=== PATIENT | male | born 1960 | race Asian ===

== ENCOUNTER 2017-02-22 17:57 | Inpatient (IN) | payer MEDICAID ==
[~2017-02-22] VITALS: Ht 162.6 cm; Wt 58.1 kg
[~2017-02-22 17:57] MED LIST: ASPI81TA33 PO; CARV6 PO; FURO40 PO; LISI-660 PO; POTA-9 PO
[2017-02-22 18:51] LABS: ANION GAP 8 mmol/L (8-16); CALCIUM, TOTAL 8.7 mg/dL (8.8-10.5); CARBON DIOXIDE 27 mmol/L (22-29); CHLORIDE 104 mmol/L (98-107); CREATININE 1.47 mg/dL (0.60-1.30); GLOMERULAR FILTR. RATE CALC 50 mL/min (>60); POTASSIUM 4.5 mmol/L (3.5-5.1); SODIUM SERUM 139 mmol/L (136-145); UREA NITROGEN, BLOOD 28 mg/dL (7-18)
[2017-02-22 18:56] LABS: HEMATOCRIT 43.3 % (41-53); HEMOGLOBIN 14.2 g/dL (13.5-17.5); LYMPHOCYTES # (AUTO) 1.1 K/uL (1.0-4.8); LYMPHOCYTES % (AUTO) 12.5 % (22.0-44.0); MEAN CORPUSCULAR HEMOGLOBIN 29.5 pg (26.0-34.0); MEAN CORPUSCULAR HGB CONC 32.7 G/dL (31.0-37.0); MEAN CORPUSCULAR VOLUME 90 fL (80-100); MONOCYTES # (AUTO) 0.7 K/uL (0.1-1.0); MONOCYTES % (AUTO) 8.4 % (2.0-9.0); NEUTROPHILS # (AUTO) 6.5 K/uL (1.8-7.7); NEUTROPHILS % (AUTO) 75.1 % (40.0-70.0); PLATELET COUNT (AUTO) 260 K/uL (150-450); RED BLOOD CELL COUNT(AUTO) 4.81 MIL/uL (4.50-5.90); WHITE BLOOD COUNT (AUTO) 8.7 K/uL (4.5-11.0)
[2017-02-22 18:57] LABS: ALANINE AMINOTRANSFERASE 78 U/L (12-78); ALBUMIN 3.2 g/dL (3.4-5.0); ASPARTATE AMINOTRANSFERASE 48 U/L (15-37); BILIRUBIN,TOTAL 1.7 mg/dL (0.1-1.0); TOTAL PROTEIN, SERUM 6.2 g/dL (6.4-8.2)
[2017-02-22 19:18] LABS: B-TYPE NATRIURETIC PEPTIDE 2570 pg/mL (0-100)
[2017-02-22 19:29] LABS: APPEARANCE,URINE CLEAR (CLEAR); GLUCOSE, URINE (UA) NEGATIVE (NEGATIVE); KETONES,URINE NEGATIVE (NEGATIVE); LEUKOCYTE ESTERASE ,URINE NEGATIVE (NEGATIVE); OCCULT BLOOD,URINE LARGE (NEGATIVE); PH,URINE 5.5 (5.0-8.0); PROTEIN,URINE SEE CONFIRM (NEGATIVE)
[2017-02-22 19:39] LABS: ADD UA MICROSCOPIC YES
[2017-02-22] MEDS ORDERED: FUROSEMIDE 40 MG/4 ML VIAL IVP ONE (19:45)
[2017-02-22] MEDS ORDERED: LISINOPRIL 10 MG TABLET PO ONE (19:45)
[2017-02-22] MEDS ORDERED: CARVEDILOL 3.125 MG TABLET PO ONE (19:45)
[2017-02-22] MEDS ORDERED: 0.9% SODIUM CHLORIDE 10 ML SYRINGE IVP PRN (20:15)
[2017-02-22] MEDS ORDERED: ACETAMINOPHEN 325 MG TABLET PO PRN (20:15)
[2017-02-22] MEDS ORDERED: ONDANSETRON HCL 4 MG/2 ML VIAL IVP PRN (20:15)
[2017-02-22 20:23] LABS: SULFOSALICYLIC ACID,URINE 4+ (Negative)
[2017-02-22 20:29] LABS: SQUAMOUS EPITHELIAL CELL,UR Few /LPF (None Seen)
[2017-02-22 20:58] VITALS: BP 129/95
[2017-02-22 20:58] LABS: CREATINE KINASE MB 3.6 ng/mL (0-5); CREATINE KINASE, TOTAL 95 U/L (39-308)
[2017-02-22] MEDS ORDERED: PNEUMOCOCCAL VACCINE POLYVALENT 0.5 ML VIAL [PPSV23] IM ONE (22:15)
[2017-02-22] MEDS ORDERED: INFLUENZA VIRUS VACCINE QVS 2017-18 (3YR+)/PF 60 MCG/0.5 ML SYRINGE IM ONE (22:15)
[2017-02-22 23:41] VITALS: BP 126/75
[2017-02-23 04:43] VITALS: BP 131/88
[2017-02-23 07:36] VITALS: BP 134/95
[2017-02-23] MEDS ORDERED: FUROSEMIDE 40 MG/4 ML VIAL IVP SCH (11:15)
[2017-02-23 11:20] VITALS: BP 119/84
[2017-02-23] MEDS ORDERED: FUROSEMIDE 40 MG/4 ML VIAL IVP ONE (11:45)
[2017-02-23] MEDS: LISINOPRIL 10 MG TABLET PO SCH (11:51)
[2017-02-23] MEDS: CARVEDILOL 12.5 MG TABLET PO SCH (11:51)
[2017-02-23 15:20] VITALS: BP 105/75
[2017-02-23] MEDS: HEPARIN SODIUM,PORCINE 5,000 UNITS/ML VIAL SQ SCH (16:44)
[2017-02-23 19:33] VITALS: BP 100/65
[2017-02-23 23:40] VITALS: BP 118/85
[2017-02-24 04:20] VITALS: BP 126/87
[2017-02-24 07:36] VITALS: BP 121/87
[2017-02-24] MEDS: HEPARIN SODIUM,PORCINE 5,000 UNITS/ML VIAL SQ SCH ×3 (07:54→17:12)
[2017-02-24] MEDS: LISINOPRIL 10 MG TABLET PO SCH (07:54)
[2017-02-24] MEDS: CARVEDILOL 12.5 MG TABLET PO SCH (07:54)
[2017-02-24] MEDS: FUROSEMIDE 40 MG/4 ML VIAL IVP SCH (07:54)
[2017-02-24 09:27] LABS: CALCIUM, TOTAL 8.2 mg/dL (8.8-10.5); CREATININE 1.71 mg/dL (0.60-1.30); POTASSIUM 3.9 mmol/L (3.5-5.1)
[2017-02-24 09:29] LABS: BASOPHILS % (AUTO) 0.4 % (0.0-2.0); EOSINOPHILS % (AUTO) 5.5 % (1.0-6.0); HEMATOCRIT 45.3 % (41-53); HEMOGLOBIN 15.1 g/dL (13.5-17.5); LYMPHOCYTES # (AUTO) 0.7 K/uL (1.0-4.8); LYMPHOCYTES % (AUTO) 7.7 % (22.0-44.0); MEAN CORPUSCULAR HEMOGLOBIN 29.9 pg (26.0-34.0); MEAN CORPUSCULAR HGB CONC 33.2 G/dL (31.0-37.0); MEAN CORPUSCULAR VOLUME 90 fL (80-100); MONOCYTES # (AUTO) 0.7 K/uL (0.1-1.0); NEUTROPHILS # (AUTO) 7.3 K/uL (1.8-7.7); NEUTROPHILS % (AUTO) 78.4 % (40.0-70.0); PLATELET COUNT (AUTO) 269 K/uL (150-450); RED BLOOD CELL COUNT(AUTO) 5.04 MIL/uL (4.50-5.90); RED CELL DISTRIBUTION WIDTH 14.9 % (11.5-14.5); WHITE BLOOD COUNT (AUTO) 9.3 K/uL (4.5-11.0)
[2017-02-24 11:27] VITALS: BP 102/61
[2017-02-24 15:45] VITALS: BP 130/92
[2017-02-24 19:43] VITALS: BP 123/88
[2017-02-24 23:32] VITALS: BP 131/87
[2017-02-25 04:26] VITALS: BP 122/86
[2017-02-25 06:28] LABS: ALBUMIN 2.6 g/dL (3.4-5.0); BILIRUBIN,TOTAL 0.5 mg/dL (0.1-1.0); CALCIUM, TOTAL 7.8 mg/dL (8.8-10.5); CHOL/HDL RATIO 4.1 (4.2-7.3); CREATININE 1.52 mg/dL (0.60-1.30); POTASSIUM 3.8 mmol/L (3.5-5.1)
[2017-02-25 07:19] VITALS: BP 127/95
[2017-02-25] MEDS: FUROSEMIDE 40 MG/4 ML VIAL IVP SCH (08:16)
[2017-02-25] MEDS: HEPARIN SODIUM,PORCINE 5,000 UNITS/ML VIAL SQ SCH ×4 (08:16→23:07)
[2017-02-25] MEDS: CARVEDILOL 12.5 MG TABLET PO SCH (08:16)
[2017-02-25 11:12] VITALS: BP 109/75
[2017-02-25] MEDS: LISINOPRIL 10 MG TABLET PO SCH (11:44)
[2017-02-25 15:27] VITALS: BP 124/72
[2017-02-25 19:17] VITALS: BP 104/75
[2017-02-25 23:11] VITALS: BP 112/77
[2017-02-26 04:58] VITALS: BP 121/85
[2017-02-26 06:36] LABS: ALBUMIN 2.7 g/dL (3.4-5.0); BILIRUBIN,TOTAL 0.4 mg/dL (0.1-1.0); CALCIUM, TOTAL 8.4 mg/dL (8.8-10.5); CREATININE 1.48 mg/dL (0.60-1.30); MAGNESIUM 2.3 mg/dL (1.80-2.40); TOTAL PROTEIN, SERUM 6.6 g/dL (6.4-8.2)
[2017-02-26 07:30] VITALS: BP 123/95
[2017-02-26 07:58] LABS: BASOPHILS % (AUTO) 0.8 % (0.0-2.0); EOSINOPHILS % (AUTO) 10.8 % (1.0-6.0); HEMATOCRIT 47.3 % (41-53); HEMOGLOBIN 15.5 g/dL (13.5-17.5); LYMPHOCYTES # (AUTO) 1.2 K/uL (1.0-4.8); LYMPHOCYTES % (AUTO) 14.6 % (22.0-44.0); MEAN CORPUSCULAR HEMOGLOBIN 29.8 pg (26.0-34.0); MEAN CORPUSCULAR HGB CONC 32.7 G/dL (31.0-37.0); MEAN CORPUSCULAR VOLUME 91 fL (80-100); MONOCYTES # (AUTO) 0.9 K/uL (0.1-1.0); MONOCYTES % (AUTO) 10.1 % (2.0-9.0); NEUTROPHILS # (AUTO) 5.5 K/uL (1.8-7.7); NEUTROPHILS % (AUTO) 63.7 % (40.0-70.0); PLATELET COUNT (AUTO) 302 K/uL (150-450); RED CELL DISTRIBUTION WIDTH 15.6 % (11.5-14.5); WHITE BLOOD COUNT (AUTO) 8.6 K/uL (4.5-11.0)
[2017-02-26] MEDS: HEPARIN SODIUM,PORCINE 5,000 UNITS/ML VIAL SQ SCH ×2 (08:36→16:40)
[2017-02-26] MEDS: FUROSEMIDE 40 MG/4 ML VIAL IVP SCH (08:36)
[2017-02-26] MEDS: CARVEDILOL 12.5 MG TABLET PO SCH (08:36)
[2017-02-26] MEDS: LISINOPRIL 10 MG TABLET PO SCH (11:48)
[2017-02-26] MEDS ORDERED: CARV12 PO (13:49)
[2017-02-26] MEDS ORDERED: ASPI-1182 PO (13:52)
[2017-02-26] MEDS ORDERED: KDUR10 PO (13:52)
[2017-02-26] MEDS ORDERED: LISI-661 PO (13:52)
[2017-02-26] MEDS ORDERED: FURO40 PO (13:52)
[2017-02-26 15:24] VITALS: BP 107/59
[2017-02-26] MEDS ORDERED: OXYGEN THERAPY IH SCH (20:00)
== END 2017-02-26 15:30 | disposition home or self-care (01) | DRG 194 ==
LOC: EMS 18:01 → 5S 20:15
PROVIDERS: ADMIT Family Medicine; ATTEND Family Medicine
PROC: 3E0234Z Introduction of Serum, Toxoid and Vaccine into Muscle, Percutaneous Approach (ICD-10-PCS; principal; 2017-02-22)
DX: I13.0 Hypertensive heart and chronic kidney disease with heart failure and stage 1 through stage 4 chronic kidney disease, or unspecified chronic kidney disease (principal); I27.20 Pulmonary hypertension, unspecified; I42.0 Dilated cardiomyopathy; N18.3 Chronic kidney disease, stage 3 (moderate); I50.23 Acute on chronic systolic (congestive) heart failure; F15.10 Other stimulant abuse, uncomplicated; I34.0 Nonrheumatic mitral (valve) insufficiency; F12.10 Cannabis abuse, uncomplicated; F17.200 Nicotine dependence, unspecified, uncomplicated; I45.9 Conduction disorder, unspecified; Z79.899 Other long term (current) drug therapy; Z91.19 Patient's noncompliance with other medical treatment and regimen; Z23 Encounter for immunization
CPT/HCPCS: 83735; 87086; 90471; 93005; 93306; 96374; 99285; 99406; J1644; J1940

== ENCOUNTER 2017-03-10 17:33 | Inpatient (IN) | payer MEDICAID ==
[~2017-03-10] VITALS: Ht 157.5 cm; Wt 59.0 kg
[~2017-03-10 17:33] MED LIST changes: +ASPI-1182 PO; -ASPI81TA33 PO; +CARV12 PO; -CARV6 PO; +KDUR10 PO; -LISI-660 PO; +LISI-661 PO; -POTA-9 PO
[2017-03-10 18:07] LABS: BASOPHILS % (AUTO) 0.2 % (0.0-2.0); EOSINOPHILS % (AUTO) 2.6 % (1.0-6.0); HEMATOCRIT 40.5 % (41-53); HEMOGLOBIN 13.6 g/dL (13.5-17.5); LYMPHOCYTES # (AUTO) 1.2 K/uL (1.0-4.8); LYMPHOCYTES % (AUTO) 9.6 % (22.0-44.0); MEAN CORPUSCULAR HEMOGLOBIN 30.2 pg (26.0-34.0); MEAN CORPUSCULAR HGB CONC 33.6 G/dL (31.0-37.0); MEAN CORPUSCULAR VOLUME 90 fL (80-100); MONOCYTES # (AUTO) 1.1 K/uL (0.1-1.0); MONOCYTES % (AUTO) 8.8 % (2.0-9.0); NEUTROPHILS # (AUTO) 9.6 K/uL (1.8-7.7); NEUTROPHILS % (AUTO) 78.8 % (40.0-70.0); PLATELET COUNT (AUTO) 256 K/uL (150-450); RED BLOOD CELL COUNT(AUTO) 4.51 MIL/uL (4.50-5.90); RED CELL DISTRIBUTION WIDTH 14.8 % (11.5-14.5); WHITE BLOOD COUNT (AUTO) 12.2 K/uL (4.5-11.0)
[2017-03-10 18:15] LABS: ABG A-A DIFF O2 159.8 mmHg (10-20.0); ABG BASE EXCESS -2.9 mmol/L (-2.0-3.0); ABG HCO3 22.6 mmol/L (22.0-26.0); ABG OXYHEMOGLOBIN 95.4 % (94.0-100.0); ABG PCO2 36 mmHg (35-45); ABG PH 7.403 (7.35-7.450); ALLEN TEST, BLOOD GAS Positive; TEMPERATURE, FAHRENHEIT, BG 98.6 FAHREN (96.0-98.6)
[2017-03-10 18:20] LABS: ANION GAP 9 mmol/L (8-16); CALCIUM, TOTAL 8.3 mg/dL (8.8-10.5); CARBON DIOXIDE 27 mmol/L (22-29); CHLORIDE 105 mmol/L (98-107); CREATININE 1.28 mg/dL (0.60-1.30); GLOMERULAR FILTR. RATE CALC 58 mL/min (>60); POTASSIUM 4.1 mmol/L (3.5-5.1); SODIUM SERUM 141 mmol/L (136-145); UREA NITROGEN, BLOOD 20 mg/dL (7-18)
[2017-03-10 18:27] LABS: B-TYPE NATRIURETIC PEPTIDE 1270 pg/mL (0-100)
[2017-03-10 18:44] LABS: ALANINE AMINOTRANSFERASE 39 U/L (12-78); ALBUMIN 3.2 g/dL (3.4-5.0); ASPARTATE AMINOTRANSFERASE 31 U/L (15-37); CREATINE KINASE MB 4.1 ng/mL (0-5); CREATINE KINASE, TOTAL 250 U/L (39-308); TOTAL PROTEIN, SERUM 6.6 g/dL (6.4-8.2)
[2017-03-10] MEDS ORDERED: 0.9% SODIUM CHLORIDE 5 ML NEB SOLUTION NEB ONE (18:58)
[2017-03-10] MEDS ORDERED: FUROSEMIDE 40 MG/4 ML VIAL IVP ONE (19:00)
[2017-03-10] MEDS ORDERED: IPRATROPIUM BROMIDE 0.5 MG/2.5 ML NEB SOLUTION NEB ONE (19:00)
[2017-03-10] MEDS ORDERED: ALBUTEROL SULFATE 5 MG/ML 20 ML NEB SOLN [BULK] NEB ONE (19:00)
[2017-03-10] MEDS ORDERED: ACETAMINOPHEN 325 MG TABLET PO PRN (19:45)
[2017-03-10] MEDS ORDERED: ONDANSETRON HCL 4 MG/2 ML VIAL IVP PRN (19:45)
[2017-03-10] MEDS ORDERED: 0.9% SODIUM CHLORIDE 10 ML SYRINGE IVP PRN (19:45)
[2017-03-10 20:47] VITALS: BP 137/87
[2017-03-10] MEDS ORDERED: IPRATROPIUM BROMIDE 0.5 MG/2.5 ML NEB SOLUTION NEB SCH (23:00)
[2017-03-10] MEDS ORDERED: ALBUTEROL SULFATE 2.5 MG/0.5 ML NEB SOLUTION NEB SCH (23:00)
[2017-03-10 23:46] VITALS: BP 120/78
[2017-03-11 04:49] VITALS: BP 128/87
[2017-03-11 06:55] LABS: BASOPHILS # (AUTO) 0.02 K/uL (0.00-0.20); BASOPHILS % (AUTO) 0.1 % (0.0-2.0); EOSINOPHILS # (AUTO) 0.52 K/uL (0.00-0.70); EOSINOPHILS % (AUTO) 4.81 % (1.0-6.0); HEMATOCRIT 43.1 % (41-53); LYMPHOCYTES # (AUTO) 0.6 K/uL (1.0-4.8); LYMPHOCYTES % (AUTO) 5.4 % (22.0-44.0); MEAN CORPUSCULAR HEMOGLOBIN 29.5 pg (26.0-34.0); MEAN CORPUSCULAR HGB CONC 32.6 G/dL (31.0-37.0); MEAN CORPUSCULAR VOLUME 91 fL (80-100); MONOCYTES # (AUTO) 0.9 K/uL (0.1-1.0); MONOCYTES % (AUTO) 7.8 % (2.0-9.0); NEUTROPHILS # (AUTO) 8.9 K/uL (1.8-7.7); NEUTROPHILS % (AUTO) 81.9 % (40.0-70.0); PLATELET COUNT (AUTO) 242 K/uL (150-450); RED BLOOD CELL COUNT(AUTO) 4.76 MIL/uL (4.50-5.90); RED CELL DISTRIBUTION WIDTH 14.5 % (11.5-14.5); WHITE BLOOD COUNT (AUTO) 10.9 K/uL (4.5-11.0)
[2017-03-11 07:08] LABS: ALBUMIN 3.1 g/dL (3.4-5.0); BILIRUBIN,TOTAL 1.3 mg/dL (0.1-1.0); CALCIUM, TOTAL 8.5 mg/dL (8.8-10.5); CREATININE 1.35 mg/dL (0.60-1.30); MAGNESIUM 1.7 mg/dL (1.80-2.40); POTASSIUM 3.7 mmol/L (3.5-5.1); TOTAL PROTEIN, SERUM 6.8 g/dL (6.4-8.2)
[2017-03-11 07:16] VITALS: BP 131/92
[2017-03-11] MEDS: LISINOPRIL 10 MG TABLET PO SCH (08:16)
[2017-03-11] MEDS: POTASSIUM CHLORIDE 10 MEQ ER TABLET PO SCH (08:16)
[2017-03-11] MEDS: ASPIRIN 81 MG EC TABLET PO SCH (08:16)
[2017-03-11] MEDS: FUROSEMIDE 40 MG/4 ML VIAL IVP SCH ×2 (08:16→21:52)
[2017-03-11] MEDS: CARVEDILOL 12.5 MG TABLET PO SCH ×2 (08:16→21:52)
[2017-03-11 08:52] LABS: ADD UA MICROSCOPIC YES; APPEARANCE,URINE CLEAR (CLEAR); GLUCOSE, URINE (UA) NEGATIVE (NEGATIVE); KETONES,URINE NEGATIVE (NEGATIVE); LEUKOCYTE ESTERASE ,URINE NEGATIVE (NEGATIVE); OCCULT BLOOD,URINE MODERATE (NEGATIVE); PROTEIN,URINE POS 1+ (NEGATIVE)
[2017-03-11 08:57] LABS: SQUAMOUS EPITHELIAL CELL,UR Rare /LPF (None Seen); WBC,URINE 0-2 /HPF (0-5)
[2017-03-11 08:58] LABS: RBC,URINE 0-2 /HPF (0-2)
[2017-03-11 11:18] VITALS: BP 130/87
[2017-03-11] MEDS ORDERED: ACETAMINOPHEN 325 MG TABLET PO PRN (12:45)
[2017-03-11] MEDS: PANTOPRAZOLE SODIUM 40 MG DR TABLET PO SCH (13:29)
[2017-03-11] MEDS: HEPARIN SODIUM,PORCINE 5,000 UNITS/ML VIAL SQ SCH (15:18)
[2017-03-11 15:35] VITALS: BP 133/74
[2017-03-11] MEDS ORDERED: MAGNESIUM SULFATE 2 GM in DEXTROSE 5%-WATER 50 ML IV ONE (16:45)
[2017-03-11] MEDS: IPRATROPIUM BROMIDE 0.5 MG/2.5 ML NEB SOLUTION NEB PRN (16:56)
[2017-03-11] MEDS: ALBUTEROL SULFATE 2.5 MG/0.5 ML NEB SOLUTION NEB PRN (16:56)
[2017-03-11 20:41] VITALS: BP 133/85
[2017-03-11] MEDS: CefTRIAXone 1 GM/DEXTROSE 50 ML IV SCH (22:44)
[2017-03-12] VITALS (7 sets, daily range): BP systolic 91–109; BP diastolic 59–85
[2017-03-12] MEDS: HEPARIN SODIUM,PORCINE 5,000 UNITS/ML VIAL SQ SCH ×3 (00:10→16:57)
[2017-03-12 07:29] LABS: BASOPHILS % (AUTO) 0.2 % (0.0-2.0); HEMATOCRIT 50.3 % (41-53); HEMOGLOBIN 16.6 g/dL (13.5-17.5); LYMPHOCYTES # (AUTO) 0.7 K/uL (1.0-4.8); LYMPHOCYTES % (AUTO) 6.1 % (22.0-44.0); MEAN CORPUSCULAR HEMOGLOBIN 29.8 pg (26.0-34.0); MEAN CORPUSCULAR HGB CONC 33.1 G/dL (31.0-37.0); MEAN CORPUSCULAR VOLUME 90 fL (80-100); MONOCYTES # (AUTO) 1.4 K/uL (0.1-1.0); MONOCYTES % (AUTO) 11.7 % (2.0-9.0); PLATELET COUNT (AUTO) 265 K/uL (150-450); RED BLOOD CELL COUNT(AUTO) 5.59 MIL/uL (4.50-5.90); RED CELL DISTRIBUTION WIDTH 14.4 % (11.5-14.5); WHITE BLOOD COUNT (AUTO) 11.7 K/uL (4.5-11.0)
[2017-03-12 07:56] LABS: ANION GAP 6 mmol/L (8-16); CALCIUM, TOTAL 9.1 mg/dL (8.8-10.5); CARBON DIOXIDE 31 mmol/L (22-29); CHLORIDE 99 mmol/L (98-107); CHOL/HDL RATIO 2.3 (4.2-7.3); CREATINE KINASE, TOTAL 110 U/L (39-308); CREATININE 1.35 mg/dL (0.60-1.30); GLOMERULAR FILTR. RATE CALC 55 mL/min (>60); POTASSIUM 3.7 mmol/L (3.5-5.1); SODIUM SERUM 136 mmol/L (136-145); UREA NITROGEN, BLOOD 32 mg/dL (7-18)
[2017-03-12] MEDS: FUROSEMIDE 40 MG/4 ML VIAL IVP SCH ×2 (09:05→21:12)
[2017-03-12] MEDS: ASPIRIN 81 MG EC TABLET PO SCH (09:07)
[2017-03-12] MEDS: CARVEDILOL 12.5 MG TABLET PO SCH ×2 (09:07→21:00)
[2017-03-12] MEDS: PANTOPRAZOLE SODIUM 40 MG DR TABLET PO SCH (09:07)
[2017-03-12] MEDS: POTASSIUM CHLORIDE 10 MEQ ER TABLET PO SCH (09:07)
[2017-03-12] MEDS: LISINOPRIL 10 MG TABLET PO SCH (09:08)
[2017-03-12] MEDS: OXYGEN THERAPY IH SCH ×2 (10:21→19:16)
[2017-03-12] MEDS: ALBUTEROL SULFATE 2.5 MG/0.5 ML NEB SOLUTION NEB PRN (10:23)
[2017-03-12] MEDS: IPRATROPIUM BROMIDE 0.5 MG/2.5 ML NEB SOLUTION NEB PRN (10:23)
[2017-03-12] MEDS: IPRATROPIUM BROMIDE 0.5 MG/2.5 ML NEB SOLUTION NEB SCH ×3 (16:42→23:16)
[2017-03-12] MEDS: ALBUTEROL SULFATE 2.5 MG/0.5 ML NEB SOLUTION NEB SCH ×3 (16:43→23:16)
[2017-03-12] MEDS: CefTRIAXone 1 GM/DEXTROSE 50 ML IV SCH (21:12)
[2017-03-13] MEDS: HEPARIN SODIUM,PORCINE 5,000 UNITS/ML VIAL SQ SCH ×2 (00:33→08:41)
[2017-03-13] MEDS: IPRATROPIUM BROMIDE 0.5 MG/2.5 ML NEB SOLUTION NEB SCH ×4 (03:05→15:05)
[2017-03-13] MEDS: ALBUTEROL SULFATE 2.5 MG/0.5 ML NEB SOLUTION NEB SCH ×4 (03:05→15:05)
[2017-03-13 04:33] VITALS: BP 109/75
[2017-03-13 07:08] LABS: CALCIUM, TOTAL 8.8 mg/dL (8.8-10.5); CREATININE 1.76 mg/dL (0.60-1.30); POTASSIUM 4.3 mmol/L (3.5-5.1)
[2017-03-13 07:12] VITALS: BP 112/75
[2017-03-13 07:14] LABS: BASOPHILS % (AUTO) 0.5 % (0.0-2.0); EOSINOPHILS % (AUTO) 11.9 % (1.0-6.0); HEMATOCRIT 49.2 % (41-53); HEMOGLOBIN 16.3 g/dL (13.5-17.5); LYMPHOCYTES # (AUTO) 1.3 K/uL (1.0-4.8); LYMPHOCYTES % (AUTO) 13.4 % (22.0-44.0); MEAN CORPUSCULAR HEMOGLOBIN 29.9 pg (26.0-34.0); MEAN CORPUSCULAR HGB CONC 33.2 G/dL (31.0-37.0); MEAN CORPUSCULAR VOLUME 90 fL (80-100); MONOCYTES # (AUTO) 1.2 K/uL (0.1-1.0); MONOCYTES % (AUTO) 12.1 % (2.0-9.0); NEUTROPHILS # (AUTO) 5.9 K/uL (1.8-7.7); NEUTROPHILS % (AUTO) 62.1 % (40.0-70.0); PLATELET COUNT (AUTO) 280 K/uL (150-450); RED BLOOD CELL COUNT(AUTO) 5.46 MIL/uL (4.50-5.90); RED CELL DISTRIBUTION WIDTH 14.7 % (11.5-14.5); WHITE BLOOD COUNT (AUTO) 9.5 K/uL (4.5-11.0)
[2017-03-13] MEDS: OXYGEN THERAPY IH SCH (08:08)
[2017-03-13] MEDS: FUROSEMIDE 40 MG/4 ML VIAL IVP SCH (08:41)
[2017-03-13] MEDS: POTASSIUM CHLORIDE 10 MEQ ER TABLET PO SCH (08:42)
[2017-03-13] MEDS: PANTOPRAZOLE SODIUM 40 MG DR TABLET PO SCH (08:42)
[2017-03-13] MEDS: ASPIRIN 81 MG EC TABLET PO SCH (08:42)
[2017-03-13] MEDS: CARVEDILOL 12.5 MG TABLET PO SCH (08:43)
[2017-03-13] MEDS: LISINOPRIL 10 MG TABLET PO SCH (09:00)
[2017-03-13 11:17] VITALS: BP 98/66
[2017-03-13 15:34] VITALS: BP 110/60
== END 2017-03-13 16:08 | disposition home or self-care (01) | DRG 194 ==
LOC: EMS 17:35 → 5S 19:49
PROVIDERS: ADMIT Family Medicine; ATTEND Family Medicine
DX: I11.0 Hypertensive heart disease with heart failure (principal); R65.10 Systemic inflammatory response syndrome (SIRS) of non-infectious origin without acute organ dysfunction; J44.9 Chronic obstructive pulmonary disease, unspecified; I50.23 Acute on chronic systolic (congestive) heart failure; F12.90 Cannabis use, unspecified, uncomplicated; Z87.891 Personal history of nicotine dependence; Z91.19 Patient's noncompliance with other medical treatment and regimen; Z79.899 Other long term (current) drug therapy; Z71.6 Tobacco abuse counseling
CPT/HCPCS: 80307; 82805; 83735; 87040; 87081; 87086; 93005; 94640; 94644; 96374; 99285; J0696; J1644; J1940; J3475; J7060

== ENCOUNTER 2018-02-14 11:14 | Inpatient (IN) | payer SELFPAY ==
[~2018-02-14] VITALS: Ht 162.6 cm; Wt 56.1 kg
[2018-02-14 12:03] LABS: INR 1.2 (0.9-1.1)
[2018-02-14 12:04] LABS: BASOPHILS % (AUTO) 0.7 % (0.0-2.0); CALCIUM, TOTAL 8.5 mg/dL (8.8-10.5); CREATININE 1.63 mg/dL (0.60-1.30); EOSINOPHILS % (AUTO) 1.1 % (1.0-6.0); HEMATOCRIT 47.6 % (41-53); HEMOGLOBIN 15.7 g/dL (13.5-17.5); LYMPHOCYTES # (AUTO) 0.6 K/uL (1.0-4.8); LYMPHOCYTES % (AUTO) 9.2 % (22.0-44.0); MEAN CORPUSCULAR HEMOGLOBIN 29.6 pg (26.0-34.0); MEAN CORPUSCULAR HGB CONC 32.9 G/dL (31.0-37.0); MEAN CORPUSCULAR VOLUME 90 fL (80-100); MONOCYTES # (AUTO) 0.4 K/uL (0.1-1.0); MONOCYTES % (AUTO) 6.3 % (2.0-9.0); NEUTROPHILS # (AUTO) 5.2 K/uL (1.8-7.7); NEUTROPHILS % (AUTO) 82.7 % (40.0-70.0); PLATELET COUNT (AUTO) 273 K/uL (150-450); POTASSIUM 4.3 mmol/L (3.5-5.1); RED BLOOD CELL COUNT(AUTO) 5.31 MIL/uL (4.50-5.90); RED CELL DISTRIBUTION WIDTH 14.9 % (11.5-14.5)
[2018-02-14] MEDS ORDERED: NITROGLYCERIN 2% (1 GM=INCH) PACKET TP ONE (12:15)
[2018-02-14] MEDS ORDERED: FUROSEMIDE 40 MG/4 ML VIAL IVP ONE (12:15)
[2018-02-14] MEDS ORDERED: ASPIRIN 325 MG EC TABLET PO ONE (12:15)
[2018-02-14 12:32] LABS: ALBUMIN 2.9 g/dL (3.4-5.0); BILIRUBIN,TOTAL 1.2 mg/dL (0.1-1.0); TOTAL PROTEIN, SERUM 6.6 g/dL (6.4-8.2)
[2018-02-14] MEDS ORDERED: HydrALAZINE HCL 20 MG/ML VIAL IVP ONE (13:30)
[2018-02-14 13:33] LABS: AMPHET/METH SCREEN,URINE NEGATIVE (NEGATIVE); BARBITURATE SCREEN, URINE NEGATIVE (NEGATIVE); BENZODIAZEPINES SCREEN,URINE NEGATIVE (NEGATIVE); CANNABINOID SCREEN,URINE POSITIVE (NEGATIVE); COCAINE SCREEN,URINE NEGATIVE (NEGATIVE); METHADONE SCREEN, URINE NEGATIVE (NEGATIVE); OPIATE SCREEN,URINE NEGATIVE (NEGATIVE)
[2018-02-14 13:35] LABS: PHENCYCLIDINE SCREEN,URINE NEGATIVE (NEGATIVE)
[2018-02-14 13:47] LABS: APPEARANCE,URINE CLEAR (CLEAR); BILIRUBIN,URINE NEGATIVE (NEGATIVE); GLUCOSE, URINE (UA) NEGATIVE (NEGATIVE); KETONES,URINE NEGATIVE (NEGATIVE); LEUKOCYTE ESTERASE ,URINE NEGATIVE (NEGATIVE); NITRATE,URINE NEGATIVE (NEGATIVE); OCCULT BLOOD,URINE MODERATE (NEGATIVE); PROTEIN,URINE SEE CONFIRM (NEGATIVE); UROBILINOGEN,URINE 0.2 mg/dL (<=1.0)
[2018-02-14] MEDS ORDERED: ACETAMINOPHEN 325 MG TABLET PO PRN ×2 (14:00→17:30)
[2018-02-14] MEDS ORDERED: 0.9% SODIUM CHLORIDE 10 ML SYRINGE IVP PRN (14:00)
[2018-02-14 14:01] LABS: SULFOSALICYLIC ACID,URINE 3+ (Negative)
[2018-02-14 14:03] LABS: BACTERIA,URINE None Seen /HPF (None Seen); HYALINE CASTS, URINE 0-2 /LPF (None Seen); SQUAMOUS EPITHELIAL CELL,UR Few /LPF (None Seen); WBC,URINE 0-2 /HPF (0-5)
[2018-02-14 16:20] VITALS: BP 126/77
[2018-02-14] MEDS ORDERED: HYDROCODONE/ACETAMINOPHEN 5-325 MG TABLET PO PRN (17:30)
[2018-02-14] MEDS ORDERED: ZOLPIDEM TARTRATE 5 MG TABLET PO PRN (17:30)
[2018-02-14] MEDS ORDERED: IPRATROPIUM BROMIDE 0.5 MG/2.5 ML NEB SOLUTION NEB PRN (17:30)
[2018-02-14] MEDS ORDERED: ONDANSETRON HCL 4 MG/2 ML VIAL IVP PRN (17:30)
[2018-02-14] MEDS ORDERED: MAGNESIUM HYDROXIDE SUSPENSION 30 ML UDCUP PO PRN (17:30)
[2018-02-14] MEDS ORDERED: BISACODYL 10 MG RECTAL RECTAL SUPPOSITORY PR PRN (17:30)
[2018-02-14] MEDS ORDERED: ALBUTEROL SULFATE 2.5 MG/0.5 ML NEB SOLUTION NEB PRN (17:30)
[2018-02-14] MEDS ORDERED: MORPHINE SULFATE 2 MG/ML SYRINGE IVP PRN (17:30)
[2018-02-14] MEDS: NITROGLYCERIN 2% (1 GM=INCH) PACKET TP SCH ×2 (18:06→23:23)
[2018-02-14 19:47] VITALS: BP 126/89
[2018-02-14] MEDS: DOCUSATE SODIUM 100 MG CAPSULE PO SCH (20:21)
[2018-02-14] MEDS: CARVEDILOL 12.5 MG TABLET PO SCH (20:21)
[2018-02-14 23:13] VITALS: BP 111/84
[2018-02-14 23:14] VITALS: BP 111/84
[2018-02-14] MEDS: HEPARIN SODIUM,PORCINE 5,000 UNITS/ML VIAL SQ SCH (23:22)
[2018-02-15 04:30] VITALS: BP 109/72
[2018-02-15] MEDS: NITROGLYCERIN 2% (1 GM=INCH) PACKET TP SCH ×3 (05:44→16:38)
[2018-02-15 06:24] LABS: BASOPHILS % (AUTO) 0.9 % (0.0-2.0); HEMATOCRIT 43.1 % (41-53); HEMOGLOBIN 14.5 g/dL (13.5-17.5); LYMPHOCYTES # (AUTO) 0.7 K/uL (1.0-4.8); LYMPHOCYTES % (AUTO) 9.4 % (22.0-44.0); MEAN CORPUSCULAR HEMOGLOBIN 30.4 pg (26.0-34.0); MEAN CORPUSCULAR HGB CONC 33.6 G/dL (31.0-37.0); MEAN CORPUSCULAR VOLUME 90 fL (80-100); MONOCYTES # (AUTO) 0.7 K/uL (0.1-1.0); MONOCYTES % (AUTO) 9.7 % (2.0-9.0); NEUTROPHILS # (AUTO) 5.4 K/uL (1.8-7.7); PLATELET COUNT (AUTO) 236 K/uL (150-450); RED BLOOD CELL COUNT(AUTO) 4.77 MIL/uL (4.50-5.90); RED CELL DISTRIBUTION WIDTH 14.2 % (11.5-14.5)
[2018-02-15] MEDS ORDERED: LANSOPRAZOLE 30 MG CAPSULE PO SCH (06:30)
[2018-02-15 06:50] LABS: ALBUMIN 2.5 g/dL (3.4-5.0); BILIRUBIN,TOTAL 0.9 mg/dL (0.1-1.0); CALCIUM, TOTAL 7.8 mg/dL (8.8-10.5); CHOL/HDL RATIO 3.6 (4.2-7.3); CREATININE 1.45 mg/dL (0.60-1.30); POTASSIUM 3.9 mmol/L (3.5-5.1); TOTAL PROTEIN, SERUM 5.7 g/dL (6.4-8.2)
[2018-02-15 07:42] VITALS: BP 115/71
[2018-02-15] MEDS: ASPIRIN 81 MG EC TABLET PO SCH (08:11)
[2018-02-15] MEDS: POTASSIUM CHLORIDE 10 MEQ ER TABLET PO SCH (08:12)
[2018-02-15] MEDS: PANTOPRAZOLE SODIUM 40 MG DR TABLET PO SCH (08:12)
[2018-02-15] MEDS: DOCUSATE SODIUM 100 MG CAPSULE PO SCH ×2 (08:12→19:56)
[2018-02-15] MEDS: HEPARIN SODIUM,PORCINE 5,000 UNITS/ML VIAL SQ SCH ×3 (08:12→23:57)
[2018-02-15 08:31] LABS: FREE T4 (FREE THYROXINE) 0.98 ng/dL (0.76-1.46); THYROID STIMULATING HORMONE 1.09 uIU/mL (0.36-3.74)
[2018-02-15] MEDS ORDERED: FUROSEMIDE 40 MG TABLET PO SCH (09:00)
[2018-02-15] MEDS ORDERED: ASPIRIN 81 MG CHEWABLE TABLET PO SCH (09:00)
[2018-02-15 11:54] VITALS: BP 119/63
[2018-02-15] MEDS: LISINOPRIL 10 MG TABLET PO SCH (12:51)
[2018-02-15] MEDS: CARVEDILOL 12.5 MG TABLET PO SCH ×2 (12:51→19:59)
[2018-02-15] MEDS: FUROSEMIDE 40 MG/4 ML VIAL IVP SCH ×2 (12:51→20:00)
[2018-02-15 16:19] VITALS: BP 120/83
[2018-02-15 20:32] VITALS: BP 116/79
[2018-02-15] MEDS ORDERED: FUROSEMIDE 40 MG/4 ML VIAL IVP SCH (21:00)
[2018-02-15 23:54] VITALS: BP 123/68
[2018-02-16] MEDS: NITROGLYCERIN 2% (1 GM=INCH) PACKET TP SCH ×4 (00:06→18:00)
[2018-02-16 03:30] VITALS: BP 105/70
[2018-02-16 07:56] VITALS: BP 104/55
[2018-02-16] MEDS: CARVEDILOL 12.5 MG TABLET PO SCH ×2 (08:57→21:00)
[2018-02-16] MEDS: POTASSIUM CHLORIDE 10 MEQ ER TABLET PO SCH (08:57)
[2018-02-16] MEDS: HEPARIN SODIUM,PORCINE 5,000 UNITS/ML VIAL SQ SCH ×2 (08:57→16:42)
[2018-02-16] MEDS: FUROSEMIDE 40 MG/4 ML VIAL IVP SCH ×2 (08:57→20:29)
[2018-02-16] MEDS: LISINOPRIL 10 MG TABLET PO SCH (08:57)
[2018-02-16] MEDS: DOCUSATE SODIUM 100 MG CAPSULE PO SCH ×2 (08:57→20:31)
[2018-02-16] MEDS: ASPIRIN 81 MG EC TABLET PO SCH (08:57)
[2018-02-16] MEDS: PANTOPRAZOLE SODIUM 40 MG DR TABLET PO SCH (08:57)
[2018-02-16 11:22] VITALS: BP 96/52
[2018-02-16 15:36] VITALS: BP 94/46
[2018-02-16] MEDS ORDERED: SODIUM CHLORIDE 0.9% 250 ML IV ONE (18:49)
[2018-02-16 19:30] VITALS: BP 103/54
[2018-02-17 00:03] VITALS: BP 116/64
[2018-02-17 05:26] VITALS: BP 105/69
[2018-02-17] MEDS: NITROGLYCERIN 2% (1 GM=INCH) PACKET TP SCH ×4 (05:33→18:00)
[2018-02-17 07:16] VITALS: BP 96/61
[2018-02-17] MEDS ORDERED: FUROSEMIDE 40 MG TABLET PO SCH (09:00)
[2018-02-17] MEDS: LISINOPRIL 10 MG TABLET PO SCH (09:00)
[2018-02-17 09:10] VITALS: BP 105/76
[2018-02-17] MEDS: DOCUSATE SODIUM 100 MG CAPSULE PO SCH (09:11)
[2018-02-17] MEDS: HEPARIN SODIUM,PORCINE 5,000 UNITS/ML VIAL SQ SCH ×3 (09:11→16:55)
[2018-02-17] MEDS: PANTOPRAZOLE SODIUM 40 MG DR TABLET PO SCH (09:11)
[2018-02-17] MEDS: ASPIRIN 81 MG EC TABLET PO SCH (09:12)
[2018-02-17] MEDS: POTASSIUM CHLORIDE 10 MEQ ER TABLET PO SCH (09:12)
[2018-02-17] MEDS: CARVEDILOL 12.5 MG TABLET PO SCH (09:12)
[2018-02-17 12:37] LABS: CALCIUM, TOTAL 8.4 mg/dL (8.8-10.5); CREATININE 1.6 mg/dL (0.60-1.30); POTASSIUM 4.3 mmol/L (3.5-5.1)
[2018-02-17 12:43] LABS: ALBUMIN 2.8 g/dL (3.4-5.0); BILIRUBIN,TOTAL 0.4 mg/dL (0.1-1.0); TOTAL PROTEIN, SERUM 6.7 g/dL (6.4-8.2)
[2018-02-17 14:59] VITALS: BP 92/64
== END 2018-02-17 18:45 | disposition home or self-care (01) | DRG 291 ==
LOC: EMS 11:15 → 5S 14:12
PROVIDERS: ADMIT Hospitalist; ATTEND Hospitalist
DX: I13.0 Hypertensive heart and chronic kidney disease with heart failure and stage 1 through stage 4 chronic kidney disease, or unspecified chronic kidney disease (principal); E43 Unspecified severe protein-calorie malnutrition; I50.23 Acute on chronic systolic (congestive) heart failure; J44.9 Chronic obstructive pulmonary disease, unspecified; N18.9 Chronic kidney disease, unspecified; Z79.82 Long term (current) use of aspirin; I42.9 Cardiomyopathy, unspecified; F15.90 Other stimulant use, unspecified, uncomplicated; I44.0 Atrioventricular block, first degree; Z87.891 Personal history of nicotine dependence; Z72.89 Other problems related to lifestyle; Z98.52 Vasectomy status; Z82.49 Family history of ischemic heart disease and other diseases of the circulatory system; Z68.21 Body mass index [BMI] 21.0-21.9, adult
CPT/HCPCS: 84439; 84443; 90686; 93005; 93306; 96374; 96375; 99285; J0360; J1644; J1940; J7050

== ENCOUNTER 2018-05-01 14:40 | Inpatient (IN) | payer MEDICAID ==
[~2018-05-01] VITALS: Ht 162.6 cm; Wt 54.1 kg
[2018-05-01] MEDS ORDERED: FUROSEMIDE 40 MG/4 ML VIAL IVP ONE (16:15)
[2018-05-01 16:18] LABS: BASOPHILS % (AUTO) 0.8 % (0.0-2.0); EOSINOPHILS % (AUTO) 3.7 % (1.0-6.0); HEMATOCRIT 43.2 % (41-53); HEMOGLOBIN 14.1 g/dL (13.5-17.5); LYMPHOCYTES # (AUTO) 0.9 K/uL (1.0-4.8); LYMPHOCYTES % (AUTO) 12.2 % (22.0-44.0); MEAN CORPUSCULAR HEMOGLOBIN 29.5 pg (26.0-34.0); MEAN CORPUSCULAR HGB CONC 32.6 G/dL (31.0-37.0); MEAN CORPUSCULAR VOLUME 91 fL (80-100); MONOCYTES # (AUTO) 0.7 K/uL (0.1-1.0); MONOCYTES % (AUTO) 8.9 % (2.0-9.0); NEUTROPHILS # (AUTO) 5.5 K/uL (1.8-7.7); NEUTROPHILS % (AUTO) 74.4 % (40.0-70.0); PLATELET COUNT (AUTO) 317 K/uL (150-450); RED BLOOD CELL COUNT(AUTO) 4.78 MIL/uL (4.50-5.90); RED CELL DISTRIBUTION WIDTH 15.3 % (11.5-14.5)
[2018-05-01 16:28] LABS: ANION GAP 5 mmol/L (8-16); CALCIUM, TOTAL 8.4 mg/dL (8.8-10.5); CARBON DIOXIDE 28 mmol/L (22-29); CHLORIDE 105 mmol/L (98-107); CREATININE 1.09 mg/dL (0.60-1.30); GLOMERULAR FILTR. RATE CALC > 60 mL/min (>60); GLUCOSE,RANDOM 103 mg/dL (70-110); POTASSIUM 4.9 mmol/L (3.5-5.1); SODIUM SERUM 138 mmol/L (136-145); UREA NITROGEN, BLOOD 34 mg/dL (7-18)
[2018-05-01 16:39] LABS: B-TYPE NATRIURETIC PEPTIDE 3200 pg/mL (0-100)
[2018-05-01 16:45] LABS: INR 1.2 (0.9-1.1); PROTHROMBIN TIME 12.1 SEC (9.4-11.6)
[2018-05-01 16:54] LABS: ALANINE AMINOTRANSFERASE 316 U/L (12-78); ALKALINE PHOSPHATASE 101 U/L (46-116); ASPARTATE AMINOTRANSFERASE 138 U/L (15-37); BILIRUBIN,TOTAL 0.8 mg/dL (0.1-1.0); CREATINE KINASE, TOTAL ONLY 106 U/L (39-308); TOTAL PROTEIN, SERUM 6.7 g/dL (6.4-8.2)
[2018-05-01 17:03] LABS: APPEARANCE,URINE CLEAR (CLEAR); BILIRUBIN,URINE NEGATIVE (NEGATIVE); GLUCOSE, URINE (UA) NEGATIVE (NEGATIVE); KETONES,URINE NEGATIVE (NEGATIVE); LEUKOCYTE ESTERASE ,URINE NEGATIVE (NEGATIVE); NITRATE,URINE NEGATIVE (NEGATIVE); OCCULT BLOOD,URINE MODERATE (NEGATIVE); PROTEIN,URINE SEE CONFIRM (NEGATIVE); UROBILINOGEN,URINE 0.2 mg/dL (<=1.0)
[2018-05-01 17:13] LABS: SULFOSALICYLIC ACID,URINE 3+ (Negative)
[2018-05-01 17:16] LABS: BACTERIA,URINE None Seen /HPF (None Seen); RBC,URINE 0-2 /HPF (0-2); SQUAMOUS EPITHELIAL CELL,UR Few /LPF (None Seen); WBC,URINE 0-2 /HPF (0-5)
[2018-05-01] MEDS ORDERED: NITROGLYCERIN 2% (1 GM=INCH) PACKET TP ONE (18:00)
[2018-05-01] MEDS ORDERED: 0.9% SODIUM CHLORIDE 10 ML SYRINGE IVP PRN ×2 (20:00→21:30)
[2018-05-01] MEDS ORDERED: ACETAMINOPHEN 325 MG TABLET PO PRN ×2 (20:00→21:30)
[2018-05-01] MEDS ORDERED: ONDANSETRON HCL 4 MG/2 ML VIAL IVP PRN ×2 (20:00→21:30)
[2018-05-01 20:44] VITALS: BP 145/101
[2018-05-01 20:45] VITALS: BP 145/101
[2018-05-01] MEDS ORDERED: HYDROCODONE/ACETAMINOPHEN 5-325 MG TABLET PO PRN (21:30)
[2018-05-01] MEDS ORDERED: ZOLPIDEM TARTRATE 5 MG TABLET PO PRN (21:30)
[2018-05-01] MEDS: CARVEDILOL 3.125 MG TABLET PO SCH (21:51)
[2018-05-01 23:40] VITALS: BP 131/97
[2018-05-02 05:07] VITALS: BP 130/98
[2018-05-02 06:20] LABS: BASOPHILS % (AUTO) 1.1 % (0.0-2.0); EOSINOPHILS % (AUTO) 9.1 % (1.0-6.0); HEMATOCRIT 40.5 % (41-53); HEMOGLOBIN 13.5 g/dL (13.5-17.5); LYMPHOCYTES # (AUTO) 0.9 K/uL (1.0-4.8); LYMPHOCYTES % (AUTO) 13.1 % (22.0-44.0); MEAN CORPUSCULAR HGB CONC 33.4 G/dL (31.0-37.0); MEAN CORPUSCULAR VOLUME 90 fL (80-100); MONOCYTES # (AUTO) 0.6 K/uL (0.1-1.0); MONOCYTES % (AUTO) 8.2 % (2.0-9.0); NEUTROPHILS # (AUTO) 4.8 K/uL (1.8-7.7); NEUTROPHILS % (AUTO) 68.5 % (40.0-70.0); PLATELET COUNT (AUTO) 299 K/uL (150-450); RED BLOOD CELL COUNT(AUTO) 4.51 MIL/uL (4.50-5.90); RED CELL DISTRIBUTION WIDTH 15.2 % (11.5-14.5)
[2018-05-02 06:43] LABS: ALBUMIN 2.7 g/dL (3.4-5.0); BILIRUBIN,TOTAL 0.7 mg/dL (0.1-1.0); CALCIUM, TOTAL 8.2 mg/dL (8.8-10.5); CREATININE 1.27 mg/dL (0.60-1.30); POTASSIUM 4.4 mmol/L (3.5-5.1)
[2018-05-02 07:53] VITALS: BP 132/91
[2018-05-02] MEDS: BUMETANIDE 0.25 MG/ML 4 ML VIAL IVP SCH ×3 (09:25→20:08)
[2018-05-02] MEDS: PANTOPRAZOLE SODIUM 40 MG/VIAL IVP SCH (09:26)
[2018-05-02] MEDS: CARVEDILOL 3.125 MG TABLET PO SCH ×2 (09:26→20:08)
[2018-05-02] MEDS: LISINOPRIL 10 MG TABLET PO SCH (09:26)
[2018-05-02] MEDS: ENOXAPARIN SODIUM 40 MG/0.4 ML PF SYRINGE SQ SCH (09:26)
[2018-05-02] MEDS: ASPIRIN 81 MG EC TABLET PO SCH (09:26)
[2018-05-02 11:23] VITALS: BP 123/95
[2018-05-02 15:40] VITALS: BP 110/68
[2018-05-02 20:24] VITALS: BP 114/77
[2018-05-03 00:28] VITALS: BP 120/83
[2018-05-03 05:27] VITALS: BP 128/95
[2018-05-03 07:54] VITALS: BP 134/99
[2018-05-03] MEDS: BUMETANIDE 0.25 MG/ML 4 ML VIAL IVP SCH ×2 (08:23→20:00)
[2018-05-03] MEDS: PANTOPRAZOLE SODIUM 40 MG/VIAL IVP SCH (08:23)
[2018-05-03] MEDS: LISINOPRIL 10 MG TABLET PO SCH (08:24)
[2018-05-03] MEDS: CARVEDILOL 3.125 MG TABLET PO SCH ×2 (08:24→20:00)
[2018-05-03] MEDS: ASPIRIN 81 MG EC TABLET PO SCH (08:24)
[2018-05-03] MEDS: ENOXAPARIN SODIUM 40 MG/0.4 ML PF SYRINGE SQ SCH (08:24)
[2018-05-03 11:42] VITALS: BP 108/59
[2018-05-03 15:52] VITALS: BP 106/75
[2018-05-03 19:57] VITALS: BP 95/69
[2018-05-04 00:45] VITALS: BP 111/69
[2018-05-04 05:04] VITALS: BP 111/77
[2018-05-04 07:18] LABS: CALCIUM, TOTAL 8.2 mg/dL (8.8-10.5); CREATININE 1.31 mg/dL (0.60-1.30); POTASSIUM 3.9 mmol/L (3.5-5.1)
[2018-05-04 08:15] VITALS: BP 107/77
[2018-05-04] MEDS: ASPIRIN 81 MG EC TABLET PO SCH (08:30)
[2018-05-04] MEDS: PANTOPRAZOLE SODIUM 40 MG/VIAL IVP SCH (08:30)
[2018-05-04] MEDS: ENOXAPARIN SODIUM 40 MG/0.4 ML PF SYRINGE SQ SCH (08:30)
[2018-05-04] MEDS: CARVEDILOL 3.125 MG TABLET PO SCH (08:30)
[2018-05-04] MEDS: BUMETANIDE 0.25 MG/ML 4 ML VIAL IVP SCH (08:30)
[2018-05-04] MEDS: LISINOPRIL 10 MG TABLET PO SCH (09:00)
[2018-05-04 11:10] VITALS: BP 96/76
== END 2018-05-04 11:57 | disposition home or self-care (01) | DRG 194 ==
LOC: EMS 14:41 → 5S 19:37
PROVIDERS: ADMIT Internal Medicine; ATTEND Internal Medicine
DX: I11.0 Hypertensive heart disease with heart failure (principal); E43 Unspecified severe protein-calorie malnutrition; I42.9 Cardiomyopathy, unspecified; F19.10 Other psychoactive substance abuse, uncomplicated; J44.9 Chronic obstructive pulmonary disease, unspecified; I50.23 Acute on chronic systolic (congestive) heart failure; F17.200 Nicotine dependence, unspecified, uncomplicated; F15.10 Other stimulant abuse, uncomplicated; F12.10 Cannabis abuse, uncomplicated; R74.0 Nonspecific elevation of levels of transaminase and lactic acid dehydrogenase [LDH]; Z79.82 Long term (current) use of aspirin; Z79.899 Other long term (current) drug therapy; Z83.3 Family history of diabetes mellitus; Z91.19 Patient's noncompliance with other medical treatment and regimen; Z95.810 Presence of automatic (implantable) cardiac defibrillator; Z82.49 Family history of ischemic heart disease and other diseases of the circulatory system; Z68.20 Body mass index [BMI] 20.0-20.9, adult
CPT/HCPCS: 93005; 93306; 96360; C9113; G0378; J1650; J1940; J3490

== ENCOUNTER 2018-09-14 14:01 | Inpatient (IN) | payer MEDICAID ==
[~2018-09-14] VITALS: Ht 162.6 cm; Wt 55.8 kg
[~2018-09-14 14:01] MED LIST changes: -FURO40 PO; -LISI-661 PO
[2018-09-14] MEDS ORDERED: FURO40TA5 PO (14:11)
[2018-09-14 15:22] LABS: BASOPHILS % (AUTO) 0.7 % (0.0-2.0); EOSINOPHILS % (AUTO) 1.6 % (1.0-6.0); HEMATOCRIT 46.7 % (41-53); HEMOGLOBIN 15.3 g/dL (13.5-17.5); LYMPHOCYTES # (AUTO) 0.8 K/uL (1.0-4.8); LYMPHOCYTES % (AUTO) 9.7 % (22.0-44.0); MEAN CORPUSCULAR HEMOGLOBIN 29.9 pg (26.0-34.0); MEAN CORPUSCULAR HGB CONC 32.8 G/dL (31.0-37.0); MEAN CORPUSCULAR VOLUME 91 fL (80-100); MONOCYTES # (AUTO) 0.7 K/uL (0.1-1.0); MONOCYTES % (AUTO) 8.6 % (2.0-9.0); NEUTROPHILS # (AUTO) 6.2 K/uL (1.8-7.7); NEUTROPHILS % (AUTO) 79.4 % (40.0-70.0); PLATELET COUNT (AUTO) 334 K/uL (150-450); RED BLOOD CELL COUNT(AUTO) 5.14 MIL/uL (4.50-5.90); RED CELL DISTRIBUTION WIDTH 15.6 % (11.5-14.5)
[2018-09-14 15:35] LABS: INR 1.2 (0.9-1.1); PROTHROMBIN TIME 12.5 SEC (9.4-11.6)
[2018-09-14 15:41] LABS: CALCIUM, TOTAL 8.7 mg/dL (8.8-10.5); CREATININE 1.56 mg/dL (0.60-1.30); POTASSIUM 4.3 mmol/L (3.5-5.1)
[2018-09-14 16:05] LABS: BILIRUBIN,TOTAL 1.1 mg/dL (0.1-1.0); TOTAL PROTEIN, SERUM 6.8 g/dL (6.4-8.2)
[2018-09-14] MEDS ORDERED: FUROSEMIDE 40 MG/4 ML VIAL IVP ONE (18:45)
[2018-09-14 19:41] LABS: APPEARANCE,URINE CLEAR (CLEAR); BILIRUBIN,URINE NEGATIVE (NEGATIVE); GLUCOSE, URINE (UA) NEGATIVE (NEGATIVE); KETONES,URINE NEGATIVE (NEGATIVE); LEUKOCYTE ESTERASE ,URINE NEGATIVE (NEGATIVE); NITRATE,URINE NEGATIVE (NEGATIVE); OCCULT BLOOD,URINE MODERATE (NEGATIVE); PROTEIN,URINE SEE CONFIRM (NEGATIVE); UROBILINOGEN,URINE 0.2 mg/dL (<=1.0)
[2018-09-14 19:46] LABS: AMPHET/METH SCREEN,URINE POSITIVE (NEGATIVE); BARBITURATE SCREEN, URINE NEGATIVE (NEGATIVE); BENZODIAZEPINES SCREEN,URINE NEGATIVE (NEGATIVE); CANNABINOID SCREEN,URINE POSITIVE (NEGATIVE); COCAINE SCREEN,URINE NEGATIVE (NEGATIVE); METHADONE SCREEN, URINE NEGATIVE (NEGATIVE); OPIATE SCREEN,URINE NEGATIVE (NEGATIVE)
[2018-09-14 19:51] LABS: SULFOSALICYLIC ACID,URINE 4+ (Negative)
[2018-09-14 19:52] LABS: BACTERIA,URINE Rare /HPF (None Seen); RBC,URINE 0-2 /HPF (0-2); SQUAMOUS EPITHELIAL CELL,UR Few /LPF (None Seen); WBC,URINE 0-2 /HPF (0-5)
[2018-09-14 19:54] LABS: MUCUS,URINE Few LPF (None Seen)
[2018-09-14 19:55] LABS: HYALINE CASTS, URINE 0-2 /LPF (None Seen)
[2018-09-14 19:57] LABS: PHENCYCLIDINE SCREEN,URINE NEGATIVE (NEGATIVE)
[2018-09-14] MEDS ORDERED: ALBUTEROL SULFATE 2.5 MG/0.5 ML NEB SOLUTION NEB PRN (20:15)
[2018-09-14] MEDS ORDERED: HYDROCODONE/ACETAMINOPHEN 5-325 MG TABLET PO PRN (20:15)
[2018-09-14] MEDS ORDERED: ACETAMINOPHEN 325 MG TABLET PO PRN (20:15)
[2018-09-14] MEDS ORDERED: OxyCODONE HCL/ACETAMINOPHEN 5-325 MG TABLET PO PRN (20:15)
[2018-09-14] MEDS ORDERED: IPRATROPIUM BROMIDE 0.5 MG/2.5 ML NEB SOLUTION NEB PRN (20:15)
[2018-09-14] MEDS: FUROSEMIDE 40 MG/4 ML VIAL IVP SCH (21:00)
[2018-09-14] MEDS: FAMOTIDINE 20 MG TABLET PO SCH (21:21)
[2018-09-14] MEDS: CARVEDILOL 3.125 MG TABLET PO SCH (21:21)
[2018-09-14 23:34] VITALS: BP 147/103
[2018-09-15 05:09] VITALS: BP 129/84
[2018-09-15 05:50] LABS: EOSINOPHILS % (AUTO) 5.2 % (1.0-6.0); LYMPHOCYTES # (AUTO) 0.9 K/uL (1.0-4.8); LYMPHOCYTES % (AUTO) 10.9 % (22.0-44.0); MEAN CORPUSCULAR HEMOGLOBIN 30.1 pg (26.0-34.0); MEAN CORPUSCULAR HGB CONC 32.6 G/dL (31.0-37.0); MEAN CORPUSCULAR VOLUME 92 fL (80-100); MONOCYTES # (AUTO) 0.8 K/uL (0.1-1.0); MONOCYTES % (AUTO) 9.4 % (2.0-9.0); NEUTROPHILS # (AUTO) 6.2 K/uL (1.8-7.7); NEUTROPHILS % (AUTO) 73.5 % (40.0-70.0); PLATELET COUNT (AUTO) 323 K/uL (150-450); RED BLOOD CELL COUNT(AUTO) 4.98 MIL/uL (4.50-5.90); RED CELL DISTRIBUTION WIDTH 15.4 % (11.5-14.5)
[2018-09-15 07:29] LABS: ALBUMIN 2.7 g/dL (3.4-5.0); BILIRUBIN,TOTAL 1.1 mg/dL (0.1-1.0); CALCIUM, TOTAL 8.7 mg/dL (8.8-10.5); CHOL/HDL RATIO 3.2 (4.2-7.3); CREATININE 1.56 mg/dL (0.60-1.30); FREE T4 (FREE THYROXINE) 1.21 ng/dL (0.76-1.46); MAGNESIUM 1.9 mg/dL (1.80-2.40); POTASSIUM 3.9 mmol/L (3.5-5.1); THYROID STIMULATING HORMONE 1.16 uIU/mL (0.36-3.74)
[2018-09-15 07:45] LABS: HEMOGLOBIN A1C 5.8 % (4.5-6.2)
[2018-09-15 07:48] VITALS: BP 126/99
[2018-09-15] MEDS: FAMOTIDINE 20 MG TABLET PO SCH ×2 (08:03→20:49)
[2018-09-15] MEDS: CARVEDILOL 3.125 MG TABLET PO SCH ×2 (08:03→20:49)
[2018-09-15] MEDS: LISINOPRIL 5 MG TABLET PO SCH (08:04)
[2018-09-15] MEDS: ENOXAPARIN SODIUM 40 MG/0.4 ML PF SYRINGE SQ SCH (08:06)
[2018-09-15] MEDS: FUROSEMIDE 40 MG/4 ML VIAL IVP SCH ×2 (08:07→20:49)
[2018-09-15 11:34] VITALS: BP 117/86
[2018-09-15 15:49] VITALS: BP 122/92
[2018-09-15 19:57] VITALS: BP 125/89
[2018-09-15 23:37] VITALS: BP 111/72
[2018-09-16 04:34] VITALS: BP 122/79
[2018-09-16 07:16] VITALS: BP 125/88
[2018-09-16 07:23] VITALS: BP 109/51
[2018-09-16] MEDS: FAMOTIDINE 20 MG TABLET PO SCH (08:17)
[2018-09-16] MEDS: FUROSEMIDE 40 MG/4 ML VIAL IVP SCH (08:17)
[2018-09-16] MEDS: ENOXAPARIN SODIUM 40 MG/0.4 ML PF SYRINGE SQ SCH (08:17)
[2018-09-16 08:20] VITALS: BP 113/73
[2018-09-16] MEDS: LISINOPRIL 5 MG TABLET PO SCH (08:26)
[2018-09-16] MEDS: CARVEDILOL 3.125 MG TABLET PO SCH (08:28)
[2018-09-16 11:19] VITALS: BP 111/66
== END 2018-09-16 13:30 | disposition home or self-care (01) | DRG 194 ==
LOC: EMS 14:02 → 5S 20:26
PROVIDERS: ADMIT Internal Medicine; ATTEND Internal Medicine
DX: I13.0 Hypertensive heart and chronic kidney disease with heart failure and stage 1 through stage 4 chronic kidney disease, or unspecified chronic kidney disease (principal); E43 Unspecified severe protein-calorie malnutrition; R64 Cachexia; N17.9 Acute kidney failure, unspecified; I42.9 Cardiomyopathy, unspecified; N18.3 Chronic kidney disease, stage 3 (moderate); I50.43 Acute on chronic combined systolic (congestive) and diastolic (congestive) heart failure; F19.10 Other psychoactive substance abuse, uncomplicated; F15.90 Other stimulant use, unspecified, uncomplicated; J44.9 Chronic obstructive pulmonary disease, unspecified; Z87.891 Personal history of nicotine dependence; Z91.19 Patient's noncompliance with other medical treatment and regimen; Z68.21 Body mass index [BMI] 21.0-21.9, adult
CPT/HCPCS: 83036; 83735; 84439; 84443; 93005; 96374; G0378; J1650; J1940

== ENCOUNTER 2019-01-23 18:32 | Inpatient (IN) | payer MEDICAID ==
[~2019-01-23] VITALS: Ht 162.6 cm; Wt 61.0 kg
[~2019-01-23 18:32] MED LIST changes: -ASPI-1182 PO; -CARV12 PO; +FURO40TA5 PO; -KDUR10 PO
[2019-01-23 19:30] LABS: BASOPHILS % (AUTO) 0.5 % (0.0-2.0); EOSINOPHILS % (AUTO) 5.5 % (1.0-6.0); HEMATOCRIT 44.9 % (41-53); HEMOGLOBIN 14.3 g/dL (13.5-17.5); LYMPHOCYTES # (AUTO) 0.5 K/uL (1.0-4.8); LYMPHOCYTES % (AUTO) 7.8 % (22.0-44.0); MEAN CORPUSCULAR HEMOGLOBIN 29.2 pg (26.0-34.0); MEAN CORPUSCULAR HGB CONC 31.9 G/dL (31.0-37.0); MEAN CORPUSCULAR VOLUME 92 fL (80-100); MONOCYTES # (AUTO) 0.5 K/uL (0.1-1.0); MONOCYTES % (AUTO) 7.8 % (2.0-9.0); NEUTROPHILS # (AUTO) 5.3 K/uL (1.8-7.7); NEUTROPHILS % (AUTO) 78.4 % (40.0-70.0); PLATELET COUNT (AUTO) 256 K/uL (150-450)
[2019-01-23 19:45] LABS: CALCIUM, TOTAL 8.2 mg/dL (8.8-10.5); CREATININE 1.28 mg/dL (0.60-1.30); POTASSIUM 3.5 mmol/L (3.5-5.1)
[2019-01-23 19:51] LABS: BILIRUBIN,TOTAL 1.2 mg/dL (0.1-1.0); TOTAL PROTEIN, SERUM 6.7 g/dL (6.4-8.2)
[2019-01-23] MEDS ORDERED: FUROSEMIDE 40 MG/4 ML VIAL IVP ONE (20:15)
[2019-01-23] MEDS ORDERED: IPRATROPIUM BROMIDE 0.5 MG/2.5 ML NEB SOLUTION NEB ONE (20:15)
[2019-01-23] MEDS ORDERED: ALBUTEROL SULFATE 2.5 MG/0.5 ML NEB SOLUTION NEB ONE (20:15)
[2019-01-23] MEDS ORDERED: IPRATROPIUM BROMIDE 0.5 MG/2.5 ML NEB SOLUTION NEB PRN (20:30)
[2019-01-23] MEDS ORDERED: MAGNESIUM HYDROXIDE SUSPENSION 30 ML UDCUP PO PRN (20:30)
[2019-01-23] MEDS ORDERED: ACETAMINOPHEN 325 MG TABLET PO PRN (20:30)
[2019-01-23] MEDS ORDERED: ALBUTEROL SULFATE 2.5 MG/0.5 ML NEB SOLUTION NEB PRN (20:30)
[2019-01-23] MEDS ORDERED: LORazepam 2 MG/ML VIAL IVP PRN (21:00)
[2019-01-23] MEDS: DOCUSATE SODIUM 100 MG CAPSULE PO SCH (21:17)
[2019-01-24] MEDS: HEPARIN SODIUM,PORCINE 5,000 UNITS/ML VIAL SQ SCH ×4 (00:46→23:08)
[2019-01-24 06:28] LABS: ANION GAP 7 mmol/L (8-16); CALCIUM, TOTAL 8.2 mg/dL (8.8-10.5); CARBON DIOXIDE 30 mmol/L (22-29); CHLORIDE 100 mmol/L (98-107); CREATININE 1.22 mg/dL (0.60-1.30); GLOMERULAR FILTR. RATE CALC > 60 mL/min (>60); GLUCOSE,RANDOM 100 mg/dL (70-110); POTASSIUM 3.5 mmol/L (3.5-5.1); SODIUM SERUM 137 mmol/L (136-145); UREA NITROGEN, BLOOD 18 mg/dL (7-18)
[2019-01-24] MEDS: ASPIRIN 81 MG CHEWABLE TABLET PO SCH (08:03)
[2019-01-24] MEDS: DOCUSATE SODIUM 100 MG CAPSULE PO SCH ×2 (08:03→20:23)
[2019-01-24] MEDS: FAMOTIDINE 20 MG TABLET PO SCH (08:03)
[2019-01-24] MEDS ORDERED: CARV12.530 PO (08:46)
[2019-01-24] MEDS ORDERED: LISI10TA7 PO (08:46)
[2019-01-24] MEDS ORDERED: ASPI81TA39 PO (08:46)
[2019-01-24] MEDS ORDERED: POTA25TA7 PO (08:46)
[2019-01-24] MEDS ORDERED: POTA-9 PO (10:59)
[2019-01-24] MEDS ORDERED: ASPI-1182 PO (11:00)
[2019-01-24] MEDS: FUROSEMIDE 40 MG/4 ML VIAL IVP SCH (11:22)
[2019-01-24] MEDS: LISINOPRIL 5 MG TABLET PO SCH (11:22)
[2019-01-24 16:54] VITALS: BP 125/84
[2019-01-24 19:52] VITALS: BP 125/90
[2019-01-25 00:03] VITALS: BP 128/95
[2019-01-25 05:05] VITALS: BP 134/93
[2019-01-25 07:36] VITALS: BP 146/114
[2019-01-25] MEDS: FUROSEMIDE 40 MG/4 ML VIAL IVP SCH (07:59)
[2019-01-25] MEDS: LISINOPRIL 5 MG TABLET PO SCH (07:59)
[2019-01-25] MEDS: HEPARIN SODIUM,PORCINE 5,000 UNITS/ML VIAL SQ SCH (07:59)
[2019-01-25] MEDS: DOCUSATE SODIUM 100 MG CAPSULE PO SCH (07:59)
[2019-01-25] MEDS: ASPIRIN 81 MG CHEWABLE TABLET PO SCH (07:59)
[2019-01-25] MEDS: FAMOTIDINE 20 MG TABLET PO SCH (07:59)
[2019-01-25 11:28] VITALS: BP 138/99
[2019-01-25] MEDS ORDERED: CARV6 PO (12:57)
[2019-01-25] MEDS ORDERED: LISI-660 PO (12:58)
== END 2019-01-25 16:20 | disposition home or self-care (01) | DRG 194 ==
LOC: EMS 18:33 → 5S 01-24 16:19
PROVIDERS: ADMIT Internal Medicine; ATTEND Internal Medicine
DX: I11.0 Hypertensive heart disease with heart failure (principal); E43 Unspecified severe protein-calorie malnutrition; I42.8 Other cardiomyopathies; I50.23 Acute on chronic systolic (congestive) heart failure; F14.90 Cocaine use, unspecified, uncomplicated; J44.9 Chronic obstructive pulmonary disease, unspecified; F15.90 Other stimulant use, unspecified, uncomplicated; F12.90 Cannabis use, unspecified, uncomplicated; Z79.82 Long term (current) use of aspirin; Z98.52 Vasectomy status; Z68.23 Body mass index [BMI] 23.0-23.9, adult; Z79.899 Other long term (current) drug therapy; Z87.891 Personal history of nicotine dependence; Z91.19 Patient's noncompliance with other medical treatment and regimen
CPT/HCPCS: 93005; 94640; 96374; J1644; J1940

== ENCOUNTER 2019-08-23 18:58 | Inpatient (IN) | payer MEDICAID ==
[~2019-08-23] VITALS: Ht 162.6 cm; Wt 61.3 kg
[~2019-08-23 18:58] MED LIST changes: +ASPI-1111 PO; +CARV6 PO; +LISI-660 PO; +POTA-9 PO
[2019-08-23] MEDS ORDERED: ASPIRIN 81 MG CHEWABLE TABLET PO ONE (19:45)
[2019-08-23] MEDS ORDERED: NITROGLYCERIN 2% (1 GM=INCH) PACKET TP ONE (19:45)
[2019-08-23 20:09] LABS: BASOPHILS % (AUTO) 0.9 % (0.0-2.0); EOSINOPHILS % (AUTO) 7.9 % (1.0-6.0); HEMATOCRIT 44.1 % (41-53); HEMOGLOBIN 14.5 g/dL (13.5-17.5); LYMPHOCYTES # (AUTO) 0.9 K/uL (1.0-4.8); LYMPHOCYTES % (AUTO) 12.9 % (22.0-44.0); MEAN CORPUSCULAR HEMOGLOBIN 30.7 pg (26.0-34.0); MEAN CORPUSCULAR HGB CONC 32.8 G/dL (31.0-37.0); MEAN CORPUSCULAR VOLUME 94 fL (80-100); MONOCYTES # (AUTO) 0.5 K/uL (0.1-1.0); MONOCYTES % (AUTO) 7.2 % (2.0-9.0); NEUTROPHILS # (AUTO) 5.1 K/uL (1.8-7.7); NEUTROPHILS % (AUTO) 71.1 % (40.0-70.0); PLATELET COUNT (AUTO) 283 K/uL (150-450); RED BLOOD CELL COUNT(AUTO) 4.72 MIL/uL (4.50-5.90); RED CELL DISTRIBUTION WIDTH 14.4 % (11.5-14.5)
[2019-08-23 20:19] LABS: CREATININE 1.29 mg/dL (0.60-1.30); POTASSIUM 4.7 mmol/L (3.5-5.1)
[2019-08-23] MEDS ORDERED: AZITHROMYCIN 500 MG/NS 250 ML IV ONE (20:30)
[2019-08-23] MEDS ORDERED: NITROGLYCERIN 0.4 MG SUBLINGUAL TABLET #25 SL ONE (20:30)
[2019-08-23] MEDS ORDERED: CefTRIAXone 1 GM/DEXTROSE 50 ML IV ONE (20:30)
[2019-08-23 20:36] LABS: INFLUENZA TYPE A NEGATIVE FOR TYPE A (NEGATIVE); INFLUENZA TYPE B NEGATIVE FOR TYPE B (NEGATIVE)
[2019-08-23 20:44] LABS: ALBUMIN 3.3 g/dL (3.4-5.0); BILIRUBIN,TOTAL 0.5 mg/dL (0.1-1.0)
[2019-08-23] MEDS ORDERED: 0.9% SODIUM CHLORIDE 10 ML SYRINGE IVP PRN ×2 (22:30→23:30)
[2019-08-23] MEDS ORDERED: ACETAMINOPHEN 325 MG TABLET PO PRN ×2 (22:30→23:30)
[2019-08-23] MEDS ORDERED: CARVEDILOL 3.125 MG TABLET PO SCH (23:30)
[2019-08-23] MEDS ORDERED: ZOLPIDEM TARTRATE 5 MG TABLET PO PRN (23:30)
[2019-08-23] MEDS ORDERED: SODIUM CHLORIDE 0.9% 1,000 ML IV ONE (23:30)
[2019-08-23] MEDS ORDERED: ONDANSETRON HCL 4 MG/2 ML VIAL IVP PRN (23:30)
[2019-08-24 00:09] LABS: C-REACTIVE PROTEIN QUANT 0.68 mg/dL (0.00-0.30)
[2019-08-24] MEDS: DOCUSATE SODIUM 100 MG CAPSULE PO SCH ×3 (00:51→20:15)
[2019-08-24 01:22] LABS: APPEARANCE,URINE CLEAR (CLEAR); BILIRUBIN,URINE NEGATIVE (NEGATIVE); GLUCOSE, URINE (UA) NEGATIVE (NEGATIVE); KETONES,URINE NEGATIVE (NEGATIVE); LEUKOCYTE ESTERASE ,URINE NEGATIVE (NEGATIVE); NITRATE,URINE NEGATIVE (NEGATIVE); OCCULT BLOOD,URINE SMALL (NEGATIVE); PROTEIN,URINE SEE CONFIRM (NEGATIVE); UROBILINOGEN,URINE 0.2 mg/dL (<=1.0)
[2019-08-24 01:27] LABS: AMPHET/METH SCREEN,URINE POSITIVE (NEGATIVE); BARBITURATE SCREEN, URINE NEGATIVE (NEGATIVE); BENZODIAZEPINES SCREEN,URINE NEGATIVE (NEGATIVE); CANNABINOID SCREEN,URINE POSITIVE (NEGATIVE); COCAINE SCREEN,URINE NEGATIVE (NEGATIVE); METHADONE SCREEN, URINE NEGATIVE (NEGATIVE); OPIATE SCREEN,URINE NEGATIVE (NEGATIVE)
[2019-08-24 01:28] LABS: BACTERIA,URINE Rare /HPF (None Seen); WBC,URINE 0-2 /HPF (0-5)
[2019-08-24 01:30] LABS: COARSE GRANULAR CASTS,URINE 0-2 /LPF (None Seen); FINE GRANULAR CASTS,URINE 0-2 /LPF (None Seen); SQUAMOUS EPITHELIAL CELL,UR Rare /LPF (None Seen); SULFOSALICYLIC ACID,URINE 4+ (Negative)
[2019-08-24 01:34] LABS: PHENCYCLIDINE SCREEN,URINE NEGATIVE (NEGATIVE)
[2019-08-24 03:27] VITALS: BP 114/80
[2019-08-24 07:28] LABS: BASOPHILS % (AUTO) 1.4 % (0.0-2.0); EOSINOPHILS % (AUTO) 4.6 % (1.0-6.0); HEMOGLOBIN 13.4 g/dL (13.5-17.5); LYMPHOCYTES # (AUTO) 0.9 K/uL (1.0-4.8); LYMPHOCYTES % (AUTO) 12.8 % (22.0-44.0); MEAN CORPUSCULAR HEMOGLOBIN 30.1 pg (26.0-34.0); MEAN CORPUSCULAR VOLUME 94 fL (80-100); MONOCYTES # (AUTO) 0.7 K/uL (0.1-1.0); MONOCYTES % (AUTO) 9.4 % (2.0-9.0); NEUTROPHILS # (AUTO) 5.3 K/uL (1.8-7.7); NEUTROPHILS % (AUTO) 71.8 % (40.0-70.0); PLATELET COUNT (AUTO) 293 K/uL (150-450); RED BLOOD CELL COUNT(AUTO) 4.46 MIL/uL (4.50-5.90); RED CELL DISTRIBUTION WIDTH 13.7 % (11.5-14.5)
[2019-08-24 07:48] LABS: ALBUMIN 2.9 g/dL (3.4-5.0); BILIRUBIN,TOTAL 0.9 mg/dL (0.1-1.0); CALCIUM, TOTAL 8.4 mg/dL (8.8-10.5); CREATININE 1.47 mg/dL (0.60-1.30); POTASSIUM 5.7 mmol/L (3.5-5.1); TOTAL PROTEIN, SERUM 6.4 g/dL (6.4-8.2)
[2019-08-24 08:20] VITALS: BP 135/97
[2019-08-24] MEDS ORDERED: LISINOPRIL 5 MG TABLET PO SCH (09:00)
[2019-08-24 09:05] LABS: ERYTHROCYTE SEDIMENTATION RATE 17 MM/HR (0-15)
[2019-08-24] MEDS: ENOXAPARIN SODIUM 40 MG/0.4 ML PF SYRINGE SQ SCH (09:06)
[2019-08-24] MEDS: ASPIRIN 81 MG EC TABLET PO SCH (09:08)
[2019-08-24] MEDS: PANTOPRAZOLE SODIUM 40 MG DR TABLET PO SCH (09:08)
[2019-08-24] MEDS: CARVEDILOL 6.25 MG TABLET PO SCH ×2 (09:40→20:15)
[2019-08-24 11:36] VITALS: BP 133/94
[2019-08-24 16:00] VITALS: BP 120/90
[2019-08-24 19:51] VITALS: BP 131/96
[2019-08-24 23:39] VITALS: BP 139/85
[2019-08-25 04:44] VITALS: BP 117/81
[2019-08-25 06:42] LABS: CREATININE 1.7 mg/dL (0.60-1.30); POTASSIUM 5.2 mmol/L (3.5-5.1)
[2019-08-25 07:44] VITALS: BP 139/101
[2019-08-25] MEDS: DOCUSATE SODIUM 100 MG CAPSULE PO SCH ×2 (08:34→20:22)
[2019-08-25] MEDS: PANTOPRAZOLE SODIUM 40 MG DR TABLET PO SCH (08:35)
[2019-08-25] MEDS: CARVEDILOL 6.25 MG TABLET PO SCH ×2 (08:35→20:22)
[2019-08-25] MEDS: ENOXAPARIN SODIUM 40 MG/0.4 ML PF SYRINGE SQ SCH (08:35)
[2019-08-25] MEDS: ASPIRIN 81 MG EC TABLET PO SCH (08:35)
[2019-08-25 11:17] VITALS: BP 128/94
[2019-08-25] MEDS ORDERED: VANCOMYCIN HCL 1.25 GM in DEXTROSE 5%-WATER 250 ML IV ONE (12:00)
[2019-08-25] MEDS ORDERED: SODIUM CHLORIDE 0.9% 250 ML IV ONE (14:34)
[2019-08-25 16:01] VITALS: BP 126/103
[2019-08-25 20:24] VITALS: BP 136/97
[2019-08-25 23:39] VITALS: BP 133/91
[2019-08-26 04:44] VITALS: BP 111/72
[2019-08-26 07:22] LABS: BASOPHILS % (AUTO) 0.4 % (0.0-2.0); EOSINOPHILS % (AUTO) 0.7 % (1.0-6.0); HEMATOCRIT 47.2 % (41-53); HEMOGLOBIN 15.1 g/dL (13.5-17.5); LYMPHOCYTES # (AUTO) 0.6 K/uL (1.0-4.8); LYMPHOCYTES % (AUTO) 7.3 % (22.0-44.0); MEAN CORPUSCULAR HEMOGLOBIN 30.1 pg (26.0-34.0); MEAN CORPUSCULAR HGB CONC 32.1 G/dL (31.0-37.0); MEAN CORPUSCULAR VOLUME 94 fL (80-100); MONOCYTES # (AUTO) 0.6 K/uL (0.1-1.0); MONOCYTES % (AUTO) 6.9 % (2.0-9.0); NEUTROPHILS # (AUTO) 7.6 K/uL (1.8-7.7); NEUTROPHILS % (AUTO) 84.7 % (40.0-70.0); PLATELET COUNT (AUTO) 324 K/uL (150-450); RED BLOOD CELL COUNT(AUTO) 5.02 MIL/uL (4.50-5.90); RED CELL DISTRIBUTION WIDTH 13.9 % (11.5-14.5)
[2019-08-26 07:38] LABS: CALCIUM, TOTAL 8.1 mg/dL (8.8-10.5); CREATININE 1.77 mg/dL (0.60-1.30); POTASSIUM 4.9 mmol/L (3.5-5.1)
[2019-08-26 07:46] VITALS: BP 123/91
[2019-08-26] MEDS: VANCOMYCIN HCL 1.25 GM in DEXTROSE 5%-WATER 250 ML IV SCH (08:50)
[2019-08-26] MEDS: ASPIRIN 81 MG EC TABLET PO SCH (08:53)
[2019-08-26] MEDS: PANTOPRAZOLE SODIUM 40 MG DR TABLET PO SCH (08:53)
[2019-08-26] MEDS: CARVEDILOL 6.25 MG TABLET PO SCH ×2 (08:53→20:08)
[2019-08-26] MEDS: ENOXAPARIN SODIUM 40 MG/0.4 ML PF SYRINGE SQ SCH (08:54)
[2019-08-26] MEDS: DOCUSATE SODIUM 100 MG CAPSULE PO SCH ×2 (09:00→20:09)
[2019-08-26 11:44] VITALS: BP 125/95
[2019-08-26 16:00] VITALS: BP 125/85
[2019-08-26 20:12] VITALS: BP 116/94
[2019-08-26 23:32] VITALS: BP 128/86
[2019-08-27 04:21] VITALS: BP 129/97
[2019-08-27 07:02] LABS: CALCIUM, TOTAL 8.1 mg/dL (8.8-10.5); CREATININE 1.58 mg/dL (0.60-1.30); POTASSIUM 4.6 mmol/L (3.5-5.1); VANCOMYCIN,RANDOM 11.1 mcg/mL (25.0-50.0)
[2019-08-27 07:16] VITALS: BP 134/98
[2019-08-27] MEDS: CARVEDILOL 6.25 MG TABLET PO SCH ×2 (08:03→21:00)
[2019-08-27] MEDS: ENOXAPARIN SODIUM 40 MG/0.4 ML PF SYRINGE SQ SCH (08:20)
[2019-08-27] MEDS: ASPIRIN 81 MG EC TABLET PO SCH (08:20)
[2019-08-27] MEDS: PANTOPRAZOLE SODIUM 40 MG DR TABLET PO SCH (08:20)
[2019-08-27] MEDS: VANCOMYCIN HCL 1.25 GM in DEXTROSE 5%-WATER 250 ML IV SCH (08:23)
[2019-08-27] MEDS: DOCUSATE SODIUM 100 MG CAPSULE PO SCH ×2 (08:29→20:37)
[2019-08-27 11:30] VITALS: BP 138/98
[2019-08-27 15:08] VITALS: BP 128/88
[2019-08-27] MEDS: VANCOMYCIN HCL 750 MG in DEXTROSE 5%-WATER 250 ML IV SCH (20:29)
[2019-08-27 20:30] VITALS: BP 135/98
[2019-08-28 01:06] VITALS: BP 128/98
[2019-08-28 04:09] VITALS: BP 130/89
[2019-08-28 07:18] VITALS: BP 126/88
[2019-08-28 07:51] LABS: CALCIUM, TOTAL 8.4 mg/dL (8.8-10.5); CREATININE 1.42 mg/dL (0.60-1.30); POTASSIUM 4.2 mmol/L (3.5-5.1)
[2019-08-28] MEDS: DOCUSATE SODIUM 100 MG CAPSULE PO SCH (08:27)
[2019-08-28] MEDS: PANTOPRAZOLE SODIUM 40 MG DR TABLET PO SCH (08:27)
[2019-08-28] MEDS: ENOXAPARIN SODIUM 40 MG/0.4 ML PF SYRINGE SQ SCH (08:28)
[2019-08-28] MEDS ORDERED: ASPIRIN 81 MG CHEWABLE TABLET PO SCH (09:00)
[2019-08-28] MEDS: VANCOMYCIN HCL 750 MG in DEXTROSE 5%-WATER 250 ML IV SCH (10:15)
[2019-08-28 11:34] VITALS: BP 148/88
== END 2019-08-28 13:05 | disposition home or self-care (01) | DRG 194 ==
LOC: EMS 18:58 → 5N 08-24 01:51 → 5S 08-25 17:20
PROVIDERS: ADMIT Internal Medicine; ATTEND Internal Medicine
DX: I13.0 Hypertensive heart and chronic kidney disease with heart failure and stage 1 through stage 4 chronic kidney disease, or unspecified chronic kidney disease (principal); N17.9 Acute kidney failure, unspecified; E44.0 Moderate protein-calorie malnutrition; R65.10 Systemic inflammatory response syndrome (SIRS) of non-infectious origin without acute organ dysfunction; I42.0 Dilated cardiomyopathy; E87.5 Hyperkalemia; I50.23 Acute on chronic systolic (congestive) heart failure; J44.9 Chronic obstructive pulmonary disease, unspecified; F14.10 Cocaine abuse, uncomplicated; B95.7 Other staphylococcus as the cause of diseases classified elsewhere; F15.90 Other stimulant use, unspecified, uncomplicated; N18.9 Chronic kidney disease, unspecified; Z68.23 Body mass index [BMI] 23.0-23.9, adult; F12.90 Cannabis use, unspecified, uncomplicated; Z83.3 Family history of diabetes mellitus
CPT/HCPCS: 71250; 83615; 83735; 84466; 85379; 85651; 86140; 87040; 87205; 87635; 87804; 93005; 93306; 99291; J0456; J0696; J1650; J3370; J7030; J7050; J7060

== ENCOUNTER 2019-10-07 16:11 | Inpatient (IN) | payer MEDICAID ==
[~2019-10-07] VITALS: Ht 154.9 cm; Wt 59.0 kg
[2019-10-07 17:44] LABS: BASOPHILS % (AUTO) 0.7 % (0.0-2.0); EOSINOPHILS % (AUTO) 5.5 % (1.0-6.0); HEMATOCRIT 42.3 % (41-53); HEMOGLOBIN 13.3 g/dL (13.5-17.5); LYMPHOCYTES # (AUTO) 0.6 K/uL (1.0-4.8); LYMPHOCYTES % (AUTO) 8.7 % (22.0-44.0); MEAN CORPUSCULAR HEMOGLOBIN 28.2 pg (26.0-34.0); MEAN CORPUSCULAR HGB CONC 31.6 G/dL (31.0-37.0); MEAN CORPUSCULAR VOLUME 89 fL (80-100); MONOCYTES # (AUTO) 0.7 K/uL (0.1-1.0); MONOCYTES % (AUTO) 10.3 % (2.0-9.0); NEUTROPHILS # (AUTO) 5.1 K/uL (1.8-7.7); NEUTROPHILS % (AUTO) 74.8 % (40.0-70.0); PLATELET COUNT (AUTO) 207 K/uL (150-450); RED BLOOD CELL COUNT(AUTO) 4.74 MIL/uL (4.50-5.90); RED CELL DISTRIBUTION WIDTH 15.8 % (11.5-14.5)
[2019-10-07 18:17] LABS: ANION GAP 10 mmol/L (8-16); CALCIUM, TOTAL 9.2 mg/dL (8.8-10.5); CARBON DIOXIDE 25 mmol/L (22-29); CHLORIDE 107 mmol/L (98-107); CREATININE 1.52 mg/dL (0.60-1.30); GLOMERULAR FILTR. RATE CALC 47 mL/min (>60); GLUCOSE,RANDOM 99 mg/dL (70-110); POTASSIUM 4.6 mmol/L (3.5-5.1); SODIUM SERUM 142 mmol/L (136-145); UREA NITROGEN, BLOOD 38 mg/dL (7-18)
[2019-10-07 18:23] LABS: ALANINE AMINOTRANSFERASE 29 U/L (12-78); ALKALINE PHOSPHATASE 71 U/L (46-116); ASPARTATE AMINOTRANSFERASE 24 U/L (15-37); BILIRUBIN,TOTAL 0.7 mg/dL (0.1-1.0); TOTAL PROTEIN, SERUM 6.9 g/dL (6.4-8.2)
[2019-10-07] MEDS ORDERED: DiphenhydrAMINE HCL 50 MG/ML VIAL IM ONE (20:00)
[2019-10-07] MEDS ORDERED: LORazepam 2 MG/ML VIAL IM ONE (20:00)
[2019-10-07] MEDS ORDERED: HALOPERIDOL LACTATE 5 MG/ML VIAL IM ONE (20:00)
[2019-10-07] MEDS ORDERED: ZOLPIDEM TARTRATE 10 MG TABLET PO PRN (22:00)
[2019-10-07] MEDS ORDERED: HALOPERIDOL 5 MG TABLET PO PRN (22:00)
[2019-10-08 02:49] VITALS: BP 131/95
[2019-10-08] MEDS ORDERED: -PHARMACY VACCINE NOTE- MISC ONE (03:45)
[2019-10-08 08:13] VITALS: BP 126/84
[2019-10-08] MEDS ORDERED: PETROLATUM,WHITE 28 GM JELLY TP PRN (08:15)
[2019-10-08] MEDS ORDERED: LOPERAMIDE HCL 2 MG CAPSULE PO PRN (08:15)
[2019-10-08] MEDS ORDERED: MAGNESIUM HYDROXIDE SUSPENSION 30 ML UDCUP PO PRN (08:15)
[2019-10-08] MEDS ORDERED: ACETAMINOPHEN 325 MG TABLET PO PRN (08:15)
[2019-10-08] MEDS ORDERED: DOCUSATE SODIUM 100 MG CAPSULE PO PRN (08:15)
[2019-10-08] MEDS ORDERED: GuaiFENesin/D-METHORPHAN [SUGAR-FREE] 200-20MG/10 ML SYRUP UDCUP PO PRN (08:15)
[2019-10-08] MEDS ORDERED: IBUPROFEN 400 MG TABLET PO PRN (08:15)
[2019-10-08] MEDS ORDERED: ALBUTEROL SULFATE HFA 90 MCG/PUFF 8 GM INHALER IH PRN (08:15)
[2019-10-08] MEDS ORDERED: ONDANSETRON HCL 4 MG TABLET PO PRN (08:15)
[2019-10-08] MEDS ORDERED: CloNIDine HCL 0.1 MG TABLET PO PRN (08:15)
[2019-10-08] MEDS ORDERED: NICOTINE 14 MG/24 HOUR PATCH TD PRN (08:15)
[2019-10-08] MEDS ORDERED: MAG HYDROX/AL HYDROX/SIMETH ES 30 ML SUSPENSION UDCUP PO PRN (08:15)
[2019-10-08 09:08] LABS: CHOL/HDL RATIO 2.8 (4.2-7.3)
[2019-10-08] MEDS: CARVEDILOL 3.125 MG TABLET PO SCH (16:50)
[2019-10-08] MEDS: OLANZapine 5 MG TABLET PO SCH (16:50)
[2019-10-08 17:27] VITALS: BP 143/113
[2019-10-09 05:59] VITALS: BP 172/86
[2019-10-09 07:04] VITALS: BP 149/99
[2019-10-09 08:10] VITALS: BP 122/88
[2019-10-09] MEDS: FUROSEMIDE 20 MG TABLET PO SCH (08:26)
[2019-10-09] MEDS: ASPIRIN 81 MG CHEWABLE TABLET PO SCH (08:27)
[2019-10-09] MEDS: CARVEDILOL 3.125 MG TABLET PO SCH ×2 (08:27→16:30)
[2019-10-09] MEDS: OLANZapine 5 MG TABLET PO SCH ×2 (08:27→16:30)
[2019-10-09 10:15] VITALS: BP_SYST 113; BP_SYST 148; BP_SYST 155; BP_DIAS 112; BP_DIAS 61
[2019-10-09] MEDS ORDERED: AmLODIPine BESYLATE 5 MG TABLET ONE (11:43)
[2019-10-09] MEDS ORDERED: AmLODIPine BESYLATE 5 MG TABLET PO ONE (11:45)
[2019-10-09 16:18] VITALS: BP 133/82
[2019-10-10 06:16] VITALS: BP 133/99
[2019-10-10 08:18] VITALS: BP 136/98
[2019-10-10] MEDS: AmLODIPine BESYLATE 2.5 MG TABLET PO SCH (08:51)
[2019-10-10] MEDS: ASPIRIN 81 MG CHEWABLE TABLET PO SCH (08:52)
[2019-10-10] MEDS: CARVEDILOL 3.125 MG TABLET PO SCH ×2 (08:52→16:37)
[2019-10-10] MEDS: FUROSEMIDE 20 MG TABLET PO SCH (08:52)
[2019-10-10] MEDS: OLANZapine 5 MG TABLET PO SCH ×2 (08:52→16:37)
[2019-10-10] MEDS: LORazepam 2 MG TABLET PO PRN (16:37)
[2019-10-10 18:14] VITALS: BP 134/81
[2019-10-11 03:57] VITALS: BP 130/91
[2019-10-11 08:08] VITALS: BP 133/99
[2019-10-11] MEDS: AmLODIPine BESYLATE 2.5 MG TABLET PO SCH (08:39)
[2019-10-11] MEDS: CARVEDILOL 3.125 MG TABLET PO SCH ×2 (08:39→16:00)
[2019-10-11] MEDS: ASPIRIN 81 MG CHEWABLE TABLET PO SCH (08:39)
[2019-10-11] MEDS: FUROSEMIDE 20 MG TABLET PO SCH (08:39)
[2019-10-11] MEDS: OLANZapine 5 MG TABLET PO SCH ×2 (08:39→16:00)
[2019-10-11] MEDS: LORazepam 2 MG TABLET PO PRN ×2 (16:00→20:39)
[2019-10-11 16:24] VITALS: BP 133/85
[2019-10-12] MEDS: LORazepam 2 MG TABLET PO PRN (04:31)
[2019-10-12 04:32] VITALS: BP 149/98
[2019-10-12 08:35] VITALS: BP 129/94
[2019-10-12] MEDS: ASPIRIN 81 MG CHEWABLE TABLET PO SCH (09:03)
[2019-10-12] MEDS: OLANZapine 5 MG TABLET PO SCH (09:03)
[2019-10-12] MEDS: AmLODIPine BESYLATE 2.5 MG TABLET PO SCH (09:03)
[2019-10-12] MEDS: FUROSEMIDE 20 MG TABLET PO SCH (09:03)
[2019-10-12] MEDS: CARVEDILOL 3.125 MG TABLET PO SCH (09:03)
[2019-10-12] MEDS ORDERED: ASPI-728 PO (11:43)
[2019-10-12] MEDS ORDERED: AMLO2.5T4 PO (11:43)
[2019-10-12] MEDS ORDERED: CARV3 PO (11:43)
[2019-10-12] MEDS ORDERED: OLAN5TAB2 PO (11:43)
[2019-10-12] MEDS ORDERED: FURO20 PO (11:43)
== END 2019-10-12 13:30 | disposition home or self-care (01) | DRG 750 ==
LOC: EMS 16:16 → B3A 22:07
PROVIDERS: ADMIT Psychiatry & Neurology Psychiatry; ATTEND Psychiatry & Neurology Psychiatry
DX: F20.0 Paranoid schizophrenia (principal); N17.9 Acute kidney failure, unspecified; I50.9 Heart failure, unspecified; Z91.14 Patient's other noncompliance with medication regimen; J44.9 Chronic obstructive pulmonary disease, unspecified; Z91.19 Patient's noncompliance with other medical treatment and regimen; F15.10 Other stimulant abuse, uncomplicated; F12.10 Cannabis abuse, uncomplicated; F17.210 Nicotine dependence, cigarettes, uncomplicated; I25.10 Atherosclerotic heart disease of native coronary artery without angina pectoris; E78.5 Hyperlipidemia, unspecified; I10 Essential (primary) hypertension
CPT/HCPCS: G0480

== ENCOUNTER 2020-07-08 11:22 | Emergency (ER) | payer MEDICAID ==
[~2020-07-08] VITALS: Ht 162.6 cm; Wt 56.8 kg
[~2020-07-08 11:22] MED LIST changes: +AMLO2.5T96 PO; +APIX5TAB PO; +FURO20 PO; -FURO40TA5 PO; +IPRA4AER IH; +ISOS1TAB2 PO; -LISI-660 PO; +OLAN5TAB27 PO; -POTA-9 PO
[2020-07-08 11:37] VITALS: BP 130/78
== END 2020-07-08 13:47 | disposition home or self-care (01) ==
LOC: EMS 11:32
DX: Z48.01 Encounter for change or removal of surgical wound dressing (principal); I11.0 Hypertensive heart disease with heart failure; I50.9 Heart failure, unspecified; J44.9 Chronic obstructive pulmonary disease, unspecified; F12.90 Cannabis use, unspecified, uncomplicated; F15.90 Other stimulant use, unspecified, uncomplicated; Z87.891 Personal history of nicotine dependence
CPT/HCPCS: 99282; Z7502

== ENCOUNTER 2020-07-09 09:39 | Emergency (ER) | payer MEDICAID ==
[~2020-07-09] VITALS: Ht 162.6 cm; Wt 60.5 kg
[~2020-07-09 09:39] MED LIST changes: -ASPI-1111 PO; +ASPI-1444 PO
[2020-07-09 10:38] VITALS: BP 105/75
== END 2020-07-09 10:38 | disposition home or self-care (01) ==
LOC: EMS 09:39
DX: T81.31XA Disruption of external operation (surgical) wound, not elsewhere classified, initial encounter (principal); I11.0 Hypertensive heart disease with heart failure; I50.9 Heart failure, unspecified; F17.210 Nicotine dependence, cigarettes, uncomplicated; F12.90 Cannabis use, unspecified, uncomplicated; F19.90 Other psychoactive substance use, unspecified, uncomplicated; Z79.899 Other long term (current) drug therapy; Z79.82 Long term (current) use of aspirin
CPT/HCPCS: 99281; Z7502

== ENCOUNTER 2020-07-11 10:39 | Emergency (ER) | payer MEDICAID ==
[~2020-07-11] VITALS: Ht 162.6 cm; Wt 59.5 kg
[2020-07-11 12:02] VITALS: BP 132/93
== END 2020-07-11 14:05 | disposition left against medical advice (07) ==
LOC: EMS 10:39
DX: G89.18 Other acute postprocedural pain (principal); Z53.21 Procedure and treatment not carried out due to patient leaving prior to being seen by health care provider

== ENCOUNTER 2020-07-12 08:28 | Emergency (ER) | payer MEDICAID ==
[~2020-07-12] VITALS: Ht 162.6 cm; Wt 62.3 kg
[2020-07-12] MEDS ORDERED: ASPIRIN 81 MG CHEWABLE TABLET PO ONE (09:30)
[2020-07-12 10:25] LABS: COVID AG,FIA SOURCE NASAL SWAB
[2020-07-12 10:32] LABS: BASOPHILS % (AUTO) 0.6 % (0.0-2.0); EOSINOPHILS % (AUTO) 0.4 % (1.0-6.0); HEMATOCRIT 39.2 % (41-53); HEMOGLOBIN 12.5 g/dL (13.5-17.5); LYMPHOCYTES # (AUTO) 0.6 K/uL (1.0-4.8); LYMPHOCYTES % (AUTO) 7.8 % (22.0-44.0); MEAN CORPUSCULAR VOLUME 94 fL (80-100); MONOCYTES # (AUTO) 0.5 K/uL (0.1-1.0); MONOCYTES % (AUTO) 6.8 % (2.0-9.0); NEUTROPHILS # (AUTO) 6.5 K/uL (1.8-7.7); NEUTROPHILS % (AUTO) 84.4 % (40.0-70.0); PLATELET COUNT (AUTO) 281 K/uL (150-450); RED BLOOD CELL COUNT(AUTO) 4.17 MIL/uL (4.50-5.90); RED CELL DISTRIBUTION WIDTH 16.2 % (11.5-14.5)
[2020-07-12 10:37] LABS: CREATININE 1.35 mg/dL (0.60-1.30); POTASSIUM 4.6 mmol/L (3.5-5.1)
[2020-07-12 11:02] LABS: ALBUMIN 3.4 g/dL (3.4-5.0); TOTAL PROTEIN, SERUM 7.1 g/dL (6.4-8.2)
[2020-07-12 11:47] LABS: APPEARANCE,URINE CLEAR (CLEAR); BILIRUBIN,URINE NEGATIVE (NEGATIVE); GLUCOSE, URINE (UA) NEGATIVE (NEGATIVE); KETONES,URINE NEGATIVE (NEGATIVE); LEUKOCYTE ESTERASE ,URINE NEGATIVE (NEGATIVE); NITRATE,URINE NEGATIVE (NEGATIVE); PH,URINE 5.5 (5.0-8.0); PROTEIN,URINE SEE CONFIRM (NEGATIVE); UROBILINOGEN,URINE 0.2 mg/dL (<=1.0)
[2020-07-12 12:01] LABS: BACTERIA,URINE None Seen /HPF (None Seen); OCCULT BLOOD,URINE SMALL (NEGATIVE); SULFOSALICYLIC ACID,URINE 3+ (Negative); WBC,URINE None Seen /HPF (0-5)
[2020-07-12 12:02] LABS: COARSE GRANULAR CASTS,URINE 0-2 /LPF (None Seen)
[2020-07-12] MEDS ORDERED: FUROSEMIDE 40 MG/4 ML VIAL IVP ONE (12:15)
[2020-07-12 14:38] VITALS: BP 134/82
== END 2020-07-12 14:45 | disposition home or self-care (01) ==
LOC: EMS 08:34
DX: I11.0 Hypertensive heart disease with heart failure (principal); I50.9 Heart failure, unspecified; J44.9 Chronic obstructive pulmonary disease, unspecified; F12.90 Cannabis use, unspecified, uncomplicated; F15.90 Other stimulant use, unspecified, uncomplicated; Z87.891 Personal history of nicotine dependence; Z79.899 Other long term (current) drug therapy; Z20.822 Contact with and (suspected) exposure to COVID-19
CPT/HCPCS: 36415; 71045; 80053; 81001; 82550; 83880; 84484; 85025; 87426; 93005; 96374; 99285; J1940

== ENCOUNTER 2020-08-05 18:14 | Emergency (ER) | payer MEDICAID ==
[~2020-08-05] VITALS: Ht 162.6 cm; Wt 55.0 kg
[2020-08-05] MEDS ORDERED: ACETAMINOPHEN 325 MG TABLET PO ONE (19:30)
[2020-08-05 19:45] VITALS: BP 97/67
[2020-08-05] MEDS ORDERED: IBUPROFEN 400 MG TABLET PO ONE (20:15)
== END 2020-08-05 20:23 | disposition home or self-care (01) ==
LOC: EMS 18:17
DX: S90.31XA Contusion of right foot, initial encounter (principal); I11.0 Hypertensive heart disease with heart failure; I50.9 Heart failure, unspecified; Z87.891 Personal history of nicotine dependence; F12.90 Cannabis use, unspecified, uncomplicated; X58.XXXA Exposure to other specified factors, initial encounter; Y93.89 Activity, other specified; Y92.89 Other specified places as the place of occurrence of the external cause; Y99.8 Other external cause status
CPT/HCPCS: 99283

== ENCOUNTER 2022-02-05 18:46 | Emergency (ER) | payer MEDICAID ==
[~2022-02-05] VITALS: Ht 162.6 cm; Wt 59.1 kg
[~2022-02-05 18:46] MED LIST changes: -ISOS1TAB2 PO; +ISOS1TAB3 PO; -OLAN5TAB27 PO; +OLAN5TAB77 PO
[2022-02-05] MEDS ORDERED: LORazepam 1 MG TABLET PO ONE (21:15)
[2022-02-05] MEDS ORDERED: OLANZapine 5 MG TABLET PO ONE (21:15)
[2022-02-05 21:46] LABS: BASOPHILS % (AUTO) 1.2 % (0.0-2.0); EOSINOPHILS % (AUTO) 12.1 % (1.0-6.0); HEMATOCRIT 38.4 % (41-53); HEMOGLOBIN 12.5 g/dL (13.5-17.5); LYMPHOCYTES # (AUTO) 0.7 K/uL (1.0-4.8); LYMPHOCYTES % (AUTO) 13.5 % (22.0-44.0); MEAN CORPUSCULAR HGB CONC 32.5 G/dL (31.0-37.0); MEAN CORPUSCULAR VOLUME 92 fL (80-100); MONOCYTES # (AUTO) 0.5 K/uL (0.1-1.0); MONOCYTES % (AUTO) 9.7 % (2.0-9.0); NEUTROPHILS # (AUTO) 3.1 K/uL (1.8-7.7); NEUTROPHILS % (AUTO) 63.5 % (40.0-70.0); PLATELET COUNT (AUTO) 183 K/uL (150-450); RED BLOOD CELL COUNT(AUTO) 4.16 MIL/uL (4.50-5.90); RED CELL DISTRIBUTION WIDTH 14.2 % (11.5-14.5)
[2022-02-05 22:00] LABS: ANION GAP 5 mmol/L (8-16); CALCIUM, TOTAL 8.9 mg/dL (8.8-10.5); CARBON DIOXIDE 26 mmol/L (22-29); CHLORIDE 109 mmol/L (98-107); CREATININE 1.51 mg/dL (0.60-1.30); GLUCOSE,RANDOM 96 mg/dL (70-110); POTASSIUM 3.9 mmol/L (3.5-5.1); SODIUM SERUM 140 mmol/L (136-145); UREA NITROGEN, BLOOD 36 mg/dL (7-18)
[2022-02-05 22:01] LABS: GLOMERULAR FILTR. RATE CALC 47 mL/min (>60)
[2022-02-05 22:04] LABS: ALBUMIN 3.5 g/dL (3.4-5.0)
[2022-02-05 22:09] LABS: COVID AG,FIA SOURCE NASOPHARYNGEAL
[2022-02-05 22:14] LABS: ALANINE AMINOTRANSFERASE 39 U/L (12-78); ALKALINE PHOSPHATASE 59 U/L (46-116); ASPARTATE AMINOTRANSFERASE 49 U/L (15-37); BILIRUBIN,TOTAL 0.5 mg/dL (0.1-1.0); TOTAL PROTEIN, SERUM 6.3 g/dL (6.4-8.2)
[2022-02-05 23:05] VITALS: BP 127/83
== END 2022-02-05 23:08 | disposition home or self-care (01) ==
LOC: EMS 18:46
DX: F69 Unspecified disorder of adult personality and behavior (principal); Z20.822 Contact with and (suspected) exposure to COVID-19; F41.9 Anxiety disorder, unspecified; F10.20 Alcohol dependence, uncomplicated; F12.90 Cannabis use, unspecified, uncomplicated; F15.10 Other stimulant abuse, uncomplicated; J44.9 Chronic obstructive pulmonary disease, unspecified; I11.0 Hypertensive heart disease with heart failure; I50.9 Heart failure, unspecified; Z95.0 Presence of cardiac pacemaker
CPT/HCPCS: 99284; 87426; 80053; 85025; 36415; G0480

== ENCOUNTER 2022-02-06 03:19 | Inpatient (IN) | payer MEDICAID ==
[~2022-02-06] VITALS: Ht 162.6 cm; Wt 51.1 kg
[2022-02-06] MEDS ORDERED: NALOXONE HCL 1 MG/ML 2 ML SYRINGE IVP ONE (03:45)
[2022-02-06 04:15] LABS: BASOPHILS % (AUTO) 1.1 % (0.0-2.0); HEMATOCRIT 42.5 % (41-53); HEMOGLOBIN 13.7 g/dL (13.5-17.5); LYMPHOCYTES # (AUTO) 0.9 K/uL (1.0-4.8); LYMPHOCYTES % (AUTO) 20.4 % (22.0-44.0); MEAN CORPUSCULAR HEMOGLOBIN 30.1 pg (26.0-34.0); MEAN CORPUSCULAR HGB CONC 32.2 G/dL (31.0-37.0); MEAN CORPUSCULAR VOLUME 94 fL (80-100); MONOCYTES # (AUTO) 0.5 K/uL (0.1-1.0); MONOCYTES % (AUTO) 11.3 % (2.0-9.0); NEUTROPHILS # (AUTO) 2.2 K/uL (1.8-7.7); NEUTROPHILS % (AUTO) 49.2 % (40.0-70.0); PLATELET COUNT (AUTO) 185 K/uL (150-450); RED BLOOD CELL COUNT(AUTO) 4.55 MIL/uL (4.50-5.90); RED CELL DISTRIBUTION WIDTH 14.2 % (11.5-14.5)
[2022-02-06 04:24] LABS: ANION GAP 4 mmol/L (8-16); CALCIUM, TOTAL 9.2 mg/dL (8.8-10.5); CARBON DIOXIDE 30 mmol/L (22-29); CHLORIDE 108 mmol/L (98-107); CREATININE 1.47 mg/dL (0.60-1.30); GLOMERULAR FILTR. RATE CALC 49 mL/min (>60); GLUCOSE,RANDOM 93 mg/dL (70-110); POTASSIUM 3.6 mmol/L (3.5-5.1); SODIUM SERUM 142 mmol/L (136-145); UREA NITROGEN, BLOOD 34 mg/dL (7-18)
[2022-02-06 04:26] LABS: LIPASE 92 U/L (73-393)
[2022-02-06 04:32] LABS: AMMONIA 16 umol/L (11-32); LACTIC ACID 1.1 mmol/L (0.4-2.0)
[2022-02-06 05:13] LABS: ABG BASE EXCESS -1.4 mmol/L (-2.0-3.0); ABG CARBOXYHEMOGLOBIN 0.3 % (0.0-1.5); ABG HCO3 23.5 mmol/L (22.0-26.0); ABG METHEMOGLOBIN 0.2 % (0.0-1.5); ABG OXYGEN CONTENT 20.4 mL/dL (15.0-23.0); ABG OXYGEN SATURATION 96.8 % (95.0-98.0); ABG OXYHEMOGLOBIN 96.3 % (94.0-100.0); ABG PCO2 39 mmHg (35-45); ABG PH 7.399 (7.35-7.450); PO2, ARTERIAL BG 88.9 mmHg (79.0-87.0); SITE, BLOOD GAS RT RADIAL; SOURCE, BLOOD GAS ARTERIAL; TEMPERATURE, FAHRENHEIT, BG 98.6 FAHREN (96.0-98.6)
[2022-02-06] MEDS ORDERED: ONDANSETRON HCL 4 MG/2 ML VIAL IVP PRN (05:45)
[2022-02-06] MEDS ORDERED: 0.9% SODIUM CHLORIDE 10 ML SYRINGE IVP PRN (05:45)
[2022-02-06 10:00] VITALS: BP 147/89
[2022-02-06 14:45] VITALS: BP 144/86
[2022-02-06 16:00] VITALS: BP 146/91
[2022-02-06 18:51] LABS: GLUCOMETER DEV NAME(LOC) 5S.1B; GLUCOSE,POINT OF CARE 73 MG/DL (70-110)
[2022-02-06 20:22] VITALS: BP 120/95
[2022-02-07 00:37] VITALS: BP 117/85
[2022-02-07 04:28] VITALS: BP 132/95
[2022-02-07 08:10] VITALS: BP 137/93
[2022-02-07 11:15] VITALS: BP 126/77
== END 2022-02-07 14:45 | disposition home or self-care (01) | DRG 52 ==
LOC: EMS 03:20 → 5S 08:44
PROVIDERS: ADMIT Internal Medicine; ATTEND Internal Medicine
DX: G92.8 Other toxic encephalopathy (principal); E43 Unspecified severe protein-calorie malnutrition; D72.10 Eosinophilia, unspecified; I42.9 Cardiomyopathy, unspecified; I50.9 Heart failure, unspecified; K92.2 Gastrointestinal hemorrhage, unspecified; I11.0 Hypertensive heart disease with heart failure; T42.4X5A Adverse effect of benzodiazepines, initial encounter; F15.10 Other stimulant abuse, uncomplicated; F20.9 Schizophrenia, unspecified; I25.10 Atherosclerotic heart disease of native coronary artery without angina pectoris; F17.210 Nicotine dependence, cigarettes, uncomplicated; J44.9 Chronic obstructive pulmonary disease, unspecified; Z82.49 Family history of ischemic heart disease and other diseases of the circulatory system; Z83.3 Family history of diabetes mellitus; Z95.810 Presence of automatic (implantable) cardiac defibrillator; Z68.1 Body mass index [BMI] 19.9 or less, adult
CPT/HCPCS: 36600; 70450; 71045; 80048; 82140; 82805; 82962; 83605; 83690; 84484; 85025; 93005; 99285; G0480; J2310; 36415-L1; 36415-TC

== ENCOUNTER 2022-02-16 13:57 | Emergency (ER) | payer MEDICAID ==
[~2022-02-16] VITALS: Ht 157.5 cm; Wt 68.2 kg
[2022-02-16 18:41] VITALS: BP 126/87
== END 2022-02-16 19:29 | disposition home or self-care (01) ==
LOC: EMS 14:01
DX: F15.10 Other stimulant abuse, uncomplicated (principal); F20.9 Schizophrenia, unspecified; F10.20 Alcohol dependence, uncomplicated; F12.90 Cannabis use, unspecified, uncomplicated; F32.9 Major depressive disorder, single episode, unspecified; I11.0 Hypertensive heart disease with heart failure; I50.9 Heart failure, unspecified; I49.9 Cardiac arrhythmia, unspecified; J44.9 Chronic obstructive pulmonary disease, unspecified
CPT/HCPCS: 99281; Z7502

== ENCOUNTER 2022-10-26 08:51 | Inpatient (IN) | payer MEDICAID ==
[~2022-10-26] VITALS: Ht 162.6 cm; Wt 63.0 kg
[2022-10-26 09:55] LABS: BASOPHILS % (AUTO) 0.6 % (0.0-2.0); EOSINOPHILS % (AUTO) 4.2 % (1.0-6.0); HEMATOCRIT 44.6 % (41-53); HEMOGLOBIN 14.6 g/dL (13.5-17.5); LYMPHOCYTES # (AUTO) 0.6 K/uL (1.0-4.8); LYMPHOCYTES % (AUTO) 6.9 % (22.0-44.0); MEAN CORPUSCULAR HEMOGLOBIN 30.2 pg (26.0-34.0); MEAN CORPUSCULAR HGB CONC 32.7 G/dL (31.0-37.0); MEAN CORPUSCULAR VOLUME 92 fL (80-100); MONOCYTES # (AUTO) 0.8 K/uL (0.1-1.0); MONOCYTES % (AUTO) 8.6 % (2.0-9.0); NEUTROPHILS % (AUTO) 79.7 % (40.0-70.0); PLATELET COUNT (AUTO) 236 K/uL (150-450); RED BLOOD CELL COUNT(AUTO) 4.84 MIL/uL (4.50-5.90); RED CELL DISTRIBUTION WIDTH 14.4 % (11.5-14.5)
[2022-10-26] MEDS ORDERED: IPRATROPIUM BROMIDE 0.5 MG/2.5 ML NEB SOLUTION NEB ONE (10:00)
[2022-10-26] MEDS ORDERED: ALBUTEROL SULFATE 2.5 MG/0.5 ML NEB SOLUTION NEB ONE (10:00)
[2022-10-26 10:15] LABS: CREATININE 1.48 mg/dL (0.60-1.30); POTASSIUM 4.2 mmol/L (3.5-5.1)
[2022-10-26 10:22] LABS: ALBUMIN 3.1 g/dL (3.4-5.0); BILIRUBIN,TOTAL 0.7 mg/dL (0.1-1.0); TOTAL PROTEIN, SERUM 6.5 g/dL (6.4-8.2)
[2022-10-26] MEDS ORDERED: NITROGLYCERIN 2% (1 GM=INCH) OINTMENT PACKET TP ONE (11:15)
[2022-10-26] MEDS ORDERED: FUROSEMIDE 40 MG/4 ML VIAL IVP ONE (11:15)
[2022-10-26 11:25] LABS: APPEARANCE,URINE CLEAR (CLEAR); BILIRUBIN,URINE NEGATIVE (NEGATIVE); GLUCOSE, URINE (UA) NEGATIVE (NEGATIVE); KETONES,URINE NEGATIVE (NEGATIVE); LEUKOCYTE ESTERASE ,URINE NEGATIVE (NEGATIVE); NITRATE,URINE NEGATIVE (NEGATIVE); OCCULT BLOOD,URINE SMALL (NEGATIVE); PH,URINE 5.5 (5.0-8.0); PROTEIN,URINE 100-200,SEE CONFIRM mg/dL (NEGATIVE); SPECIFIC GRAVITIY, URINE 1.014 (1.003-1.030); UROBILINOGEN,URINE <=1.0 mg/dL (<=1.0)
[2022-10-26 11:40] LABS: AMPHET/METH SCREEN,URINE POSITIVE (NEGATIVE); BARBITURATE SCREEN, URINE NEGATIVE (NEGATIVE); BENZODIAZEPINES SCREEN,URINE NEGATIVE (NEGATIVE); CANNABINOID SCREEN,URINE POSITIVE (NEGATIVE); COCAINE SCREEN,URINE NEGATIVE (NEGATIVE); METHADONE SCREEN, URINE NEGATIVE (NEGATIVE); OPIATE SCREEN,URINE NEGATIVE (NEGATIVE); PHENCYCLIDINE SCREEN,URINE NEGATIVE (NEGATIVE)
[2022-10-26 11:44] LABS: BACTERIA,URINE None Seen /HPF (None Seen); RBC,URINE 0-2 /HPF (0-2); SQUAMOUS EPITHELIAL CELL,UR None Seen /LPF (None Seen); SULFOSALICYLIC ACID,URINE 1+ (Negative); WBC,URINE None Seen /HPF (0-5)
[2022-10-26] MEDS ORDERED: OxyCODONE HCL/ACETAMINOPHEN 5-325 MG TABLET PO PRN (12:15)
[2022-10-26] MEDS ORDERED: ONDANSETRON HCL 4 MG/2 ML VIAL IVP PRN (12:15)
[2022-10-26] MEDS ORDERED: ZOLPIDEM TARTRATE 5 MG TABLET PO PRN (12:15)
[2022-10-26] MEDS: HEPARIN SODIUM,PORCINE 5,000 UNITS/ML VIAL SQ SCH (15:52)
[2022-10-26 18:35] VITALS: BP 122/82
[2022-10-26 19:37] VITALS: BP 141/86
[2022-10-26] MEDS: DOCUSATE SODIUM 100 MG CAPSULE PO SCH (20:10)
[2022-10-26] MEDS: ATORVASTATIN CALCIUM 20 MG TABLET PO SCH (20:10)
[2022-10-26] MEDS: ACETAMINOPHEN 325 MG TABLET PO PRN (20:12)
[2022-10-26] MEDS: SPIRONOLACTONE 25 MG TABLET PO SCH (22:37)
[2022-10-26 23:19] VITALS: BP 134/95
[2022-10-27] MEDS: HEPARIN SODIUM,PORCINE 5,000 UNITS/ML VIAL SQ SCH ×4 (00:26→23:52)
[2022-10-27] MEDS: ACETAMINOPHEN 325 MG TABLET PO PRN (00:27)
[2022-10-27 03:50] VITALS: BP 133/94
[2022-10-27 07:10] LABS: CALCIUM, TOTAL 9.4 mg/dL (8.8-10.5); CREATININE 1.44 mg/dL (0.60-1.30)
[2022-10-27 07:50] VITALS: BP 133/100
[2022-10-27] MEDS: FUROSEMIDE 40 MG TABLET PO SCH (08:57)
[2022-10-27] MEDS: SPIRONOLACTONE 25 MG TABLET PO SCH ×2 (08:57→20:16)
[2022-10-27] MEDS: FAMOTIDINE 20 MG TABLET PO SCH (08:57)
[2022-10-27] MEDS: DOCUSATE SODIUM 100 MG CAPSULE PO SCH ×2 (08:57→20:16)
[2022-10-27] MEDS: METOPROLOL SUCCINATE 25 MG ER TABLET PO SCH (08:57)
[2022-10-27] MEDS: ASPIRIN 81 MG CHEWABLE TABLET PO SCH (08:57)
[2022-10-27] MEDS: LOSARTAN POTASSIUM 25 MG TABLET PO SCH (08:57)
[2022-10-27 10:21] VITALS: BP 129/95
[2022-10-27 15:24] VITALS: BP 115/89
[2022-10-27 20:00] VITALS: BP 121/84
[2022-10-27] MEDS: ATORVASTATIN CALCIUM 20 MG TABLET PO SCH (20:16)
[2022-10-28] VITALS: BP 119/69
[2022-10-28 04:00] VITALS: BP 117/87
[2022-10-28] MEDS ORDERED: METO25XL PO (08:03)
[2022-10-28] MEDS ORDERED: LOSA-381 PO (08:04)
[2022-10-28] MEDS ORDERED: SPIR-37 PO (08:04)
[2022-10-28] MEDS: LOSARTAN POTASSIUM 25 MG TABLET PO SCH (08:38)
[2022-10-28] MEDS: FUROSEMIDE 40 MG TABLET PO SCH (08:38)
[2022-10-28] MEDS: FAMOTIDINE 20 MG TABLET PO SCH (08:38)
[2022-10-28] MEDS: DOCUSATE SODIUM 100 MG CAPSULE PO SCH (08:38)
[2022-10-28] MEDS: HEPARIN SODIUM,PORCINE 5,000 UNITS/ML VIAL SQ SCH (08:38)
[2022-10-28] MEDS: ASPIRIN 81 MG CHEWABLE TABLET PO SCH (08:38)
[2022-10-28] MEDS: METOPROLOL SUCCINATE 25 MG ER TABLET PO SCH (08:39)
[2022-10-28] MEDS: SPIRONOLACTONE 25 MG TABLET PO SCH (08:39)
[2022-10-28 09:19] VITALS: BP 111/46
== END 2022-10-28 11:30 | disposition home or self-care (01) | DRG 194 ==
LOC: EMS 09:04 → UNDOADMIN 12:13 → ICUN 12:13 → AHU 12:13 → 5S 16:47
PROVIDERS: ADMIT Internal Medicine; ATTEND Internal Medicine
DX: I13.0 Hypertensive heart and chronic kidney disease with heart failure and stage 1 through stage 4 chronic kidney disease, or unspecified chronic kidney disease (principal); F17.210 Nicotine dependence, cigarettes, uncomplicated; I50.43 Acute on chronic combined systolic (congestive) and diastolic (congestive) heart failure; F19.90 Other psychoactive substance use, unspecified, uncomplicated; N18.2 Chronic kidney disease, stage 2 (mild); J44.9 Chronic obstructive pulmonary disease, unspecified; F32.A Depression, unspecified; I25.10 Atherosclerotic heart disease of native coronary artery without angina pectoris; F20.9 Schizophrenia, unspecified; Z79.899 Other long term (current) drug therapy; Z79.82 Long term (current) use of aspirin; Z91.148 Patient's other noncompliance with medication regimen for other reason; Z95.810 Presence of automatic (implantable) cardiac defibrillator; Z82.49 Family history of ischemic heart disease and other diseases of the circulatory system; Z79.01 Long term (current) use of anticoagulants; Z83.3 Family history of diabetes mellitus
CPT/HCPCS: 71045; 80048; 80053; 80307; 81001; 81002; 83880; 84484; 85025; 93005; 94640; 99285; J1644; J1940; 36415-L1; 36415-TC; J7613

== ENCOUNTER 2022-11-21 13:49 | Emergency (ER) | payer MEDICAID ==
[~2022-11-21] VITALS: Ht 160 cm; Wt 61.4 kg
[~2022-11-21 13:49] MED LIST changes: +ALBU18HF12 IH; -AMLO2.5T96 PO; -APIX5TAB PO; -CARV6 PO; -FURO20 PO; +FURO40 PO; -ISOS1TAB3 PO; +METO25XL PO; +PRED-554 PO; +SPIR-37 PO
[2022-11-21 15:21] LABS: BASOPHILS % (AUTO) 0.7 % (0.0-2.0); EOSINOPHILS % (AUTO) 4.6 % (1.0-6.0); HEMATOCRIT 42.6 % (41-53); HEMOGLOBIN 14.1 g/dL (13.5-17.5); LYMPHOCYTES # (AUTO) 0.8 K/uL (1.0-4.8); MEAN CORPUSCULAR VOLUME 91 fL (80-100); MONOCYTES # (AUTO) 0.9 K/uL (0.1-1.0); MONOCYTES % (AUTO) 14.1 % (2.0-9.0); NEUTROPHILS # (AUTO) 4.2 K/uL (1.8-7.7); NEUTROPHILS % (AUTO) 67.6 % (40.0-70.0); PLATELET COUNT (AUTO) 221 K/uL (150-450); RED BLOOD CELL COUNT(AUTO) 4.69 MIL/uL (4.50-5.90); RED CELL DISTRIBUTION WIDTH 14.7 % (11.5-14.5)
[2022-11-21 15:24] LABS: CALCIUM, TOTAL 8.5 mg/dL (8.8-10.5); CREATININE 1.72 mg/dL (0.60-1.30); POTASSIUM 4.1 mmol/L (3.5-5.1)
[2022-11-21] MEDS ORDERED: ASPI-1444 PO (17:56)
[2022-11-21] MEDS ORDERED: IPRA4AER IH (17:57)
[2022-11-21] MEDS ORDERED: METO25XL PO (17:57)
[2022-11-21] MEDS ORDERED: ALBU18HF12 IH (17:57)
[2022-11-21] MEDS ORDERED: SPIR-37 PO (17:57)
[2022-11-21] MEDS ORDERED: FURO40 PO (17:57)
[2022-11-21 18:00] VITALS: BP 132/70; PULSE 84; RESP 14; TEMP 98.2
== END 2022-11-21 18:33 | disposition home or self-care (01) ==
LOC: EMS 13:50
DX: R42 Dizziness and giddiness (principal); I25.119 Atherosclerotic heart disease of native coronary artery with unspecified angina pectoris; I13.0 Hypertensive heart and chronic kidney disease with heart failure and stage 1 through stage 4 chronic kidney disease, or unspecified chronic kidney disease; N18.9 Chronic kidney disease, unspecified; J44.9 Chronic obstructive pulmonary disease, unspecified; F20.9 Schizophrenia, unspecified; F17.210 Nicotine dependence, cigarettes, uncomplicated; F12.90 Cannabis use, unspecified, uncomplicated; F15.90 Other stimulant use, unspecified, uncomplicated; Z98.890 Other specified postprocedural states
CPT/HCPCS: 71045; 80048; 84484; 85025; 93005; 99285; 36415-L1; 36415-TC

== ENCOUNTER 2022-11-25 20:35 | Emergency (ER) | payer MEDICAID ==
[~2022-11-25] VITALS: Ht 162.6 cm; Wt 61.4 kg
[2022-11-25 20:50] VITALS: BP 106/83; PULSE 83; RESP 20; TEMP 98.1
== END 2022-11-25 21:45 | disposition left against medical advice (07) ==
LOC: EMS 20:36
DX: R07.89 Other chest pain (principal); Z53.21 Procedure and treatment not carried out due to patient leaving prior to being seen by health care provider
CPT/HCPCS: 99281; Z7502

== ENCOUNTER 2022-11-26 13:28 | Emergency (ER) | payer MEDICAID ==
[~2022-11-26] VITALS: Ht 170.2 cm; Wt 65.9 kg
[2022-11-26 16:34] LABS: BASOPHILS % (AUTO) 0.2 % (0.0-2.0); EOSINOPHILS % (AUTO) 0 % (1.0-6.0); HEMATOCRIT 44.2 % (41-53); HEMOGLOBIN 14.4 g/dL (13.5-17.5); LYMPHOCYTES # (AUTO) 0.4 K/uL (1.0-4.8); LYMPHOCYTES % (AUTO) 3.8 % (22.0-44.0); MEAN CORPUSCULAR HEMOGLOBIN 29.8 pg (26.0-34.0); MEAN CORPUSCULAR HGB CONC 32.6 G/dL (31.0-37.0); MEAN CORPUSCULAR VOLUME 91 fL (80-100); MONOCYTES # (AUTO) 0.4 K/uL (0.1-1.0); MONOCYTES % (AUTO) 4.2 % (2.0-9.0); NEUTROPHILS # (AUTO) 8.5 K/uL (1.8-7.7); NEUTROPHILS % (AUTO) 91.8 % (40.0-70.0); PLATELET COUNT (AUTO) 230 K/uL (150-450); RED BLOOD CELL COUNT(AUTO) 4.83 MIL/uL (4.50-5.90); RED CELL DISTRIBUTION WIDTH 15.1 % (11.5-14.5)
[2022-11-26 16:42] LABS: CALCIUM, TOTAL 8.8 mg/dL (8.8-10.5); CREATININE 1.65 mg/dL (0.60-1.30); POTASSIUM 3.5 mmol/L (3.5-5.1)
[2022-11-26 17:07] LABS: ALBUMIN 3.9 g/dL (3.4-5.0); BILIRUBIN,TOTAL 0.9 mg/dL (0.1-1.0); TOTAL PROTEIN, SERUM 7.3 g/dL (6.4-8.2)
[2022-11-26 17:33] LABS: PROTHROMBIN TIME 10.6 SEC (9.4-11.6)
[2022-11-26 19:21] VITALS: BP 104/70; PULSE 72; RESP 18; TEMP 98.5
== END 2022-11-26 19:29 | disposition home or self-care (01) ==
LOC: EMS 13:49
DX: S20.212A Contusion of left front wall of thorax, initial encounter (principal); I11.0 Hypertensive heart disease with heart failure; I25.119 Atherosclerotic heart disease of native coronary artery with unspecified angina pectoris; J44.9 Chronic obstructive pulmonary disease, unspecified; F32.A Depression, unspecified; F20.9 Schizophrenia, unspecified; F12.90 Cannabis use, unspecified, uncomplicated; Z98.890 Other specified postprocedural states; W18.00XA Striking against unspecified object with subsequent fall, initial encounter; Y93.89 Activity, other specified; Y92.89 Other specified places as the place of occurrence of the external cause; Y99.8 Other external cause status
CPT/HCPCS: 71045; 80053; 82550; 83880; 84484; 85025; 85610; 85730; 93005; 99285; 36415-L1; 36415-TC

== ENCOUNTER 2022-11-28 14:15 | Emergency (ER) | payer MEDICAID ==
[~2022-11-28] VITALS: Ht 162.6 cm; Wt 61.4 kg
[~2022-11-28 14:15] MED LIST changes: -ASPI-1444 PO; -IPRA4AER IH; -METO25XL PO; -OLAN5TAB77 PO; -PRED-554 PO; -SPIR-37 PO
[2022-11-28 14:31] VITALS: TEMP 97.7
[2022-11-28 16:35] LABS: BASOPHILS % (AUTO) 0.2 % (0.0-2.0); EOSINOPHILS % (AUTO) 0.1 % (1.0-6.0); HEMOGLOBIN 13.7 g/dL (13.5-17.5); LYMPHOCYTES # (AUTO) 0.2 K/uL (1.0-4.8); LYMPHOCYTES % (AUTO) 2.4 % (22.0-44.0); MEAN CORPUSCULAR HGB CONC 32.7 G/dL (31.0-37.0); MEAN CORPUSCULAR VOLUME 92 fL (80-100); MONOCYTES # (AUTO) 0.2 K/uL (0.1-1.0); MONOCYTES % (AUTO) 2.4 % (2.0-9.0); NEUTROPHILS # (AUTO) 7.9 K/uL (1.8-7.7); PLATELET COUNT (AUTO) 218 K/uL (150-450); RED BLOOD CELL COUNT(AUTO) 4.58 MIL/uL (4.50-5.90); RED CELL DISTRIBUTION WIDTH 14.8 % (11.5-14.5)
[2022-11-28 16:48] LABS: NEUTROPHILS % (AUTO) 94.9 % (40.0-70.0)
[2022-11-28 16:52] LABS: CALCIUM, TOTAL 8.3 mg/dL (8.8-10.5); CREATININE 1.51 mg/dL (0.60-1.30); POTASSIUM 3.4 mmol/L (3.5-5.1)
[2022-11-28 17:03] LABS: PROTHROMBIN TIME 10.3 SEC (9.4-11.6)
[2022-11-28 17:19] LABS: ALBUMIN 3.3 g/dL (3.4-5.0); BILIRUBIN,TOTAL 0.6 mg/dL (0.1-1.0); TOTAL PROTEIN, SERUM 6.4 g/dL (6.4-8.2)
[2022-11-28] MEDS ORDERED: HYDROCODONE/ACETAMINOPHEN 5-325 MG TABLET PO ONE (18:15)
[2022-11-28 18:53] LABS: APPEARANCE,URINE CLEAR (CLEAR); BILIRUBIN,URINE NEGATIVE (NEGATIVE); GLUCOSE, URINE (UA) NEGATIVE (NEGATIVE); KETONES,URINE NEGATIVE (NEGATIVE); LEUKOCYTE ESTERASE ,URINE NEGATIVE (NEGATIVE); NITRATE,URINE NEGATIVE (NEGATIVE); OCCULT BLOOD,URINE NEGATIVE (NEGATIVE); SPECIFIC GRAVITIY, URINE 1.022 (1.003-1.030); UROBILINOGEN,URINE <=1.0 mg/dL (<=1.0)
[2022-11-28 18:55] LABS: PROTEIN,URINE NEGATIVE (NEGATIVE)
[2022-11-28 19:10] VITALS: BP 112/65; PULSE 72; RESP 16
[2022-11-28] MEDS ORDERED: TRAM-559 PO (21:07)
== END 2022-11-28 20:30 | disposition home or self-care (01) ==
LOC: EMS 14:16
DX: R07.89 Other chest pain (principal); I25.119 Atherosclerotic heart disease of native coronary artery with unspecified angina pectoris; I13.0 Hypertensive heart and chronic kidney disease with heart failure and stage 1 through stage 4 chronic kidney disease, or unspecified chronic kidney disease; N18.9 Chronic kidney disease, unspecified; J44.9 Chronic obstructive pulmonary disease, unspecified; F32.A Depression, unspecified; F20.9 Schizophrenia, unspecified; F12.90 Cannabis use, unspecified, uncomplicated; Z98.890 Other specified postprocedural states
CPT/HCPCS: 71045; 71100; 80053; 81003; 82550; 83880; 84484; 85025; 85610; 85730; 93005; 99285; 36415-L1; 36415-TC

== ENCOUNTER 2022-12-16 15:48 | Emergency (ER) | payer MEDICAID ==
[~2022-12-16] VITALS: Ht 162.6 cm; Wt 59.1 kg
[~2022-12-16 15:48] MED LIST changes: +LOSA-381 PO; +METO25XL PO; +SPIR-37 PO; +TRAM-559 PO
[2022-12-16 16:13] VITALS: BP 130/74; PULSE 84; RESP 16; TEMP 98.8
[2022-12-17] MEDS ORDERED: ASPI-1444 PO (20:48)
[2022-12-17] MEDS ORDERED: PRED-554 PO (20:48)
[2022-12-17] MEDS ORDERED: IPRA4AER IH (20:48)
== END 2022-12-16 21:20 | disposition left against medical advice (07) ==
LOC: EMS 15:49
DX: Z53.21 Procedure and treatment not carried out due to patient leaving prior to being seen by health care provider (principal)
CPT/HCPCS: 99281; Z7502

== ENCOUNTER 2022-12-17 20:35 | Emergency (ER) | payer MEDICAID ==
[~2022-12-17] VITALS: Ht 162.6 cm; Wt 66.0 kg
[2022-12-17 20:40] VITALS: BP 115/74; PULSE 99; RESP 16; TEMP 98.7
[2022-12-17] MEDS ORDERED: ASPI-1444 PO (20:48)
[2022-12-17] MEDS ORDERED: PRED-554 PO (20:48)
[2022-12-17] MEDS ORDERED: IPRA4AER IH (20:48)
== END 2022-12-17 22:09 | disposition left against medical advice (07) ==
LOC: EMS 20:36
DX: R07.89 Other chest pain (principal); Z53.21 Procedure and treatment not carried out due to patient leaving prior to being seen by health care provider
CPT/HCPCS: 99281; Z7502

== ENCOUNTER 2022-12-19 14:09 | Emergency (ER) | payer MEDICAID ==
[~2022-12-19] VITALS: Ht 167.6 cm; Wt 63.6 kg
[~2022-12-19 14:09] MED LIST changes: +ASPI-1444 PO; +IPRA4AER IH; +PRED-554 PO; -TRAM-559 PO
[2022-12-19 14:16] VITALS: TEMP 98.6
[2022-12-19 15:03] LABS: BASOPHILS % (AUTO) 0.9 % (0.0-2.0); EOSINOPHILS % (AUTO) 6.5 % (1.0-6.0); HEMATOCRIT 44.6 % (41-53); HEMOGLOBIN 14.6 g/dL (13.5-17.5); LYMPHOCYTES # (AUTO) 0.6 K/uL (1.0-4.8); LYMPHOCYTES % (AUTO) 10.3 % (22.0-44.0); MEAN CORPUSCULAR HEMOGLOBIN 29.9 pg (26.0-34.0); MEAN CORPUSCULAR HGB CONC 32.6 G/dL (31.0-37.0); MEAN CORPUSCULAR VOLUME 92 fL (80-100); MONOCYTES # (AUTO) 0.5 K/uL (0.1-1.0); MONOCYTES % (AUTO) 8.7 % (2.0-9.0); NEUTROPHILS # (AUTO) 4.2 K/uL (1.8-7.7); NEUTROPHILS % (AUTO) 73.6 % (40.0-70.0); PLATELET COUNT (AUTO) 209 K/uL (150-450); RED BLOOD CELL COUNT(AUTO) 4.88 MIL/uL (4.50-5.90); RED CELL DISTRIBUTION WIDTH 15.3 % (11.5-14.5)
[2022-12-19 15:08] LABS: CALCIUM, TOTAL 9.1 mg/dL (8.8-10.5); CREATININE 1.39 mg/dL (0.60-1.30); POTASSIUM 4.3 mmol/L (3.5-5.1)
[2022-12-19 15:19] LABS: PROTHROMBIN TIME 10.6 SEC (9.4-11.6)
[2022-12-19 15:34] LABS: ALBUMIN 3.4 g/dL (3.4-5.0); BILIRUBIN,TOTAL 0.5 mg/dL (0.1-1.0); TOTAL PROTEIN, SERUM 6.3 g/dL (6.4-8.2)
[2022-12-19 16:01] LABS: APPEARANCE,URINE CLEAR (CLEAR); BILIRUBIN,URINE NEGATIVE (NEGATIVE); GLUCOSE, URINE (UA) NEGATIVE (NEGATIVE); KETONES,URINE NEGATIVE (NEGATIVE); LEUKOCYTE ESTERASE ,URINE NEGATIVE (NEGATIVE); NITRATE,URINE NEGATIVE (NEGATIVE); OCCULT BLOOD,URINE NEGATIVE (NEGATIVE); PH,URINE 5.5 (5.0-8.0); PROTEIN,URINE NEGATIVE (NEGATIVE); SPECIFIC GRAVITIY, URINE 1.009 (1.003-1.030); UROBILINOGEN,URINE <=1.0 mg/dL (<=1.0)
[2022-12-19 16:07] LABS: AMPHET/METH SCREEN,URINE POSITIVE (NEGATIVE); BARBITURATE SCREEN, URINE NEGATIVE (NEGATIVE); BENZODIAZEPINES SCREEN,URINE NEGATIVE (NEGATIVE); CANNABINOID SCREEN,URINE NEGATIVE (NEGATIVE); COCAINE SCREEN,URINE NEGATIVE (NEGATIVE); METHADONE SCREEN, URINE NEGATIVE (NEGATIVE); OPIATE SCREEN,URINE NEGATIVE (NEGATIVE); PHENCYCLIDINE SCREEN,URINE NEGATIVE (NEGATIVE)
[2022-12-19 16:54] VITALS: BP 126/92; PULSE 76; RESP 18
[2022-12-19] MEDS ORDERED: KETOROLAC TROMETHAMINE 30 MG/ML VIAL IM ONE (17:00)
== END 2022-12-19 17:29 | disposition home or self-care (01) ==
LOC: EMS 14:09
DX: I42.9 Cardiomyopathy, unspecified (principal); R07.89 Other chest pain; F15.10 Other stimulant abuse, uncomplicated; I11.0 Hypertensive heart disease with heart failure; I50.9 Heart failure, unspecified; J44.9 Chronic obstructive pulmonary disease, unspecified; F12.90 Cannabis use, unspecified, uncomplicated; F14.90 Cocaine use, unspecified, uncomplicated; Z79.899 Other long term (current) drug therapy
CPT/HCPCS: 99285; 71045; 80053; 81003; 82550; 83880; 84484; 85025; 85610; 85730; 36415; 93005; 96372; 80307 ×2; J1885

== ENCOUNTER 2023-01-07 08:44 | Emergency (ER) | payer MEDICAID ==
[~2023-01-07] VITALS: Ht 162.6 cm; Wt 65.9 kg
[~2023-01-07 08:44] MED LIST changes: -PRED-554 PO
[2023-01-07 09:19] LABS: BASOPHILS % (AUTO) 1.2 % (0.0-2.0); EOSINOPHILS % (AUTO) 17.2 % (1.0-6.0); HEMATOCRIT 41.2 % (41-53); HEMOGLOBIN 13.5 g/dL (13.5-17.5); LYMPHOCYTES # (AUTO) 0.7 K/uL (1.0-4.8); LYMPHOCYTES % (AUTO) 13.9 % (22.0-44.0); MEAN CORPUSCULAR HGB CONC 32.7 G/dL (31.0-37.0); MEAN CORPUSCULAR VOLUME 92 fL (80-100); MONOCYTES # (AUTO) 0.5 K/uL (0.1-1.0); MONOCYTES % (AUTO) 8.7 % (2.0-9.0); NEUTROPHILS # (AUTO) 3.1 K/uL (1.8-7.7); PLATELET COUNT (AUTO) 168 K/uL (150-450); RED BLOOD CELL COUNT(AUTO) 4.49 MIL/uL (4.50-5.90); RED CELL DISTRIBUTION WIDTH 14.8 % (11.5-14.5)
[2023-01-07 09:30] LABS: B-TYPE NATRIURETIC PEPTIDE 944 pg/mL (0-100)
[2023-01-07 09:53] LABS: ALANINE AMINOTRANSFERASE 20 U/L (12-78); ALKALINE PHOSPHATASE 69 U/L (46-116); ASPARTATE AMINOTRANSFERASE 20 U/L (15-37); CHLORIDE 106 mmol/L (98-107); CREATINE KINASE, TOTAL ONLY 114 U/L (39-308); POTASSIUM 3.8 mmol/L (3.5-5.1); SODIUM SERUM 140 mmol/L (136-145)
[2023-01-07 10:05] LABS: ALBUMIN 3.2 g/dL (3.4-5.0); ANION GAP 7 mmol/L (8-16); BILIRUBIN,TOTAL 0.6 mg/dL (0.1-1.0); CALCIUM, TOTAL 8.3 mg/dL (8.8-10.5); CARBON DIOXIDE 27 mmol/L (22-29); CREATININE 1.13 mg/dL (0.60-1.30); GLOMERULAR FILTR. RATE CALC > 60 mL/min (>60); GLUCOSE,RANDOM 93 mg/dL (70-110); TOTAL PROTEIN, SERUM 5.8 g/dL (6.4-8.2)
[2023-01-07 10:15] VITALS: BP 111/54
[2023-01-07] MEDS ORDERED: SPIRONOLACTONE 25 MG TABLET PO ONE (10:15)
[2023-01-07 11:24] VITALS: PULSE 82; RESP 16; TEMP 97.5
== END 2023-01-07 11:40 | disposition home or self-care (01) ==
LOC: EMS 08:45
DX: Z76.0 Encounter for issue of repeat prescription (principal); I11.0 Hypertensive heart disease with heart failure; J44.9 Chronic obstructive pulmonary disease, unspecified; F32.A Depression, unspecified; F20.9 Schizophrenia, unspecified; F12.90 Cannabis use, unspecified, uncomplicated; F14.90 Cocaine use, unspecified, uncomplicated; Z98.890 Other specified postprocedural states
CPT/HCPCS: 71045; 80053; 82550; 83880; 84484; 85025; 93005; 99285; 36415-L1; 36415-TC

== ENCOUNTER 2023-01-12 17:57 | Emergency (ER) | payer MEDICAID ==
[~2023-01-12] VITALS: Ht 162.6 cm; Wt 65.9 kg
[2023-01-12 18:02] VITALS: BP 121/77; PULSE 78; RESP 16; TEMP 98.6
[2023-01-12] MEDS ORDERED: FURO20TA4 PO (18:03)
[2023-01-12] MEDS ORDERED: METO-408 PO (18:03)
== END 2023-01-12 18:16 | disposition left against medical advice (07) ==
LOC: EMS 17:57
DX: Z76.0 Encounter for issue of repeat prescription (principal); Z53.21 Procedure and treatment not carried out due to patient leaving prior to being seen by health care provider
CPT/HCPCS: 99281; Z7502

== ENCOUNTER 2023-01-25 16:17 | Emergency (ER) | payer MEDICAID ==
[~2023-01-25] VITALS: Ht 162.6 cm; Wt 65.9 kg
[~2023-01-25 16:17] MED LIST changes: +FURO20TA4 PO; -FURO40 PO; +METO-408 PO
[2023-01-25 16:31] VITALS: BP 117/71; PULSE 63; RESP 22; TEMP 98.2
[2023-01-25] MEDS ORDERED: ALBU18HF12 IH (18:20)
== END 2023-01-25 18:24 | disposition home or self-care (01) ==
LOC: EMS 16:19
DX: Z76.0 Encounter for issue of repeat prescription (principal); I20.9 Angina pectoris, unspecified; I11.0 Hypertensive heart disease with heart failure; J44.9 Chronic obstructive pulmonary disease, unspecified; F32.A Depression, unspecified; F20.9 Schizophrenia, unspecified; F12.90 Cannabis use, unspecified, uncomplicated; F14.90 Cocaine use, unspecified, uncomplicated; Z98.890 Other specified postprocedural states
CPT/HCPCS: 99281; Z7502

== ENCOUNTER 2023-02-05 19:53 | Emergency (ER) | payer MEDICAID ==
[~2023-02-05] VITALS: Ht 167.6 cm; Wt 59.0 kg
[2023-02-05] MEDS ORDERED: LOSA-381 PO (20:34)
[2023-02-05] MEDS ORDERED: TIOT4MIS2 IH (20:34)
[2023-02-06] MEDS ORDERED: POLY119P3 PO (03:14)
[2023-02-06 03:28] VITALS: BP 121/79; PULSE 70; RESP 16; TEMP 97.3
== END 2023-02-06 03:48 | disposition home or self-care (01) ==
LOC: EMS 19:54
DX: K59.00 Constipation, unspecified (principal); J44.9 Chronic obstructive pulmonary disease, unspecified; F32.A Depression, unspecified; F20.9 Schizophrenia, unspecified; I25.119 Atherosclerotic heart disease of native coronary artery with unspecified angina pectoris; I11.0 Hypertensive heart disease with heart failure; F12.90 Cannabis use, unspecified, uncomplicated; F15.90 Other stimulant use, unspecified, uncomplicated; F14.90 Cocaine use, unspecified, uncomplicated; Z98.890 Other specified postprocedural states
CPT/HCPCS: 74018; 99283

== ENCOUNTER 2023-02-10 08:38 | Emergency (ER) | payer MEDICAID ==
[~2023-02-10] VITALS: Ht 162.6 cm; Wt 65.9 kg
[~2023-02-10 08:38] MED LIST changes: -METO-408 PO; +POLY119P3 PO; +TIOT4MIS2 IH
[2023-02-10 08:45] VITALS: TEMP 98.4
[2023-02-10 09:13] LABS: BASOPHILS % (AUTO) 1.2 % (0.0-2.0); EOSINOPHILS % (AUTO) 23.7 % (1.0-6.0); HEMATOCRIT 40.2 % (41-53); HEMOGLOBIN 13.2 g/dL (13.5-17.5); LYMPHOCYTES % (AUTO) 15.6 % (22.0-44.0); MEAN CORPUSCULAR HEMOGLOBIN 30.1 pg (26.0-34.0); MEAN CORPUSCULAR HGB CONC 32.8 G/dL (31.0-37.0); MEAN CORPUSCULAR VOLUME 92 fL (80-100); MONOCYTES # (AUTO) 0.5 K/uL (0.1-1.0); MONOCYTES % (AUTO) 8.7 % (2.0-9.0); NEUTROPHILS # (AUTO) 3.1 K/uL (1.8-7.7); NEUTROPHILS % (AUTO) 50.8 % (40.0-70.0); PLATELET COUNT (AUTO) 188 K/uL (150-450); RED BLOOD CELL COUNT(AUTO) 4.38 MIL/uL (4.50-5.90); RED CELL DISTRIBUTION WIDTH 15.3 % (11.5-14.5); WHITE BLOOD COUNT (AUTO) 6.1 K/uL (4.5-11.0)
[2023-02-10 09:19] LABS: CALCIUM, TOTAL 8.8 mg/dL (8.8-10.5); CREATININE 1.35 mg/dL (0.60-1.30)
[2023-02-10 09:26] LABS: ALBUMIN 3.4 g/dL (3.4-5.0); BILIRUBIN,TOTAL 0.4 mg/dL (0.1-1.0); TOTAL PROTEIN, SERUM 6.1 g/dL (6.4-8.2)
[2023-02-10 09:27] LABS: TROPONIN I-HIGH SENSITIVITY 57 ng/L (<76)
[2023-02-10 09:34] LABS: RBC MORPHOLOGY COMMENT NORMAL RBC MORPH
[2023-02-10] MEDS ORDERED: IPRA4AER IH (15:55)
[2023-02-10 15:59] VITALS: BP 132/92; PULSE 72; RESP 20
== END 2023-02-10 16:01 | disposition home or self-care (01) ==
LOC: EMS 08:40
DX: R07.89 Other chest pain (principal); I11.0 Hypertensive heart disease with heart failure; I50.9 Heart failure, unspecified; I25.10 Atherosclerotic heart disease of native coronary artery without angina pectoris; J44.9 Chronic obstructive pulmonary disease, unspecified; F32.A Depression, unspecified; F20.9 Schizophrenia, unspecified; F12.90 Cannabis use, unspecified, uncomplicated; F15.90 Other stimulant use, unspecified, uncomplicated; F14.90 Cocaine use, unspecified, uncomplicated; Z98.890 Other specified postprocedural states
CPT/HCPCS: 71046; 80053; 84484; 85025; 93005; 99285; 36415-L1; 36415-TC

== ENCOUNTER 2023-02-13 17:33 | Emergency (ER) | payer MEDICAID ==
[~2023-02-13] VITALS: Ht 162.6 cm; Wt 65.9 kg
[2023-02-13 17:44] VITALS: BP 122/83; TEMP 98.1
[2023-02-13 18:00] VITALS: PULSE 99; RESP 18; O2SAT 95
[2023-02-13] MEDS ORDERED: ALBUTEROL SULFATE HFA 90 MCG/PUFF 8 GM INHALER IH ONE (18:00)
[2023-02-13] MEDS ORDERED: IPRATROPIUM BROMIDE 0.5 MG/2.5 ML NEB SOLUTION NEB ONE (18:00)
[2023-02-13] MEDS ORDERED: ALBUTEROL SULFATE 2.5 MG/0.5 ML NEB SOLUTION NEB ONE (18:00)
[2023-02-13 18:40] VITALS: PULSE 65; RESP 18; O2SAT 99
[2023-02-13 18:55] VITALS: PULSE 66; PULSE 67; RESP 18; RESP 19; O2SAT 100
[2023-02-14] MEDS ORDERED: SPIR-37 PO (08:30)
[2023-02-14] MEDS ORDERED: FURO20TA4 PO (08:30)
[2023-02-14] MEDS ORDERED: IPRA4AER IH (08:30)
[2023-02-14] MEDS ORDERED: TIOT4MIS2 IH (08:30)
[2023-02-14] MEDS ORDERED: METO25XL PO (08:30)
[2023-02-14] MEDS ORDERED: ALBU18HF12 IH (08:30)
== END 2023-02-13 19:03 | disposition home or self-care (01) ==
LOC: EMS 17:34
DX: J44.9 Chronic obstructive pulmonary disease, unspecified (principal); I25.118 Atherosclerotic heart disease of native coronary artery with other forms of angina pectoris; I11.0 Hypertensive heart disease with heart failure; F32.A Depression, unspecified; F20.9 Schizophrenia, unspecified; F15.90 Other stimulant use, unspecified, uncomplicated; F14.90 Cocaine use, unspecified, uncomplicated; F12.90 Cannabis use, unspecified, uncomplicated; Z98.890 Other specified postprocedural states
CPT/HCPCS: 99283; 94640; J3535

== ENCOUNTER 2023-02-14 08:15 | Emergency (ER) | payer MEDICAID ==
[~2023-02-14] VITALS: Ht 162.6 cm; Wt 63.6 kg
[2023-02-14] MEDS ORDERED: FURO20TA4 PO (08:30)
[2023-02-14] MEDS ORDERED: SPIR-37 PO (08:30)
[2023-02-14] MEDS ORDERED: TIOT4MIS2 IH (08:30)
[2023-02-14] MEDS ORDERED: IPRA4AER IH (08:30)
[2023-02-14] MEDS ORDERED: ALBU18HF12 IH (08:30)
[2023-02-14] MEDS ORDERED: METO25XL PO (08:30)
[2023-02-14 08:40] VITALS: BP 115/70; PULSE 88; RESP 18; TEMP 98.2
== END 2023-02-14 08:49 | disposition home or self-care (01) ==
LOC: EMS 08:23
DX: Z76.0 Encounter for issue of repeat prescription (principal); I25.119 Atherosclerotic heart disease of native coronary artery with unspecified angina pectoris; I11.0 Hypertensive heart disease with heart failure; J44.9 Chronic obstructive pulmonary disease, unspecified; F32.A Depression, unspecified; F20.9 Schizophrenia, unspecified; F14.90 Cocaine use, unspecified, uncomplicated; F12.90 Cannabis use, unspecified, uncomplicated; F15.90 Other stimulant use, unspecified, uncomplicated; Z98.890 Other specified postprocedural states
CPT/HCPCS: 99281; Z7502

== ENCOUNTER 2023-03-03 08:46 | Emergency (ER) | payer MEDICAID ==
[~2023-03-03] VITALS: Ht 162.6 cm; Wt 65.9 kg
[2023-03-03 08:00] VITALS: PULSE 85; PULSE 86; RESP 16; O2SAT 96; O2SAT 98
[2023-03-03 08:52] VITALS: BP 113/75; PULSE 64; RESP 16; TEMP 97.7
[2023-03-03] MEDS ORDERED: ALBUTEROL SULFATE HFA 90 MCG/PUFF 8 GM INHALER IH ONE (09:00)
== END 2023-03-03 09:16 | disposition home or self-care (01) ==
LOC: EMS 08:50
DX: Z76.0 Encounter for issue of repeat prescription (principal); J44.9 Chronic obstructive pulmonary disease, unspecified; F32.A Depression, unspecified; F20.9 Schizophrenia, unspecified; I25.119 Atherosclerotic heart disease of native coronary artery with unspecified angina pectoris; I11.0 Hypertensive heart disease with heart failure; F15.90 Other stimulant use, unspecified, uncomplicated; F14.90 Cocaine use, unspecified, uncomplicated; F12.90 Cannabis use, unspecified, uncomplicated; Z98.890 Other specified postprocedural states
CPT/HCPCS: 99283; 94640; J3535

== ENCOUNTER 2023-03-04 10:48 | Emergency (ER) | payer MEDICAID ==
[~2023-03-04] VITALS: Ht 162.6 cm; Wt 63.6 kg
[2023-03-04 10:52] VITALS: BP 133/71; PULSE 70; RESP 16; TEMP 97.9
== END 2023-03-04 11:11 | disposition home or self-care (01) ==
LOC: EMS 10:48
DX: Z76.0 Encounter for issue of repeat prescription (principal); J44.9 Chronic obstructive pulmonary disease, unspecified; F32.A Depression, unspecified; F20.9 Schizophrenia, unspecified; F14.90 Cocaine use, unspecified, uncomplicated; F12.90 Cannabis use, unspecified, uncomplicated; F15.90 Other stimulant use, unspecified, uncomplicated; I25.119 Atherosclerotic heart disease of native coronary artery with unspecified angina pectoris; I11.0 Hypertensive heart disease with heart failure; Z98.890 Other specified postprocedural states
CPT/HCPCS: 99281; Z7502

== ENCOUNTER 2023-03-10 09:08 | Emergency (ER) | payer MEDICAID ==
[~2023-03-10] VITALS: Ht 167.6 cm; Wt 65.9 kg
[2023-03-10 09:12] VITALS: TEMP 98.5
[2023-03-10] MEDS ORDERED: IBUPROFEN 600 MG TABLET PO ONE (09:45)
[2023-03-10] MEDS ORDERED: IBUP-1492 PO (09:53)
[2023-03-10 10:30] VITALS: BP 120/54; PULSE 80; RESP 12
== END 2023-03-10 10:40 | disposition home or self-care (01) ==
LOC: EMS 09:11
DX: M25.562 Pain in left knee (principal); J44.9 Chronic obstructive pulmonary disease, unspecified; F32.A Depression, unspecified; F20.9 Schizophrenia, unspecified; F14.90 Cocaine use, unspecified, uncomplicated; F12.90 Cannabis use, unspecified, uncomplicated; F15.90 Other stimulant use, unspecified, uncomplicated; I25.10 Atherosclerotic heart disease of native coronary artery without angina pectoris; I11.0 Hypertensive heart disease with heart failure; Z98.890 Other specified postprocedural states
CPT/HCPCS: 99283

== ENCOUNTER 2023-04-26 20:47 | Emergency (ER) | payer MEDICAID ==
[~2023-04-26] VITALS: Ht 162.6 cm; Wt 66.0 kg
[~2023-04-26 20:47] MED LIST changes: -ALBU18HF12 IH; +FLUT1BLS19 IH; +IBUP-1492 PO; +PRED-554 PO
[2023-04-26 21:07] VITALS: BP 119/79; PULSE 71; RESP 16; TEMP 98.1
[2023-04-26] MEDS ORDERED: IPRA4AER IH (21:26)
[2023-04-26] MEDS ORDERED: TIOT4MIS2 IH (21:26)
== END 2023-04-27 00:29 | disposition home or self-care (01) ==
LOC: EMS 20:47
DX: J44.9 Chronic obstructive pulmonary disease, unspecified (principal); I25.10 Atherosclerotic heart disease of native coronary artery without angina pectoris; I11.0 Hypertensive heart disease with heart failure; F20.9 Schizophrenia, unspecified; F32.A Depression, unspecified; F15.90 Other stimulant use, unspecified, uncomplicated; F14.90 Cocaine use, unspecified, uncomplicated; F12.90 Cannabis use, unspecified, uncomplicated; Z76.0 Encounter for issue of repeat prescription; Z98.890 Other specified postprocedural states
CPT/HCPCS: 99281; Z7502

== ENCOUNTER 2023-06-17 15:16 | Emergency (ER) | payer MEDICAID ==
[~2023-06-17] VITALS: Ht 165.1 cm; Wt 56.4 kg
[~2023-06-17 15:16] MED LIST changes: -IBUP-1492 PO; -POLY119P3 PO; -TIOT4MIS2 IH
[2023-06-17 16:51] VITALS: BP 156/81; PULSE 124; RESP 16; TEMP 99.3
== END 2023-06-17 20:01 | disposition left against medical advice (07) ==
LOC: EMS 15:34
DX: R06.02 Shortness of breath (principal); Z53.21 Procedure and treatment not carried out due to patient leaving prior to being seen by health care provider
CPT/HCPCS: 99281; Z7502

== ENCOUNTER 2023-06-25 16:45 | Emergency (ER) | payer MEDICAID ==
[~2023-06-25] VITALS: Ht 162.6 cm; Wt 57.7 kg
[2023-06-25 17:04] VITALS: TEMP 98.4
[2023-06-25] MEDS ORDERED: 0.9% SODIUM CHLORIDE 5 ML NEB SOLUTION NEB ONE (17:28)
[2023-06-25 17:33] VITALS: PULSE 75; RESP 20; O2SAT 96
[2023-06-25 17:34] VITALS: PULSE 75; RESP 20; O2SAT 96
[2023-06-25] MEDS: ALBUTEROL SULFATE 2.5 MG/0.5 ML NEB SOLUTION NEB ONE (17:41)
[2023-06-25 17:48] VITALS: PULSE 74; RESP 20; O2SAT 99
[2023-06-25] MEDS ORDERED: IPRA4AER IH (18:16)
[2023-06-25 18:53] VITALS: BP 123/78; PULSE 72; RESP 18
== END 2023-06-25 18:57 | disposition home or self-care (01) ==
LOC: EMS 16:51
DX: J44.9 Chronic obstructive pulmonary disease, unspecified (principal); F32.A Depression, unspecified; F20.9 Schizophrenia, unspecified; F12.90 Cannabis use, unspecified, uncomplicated; F15.90 Other stimulant use, unspecified, uncomplicated; I25.10 Atherosclerotic heart disease of native coronary artery without angina pectoris; I11.0 Hypertensive heart disease with heart failure; Z98.890 Other specified postprocedural states; Z76.0 Encounter for issue of repeat prescription
CPT/HCPCS: 94640; 99283

== ENCOUNTER 2023-07-01 17:16 | Emergency (ER) | payer MEDICAID ==
[~2023-07-01] VITALS: Ht 162.6 cm; Wt 57.7 kg
[2023-07-01 17:21] VITALS: TEMP 98
[2023-07-01 20:19] VITALS: PULSE 94; RESP 20; O2SAT 95
[2023-07-01] MEDS: ALBUTEROL SULFATE 2.5 MG/0.5 ML NEB SOLUTION NEB ONE (20:19)
[2023-07-01] MEDS: IPRATROPIUM BROMIDE 0.5 MG/2.5 ML NEB SOLUTION NEB ONE (20:19)
[2023-07-01 20:36] VITALS: PULSE 81; RESP 20; O2SAT 99
[2023-07-01 20:44] LABS: BASOPHILS % (AUTO) 0.9 % (0.0-2.0); EOSINOPHILS % (AUTO) 1.7 % (1.0-6.0); LYMPHOCYTES # (AUTO) 0.8 K/uL (1.0-4.8); LYMPHOCYTES % (AUTO) 9.6 % (22.0-44.0); MEAN CORPUSCULAR HEMOGLOBIN 29.5 pg (26.0-34.0); MEAN CORPUSCULAR HGB CONC 32.5 G/dL (31.0-37.0); MEAN CORPUSCULAR VOLUME 91 fL (80-100); MONOCYTES # (AUTO) 0.6 K/uL (0.1-1.0); MONOCYTES % (AUTO) 7.5 % (2.0-9.0); NEUTROPHILS # (AUTO) 6.7 K/uL (1.8-7.7); NEUTROPHILS % (AUTO) 80.3 % (40.0-70.0); PLATELET COUNT (AUTO) 285 K/uL (150-450); RED CELL DISTRIBUTION WIDTH 13.7 % (11.5-14.5); WHITE BLOOD COUNT (AUTO) 8.3 K/uL (4.5-11.0)
[2023-07-01] MEDS: PredniSONE 20 MG TABLET PO ONE (20:47)
[2023-07-01 20:48] LABS: CALCIUM, TOTAL 9.5 mg/dL (8.8-10.5); CREATININE 2.14 mg/dL (0.60-1.30); POTASSIUM 4.8 mmol/L (3.5-5.1)
[2023-07-01 20:53] LABS: INR 1.1 (0.9-1.1); PROTHROMBIN TIME 11.4 SEC (9.4-11.6)
[2023-07-01 20:58] LABS: ALBUMIN 3.6 g/dL (3.4-5.0); BILIRUBIN,TOTAL 0.8 mg/dL (0.1-1.0)
[2023-07-01 21:03] LABS: TROPONIN I-HIGH SENSITIVITY 81 ng/L (<76)
[2023-07-01 22:06] VITALS: BP 112/86; PULSE 101; RESP 16
[2023-07-01] MEDS ORDERED: PRED-554 PO (22:20)
[2023-07-01] MEDS ORDERED: ALBU18HF12 IH (22:20)
[2023-07-01 22:59] LABS: TROPONIN I-HIGH SENSITIVITY 71 ng/L (<76)
== END 2023-07-01 23:17 | disposition home or self-care (01) ==
LOC: EMS 17:17
DX: J44.1 Chronic obstructive pulmonary disease with (acute) exacerbation (principal); F32.A Depression, unspecified; F20.9 Schizophrenia, unspecified; F12.90 Cannabis use, unspecified, uncomplicated; F15.90 Other stimulant use, unspecified, uncomplicated; I25.10 Atherosclerotic heart disease of native coronary artery without angina pectoris; I11.0 Hypertensive heart disease with heart failure; Z98.890 Other specified postprocedural states
CPT/HCPCS: 99285; 71045; 80053; 82550; 83880; 84484; 85025; 85610; 85730; 36415; 94640; 93005; J7512; J7613

== ENCOUNTER 2023-07-06 11:08 | Emergency (ER) | payer MEDICAID ==
[~2023-07-06] VITALS: Ht 162.6 cm; Wt 59.1 kg
[~2023-07-06 11:08] MED LIST changes: +ALBU18HF12 IH
[2023-07-06 11:11] VITALS: BP 121/84; TEMP 98.6
[2023-07-06] MEDS: ALBUTEROL SULFATE HFA 90 MCG/PUFF 8 GM INHALER IH ONE (12:16)
[2023-07-06 18:45] VITALS: PULSE 97; RESP 18; O2SAT 95
[2023-07-06 18:52] VITALS: PULSE 105; RESP 22; O2SAT 100
[2023-07-06] MEDS ORDERED: GUAIFDM PO (19:05)
[2023-07-06] MEDS ORDERED: ACET-66 PO (19:05)
== END 2023-07-06 12:26 | disposition home or self-care (01) ==
LOC: EMS 11:15
DX: I11.0 Hypertensive heart disease with heart failure (principal); I50.9 Heart failure, unspecified; I25.10 Atherosclerotic heart disease of native coronary artery without angina pectoris; J44.9 Chronic obstructive pulmonary disease, unspecified; F32.A Depression, unspecified; F20.9 Schizophrenia, unspecified; F12.90 Cannabis use, unspecified, uncomplicated; F15.90 Other stimulant use, unspecified, uncomplicated; Z76.0 Encounter for issue of repeat prescription
CPT/HCPCS: 94640; 99283

== ENCOUNTER 2023-07-06 16:17 | Emergency (ER) | payer MEDICAID ==
[~2023-07-06] VITALS: Ht 162.6 cm; Wt 59.1 kg
[2023-07-06 16:28] VITALS: TEMP 98.1
[2023-07-06] MEDS: GuaiFENesin/D-METHORPHAN [SUGAR-FREE] 200-20MG/10 ML SYRUP UDCUP PO ONE (18:20)
[2023-07-06] MEDS: PredniSONE 20 MG TABLET PO ONE (18:20)
[2023-07-06] MEDS: ACETAMINOPHEN 500 MG TABLET PO ONE (18:23)
[2023-07-06] MEDS: ALBUTEROL SULFATE 2.5 MG/0.5 ML NEB SOLUTION NEB ONE (18:43)
[2023-07-06] MEDS: IPRATROPIUM BROMIDE 0.5 MG/2.5 ML NEB SOLUTION NEB ONE (18:43)
[2023-07-06] MEDS ORDERED: GUAIFDM PO (19:05)
[2023-07-06] MEDS ORDERED: ACET-66 PO (19:05)
[2023-07-06 19:23] VITALS: BP 121/81; PULSE 89; RESP 18
== END 2023-07-06 19:28 | disposition home or self-care (01) ==
LOC: EMS 16:20
DX: J44.9 Chronic obstructive pulmonary disease, unspecified (principal); I11.0 Hypertensive heart disease with heart failure; I50.9 Heart failure, unspecified; I25.10 Atherosclerotic heart disease of native coronary artery without angina pectoris; F20.9 Schizophrenia, unspecified; F12.90 Cannabis use, unspecified, uncomplicated; F15.90 Other stimulant use, unspecified, uncomplicated
CPT/HCPCS: 99284; 94640; J7512

== ENCOUNTER 2023-07-15 10:13 | Emergency (ER) | payer MEDICAID ==
[~2023-07-15] VITALS: Ht 167.6 cm; Wt 68.2 kg
[~2023-07-15 10:13] MED LIST changes: +ACET-66 PO; +GUAIFDM PO
[2023-07-15 13:13] VITALS: BP 113/72; PULSE 84; RESP 16; TEMP 98
[2023-07-15] MEDS ORDERED: FURO20TA4 PO (13:15)
== END 2023-07-15 13:33 | disposition home or self-care (01) ==
LOC: EMS 10:13
DX: I11.0 Hypertensive heart disease with heart failure (principal); I50.9 Heart failure, unspecified; I25.10 Atherosclerotic heart disease of native coronary artery without angina pectoris; F32.A Depression, unspecified; F20.9 Schizophrenia, unspecified; J44.9 Chronic obstructive pulmonary disease, unspecified; F12.90 Cannabis use, unspecified, uncomplicated; F15.90 Other stimulant use, unspecified, uncomplicated; Z76.0 Encounter for issue of repeat prescription
CPT/HCPCS: 99281; Z7502

== ENCOUNTER 2023-07-20 17:25 | Emergency (ER) | payer MEDICAID ==
[~2023-07-20] VITALS: Ht 162.6 cm; Wt 57.7 kg
[~2023-07-20 17:25] MED LIST changes: -FLUT1BLS19 IH; -GUAIFDM PO; -IPRA4AER IH; -PRED-554 PO
[2023-07-20 17:28] VITALS: TEMP 97.7
[2023-07-20 21:13] LABS: BASOPHILS % (AUTO) 0.9 % (0.0-2.0); EOSINOPHILS % (AUTO) 4.6 % (1.0-6.0); HEMATOCRIT 42.1 % (41-53); HEMOGLOBIN 13.7 g/dL (13.5-17.5); LYMPHOCYTES # (AUTO) 0.9 K/uL (1.0-4.8); LYMPHOCYTES % (AUTO) 12.1 % (22.0-44.0); MEAN CORPUSCULAR HEMOGLOBIN 29.7 pg (26.0-34.0); MEAN CORPUSCULAR HGB CONC 32.6 G/dL (31.0-37.0); MEAN CORPUSCULAR VOLUME 91 fL (80-100); MONOCYTES # (AUTO) 0.7 K/uL (0.1-1.0); MONOCYTES % (AUTO) 8.6 % (2.0-9.0); NEUTROPHILS # (AUTO) 5.6 K/uL (1.8-7.7); NEUTROPHILS % (AUTO) 73.8 % (40.0-70.0); PLATELET COUNT (AUTO) 215 K/uL (150-450); RED BLOOD CELL COUNT(AUTO) 4.62 MIL/uL (4.50-5.90); RED CELL DISTRIBUTION WIDTH 14.9 % (11.5-14.5); WHITE BLOOD COUNT (AUTO) 7.6 K/uL (4.5-11.0)
[2023-07-20 21:22] LABS: CALCIUM, TOTAL 8.6 mg/dL (8.8-10.5); CREATININE 1.27 mg/dL (0.60-1.30); POTASSIUM 4.2 mmol/L (3.5-5.1)
[2023-07-20 21:30] LABS: TROPONIN I-HIGH SENSITIVITY 49 ng/L (<76)
[2023-07-20 21:46] LABS: BILIRUBIN,TOTAL 0.4 mg/dL (0.1-1.0); TOTAL PROTEIN, SERUM 6.2 g/dL (6.4-8.2)
[2023-07-20] MEDS: FUROSEMIDE 20 MG/2 ML VIAL IVP ONE (22:25)
[2023-07-20 23:16] VITALS: BP 127/91; PULSE 84; RESP 18
== END 2023-07-20 23:19 | disposition home or self-care (01) ==
LOC: EMS 17:26
DX: R06.02 Shortness of breath (principal); F12.90 Cannabis use, unspecified, uncomplicated; F15.90 Other stimulant use, unspecified, uncomplicated; J44.9 Chronic obstructive pulmonary disease, unspecified; F32.A Depression, unspecified; F20.9 Schizophrenia, unspecified; I25.10 Atherosclerotic heart disease of native coronary artery without angina pectoris; I11.0 Hypertensive heart disease with heart failure; Z98.890 Other specified postprocedural states
CPT/HCPCS: 99285; 96374; 71045; 80053; 82550; 83880; 84484; 85025; 36415; 93005; J1940

== ENCOUNTER 2023-07-31 14:15 | Emergency (ER) | payer MEDICAID ==
[~2023-07-31] VITALS: Ht 165.1 cm; Wt 59.1 kg
[2023-07-31 14:33] LABS: COVID AG,FIA SOURCE NASAL SWAB
[2023-07-31 14:55] LABS: INFLUENZA TYPE A NEGATIVE FOR TYPE A (NEGATIVE); INFLUENZA TYPE B NEGATIVE FOR TYPE B (NEGATIVE); RESPIRATORY SYNCYTIAL VIRS,FIA NEGATIVE (Negative); SARS-COV2 (COVID) ANTIGEN,FIA Negative (Negative)
[2023-07-31 15:11] LABS: BASOPHILS % (AUTO) 0.5 % (0.0-2.0); EOSINOPHILS % (AUTO) 1.3 % (1.0-6.0); HEMATOCRIT 42.6 % (41-53); HEMOGLOBIN 13.9 g/dL (13.5-17.5); LYMPHOCYTES # (AUTO) 0.8 K/uL (1.0-4.8); LYMPHOCYTES % (AUTO) 7.2 % (22.0-44.0); MEAN CORPUSCULAR HEMOGLOBIN 29.8 pg (26.0-34.0); MEAN CORPUSCULAR HGB CONC 32.6 G/dL (31.0-37.0); MEAN CORPUSCULAR VOLUME 92 fL (80-100); MONOCYTES % (AUTO) 9.3 % (2.0-9.0); NEUTROPHILS # (AUTO) 8.6 K/uL (1.8-7.7); NEUTROPHILS % (AUTO) 81.7 % (40.0-70.0); PLATELET COUNT (AUTO) 282 K/uL (150-450); RED BLOOD CELL COUNT(AUTO) 4.65 MIL/uL (4.50-5.90); RED CELL DISTRIBUTION WIDTH 15.9 % (11.5-14.5); WHITE BLOOD COUNT (AUTO) 10.6 K/uL (4.5-11.0)
[2023-07-31 15:21] VITALS: TEMP 98
[2023-07-31 15:34] LABS: TROPONIN I-HIGH SENSITIVITY 50 ng/L (<76)
[2023-07-31 15:35] LABS: ANION GAP 10 mmol/L (8-16); CALCIUM, TOTAL 8.4 mg/dL (8.8-10.5); CARBON DIOXIDE 25 mmol/L (22-29); CHLORIDE 105 mmol/L (98-107); CREATININE 1.21 mg/dL (0.60-1.30); GLOMERULAR FILTR. RATE CALC > 60 mL/min (>60); GLUCOSE,RANDOM 109 mg/dL (70-110); POTASSIUM 4.7 mmol/L (3.5-5.1); SODIUM SERUM 140 mmol/L (136-145); UREA NITROGEN, BLOOD 45 mg/dL (7-18)
[2023-07-31 15:41] LABS: ALANINE AMINOTRANSFERASE 69 U/L (12-78); ALBUMIN 3.1 g/dL (3.4-5.0); ALKALINE PHOSPHATASE 79 U/L (46-116); ASPARTATE AMINOTRANSFERASE 39 U/L (15-37); BILIRUBIN,TOTAL 0.6 mg/dL (0.1-1.0); TOTAL PROTEIN, SERUM 6.7 g/dL (6.4-8.2)
[2023-07-31] MEDS: PredniSONE 20 MG TABLET PO ONE (16:22)
[2023-07-31 16:31] VITALS: PULSE 97; RESP 18; O2SAT 95
[2023-07-31] MEDS: IPRATROPIUM BROMIDE 0.5 MG/2.5 ML NEB SOLUTION NEB ONE (16:31)
[2023-07-31] MEDS: ALBUTEROL SULFATE 2.5 MG/0.5 ML NEB SOLUTION NEB ONE (16:31)
[2023-07-31 16:46] LABS: TROPONIN I-HIGH SENSITIVITY 51 ng/L (<76)
[2023-07-31 16:47] VITALS: PULSE 94; RESP 18; O2SAT 100
[2023-07-31 16:49] LABS: B-TYPE NATRIURETIC PEPTIDE 2680 pg/mL (0-100)
[2023-07-31 17:02] LABS: CREATINE KINASE, TOTAL ONLY 75 U/L (39-308)
[2023-07-31 18:53] VITALS: BP 130/95; PULSE 99; RESP 18
[2023-07-31 19:18] LABS: APPEARANCE,URINE CLEAR (CLEAR); BILIRUBIN,URINE NEGATIVE (NEGATIVE); COLOR,URINE YELLOW (YELLOW); GLUCOSE, URINE (UA) NEGATIVE (NEGATIVE); KETONES,URINE NEGATIVE (NEGATIVE); LEUKOCYTE ESTERASE ,URINE NEGATIVE (NEGATIVE); NITRATE,URINE NEGATIVE (NEGATIVE); OCCULT BLOOD,URINE TRACE (NEGATIVE); PROTEIN,URINE 100-200,SEE CONFIRM mg/dL (NEGATIVE); SPECIFIC GRAVITIY, URINE 1.025 (1.003-1.030); UROBILINOGEN,URINE <=1.0 mg/dL (<=1.0)
[2023-07-31 19:52] LABS: SULFOSALICYLIC ACID,URINE 4+ (Negative)
[2023-07-31 19:53] LABS: BACTERIA,URINE None Seen /HPF (None Seen); RBC,URINE None Seen /HPF (0-2); WBC,URINE None Seen /HPF (0-5)
[2023-07-31] MEDS ORDERED: PRED-554 PO (20:10)
[2023-07-31 20:13] LABS: ALCOHOL, URINE DRUG SCREEN NEGATIVE (NEGATIVE); AMPHET/METH SCREEN,URINE POSITIVE (NEGATIVE); BARBITURATE SCREEN, URINE NEGATIVE (NEGATIVE); BENZODIAZEPINES SCREEN,URINE NEGATIVE (NEGATIVE); CANNABINOID SCREEN,URINE POSITIVE (NEGATIVE); COCAINE SCREEN,URINE NEGATIVE (NEGATIVE); METHADONE SCREEN, URINE NEGATIVE (NEGATIVE); OPIATE SCREEN,URINE NEGATIVE (NEGATIVE); PHENCYCLIDINE SCREEN,URINE NEGATIVE (NEGATIVE)
[2023-07-31] MEDS: ALBUTEROL SULFATE HFA 90 MCG/PUFF 8 GM INHALER IH ONE (20:34)
== END 2023-07-31 20:20 | disposition home or self-care (01) ==
LOC: EMS 14:15
DX: R06.02 Shortness of breath (principal); J44.9 Chronic obstructive pulmonary disease, unspecified; I11.0 Hypertensive heart disease with heart failure; I50.9 Heart failure, unspecified; I25.10 Atherosclerotic heart disease of native coronary artery without angina pectoris; F32.A Depression, unspecified; F20.9 Schizophrenia, unspecified; F12.90 Cannabis use, unspecified, uncomplicated; F15.90 Other stimulant use, unspecified, uncomplicated; Z20.822 Contact with and (suspected) exposure to COVID-19
CPT/HCPCS: 99285; 71045; 87426; 80053; 82550; 83880; 87420; 84484; 85025; 87804; 36415; 94640; 93005; 80307; 81001; J7512; J3535; 81002; J7613

== ENCOUNTER 2023-08-06 08:42 | Emergency (ER) | payer MEDICAID ==
[~2023-08-06] VITALS: Ht 162.6 cm; Wt 57.7 kg
[~2023-08-06 08:42] MED LIST changes: +PRED-554 PO
[2023-08-06 09:13] LABS: BASOPHILS % (AUTO) 0.7 % (0.0-2.0); EOSINOPHILS % (AUTO) 4.5 % (1.0-6.0); HEMATOCRIT 42.3 % (41-53); HEMOGLOBIN 13.7 g/dL (13.5-17.5); LYMPHOCYTES # (AUTO) 0.6 K/uL (1.0-4.8); LYMPHOCYTES % (AUTO) 8.1 % (22.0-44.0); MEAN CORPUSCULAR HEMOGLOBIN 29.8 pg (26.0-34.0); MEAN CORPUSCULAR HGB CONC 32.4 G/dL (31.0-37.0); MEAN CORPUSCULAR VOLUME 92 fL (80-100); MONOCYTES # (AUTO) 0.6 K/uL (0.1-1.0); MONOCYTES % (AUTO) 7.9 % (2.0-9.0); NEUTROPHILS # (AUTO) 6.2 K/uL (1.8-7.7); NEUTROPHILS % (AUTO) 78.8 % (40.0-70.0); PLATELET COUNT (AUTO) 271 K/uL (150-450); RED BLOOD CELL COUNT(AUTO) 4.59 MIL/uL (4.50-5.90); RED CELL DISTRIBUTION WIDTH 16.3 % (11.5-14.5); WHITE BLOOD COUNT (AUTO) 7.9 K/uL (4.5-11.0)
[2023-08-06 09:18] LABS: ANION GAP 5 mmol/L (8-16); CALCIUM, TOTAL 8.5 mg/dL (8.8-10.5); CARBON DIOXIDE 29 mmol/L (22-29); CHLORIDE 105 mmol/L (98-107); GLOMERULAR FILTR. RATE CALC > 60 mL/min (>60); GLUCOSE,RANDOM 109 mg/dL (70-110); POTASSIUM 5.3 mmol/L (3.5-5.1); SODIUM SERUM 138 mmol/L (136-145); UREA NITROGEN, BLOOD 32 mg/dL (7-18)
[2023-08-06 09:26] LABS: B-TYPE NATRIURETIC PEPTIDE 1090 pg/mL (0-100); TROPONIN I-HIGH SENSITIVITY 47 ng/L (<76)
[2023-08-06] MEDS: IPRATROPIUM BROMIDE 0.5 MG/2.5 ML NEB SOLUTION NEB ONE (09:29)
[2023-08-06] MEDS: ALBUTEROL SULFATE 2.5 MG/0.5 ML NEB SOLUTION NEB ONE (09:29)
[2023-08-06 09:30] VITALS: PULSE 90; RESP 15; O2SAT 100
[2023-08-06 09:33] VITALS: PULSE 90; RESP 15; O2SAT 100
[2023-08-06 09:48] LABS: ALANINE AMINOTRANSFERASE 64 U/L (12-78); ALBUMIN 3.1 g/dL (3.4-5.0); ALKALINE PHOSPHATASE 81 U/L (46-116); ASPARTATE AMINOTRANSFERASE 42 U/L (15-37); BILIRUBIN,TOTAL 0.7 mg/dL (0.1-1.0); CREATINE KINASE, TOTAL ONLY 75 U/L (39-308); TOTAL PROTEIN, SERUM 6.5 g/dL (6.4-8.2)
[2023-08-06 09:50] VITALS: PULSE 100; RESP 15; O2SAT 100
[2023-08-06 10:16] VITALS: BP 135/103; PULSE 92; RESP 18; TEMP 97.9
== END 2023-08-06 10:45 | disposition home or self-care (01) ==
LOC: EMS 08:42
DX: J44.9 Chronic obstructive pulmonary disease, unspecified (principal); F32.A Depression, unspecified; F20.9 Schizophrenia, unspecified; F12.90 Cannabis use, unspecified, uncomplicated; F15.90 Other stimulant use, unspecified, uncomplicated; I25.10 Atherosclerotic heart disease of native coronary artery without angina pectoris; I11.0 Hypertensive heart disease with heart failure; Z98.890 Other specified postprocedural states
CPT/HCPCS: 71045; 80053; 82550; 83880; 84484; 85025; 93005; 94640; 99285; 36415-L1; 36415-TC; J7613

== ENCOUNTER 2023-08-07 08:45 | Inpatient (IN) | payer MEDICAID ==
[~2023-08-07] VITALS: Ht 162.6 cm; Wt 58.8 kg
[2023-08-07 09:36] LABS: BASOPHILS % (AUTO) 0.5 % (0.0-2.0); EOSINOPHILS % (AUTO) 2.1 % (1.0-6.0); HEMATOCRIT 45.7 % (41-53); HEMOGLOBIN 14.9 g/dL (13.5-17.5); LYMPHOCYTES # (AUTO) 0.5 K/uL (1.0-4.8); LYMPHOCYTES % (AUTO) 6.8 % (22.0-44.0); MEAN CORPUSCULAR HEMOGLOBIN 30.1 pg (26.0-34.0); MEAN CORPUSCULAR HGB CONC 32.5 G/dL (31.0-37.0); MEAN CORPUSCULAR VOLUME 93 fL (80-100); MONOCYTES # (AUTO) 0.6 K/uL (0.1-1.0); MONOCYTES % (AUTO) 7.2 % (2.0-9.0); NEUTROPHILS # (AUTO) 6.7 K/uL (1.8-7.7); NEUTROPHILS % (AUTO) 83.4 % (40.0-70.0); PLATELET COUNT (AUTO) 278 K/uL (150-450); RED BLOOD CELL COUNT(AUTO) 4.94 MIL/uL (4.50-5.90); RED CELL DISTRIBUTION WIDTH 16.7 % (11.5-14.5)
[2023-08-07] MEDS: FUROSEMIDE 20 MG/2 ML VIAL IVP ONE (09:36)
[2023-08-07 09:45] LABS: ANION GAP 7 mmol/L (8-16); CALCIUM, TOTAL 8.4 mg/dL (8.8-10.5); CARBON DIOXIDE 29 mmol/L (22-29); CHLORIDE 105 mmol/L (98-107); CREATININE 1.17 mg/dL (0.60-1.30); GLOMERULAR FILTR. RATE CALC > 60 mL/min (>60); GLUCOSE,RANDOM 120 mg/dL (70-110); POTASSIUM 5.4 mmol/L (3.5-5.1); SODIUM SERUM 141 mmol/L (136-145); UREA NITROGEN, BLOOD 32 mg/dL (7-18)
[2023-08-07 09:52] LABS: TROPONIN I-HIGH SENSITIVITY 59 ng/L (<76)
[2023-08-07 09:55] LABS: B-TYPE NATRIURETIC PEPTIDE 2450 pg/mL (0-100)
[2023-08-07 09:56] LABS: ALANINE AMINOTRANSFERASE 68 U/L (12-78); ALBUMIN 3.5 g/dL (3.4-5.0); ALKALINE PHOSPHATASE 95 U/L (46-116); ASPARTATE AMINOTRANSFERASE 37 U/L (15-37); BILIRUBIN,TOTAL 0.7 mg/dL (0.1-1.0); CREATINE KINASE, TOTAL ONLY 109 U/L (39-308); TOTAL PROTEIN, SERUM 7.2 g/dL (6.4-8.2)
[2023-08-07 10:25] LABS: COVID AG,FIA SOURCE NASAL SWAB
[2023-08-07 11:07] LABS: SARS-COV2 (COVID) ANTIGEN,FIA Negative (Negative)
[2023-08-07] MEDS ORDERED: OxyCODONE HCL/ACETAMINOPHEN 5-325 MG TABLET PO PRN (11:15)
[2023-08-07] MEDS ORDERED: ACETAMINOPHEN 325 MG TABLET PO PRN (11:15)
[2023-08-07] MEDS ORDERED: ZOLPIDEM TARTRATE 5 MG TABLET PO PRN (11:15)
[2023-08-07] MEDS ORDERED: ONDANSETRON HCL 4 MG/2 ML VIAL IVP PRN (11:15)
[2023-08-07 11:35] LABS: PH,URINE DRUG SCREEN 5.5 (5.0-8.0)
[2023-08-07 11:44] LABS: ALCOHOL, URINE DRUG SCREEN NEGATIVE (NEGATIVE); AMPHET/METH SCREEN,URINE POSITIVE (NEGATIVE); BARBITURATE SCREEN, URINE NEGATIVE (NEGATIVE); BENZODIAZEPINES SCREEN,URINE NEGATIVE (NEGATIVE); CANNABINOID SCREEN,URINE POSITIVE (NEGATIVE); COCAINE SCREEN,URINE NEGATIVE (NEGATIVE); METHADONE SCREEN, URINE NEGATIVE (NEGATIVE); OPIATE SCREEN,URINE NEGATIVE (NEGATIVE); PHENCYCLIDINE SCREEN,URINE NEGATIVE (NEGATIVE)
[2023-08-07 12:34] LABS: APPEARANCE,URINE CLEAR (CLEAR); BILIRUBIN,URINE NEGATIVE (NEGATIVE); COLOR,URINE LIGHT YELLOW (YELLOW); GLUCOSE, URINE (UA) NEGATIVE (NEGATIVE); KETONES,URINE NEGATIVE (NEGATIVE); LEUKOCYTE ESTERASE ,URINE NEGATIVE (NEGATIVE); NITRATE,URINE NEGATIVE (NEGATIVE); OCCULT BLOOD,URINE TRACE (NEGATIVE); PH,URINE 5.5 (5.0-8.0); PROTEIN,URINE 100-200,SEE CONFIRM mg/dL (NEGATIVE); SPECIFIC GRAVITIY, URINE 1.015 (1.003-1.030); UROBILINOGEN,URINE <=1.0 mg/dL (<=1.0)
[2023-08-07 12:35] LABS: BACTERIA,URINE None Seen /HPF (None Seen); RBC,URINE 0-2 /HPF (0-2); SULFOSALICYLIC ACID,URINE 2+ (Negative); WBC,URINE None Seen /HPF (0-5)
[2023-08-07] MEDS: HEPARIN SODIUM,PORCINE 5,000 UNITS/ML VIAL SQ SCH (15:45)
[2023-08-07 20:20] VITALS: BP 131/96; PULSE 105; RESP 21; TEMP 97.9
[2023-08-07] MEDS: DOCUSATE SODIUM 100 MG CAPSULE PO SCH (21:07)
[2023-08-07] MEDS: FUROSEMIDE 20 MG/2 ML VIAL IVP SCH (21:07)
[2023-08-08] VITALS (9 sets, daily range): BP systolic 106–138; BP diastolic 69–85; PULSE 94–113; RESP 17–24; TEMP 97.2–98.1; O2SAT 94–99
[2023-08-08] MEDS: FAMOTIDINE 20 MG TABLET PO SCH (08:47)
[2023-08-08] MEDS: LISINOPRIL 5 MG TABLET PO SCH (08:48)
[2023-08-08] MEDS: METOPROLOL SUCCINATE 25 MG ER TABLET PO SCH (11:16)
[2023-08-08] MEDS ORDERED: 0.9% SODIUM CHLORIDE 5 ML NEB SOLUTION NEB ONE (11:19)
[2023-08-08] MEDS: ALBUTEROL SULFATE 2.5 MG/0.5 ML NEB SOLUTION NEB PRN (11:25)
[2023-08-09] VITALS (7 sets, daily range): BP systolic 101–123; BP diastolic 77–94; PULSE 85–112; RESP 16–24; TEMP 97.5–98.2; O2SAT 95–99
[2023-08-09] MEDS ORDERED: 0.9% SODIUM CHLORIDE 5 ML NEB SOLUTION NEB ONE (01:27)
[2023-08-09] MEDS: BENZONATATE 100 MG CAPSULE PO PRN (04:34)
[2023-08-09] MEDS: SPIRONOLACTONE 25 MG TABLET PO SCH (08:18)
[2023-08-09] MEDS ORDERED: SODIUM CHLORIDE 0.9% 250 ML IV ONE (09:06)
== END 2023-08-09 13:00 | disposition home or self-care (01) | DRG 194 ==
LOC: EMS 08:45 → AHU 11:26 → 5S 13:39
PROVIDERS: ADMIT Internal Medicine; ATTEND Internal Medicine
DX: I50.23 Acute on chronic systolic (congestive) heart failure (principal); E44.0 Moderate protein-calorie malnutrition; F15.90 Other stimulant use, unspecified, uncomplicated; Z20.822 Contact with and (suspected) exposure to COVID-19; Z91.199 Patient's noncompliance with other medical treatment and regimen due to unspecified reason; Z82.49 Family history of ischemic heart disease and other diseases of the circulatory system; Z83.3 Family history of diabetes mellitus; Z95.5 Presence of coronary angioplasty implant and graft; J44.1 Chronic obstructive pulmonary disease with (acute) exacerbation
CPT/HCPCS: 71045; 80053; 80307; 81001; 81002; 82550; 83880; 84484; 85025; 93005; 93925; 93971; 94640; 99285; G0378; J1644; J1940; J7050; 36415-L1; 36415-TC; J7613

== ENCOUNTER 2023-08-10 08:17 | Inpatient (IN) | payer MEDICAID ==
[~2023-08-10] VITALS: Ht 162.6 cm; Wt 57.7 kg
[~2023-08-10 08:17] MED LIST changes: -PRED-554 PO
[2023-08-10 08:52] LABS: EOSINOPHILS % (AUTO) 1.9 % (1.0-6.0); HEMATOCRIT 41.2 % (41-53); HEMOGLOBIN 13.6 g/dL (13.5-17.5); LYMPHOCYTES # (AUTO) 0.7 K/uL (1.0-4.8); LYMPHOCYTES % (AUTO) 7.3 % (22.0-44.0); MEAN CORPUSCULAR HEMOGLOBIN 30.1 pg (26.0-34.0); MEAN CORPUSCULAR VOLUME 91 fL (80-100); MONOCYTES # (AUTO) 0.9 K/uL (0.1-1.0); MONOCYTES % (AUTO) 8.8 % (2.0-9.0); NEUTROPHILS # (AUTO) 8.1 K/uL (1.8-7.7); PLATELET COUNT (AUTO) 257 K/uL (150-450); RED BLOOD CELL COUNT(AUTO) 4.52 MIL/uL (4.50-5.90); RED CELL DISTRIBUTION WIDTH 16.5 % (11.5-14.5)
[2023-08-10 09:04] LABS: CREATININE 1.76 mg/dL (0.60-1.30); POTASSIUM 4.6 mmol/L (3.5-5.1)
[2023-08-10 09:08] LABS: TROPONIN I-HIGH SENSITIVITY 44 ng/L (<76)
[2023-08-10 09:29] LABS: ALBUMIN 3.1 g/dL (3.4-5.0); BILIRUBIN,TOTAL 0.7 mg/dL (0.1-1.0); TOTAL PROTEIN, SERUM 6.4 g/dL (6.4-8.2)
[2023-08-10] MEDS ORDERED: FUROSEMIDE 40 MG/4 ML VIAL IVP ONE (09:45)
[2023-08-10] MEDS: NITROGLYCERIN 2% (1 GM=INCH) OINTMENT PACKET TP ONE (10:12)
[2023-08-10] MEDS: MethylPREDNISolone SOD SUCC 125 MG/2 ML VIAL IVP ONE (10:13)
[2023-08-10] MEDS: FUROSEMIDE 20 MG/2 ML VIAL IVP ONE (10:13)
[2023-08-10] MEDS: ALBUTEROL SULFATE 2.5 MG/0.5 ML NEB SOLUTION NEB ONE (10:27)
[2023-08-10] MEDS: IPRATROPIUM BROMIDE 0.5 MG/2.5 ML NEB SOLUTION NEB ONE (10:27)
[2023-08-10 10:28] VITALS: PULSE 87; RESP 28; O2SAT 99
[2023-08-10 10:29] VITALS: PULSE 86; RESP 28; O2SAT 99
[2023-08-10 10:47] VITALS: PULSE 95; RESP 24; O2SAT 100
[2023-08-10 11:13] LABS: COVID AG,FIA SOURCE NASAL SWAB
[2023-08-10 11:43] LABS: SARS-COV2 (COVID) ANTIGEN,FIA Negative (Negative)
[2023-08-10] MEDS: CefTRIAXone 1 GM/DEXTROSE 50 ML IV ONE (13:05)
[2023-08-10] MEDS: AZITHROMYCIN 500 MG/NS 250 ML IV ONE (13:06)
[2023-08-10] MEDS: PROMETHAZINE HCL/CODEINE 6.25-10MG/5ML SOLUTION UDCUP PO ONE (13:07)
[2023-08-10] MEDS ORDERED: MORPHINE SULFATE 2 MG/ML SYRINGE IVP PRN (14:30)
[2023-08-10] MEDS: LORazepam 2 MG/ML VIAL IVP ONE (14:36)
[2023-08-10] MEDS: HYDROCODONE/ACETAMINOPHEN 5-325 MG TABLET PO PRN (14:36)
[2023-08-10 15:35] LABS: APPEARANCE,URINE CLEAR (CLEAR); BILIRUBIN,URINE NEGATIVE (NEGATIVE); COLOR,URINE LIGHT YELLOW (YELLOW); GLUCOSE, URINE (UA) NEGATIVE (NEGATIVE); KETONES,URINE NEGATIVE (NEGATIVE); LEUKOCYTE ESTERASE ,URINE NEGATIVE (NEGATIVE); NITRATE,URINE NEGATIVE (NEGATIVE); OCCULT BLOOD,URINE NEGATIVE (NEGATIVE); PH,URINE 5.5 (5.0-8.0); PROTEIN,URINE 30-70 mg/dL (NEGATIVE); SPECIFIC GRAVITIY, URINE 1.012 (1.003-1.030); UROBILINOGEN,URINE <=1.0 mg/dL (<=1.0)
[2023-08-10 16:31] LABS: ABG BASE EXCESS -6.6 mmol/L (-2.0-3.0); ABG CARBOXYHEMOGLOBIN 0.5 % (0.0-1.5); ABG HCO3 20.1 mmol/L (22.0-26.0); ABG METHEMOGLOBIN 0.2 % (0.0-1.5); ABG OXYGEN CONTENT 19.4 mL/dL (15.0-23.0); ABG OXYGEN SATURATION 95.7 % (95.0-98.0); ABG PCO2 30 mmHg (35-45); ABG PH 7.399 (7.35-7.450); ABG TOTAL HEMOGLOBIN 14.5 G/dL (12.0-18.0); PO2, ARTERIAL BG 83.4 mmHg (79.0-87.0); SOURCE, BLOOD GAS ARTERIAL; TEMPERATURE, FAHRENHEIT, BG 97.9 FAHREN (96.0-98.6)
[2023-08-10 16:32] LABS: ABG A-A DIFF O2 30.3 mmHg (10-20.0); ALLEN TEST, BLOOD GAS Positive; O2 DEVICE,BLOOD GAS ROOM AIR (ROOM AIR); SITE, BLOOD GAS LFT RADIAL
[2023-08-10] MEDS ORDERED: SODIUM CHLORIDE 0.9% 100 ML ONE (16:59)
[2023-08-10] MEDS ORDERED: IOHEXOL 350 MG/ML 100 ML VIAL ONE (16:59)
[2023-08-10] MEDS ORDERED: ONDANSETRON HCL 4 MG/2 ML VIAL IVP PRN (19:30)
[2023-08-10] MEDS ORDERED: 0.9% SODIUM CHLORIDE 10 ML SYRINGE IVP PRN (19:30)
[2023-08-10 19:57] LABS: PH,URINE DRUG SCREEN 5.5 (5.0-8.0)
[2023-08-10 20:02] LABS: ALCOHOL, URINE DRUG SCREEN NEGATIVE (NEGATIVE); AMPHET/METH SCREEN,URINE NEGATIVE (NEGATIVE); BARBITURATE SCREEN, URINE NEGATIVE (NEGATIVE); BENZODIAZEPINES SCREEN,URINE NEGATIVE (NEGATIVE); CANNABINOID SCREEN,URINE POSITIVE (NEGATIVE); COCAINE SCREEN,URINE NEGATIVE (NEGATIVE); METHADONE SCREEN, URINE NEGATIVE (NEGATIVE); OPIATE SCREEN,URINE NEGATIVE (NEGATIVE); PHENCYCLIDINE SCREEN,URINE NEGATIVE (NEGATIVE)
[2023-08-10] MEDS: DOCUSATE SODIUM 100 MG CAPSULE PO SCH (21:00)
[2023-08-10] MEDS: MethylPREDNISolone SOD SUCC 125 MG/2 ML VIAL IVP SCH (21:46)
[2023-08-10] MEDS: HEPARIN SODIUM,PORCINE 5,000 UNITS/ML VIAL SQ SCH (21:46)
[2023-08-10] MEDS: LORazepam 2 MG/ML VIAL IVP PRN (23:17)
[2023-08-11] MEDS: IPRATROPIUM BROMIDE 0.5 MG/2.5 ML NEB SOLUTION NEB ONE (03:25)
[2023-08-11] MEDS: ALBUTEROL SULFATE 2.5 MG/0.5 ML NEB SOLUTION NEB ONE (03:26)
[2023-08-11 03:30] VITALS: PULSE 90; RESP 24; O2SAT 97
[2023-08-11 03:45] VITALS: PULSE 98; RESP 24; O2SAT 98
[2023-08-11 05:21] LABS: EOSINOPHILS % (AUTO) 0 % (1.0-6.0); HEMATOCRIT 42.8 % (41-53); HEMOGLOBIN 14.1 g/dL (13.5-17.5); LYMPHOCYTES # (AUTO) 0.7 K/uL (1.0-4.8); LYMPHOCYTES % (AUTO) 5.4 % (22.0-44.0); MEAN CORPUSCULAR HEMOGLOBIN 29.9 pg (26.0-34.0); MEAN CORPUSCULAR HGB CONC 32.9 G/dL (31.0-37.0); MEAN CORPUSCULAR VOLUME 91 fL (80-100); MONOCYTES # (AUTO) 0.2 K/uL (0.1-1.0); MONOCYTES % (AUTO) 1.2 % (2.0-9.0); NEUTROPHILS # (AUTO) 11.9 K/uL (1.8-7.7); PLATELET COUNT (AUTO) 277 K/uL (150-450); RED CELL DISTRIBUTION WIDTH 16.2 % (11.5-14.5); WHITE BLOOD COUNT (AUTO) 12.7 K/uL (4.5-11.0)
[2023-08-11 05:26] LABS: CALCIUM, TOTAL 8.8 mg/dL (8.8-10.5); CREATININE 1.84 mg/dL (0.60-1.30); POTASSIUM 4.8 mmol/L (3.5-5.1)
[2023-08-11 05:31] LABS: NEUTROPHILS % (AUTO) 93.4 % (40.0-70.0)
[2023-08-11] MEDS: PANTOPRAZOLE SODIUM 40 MG/VIAL IVP SCH (08:51)
[2023-08-11 14:05] VITALS: BP_SYST 111; BP_SYST 117; BP_DIAS 87; PULSE 95; RESP 28; TEMP 97.8; O2SAT 99
[2023-08-11] MEDS: AZITHROMYCIN 500 MG/NS 250 ML IV SCH (17:41)
[2023-08-11] MEDS: OxyCODONE HCL/ACETAMINOPHEN 5-325 MG TABLET PO PRN (18:03)
[2023-08-11 18:15] VITALS: BP 110/75; PULSE 78; RESP 26; TEMP 97.5
[2023-08-11 19:30] VITALS: BP 118/58; PULSE 91; RESP 20; TEMP 97.6
[2023-08-11] MEDS ORDERED: DEXTROSE 50%-WATER 25 GM/50 ML SYRINGE IVP PRN (19:30)
[2023-08-12] VITALS (9 sets, daily range): BP systolic 98–130; BP diastolic 66–87; PULSE 75–92; RESP 18–26; TEMP 97.5–97.8; O2SAT 97–98
[2023-08-12 01:16] LABS: GLUCOMETER DEV NAME(LOC) 6S.2; GLUCOSE,POINT OF CARE 134 MG/DL (70-110)
[2023-08-12 07:38] LABS: EOSINOPHILS % (AUTO) 0 % (1.0-6.0); HEMATOCRIT 42.3 % (41-53); HEMOGLOBIN 13.8 g/dL (13.5-17.5); LYMPHOCYTES # (AUTO) 0.3 K/uL (1.0-4.8); LYMPHOCYTES % (AUTO) 2.1 % (22.0-44.0); MEAN CORPUSCULAR HEMOGLOBIN 29.8 pg (26.0-34.0); MEAN CORPUSCULAR HGB CONC 32.6 G/dL (31.0-37.0); MEAN CORPUSCULAR VOLUME 91 fL (80-100); MONOCYTES # (AUTO) 0.2 K/uL (0.1-1.0); MONOCYTES % (AUTO) 1.5 % (2.0-9.0); NEUTROPHILS # (AUTO) 13.7 K/uL (1.8-7.7); PLATELET COUNT (AUTO) 267 K/uL (150-450); RED BLOOD CELL COUNT(AUTO) 4.63 MIL/uL (4.50-5.90); RED CELL DISTRIBUTION WIDTH 16.3 % (11.5-14.5); WHITE BLOOD COUNT (AUTO) 14.3 K/uL (4.5-11.0)
[2023-08-12 07:43] LABS: CALCIUM, TOTAL 8.5 mg/dL (8.8-10.5); CREATININE 2.27 mg/dL (0.60-1.30); POTASSIUM 4.9 mmol/L (3.5-5.1)
[2023-08-12 08:01] LABS: NEUTROPHILS % (AUTO) 96.4 % (40.0-70.0)
[2023-08-12] MEDS: INSULIN LISPRO 100 UNITS/ML SQ PRN (11:35)
[2023-08-12 12:16] LABS: GLUCOMETER DEV NAME(LOC) 6N.2B; GLUCOSE,POINT OF CARE 166 MG/DL (70-110)
[2023-08-12 12:16] LABS: GLUCOMETER DEV NAME(LOC) 6S.2; GLUCOSE,POINT OF CARE 138 MG/DL (70-110)
[2023-08-12] MEDS ORDERED: IPRATROPIUM BROMIDE 0.5 MG/2.5 ML NEB SOLUTION NEB ONE (17:04)
[2023-08-12] MEDS ORDERED: ALBUTEROL SULFATE 2.5 MG/0.5 ML NEB SOLUTION NEB ONE (17:04)
[2023-08-12] MEDS: HYDROmorphone HCL 2 MG/ML SYRINGE IVP ONE (17:09)
[2023-08-12] MEDS: IPRATROPIUM BROMIDE 0.5 MG/2.5 ML NEB SOLUTION NEB PRN (17:09)
[2023-08-12] MEDS: FUROSEMIDE 40 MG/4 ML VIAL IVP SCH (17:09)
[2023-08-12] MEDS: ALBUTEROL SULFATE 2.5 MG/0.5 ML NEB SOLUTION NEB PRN (17:09)
[2023-08-12 18:10] LABS: GLUCOMETER DEV NAME(LOC) 4E.2; GLUCOSE,POINT OF CARE 186 MG/DL (70-110)
[2023-08-13 03:36] LABS: GLUCOMETER DEV NAME(LOC) 4E.2; GLUCOSE,POINT OF CARE 153 MG/DL (70-110)
[2023-08-13 04:40] VITALS: BP 102/72; PULSE 75; RESP 18; TEMP 97.5
[2023-08-13 07:18] LABS: EOSINOPHILS % (AUTO) 0 % (1.0-6.0); HEMATOCRIT 40.3 % (41-53); HEMOGLOBIN 13.3 g/dL (13.5-17.5); LYMPHOCYTES # (AUTO) 0.2 K/uL (1.0-4.8); LYMPHOCYTES % (AUTO) 1.2 % (22.0-44.0); MEAN CORPUSCULAR HEMOGLOBIN 29.9 pg (26.0-34.0); MEAN CORPUSCULAR VOLUME 91 fL (80-100); MONOCYTES # (AUTO) 0.2 K/uL (0.1-1.0); MONOCYTES % (AUTO) 1.2 % (2.0-9.0); NEUTROPHILS # (AUTO) 14.2 K/uL (1.8-7.7); NEUTROPHILS % (AUTO) 97.6 % (40.0-70.0); PLATELET COUNT (AUTO) 251 K/uL (150-450); RED BLOOD CELL COUNT(AUTO) 4.45 MIL/uL (4.50-5.90); WHITE BLOOD COUNT (AUTO) 14.6 K/uL (4.5-11.0)
[2023-08-13 07:25] LABS: CALCIUM, TOTAL 8.4 mg/dL (8.8-10.5); CREATININE 2.21 mg/dL (0.60-1.30); POTASSIUM 4.2 mmol/L (3.5-5.1)
[2023-08-13 08:23] VITALS: BP 108/77; PULSE 85; RESP 18; TEMP 98
[2023-08-13 13:31] LABS: GLUCOMETER DEV NAME(LOC) 6S.2; GLUCOSE,POINT OF CARE 120 MG/DL (70-110)
[2023-08-13 13:31] LABS: GLUCOMETER DEV NAME(LOC) 4E.2; GLUCOSE,POINT OF CARE 198 MG/DL (70-110)
[2023-08-13 14:57] VITALS: BP 98/61; PULSE 80; RESP 19; TEMP 98
[2023-08-13] MEDS ORDERED: INSULIN LISPRO 100 UNITS/ML SQ PRN (17:15)
[2023-08-13] MEDS ORDERED: DEXTROSE 50%-WATER 25 GM/50 ML SYRINGE IVP PRN (17:15)
[2023-08-13 19:12] VITALS: BP 109/78; PULSE 86; RESP 18; TEMP 98.3
[2023-08-13] MEDS: CARVEDILOL 3.125 MG TABLET PO SCH (20:08)
[2023-08-13] MEDS: ATORVASTATIN CALCIUM 40 MG TABLET PO SCH (20:08)
[2023-08-13 23:05] LABS: GLUCOMETER DEV NAME(LOC) 6N.2B; GLUCOSE,POINT OF CARE 139 MG/DL (70-110)
[2023-08-14 03:31] LABS: GLUCOMETER DEV NAME(LOC) 6S.2; GLUCOSE,POINT OF CARE 176 MG/DL (70-110)
[2023-08-14 04:20] VITALS: BP 108/74; PULSE 69; RESP 18; TEMP 97.7
[2023-08-14 06:16] LABS: GLUCOMETER DEV NAME(LOC) 6N.2B; GLUCOSE,POINT OF CARE 134 MG/DL (70-110)
[2023-08-14 06:50] LABS: BASOPHILS % (AUTO) 0.1 % (0.0-2.0); EOSINOPHILS % (AUTO) 0 % (1.0-6.0); HEMATOCRIT 40.9 % (41-53); HEMOGLOBIN 13.4 g/dL (13.5-17.5); LYMPHOCYTES # (AUTO) 0.2 K/uL (1.0-4.8); MEAN CORPUSCULAR HEMOGLOBIN 29.8 pg (26.0-34.0); MEAN CORPUSCULAR HGB CONC 32.8 G/dL (31.0-37.0); MEAN CORPUSCULAR VOLUME 91 fL (80-100); MONOCYTES # (AUTO) 0.3 K/uL (0.1-1.0); MONOCYTES % (AUTO) 1.8 % (2.0-9.0); NEUTROPHILS # (AUTO) 14.5 K/uL (1.8-7.7); PLATELET COUNT (AUTO) 229 K/uL (150-450); RED CELL DISTRIBUTION WIDTH 15.9 % (11.5-14.5)
[2023-08-14 07:11] LABS: CREATININE 1.74 mg/dL (0.60-1.30); MAGNESIUM 2.2 mg/dL (1.80-2.40); NEUTROPHILS % (AUTO) 97.1 % (40.0-70.0); POTASSIUM 3.4 mmol/L (3.5-5.1)
[2023-08-14 07:58] VITALS: BP 116/78; PULSE 77; RESP 18; TEMP 97.7
[2023-08-14] MEDS: POTASSIUM CHL 10 MEQ/WATER 50 ML IV SCH (09:09)
[2023-08-14 10:38] VITALS: PULSE 75; RESP 20; O2SAT 94
[2023-08-14 10:50] VITALS: PULSE 77; RESP 20; O2SAT 99
[2023-08-14 15:25] VITALS: BP 107/73; PULSE 75; RESP 18; TEMP 98
[2023-08-14 20:01] LABS: GLUCOMETER DEV NAME(LOC) 6N.2B; GLUCOSE,POINT OF CARE 198 MG/DL (70-110)
[2023-08-14 20:01] LABS: GLUCOMETER DEV NAME(LOC) 6N.2B; GLUCOSE,POINT OF CARE 156 MG/DL (70-110)
[2023-08-14 20:12] VITALS: BP 113/75; PULSE 60; RESP 20; TEMP 98.3
[2023-08-15 00:41] LABS: GLUCOMETER DEV NAME(LOC) 4E.2; GLUCOSE,POINT OF CARE 190 MG/DL (70-110)
[2023-08-15 03:53] VITALS: BP 108/78; PULSE 78; RESP 18; TEMP 97.8
[2023-08-15 06:16] LABS: GLUCOMETER DEV NAME(LOC) 4E.2; GLUCOSE,POINT OF CARE 139 MG/DL (70-110)
[2023-08-15 07:15] LABS: BASOPHILS % (AUTO) 0.1 % (0.0-2.0); EOSINOPHILS % (AUTO) 0 % (1.0-6.0); HEMATOCRIT 42.1 % (41-53); HEMOGLOBIN 13.8 g/dL (13.5-17.5); LYMPHOCYTES # (AUTO) 0.1 K/uL (1.0-4.8); LYMPHOCYTES % (AUTO) 0.8 % (22.0-44.0); MEAN CORPUSCULAR HEMOGLOBIN 29.8 pg (26.0-34.0); MEAN CORPUSCULAR HGB CONC 32.7 G/dL (31.0-37.0); MEAN CORPUSCULAR VOLUME 91 fL (80-100); MONOCYTES # (AUTO) 0.3 K/uL (0.1-1.0); MONOCYTES % (AUTO) 2.1 % (2.0-9.0); NEUTROPHILS # (AUTO) 15.4 K/uL (1.8-7.7); PLATELET COUNT (AUTO) 229 K/uL (150-450); RED BLOOD CELL COUNT(AUTO) 4.63 MIL/uL (4.50-5.90); RED CELL DISTRIBUTION WIDTH 16.2 % (11.5-14.5); WHITE BLOOD COUNT (AUTO) 15.9 K/uL (4.5-11.0)
[2023-08-15 07:24] LABS: CALCIUM, TOTAL 8.1 mg/dL (8.8-10.5); CREATININE 1.64 mg/dL (0.60-1.30); PHOSPHORUS 3.1 mg/dL (2.5-4.9); POTASSIUM 3.2 mmol/L (3.5-5.1)
[2023-08-15 08:01] VITALS: BP 110/77; PULSE 70
[2023-08-15] MEDS: PredniSONE 20 MG TABLET PO SCH (08:25)
[2023-08-15] MEDS: POTASSIUM CHLORIDE 20 MEQ ER TABLET PO ONE (08:26)
[2023-08-15] MEDS: POTASSIUM CHL 10 MEQ/WATER 50 ML IV ONE (08:29)
[2023-08-15 14:46] LABS: GLUCOMETER DEV NAME(LOC) 6S.2; GLUCOSE,POINT OF CARE 107 MG/DL (70-110)
[2023-08-15 19:35] VITALS: BP 113/78; PULSE 83; RESP 18; TEMP 98.3
[2023-08-15 20:15] LABS: GLUCOMETER DEV NAME(LOC) 6S.2; GLUCOSE,POINT OF CARE 193 MG/DL (70-110)
[2023-08-15 22:00] LABS: GLUCOMETER DEV NAME(LOC) 4E.2; GLUCOSE,POINT OF CARE 118 MG/DL (70-110)
[2023-08-16 04:37] VITALS: BP 123/90; PULSE 83; RESP 18; TEMP 97.7
[2023-08-16] MEDS: OxyCODONE HCL/ACETAMINOPHEN 5-325 MG TABLET PO PRN (06:57)
[2023-08-16 07:05] LABS: GLUCOMETER DEV NAME(LOC) 6N.2B; GLUCOSE,POINT OF CARE 119 MG/DL (70-110)
[2023-08-16 09:04] VITALS: BP 111/77; PULSE 72; RESP 18; TEMP 98
[2023-08-16] MEDS ORDERED: ATOR40TA28 PO (11:18)
[2023-08-16] MEDS ORDERED: CARV3 PO (11:19)
[2023-08-16] MEDS ORDERED: POTA99CA PO (11:23)
[2023-08-16] MEDS ORDERED: PRED-554 PO (11:25)
[2023-08-16] MEDS ORDERED: ALBU18HF12 IH (11:29)
[2023-08-16 11:35] LABS: GLUCOMETER DEV NAME(LOC) 6N.2B; GLUCOSE,POINT OF CARE 125 MG/DL (70-110)
[2023-08-16] MEDS ORDERED: FAMO20 PO (11:46)
== END 2023-08-16 13:11 | disposition home or self-care (01) | DRG 194 ==
LOC: EMS 08:28 → AHU 10:37 → 6S 20:07
PROVIDERS: ADMIT Internal Medicine; ATTEND Internal Medicine
DX: I13.0 Hypertensive heart and chronic kidney disease with heart failure and stage 1 through stage 4 chronic kidney disease, or unspecified chronic kidney disease (principal); J96.01 Acute respiratory failure with hypoxia; G93.41 Metabolic encephalopathy; E43 Unspecified severe protein-calorie malnutrition; N17.9 Acute kidney failure, unspecified; J44.1 Chronic obstructive pulmonary disease with (acute) exacerbation; I50.43 Acute on chronic combined systolic (congestive) and diastolic (congestive) heart failure; Z20.822 Contact with and (suspected) exposure to COVID-19; F12.90 Cannabis use, unspecified, uncomplicated; N18.32 Chronic kidney disease, stage 3b; E87.6 Hypokalemia; F15.10 Other stimulant abuse, uncomplicated; Z82.49 Family history of ischemic heart disease and other diseases of the circulatory system; Z83.3 Family history of diabetes mellitus; Z95.5 Presence of coronary angioplasty implant and graft; Z68.25 Body mass index [BMI] 25.0-25.9, adult
CPT/HCPCS: 36600; 70450; 71045; 76770; 80048; 80053; 80307; 81003; 82550; 82805; 82962; 83036; 83735; 83880; 84100; 84132; 84484; 85025; 85379; 87040; 93005; 93306; 94640; 99285; C9113; G0378; J0456; J0696; J1170; J1644; J1940; J2060; J2930; J3480; J7050; Q9967; 36415-L1; 36415-TC; 82803-TC; J7613

== ENCOUNTER 2023-08-18 13:31 | Emergency (ER) | payer MEDICAID ==
[~2023-08-18] VITALS: Ht 160 cm; Wt 63.0 kg
[~2023-08-18 13:31] MED LIST changes: -ACET-66 PO; -ASPI-1444 PO; +ATOR40TA28 PO; +CARV3 PO; +FAMO20 PO; +POTA99CA PO; +PRED-554 PO
[2023-08-18 13:38] VITALS: TEMP 97.8
[2023-08-18] MEDS ORDERED: POTA8CAP20 PO (13:46)
[2023-08-18 15:18] VITALS: BP 104/61; PULSE 74; RESP 18
[2023-08-18] MEDS ORDERED: FURO20TA4 PO (15:35)
[2023-08-18] MEDS ORDERED: IPRA4AER IH (15:35)
[2023-08-18] MEDS ORDERED: ALBU18HF12 IH (15:35)
== END 2023-08-18 15:55 | disposition home or self-care (01) ==
LOC: EMS 13:31
DX: J44.9 Chronic obstructive pulmonary disease, unspecified (principal); F15.90 Other stimulant use, unspecified, uncomplicated; Z98.890 Other specified postprocedural states; Z76.0 Encounter for issue of repeat prescription
CPT/HCPCS: 99281; Z7502

== ENCOUNTER 2023-08-26 13:12 | Emergency (ER) | payer MEDICAID ==
[~2023-08-26] VITALS: Ht 162.6 cm; Wt 68.2 kg
[~2023-08-26 13:12] MED LIST changes: +BENZ100C68 PO; +IPRA4AER IH; +LEVO750T68 PO; -METO25XL PO; +POTA8CAP20 PO; -POTA99CA PO; -PRED-554 PO; +PRED-729 PO
[2023-08-26] MEDS: ALBUTEROL SULFATE 2.5 MG/0.5 ML NEB SOLUTION NEB ONE ×2 (14:03→15:46)
[2023-08-26] MEDS: IPRATROPIUM BROMIDE 0.5 MG/2.5 ML NEB SOLUTION NEB ONE (14:03)
[2023-08-26 14:06] VITALS: PULSE 80; RESP 24; O2SAT 95
[2023-08-26 14:07] VITALS: PULSE 80; RESP 24; O2SAT 95
[2023-08-26 14:18] LABS: EOSINOPHILS % (AUTO) 0 % (1.0-6.0); HEMATOCRIT 41.3 % (41-53); HEMOGLOBIN 13.5 g/dL (13.5-17.5); LYMPHOCYTES # (AUTO) 0.4 K/uL (1.0-4.8); LYMPHOCYTES % (AUTO) 2.7 % (22.0-44.0); MEAN CORPUSCULAR HEMOGLOBIN 29.6 pg (26.0-34.0); MEAN CORPUSCULAR HGB CONC 32.6 G/dL (31.0-37.0); MEAN CORPUSCULAR VOLUME 91 fL (80-100); MONOCYTES # (AUTO) 0.9 K/uL (0.1-1.0); NEUTROPHILS # (AUTO) 14.4 K/uL (1.8-7.7); PLATELET COUNT (AUTO) 192 K/uL (150-450); RED BLOOD CELL COUNT(AUTO) 4.55 MIL/uL (4.50-5.90); RED CELL DISTRIBUTION WIDTH 16.4 % (11.5-14.5); WHITE BLOOD COUNT (AUTO) 15.7 K/uL (4.5-11.0)
[2023-08-26 14:19] LABS: NEUTROPHILS % (AUTO) 91.3 % (40.0-70.0)
[2023-08-26 14:20] VITALS: PULSE 78; RESP 20; O2SAT 99
[2023-08-26 14:30] LABS: CREATININE 1.62 mg/dL (0.60-1.30); POTASSIUM 4.4 mmol/L (3.5-5.1)
[2023-08-26 14:37] LABS: ALBUMIN 2.9 g/dL (3.4-5.0); BILIRUBIN,TOTAL 0.6 mg/dL (0.1-1.0); TOTAL PROTEIN, SERUM 6.4 g/dL (6.4-8.2)
[2023-08-26 14:39] LABS: TROPONIN I-HIGH SENSITIVITY 48 ng/L (<76)
[2023-08-26] MEDS ORDERED: LIDO1ADH72 TP (15:04)
[2023-08-26] MEDS ORDERED: DICL100G32 TP (15:04)
[2023-08-26] MEDS ORDERED: ACET-2895 PO (15:04)
[2023-08-26] MEDS ORDERED: LISI-661 PO (15:04)
[2023-08-26] MEDS ORDERED: SEMA0.258 SQ (15:04)
[2023-08-26] MEDS ORDERED: SIME80TA82 PO (15:04)
[2023-08-26] MEDS: PredniSONE 20 MG TABLET PO ONE (15:09)
[2023-08-26] MEDS ORDERED: 0.9% SODIUM CHLORIDE 5 ML NEB SOLUTION NEB ONE (15:45)
[2023-08-26 15:46] VITALS: PULSE 91; RESP 20; O2SAT 91
[2023-08-26 15:59] VITALS: PULSE 85; O2SAT 97
[2023-08-26 16:37] VITALS: BP 122/82; PULSE 86; RESP 18; TEMP 98.6
[2023-08-26] MEDS: ACETAMINOPHEN 325 MG TABLET PO ONE (16:39)
[2023-08-26] MEDS: ALBUTEROL SULFATE HFA 90 MCG/PUFF 8 GM INHALER IH ONE (16:56)
[2023-08-26] MEDS ORDERED: AZIT250T9 PO (17:28)
[2023-08-26] MEDS ORDERED: PRED-554 PO (17:28)
[2023-08-27] MEDS ORDERED: PROPOFOL 1000 MG/ISO-OSM 100 ML ONE (00:38)
[2023-08-27] MEDS ORDERED: ALBU18HF12 IH (15:18)
[2023-08-27] MEDS ORDERED: GUAIFDM PO (15:18)
[2023-08-27] MEDS ORDERED: PRED-554 PO (15:18)
== END 2023-08-26 17:29 | disposition home or self-care (01) ==
LOC: EMS 13:12
DX: J44.9 Chronic obstructive pulmonary disease, unspecified (principal); F15.90 Other stimulant use, unspecified, uncomplicated; Z98.890 Other specified postprocedural states
CPT/HCPCS: 99285; 71045; 80053; 84484; 85025; 36415; 94640; 93005; J7512; J3535; J2704; J7613

== ENCOUNTER 2023-08-27 10:26 | Emergency (ER) | payer MEDICAID ==
[~2023-08-27] VITALS: Ht 167.6 cm; Wt 59.1 kg
[~2023-08-27 10:26] MED LIST changes: -ALBU18HF12 IH; -ATOR40TA28 PO; +AZIT250T9 PO; -BENZ100C68 PO; -CARV3 PO; -FAMO20 PO; -FURO20TA4 PO; -IPRA4AER IH; -LEVO750T68 PO; -LOSA-381 PO; -POTA8CAP20 PO; +PRED-554 PO; -PRED-729 PO; -SPIR-37 PO
[2023-08-27 10:44] VITALS: TEMP 98.5
[2023-08-27 13:03] LABS: BASOPHILS % (AUTO) 0.2 % (0.0-2.0); EOSINOPHILS % (AUTO) 0.4 % (1.0-6.0); HEMOGLOBIN 14.9 g/dL (13.5-17.5); LYMPHOCYTES # (AUTO) 0.6 K/uL (1.0-4.8); LYMPHOCYTES % (AUTO) 6.3 % (22.0-44.0); MEAN CORPUSCULAR HEMOGLOBIN 29.5 pg (26.0-34.0); MEAN CORPUSCULAR HGB CONC 32.4 G/dL (31.0-37.0); MEAN CORPUSCULAR VOLUME 91 fL (80-100); MONOCYTES # (AUTO) 1.1 K/uL (0.1-1.0); MONOCYTES % (AUTO) 11.6 % (2.0-9.0); NEUTROPHILS # (AUTO) 7.7 K/uL (1.8-7.7); NEUTROPHILS % (AUTO) 81.5 % (40.0-70.0); PLATELET COUNT (AUTO) 185 K/uL (150-450); RED BLOOD CELL COUNT(AUTO) 5.05 MIL/uL (4.50-5.90); RED CELL DISTRIBUTION WIDTH 16.5 % (11.5-14.5); WHITE BLOOD COUNT (AUTO) 9.5 K/uL (4.5-11.0)
[2023-08-27 13:08] VITALS: PULSE 101; RESP 20; O2SAT 96
[2023-08-27] MEDS: ALBUTEROL SULFATE 2.5 MG/0.5 ML NEB SOLUTION NEB ONE (13:08)
[2023-08-27] MEDS: IPRATROPIUM BROMIDE 0.5 MG/2.5 ML NEB SOLUTION NEB ONE ×2 (13:08→15:29)
[2023-08-27 13:09] LABS: CALCIUM, TOTAL 8.9 mg/dL (8.8-10.5); CREATININE 1.33 mg/dL (0.60-1.30); POTASSIUM 4.6 mmol/L (3.5-5.1)
[2023-08-27 13:16] LABS: ALBUMIN 3.3 g/dL (3.4-5.0); BILIRUBIN,TOTAL 0.8 mg/dL (0.1-1.0); TOTAL PROTEIN, SERUM 6.9 g/dL (6.4-8.2); TROPONIN I-HIGH SENSITIVITY 72 ng/L (<76)
[2023-08-27 13:20] VITALS: PULSE 101; RESP 20; O2SAT 99
[2023-08-27 15:04] LABS: TROPONIN I-HIGH SENSITIVITY 69 ng/L (<76)
[2023-08-27] MEDS ORDERED: ALBU18HF12 IH (15:18)
[2023-08-27] MEDS ORDERED: GUAIFDM PO (15:18)
[2023-08-27] MEDS ORDERED: PRED-554 PO (15:18)
[2023-08-27] MEDS ORDERED: 0.9% SODIUM CHLORIDE 5 ML NEB SOLUTION NEB ONE (15:25)
[2023-08-27] MEDS: ALBUTEROL SULFATE 2.5 MG/0.5 ML 5 ML NEB SOLUTION NEB ONE (15:28)
[2023-08-27 15:30] VITALS: PULSE 99; RESP 20; O2SAT 96
[2023-08-27 15:45] VITALS: PULSE 100; RESP 20; O2SAT 100
[2023-08-27] MEDS: MethylPREDNISolone SOD SUCC 125 MG/2 ML VIAL IM ONE (15:45)
[2023-08-27 16:26] VITALS: BP 116/83; PULSE 70; RESP 16
== END 2023-08-27 16:29 | disposition home or self-care (01) ==
LOC: EMS 10:26
DX: F15.10 Other stimulant abuse, uncomplicated (principal); J44.1 Chronic obstructive pulmonary disease with (acute) exacerbation; I50.9 Heart failure, unspecified
CPT/HCPCS: 99285; 71045; 80053; 83690; 83880; 84484; 85025; 36415; 94640; 93005; 96372; J2930; Q9967; J7613

== ENCOUNTER 2023-09-03 14:02 | Emergency (ER) | payer MEDICAID ==
[~2023-09-03] VITALS: Ht 162.6 cm; Wt 61.4 kg
[~2023-09-03 14:02] MED LIST changes: +ALBU18HF12 IH; -AZIT250T9 PO; +GUAIFDM PO
[2023-09-03 14:05] VITALS: TEMP 97.5
[2023-09-03 15:17] LABS: BASOPHILS % (AUTO) 0.4 % (0.0-2.0); EOSINOPHILS % (AUTO) 2.3 % (1.0-6.0); HEMATOCRIT 37.5 % (41-53); HEMOGLOBIN 12.2 g/dL (13.5-17.5); LYMPHOCYTES # (AUTO) 0.7 K/uL (1.0-4.8); LYMPHOCYTES % (AUTO) 8.6 % (22.0-44.0); MEAN CORPUSCULAR HEMOGLOBIN 29.2 pg (26.0-34.0); MEAN CORPUSCULAR HGB CONC 32.4 G/dL (31.0-37.0); MEAN CORPUSCULAR VOLUME 90 fL (80-100); MONOCYTES # (AUTO) 0.7 K/uL (0.1-1.0); MONOCYTES % (AUTO) 9.1 % (2.0-9.0); NEUTROPHILS # (AUTO) 6.1 K/uL (1.8-7.7); NEUTROPHILS % (AUTO) 79.6 % (40.0-70.0); PLATELET COUNT (AUTO) 227 K/uL (150-450); RED BLOOD CELL COUNT(AUTO) 4.17 MIL/uL (4.50-5.90); RED CELL DISTRIBUTION WIDTH 16.5 % (11.5-14.5); WHITE BLOOD COUNT (AUTO) 7.6 K/uL (4.5-11.0)
[2023-09-03 15:29] LABS: B-TYPE NATRIURETIC PEPTIDE 532 pg/mL (0-100)
[2023-09-03] MEDS: IPRATROPIUM BROMIDE 0.5 MG/2.5 ML NEB SOLUTION NEB ONE (15:31)
[2023-09-03 15:32] VITALS: PULSE 88; RESP 18; O2SAT 94
[2023-09-03] MEDS: ALBUTEROL SULFATE 2.5 MG/0.5 ML 5 ML NEB SOLUTION NEB ONE (15:32)
[2023-09-03] MEDS: PredniSONE 20 MG TABLET PO ONE (15:39)
[2023-09-03 15:42] LABS: TROPONIN I-HIGH SENSITIVITY 152 ng/L (<76)
[2023-09-03 15:45] LABS: ANION GAP 7 mmol/L (8-16); CALCIUM, TOTAL 7.9 mg/dL (8.8-10.5); CARBON DIOXIDE 28 mmol/L (22-29); CHLORIDE 108 mmol/L (98-107); CREATININE 1.06 mg/dL (0.60-1.30); GLOMERULAR FILTR. RATE CALC > 60 mL/min (>60); GLUCOSE,RANDOM 132 mg/dL (70-110); POTASSIUM 4.2 mmol/L (3.5-5.1); SODIUM SERUM 143 mmol/L (136-145); UREA NITROGEN, BLOOD 24 mg/dL (7-18)
[2023-09-03 15:47] VITALS: PULSE 67; RESP 19; O2SAT 96
[2023-09-03 15:51] LABS: ALANINE AMINOTRANSFERASE 39 U/L (12-78); ALBUMIN 2.6 g/dL (3.4-5.0); ALKALINE PHOSPHATASE 72 U/L (46-116); ASPARTATE AMINOTRANSFERASE 22 U/L (15-37); BILIRUBIN,TOTAL 0.3 mg/dL (0.1-1.0); TOTAL PROTEIN, SERUM 5.5 g/dL (6.4-8.2)
[2023-09-03] MEDS: FUROSEMIDE 20 MG/2 ML VIAL IVP ONE (16:22)
[2023-09-03] MEDS: ASPIRIN 325 MG TABLET PO ONE (16:22)
[2023-09-03 17:19] LABS: TROPONIN I-HIGH SENSITIVITY 148 ng/L (<76)
[2023-09-03 17:53] VITALS: BP 115/68; PULSE 80; RESP 17
[2023-09-10] MEDS ORDERED: SPIR-37 PO (21:11)
[2023-09-10] MEDS ORDERED: IPRA4AER IH (21:11)
[2023-09-12] MEDS ORDERED: ATOR20TA PO (10:34)
[2023-09-12] MEDS ORDERED: EMPA10TA3 PO (10:34)
[2023-09-12] MEDS ORDERED: FURO40 PO (10:35)
[2023-09-12] MEDS ORDERED: LOSA-381 PO (10:35)
[2023-09-12] MEDS ORDERED: CARV3 PO (10:36)
== END 2023-09-03 18:09 | disposition home or self-care (01) ==
LOC: EMS 14:02
DX: J44.1 Chronic obstructive pulmonary disease with (acute) exacerbation (principal); R79.89 Other specified abnormal findings of blood chemistry; F15.90 Other stimulant use, unspecified, uncomplicated; Z98.890 Other specified postprocedural states
CPT/HCPCS: 99285; 96374; 71045; 80053; 83880; 84484; 85025; 36415; 94640; 93005; J1940; J7512; Q9967

== ENCOUNTER 2023-09-13 17:55 | Emergency (ER) | payer MEDICAID ==
[~2023-09-13] VITALS: Ht 162.6 cm; Wt 56.8 kg
[~2023-09-13 17:55] MED LIST changes: +ATOR20TA PO; +CARV3 PO; +EMPA10TA3 PO; +FURO40 PO; -GUAIFDM PO; +IPRA4AER IH; +LOSA-381 PO; -PRED-554 PO; +SPIR-37 PO
[2023-09-13 18:12] VITALS: BP 104/62; PULSE 93; RESP 16; TEMP 98.2
[2023-09-13] MEDS ORDERED: IPRA4AER IH (19:48)
[2023-09-13] MEDS ORDERED: ALBU18HF12 IH (19:48)
== END 2023-09-13 21:57 | disposition home or self-care (01) ==
LOC: EMS 18:02
DX: Z76.0 Encounter for issue of repeat prescription (principal); J44.1 Chronic obstructive pulmonary disease with (acute) exacerbation
CPT/HCPCS: 99281; Z7502

== ENCOUNTER 2023-09-17 18:41 | Emergency (ER) | payer MEDICAID ==
[~2023-09-17] VITALS: Ht 160 cm; Wt 61.4 kg
[2023-09-17 19:49] LABS: BASOPHILS % (AUTO) 0.5 % (0.0-2.0); EOSINOPHILS % (AUTO) 4.9 % (1.0-6.0); HEMATOCRIT 40.9 % (41-53); HEMOGLOBIN 13.2 g/dL (13.5-17.5); LYMPHOCYTES # (AUTO) 0.7 K/uL (1.0-4.8); LYMPHOCYTES % (AUTO) 9.7 % (22.0-44.0); MEAN CORPUSCULAR HEMOGLOBIN 29.1 pg (26.0-34.0); MEAN CORPUSCULAR HGB CONC 32.3 G/dL (31.0-37.0); MEAN CORPUSCULAR VOLUME 90 fL (80-100); MONOCYTES # (AUTO) 1.1 K/uL (0.1-1.0); MONOCYTES % (AUTO) 15.5 % (2.0-9.0); NEUTROPHILS # (AUTO) 5.1 K/uL (1.8-7.7); NEUTROPHILS % (AUTO) 69.4 % (40.0-70.0); PLATELET COUNT (AUTO) 189 K/uL (150-450); RED BLOOD CELL COUNT(AUTO) 4.54 MIL/uL (4.50-5.90); RED CELL DISTRIBUTION WIDTH 16.3 % (11.5-14.5); WHITE BLOOD COUNT (AUTO) 7.3 K/uL (4.5-11.0)
[2023-09-17 19:52] LABS: CALCIUM, TOTAL 8.7 mg/dL (8.8-10.5); CREATININE 1.83 mg/dL (0.60-1.30); POTASSIUM 4.1 mmol/L (3.5-5.1)
[2023-09-17 19:58] LABS: ALBUMIN 3.6 g/dL (3.4-5.0); TOTAL PROTEIN, SERUM 6.7 g/dL (6.4-8.2)
[2023-09-17 20:01] LABS: TROPONIN I-HIGH SENSITIVITY 62 ng/L (<76)
[2023-09-17 21:18] VITALS: PULSE 86; RESP 18; O2SAT 98
[2023-09-17] MEDS: ALBUTEROL SULFATE 2.5 MG/0.5 ML NEB SOLUTION NEB ONE (21:18)
[2023-09-17] MEDS: IPRATROPIUM BROMIDE 0.5 MG/2.5 ML NEB SOLUTION NEB ONE (21:18)
[2023-09-17 21:33] VITALS: PULSE 82; RESP 18; O2SAT 98
[2023-09-17 21:55] VITALS: TEMP 98.5
[2023-09-17 22:17] VITALS: BP 136/78; PULSE 99; RESP 18
== END 2023-09-17 22:42 | disposition home or self-care (01) ==
LOC: EMS 18:44
DX: J44.1 Chronic obstructive pulmonary disease with (acute) exacerbation (principal); I50.9 Heart failure, unspecified; F15.90 Other stimulant use, unspecified, uncomplicated
CPT/HCPCS: 71045; 80053; 84484; 85025; 93005; 94640; 99285; 36415-L1; 36415-TC; J7613

== ENCOUNTER 2023-09-18 12:42 | Emergency (ER) | payer MEDICAID ==
[~2023-09-18] VITALS: Ht 165.1 cm; Wt 63.6 kg
[2023-09-18 12:51] VITALS: TEMP 98.2
[2023-09-18] MEDS: ACETAMINOPHEN 325 MG TABLET PO ONE (15:44)
[2023-09-18 17:00] VITALS: BP 146/87; PULSE 84; RESP 18
== END 2023-09-18 18:01 | disposition home or self-care (01) ==
LOC: EMS 12:43
DX: S09.90XA Unspecified injury of head, initial encounter (principal); J44.9 Chronic obstructive pulmonary disease, unspecified; F15.90 Other stimulant use, unspecified, uncomplicated; Z98.890 Other specified postprocedural states; W22.8XXA Striking against or struck by other objects, initial encounter; Y93.89 Activity, other specified; Y92.89 Other specified places as the place of occurrence of the external cause; Y99.8 Other external cause status
CPT/HCPCS: 70450; 99284

== ENCOUNTER 2023-09-20 09:44 | Emergency (ER) | payer MEDICAID ==
[~2023-09-20] VITALS: Ht 170.2 cm; Wt 61.4 kg
[2023-09-20 09:54] VITALS: BP 96/68; PULSE 78; RESP 18; TEMP 97.9
[2023-09-20 10:15] LABS: BASOPHILS % (AUTO) 0.8 % (0.0-2.0); EOSINOPHILS % (AUTO) 6.1 % (1.0-6.0); HEMATOCRIT 40.8 % (41-53); HEMOGLOBIN 13.3 g/dL (13.5-17.5); LYMPHOCYTES # (AUTO) 0.8 K/uL (1.0-4.8); MEAN CORPUSCULAR HEMOGLOBIN 29.3 pg (26.0-34.0); MEAN CORPUSCULAR HGB CONC 32.6 G/dL (31.0-37.0); MEAN CORPUSCULAR VOLUME 90 fL (80-100); MONOCYTES % (AUTO) 15.4 % (2.0-9.0); NEUTROPHILS # (AUTO) 4.4 K/uL (1.8-7.7); NEUTROPHILS % (AUTO) 65.7 % (40.0-70.0); PLATELET COUNT (AUTO) 197 K/uL (150-450); RED BLOOD CELL COUNT(AUTO) 4.54 MIL/uL (4.50-5.90); RED CELL DISTRIBUTION WIDTH 16.6 % (11.5-14.5); WHITE BLOOD COUNT (AUTO) 6.6 K/uL (4.5-11.0)
[2023-09-20 10:30] LABS: ANION GAP 7 mmol/L (8-16); CALCIUM, TOTAL 8.8 mg/dL (8.8-10.5); CARBON DIOXIDE 27 mmol/L (22-29); CHLORIDE 105 mmol/L (98-107); CREATININE 1.67 mg/dL (0.60-1.30); GLOMERULAR FILTR. RATE CALC 42 mL/min (>60); GLUCOSE,RANDOM 88 mg/dL (70-110); POTASSIUM 4.3 mmol/L (3.5-5.1); SODIUM SERUM 139 mmol/L (136-145); UREA NITROGEN, BLOOD 28 mg/dL (7-18)
[2023-09-20 10:34] LABS: ALCOHOL, BLOOD (SERUM) < 3 mg/dL (0-10)
[2023-09-20 10:36] LABS: ALANINE AMINOTRANSFERASE 21 U/L (12-78); ALBUMIN 3.1 g/dL (3.4-5.0); ALKALINE PHOSPHATASE 73 U/L (46-116); ASPARTATE AMINOTRANSFERASE 17 U/L (15-37); BILIRUBIN,TOTAL 0.6 mg/dL (0.1-1.0); TOTAL PROTEIN, SERUM 6.7 g/dL (6.4-8.2)
[2023-09-20] MEDS: LORazepam 2 MG TABLET PO ONE (11:20)
[2023-09-20] MEDS: DiphenhydrAMINE HCL 25 MG CAPSULE PO ONE (11:20)
[2023-09-20] MEDS ORDERED: IPRA4AER IH (16:36)
[2023-09-20] MEDS ORDERED: POTA8CAP20 PO (16:38)
[2023-09-20] MEDS ORDERED: LOSA-381 PO (16:38)
[2023-09-20] MEDS ORDERED: FURO20TA4 PO (16:38)
== END 2023-09-20 11:53 | disposition home or self-care (01) ==
LOC: EMS 10:21
DX: F32.9 Major depressive disorder, single episode, unspecified (principal); F15.10 Other stimulant abuse, uncomplicated; J44.9 Chronic obstructive pulmonary disease, unspecified; Z98.890 Other specified postprocedural states
CPT/HCPCS: 99284; 80053; 85025; G0480

== ENCOUNTER 2023-09-23 15:45 | Inpatient (IN) | payer MEDICAID ==
[~2023-09-23] VITALS: Ht 160 cm; Wt 53.3 kg
[~2023-09-23 15:45] MED LIST changes: +FURO20TA4 PO; -FURO40 PO; +POTA8CAP20 PO
[2023-09-23 17:17] LABS: EOSINOPHILS % (AUTO) 4.1 % (1.0-6.0); HEMATOCRIT 44.3 % (41-53); HEMOGLOBIN 14.4 g/dL (13.5-17.5); LYMPHOCYTES # (AUTO) 1.2 K/uL (1.0-4.8); LYMPHOCYTES % (AUTO) 15.7 % (22.0-44.0); MEAN CORPUSCULAR HEMOGLOBIN 29.1 pg (26.0-34.0); MEAN CORPUSCULAR HGB CONC 32.5 G/dL (31.0-37.0); MEAN CORPUSCULAR VOLUME 90 fL (80-100); MONOCYTES # (AUTO) 0.7 K/uL (0.1-1.0); MONOCYTES % (AUTO) 9.1 % (2.0-9.0); NEUTROPHILS # (AUTO) 5.5 K/uL (1.8-7.7); NEUTROPHILS % (AUTO) 70.1 % (40.0-70.0); PLATELET COUNT (AUTO) 220 K/uL (150-450); RED BLOOD CELL COUNT(AUTO) 4.95 MIL/uL (4.50-5.90); RED CELL DISTRIBUTION WIDTH 16.7 % (11.5-14.5); WHITE BLOOD COUNT (AUTO) 7.9 K/uL (4.5-11.0)
[2023-09-23 17:27] LABS: ANION GAP 10 mmol/L (8-16); CALCIUM, TOTAL 8.9 mg/dL (8.8-10.5); CARBON DIOXIDE 29 mmol/L (22-29); CHLORIDE 104 mmol/L (98-107); CREATININE 1.61 mg/dL (0.60-1.30); GLOMERULAR FILTR. RATE CALC 44 mL/min (>60); GLUCOSE,RANDOM 97 mg/dL (70-110); POTASSIUM 4.7 mmol/L (3.5-5.1); SODIUM SERUM 142 mmol/L (136-145); UREA NITROGEN, BLOOD 47 mg/dL (7-18)
[2023-09-23 17:32] LABS: ALANINE AMINOTRANSFERASE 21 U/L (12-78); ALBUMIN 2.9 g/dL (3.4-5.0); ALKALINE PHOSPHATASE 67 U/L (46-116); ASPARTATE AMINOTRANSFERASE 14 U/L (15-37); BILIRUBIN,TOTAL 0.4 mg/dL (0.1-1.0); CREATINE KINASE, TOTAL ONLY 29 U/L (39-308); LIPASE 48 U/L (16-77); TOTAL PROTEIN, SERUM 6.5 g/dL (6.4-8.2)
[2023-09-23 17:34] LABS: LACTIC ACID 0.8 mmol/L (0.4-2.0)
[2023-09-23 17:37] LABS: TROPONIN I-HIGH SENSITIVITY 36 ng/L (<76)
[2023-09-23 17:40] LABS: B-TYPE NATRIURETIC PEPTIDE 111 pg/mL (0-100)
[2023-09-23] MEDS ORDERED: LORazepam 2 MG TABLET PO PRN (17:45)
[2023-09-23] MEDS ORDERED: OLANZapine 5 MG RAPDIS TABLET PO PRN (17:45)
[2023-09-23] MEDS ORDERED: ZOLPIDEM TARTRATE 10 MG TABLET PO PRN (17:45)
[2023-09-23 20:08] LABS: COVID AG,FIA SOURCE NASAL SWAB
[2023-09-23 20:39] LABS: SARS-COV2 (COVID) ANTIGEN,FIA Negative (Negative)
[2023-09-24 00:39] LABS: APPEARANCE,URINE CLEAR (CLEAR); BILIRUBIN,URINE NEGATIVE (NEGATIVE); COLOR,URINE YELLOW (YELLOW); GLUCOSE, URINE (UA) 300-500 mg/dL (NEGATIVE); KETONES,URINE NEGATIVE (NEGATIVE); LEUKOCYTE ESTERASE ,URINE NEGATIVE (NEGATIVE); NITRATE,URINE NEGATIVE (NEGATIVE); OCCULT BLOOD,URINE NEGATIVE (NEGATIVE); PH,URINE 5.5 (5.0-8.0); PROTEIN,URINE NEGATIVE (NEGATIVE); UROBILINOGEN,URINE <=1.0 mg/dL (<=1.0)
[2023-09-24 00:52] LABS: BACTERIA,URINE None Seen /HPF (None Seen); RBC,URINE None Seen /HPF (0-2); SQUAMOUS EPITHELIAL CELL,UR None Seen /LPF (None Seen); WBC,URINE None Seen /HPF (0-5)
[2023-09-24] MEDS ORDERED: MAGNESIUM HYDROXIDE SUSPENSION 30 ML UDCUP PO PRN (22:15)
[2023-09-24] MEDS ORDERED: HydrOXYzine PAMOATE 50 MG CAPSULE PO PRN (22:15)
[2023-09-24] MEDS ORDERED: LOPERAMIDE HCL 2 MG CAPSULE PO PRN (22:15)
[2023-09-24] MEDS ORDERED: ACETAMINOPHEN 325 MG TABLET PO PRN (22:15)
[2023-09-24] MEDS ORDERED: GuaiFENesin/D-METHORPHAN [SUGAR-FREE] 200-20MG/10 ML SYRUP UDCUP PO PRN (22:15)
[2023-09-24] MEDS ORDERED: TUBERCULIN, PURIFIED PROTEIN DERIVATIVE 5 TU/0.1 ML SYRINGE ID ONE (22:15)
[2023-09-24] MEDS ORDERED: PROMETHAZINE HCL 25 MG TABLET PO PRN (22:15)
[2023-09-24] MEDS ORDERED: MAG HYDROX/ALUMINUM HYD/SIMETH ES 30 ML SUSPENSION UDCUP PO PRN (22:15)
[2023-09-25 02:17] VITALS: BP 115/86; PULSE 67; RESP 18; TEMP 97.8; O2SAT 97
[2023-09-25 07:11] LABS: GLUCOMETER DEV NAME(LOC) 3EX.2; GLUCOSE,POINT OF CARE 70 MG/DL (70-110)
[2023-09-25 08:42] LABS: HEMOGLOBIN A1C 6.2 % (3.8-5.6)
[2023-09-25 09:47] LABS: CHOL/HDL RATIO 2.8 (4.2-7.3); FREE T4 (FREE THYROXINE) 0.78 ng/dL (0.76-1.46); THYROID STIMULATING HORMONE 0.83 uIU/mL (0.36-3.74)
[2023-09-25 10:09] VITALS: BP 115/77; PULSE 70; RESP 18; TEMP 96.8; O2SAT 95
[2023-09-25] MEDS: DIVALPROEX SODIUM 500 MG ER TABLET PO SCH (10:14)
[2023-09-25] MEDS: OLANZapine 5 MG RAPDIS TABLET PO SCH (10:14)
[2023-09-25] MEDS: FOLIC ACID 1 MG TABLET PO SCH (10:14)
[2023-09-25] MEDS: OMEGA-3/DHA/EPA/FISH OIL 1,000 MG CAPSULE PO SCH (10:14)
[2023-09-25] MEDS: NALTREXONE HCL 50 MG TABLET PO SCH (10:14)
[2023-09-25] MEDS: THIAMINE 100 MG TABLET PO SCH (10:15)
[2023-09-25] MEDS: MULTIVITAMINS WITH MINERALS, THERAPEUTIC TABLET PO SCH (10:15)
[2023-09-25] MEDS ORDERED: ALBUTEROL SULFATE HFA 90 MCG/PUFF 8 GM INHALER IH PRN (15:00)
[2023-09-25] MEDS ORDERED: INSULIN LISPRO 100 UNITS/ML SQ PRN (16:45)
[2023-09-25] MEDS ORDERED: DEXTROSE 50%-WATER 25 GM/50 ML SYRINGE IVP PRN (16:45)
[2023-09-25 17:30] LABS: GLUCOMETER DEV NAME(LOC) 3EX.2; GLUCOSE,POINT OF CARE 90 MG/DL (70-110)
[2023-09-25 21:21] VITALS: BP 93/66; PULSE 65; RESP 18; TEMP 98; O2SAT 96
[2023-09-25] MEDS: MELATONIN 5 MG TABLET PO SCH (21:27)
[2023-09-25] MEDS ORDERED: OLAN5TAB94 PO (21:31)
[2023-09-25] MEDS ORDERED: NALT50TA33 PO (21:31)
[2023-09-25] MEDS ORDERED: DIVA500T69 PO (21:31)
[2023-09-25] MEDS ORDERED: OMEG-135 PO (21:31)
[2023-09-25] MEDS ORDERED: MELA5TAB40 PO (21:31)
[2023-09-26 06:00] LABS: GLUCOMETER DEV NAME(LOC) 3EX.2; GLUCOSE,POINT OF CARE 78 MG/DL (70-110)
[2023-09-26 09:49] VITALS: BP 109/72; PULSE 62; RESP 18; TEMP 97.4; O2SAT 97
== END 2023-09-26 15:10 | disposition home or self-care (01) | DRG 750 ==
LOC: EMS 15:48 → 3EI 09-24 20:17
PROVIDERS: ADMIT Psychiatry & Neurology Psychiatry; ATTEND Psychiatry & Neurology Psychiatry
PROC: GZHZZZZ Group Psychotherapy (ICD-10-PCS; principal; 2023-09-24)
PROC: GZ58ZZZ Individual Psychotherapy, Cognitive-Behavioral (ICD-10-PCS; 2023-09-24)
PROC: GZ56ZZZ Individual Psychotherapy, Supportive (ICD-10-PCS; 2023-09-24)
DX: F20.0 Paranoid schizophrenia (principal); I11.0 Hypertensive heart disease with heart failure; E11.9 Type 2 diabetes mellitus without complications; I50.9 Heart failure, unspecified; F32.9 Major depressive disorder, single episode, unspecified; J44.9 Chronic obstructive pulmonary disease, unspecified; Z55.9 Problems related to education and literacy, unspecified; Z95.0 Presence of cardiac pacemaker; Z63.9 Problem related to primary support group, unspecified; Z20.822 Contact with and (suspected) exposure to COVID-19; F15.10 Other stimulant abuse, uncomplicated; F17.200 Nicotine dependence, unspecified, uncomplicated; F41.9 Anxiety disorder, unspecified
CPT/HCPCS: 71045; 80053; 80061; 80164; 81001; 82550; 82962; 83036; 83605; 83690; 83880; 84439; 84443; 84484; 85025; 86592; 93005; 99285; Q9967; 36415-L1; 36415-TC

== ENCOUNTER 2023-09-29 18:59 | Emergency (ER) | payer MEDICAID ==
[~2023-09-29] VITALS: Ht 160 cm; Wt 53.1 kg
[~2023-09-29 18:59] MED LIST changes: -ATOR20TA PO; -CARV3 PO; +DIVA500T69 PO; -EMPA10TA3 PO; -FURO20TA4 PO; -IPRA4AER IH; -LOSA-381 PO; +MELA5TAB40 PO; +NALT50TA33 PO; +OLAN5TAB94 PO; +OMEG-135 PO; -POTA8CAP20 PO; -SPIR-37 PO
[2023-09-29 19:13] VITALS: BP 102/63; PULSE 90; RESP 18; TEMP 97.9
== END 2023-09-29 19:48 | disposition home or self-care (01) ==
LOC: EMS 19:01
DX: J44.9 Chronic obstructive pulmonary disease, unspecified (principal); F25.9 Schizoaffective disorder, unspecified; E11.9 Type 2 diabetes mellitus without complications; I10 Essential (primary) hypertension; F41.9 Anxiety disorder, unspecified; F32.A Depression, unspecified; F17.210 Nicotine dependence, cigarettes, uncomplicated; F12.90 Cannabis use, unspecified, uncomplicated; F15.90 Other stimulant use, unspecified, uncomplicated
CPT/HCPCS: 99281; Z7502

== ENCOUNTER 2023-10-11 07:00 | Emergency (ER) | payer MEDICAID ==
[~2023-10-11] VITALS: Ht 160 cm; Wt 53.2 kg
[2023-10-11 07:04] VITALS: TEMP 97.8
[2023-10-11] MEDS ORDERED: FURO20TA4 PO (07:08)
[2023-10-11] MEDS ORDERED: IPRA4AER IH (07:08)
[2023-10-11] MEDS ORDERED: CARV3.1231 PO (07:08)
[2023-10-11] MEDS ORDERED: LOSA-381 PO (07:08)
[2023-10-11] MEDS ORDERED: ATOR40TA71 PO (07:08)
[2023-10-11] MEDS ORDERED: POTA8CAP20 PO (07:08)
[2023-10-11] MEDS ORDERED: LISI5TAB21 PO (07:08)
[2023-10-11] MEDS ORDERED: ALBU18HF12 IH (08:27)
[2023-10-11] MEDS ORDERED: PRED-554 PO (08:28)
[2023-10-11 08:37] VITALS: PULSE 92; RESP 18; O2SAT 98
[2023-10-11] MEDS: ALBUTEROL SULFATE 2.5 MG/0.5 ML NEB SOLUTION NEB ONE (08:37)
[2023-10-11] MEDS: IPRATROPIUM BROMIDE 0.5 MG/2.5 ML NEB SOLUTION NEB ONE (08:37)
[2023-10-11 08:51] VITALS: BP 116/63
[2023-10-11 08:52] VITALS: PULSE 98; RESP 18; O2SAT 100
== END 2023-10-11 09:43 | disposition home or self-care (01) ==
LOC: EMS 07:01
DX: J44.1 Chronic obstructive pulmonary disease with (acute) exacerbation (principal); F41.9 Anxiety disorder, unspecified; F32.A Depression, unspecified; I11.9 Hypertensive heart disease without heart failure; F17.210 Nicotine dependence, cigarettes, uncomplicated; F12.90 Cannabis use, unspecified, uncomplicated; F15.90 Other stimulant use, unspecified, uncomplicated; Z98.890 Other specified postprocedural states
CPT/HCPCS: 94640; 99283

== ENCOUNTER 2023-10-12 12:19 | Emergency (ER) | payer MEDICAID ==
[~2023-10-12] VITALS: Ht 160 cm; Wt 63.6 kg
[~2023-10-12 12:19] MED LIST changes: +ATOR40TA71 PO; +CARV3.1231 PO; +FURO20TA4 PO; +IPRA4AER IH; +LISI5TAB21 PO; +LOSA-381 PO; +POTA8CAP20 PO; +PRED-554 PO
[2023-10-12 12:24] VITALS: BP 109/72; PULSE 76; RESP 18; TEMP 98
== END 2023-10-12 13:51 | disposition left against medical advice (07) ==
LOC: EMS 12:27
DX: Z76.0 Encounter for issue of repeat prescription (principal); Z53.21 Procedure and treatment not carried out due to patient leaving prior to being seen by health care provider

== ENCOUNTER 2023-10-26 06:12 | Emergency (ER) | payer MEDICAID ==
[~2023-10-26] VITALS: Ht 160 cm; Wt 53.2 kg
[~2023-10-26 06:12] MED LIST changes: -DIVA500T69 PO; -MELA5TAB40 PO; -NALT50TA33 PO; -OLAN5TAB94 PO; -OMEG-135 PO
[2023-10-26 06:15] VITALS: BP 109/54; TEMP 98
[2023-10-26] MEDS: IPRATROPIUM BROMIDE 0.5 MG/2.5 ML NEB SOLUTION NEB ONE (06:41)
[2023-10-26] MEDS: ALBUTEROL SULFATE HFA 90 MCG/PUFF 8 GM INHALER IH ONE (06:41)
[2023-10-26] MEDS: ALBUTEROL SULFATE 2.5 MG/0.5 ML NEB SOLUTION NEB ONE (06:41)
[2023-10-26 06:43] VITALS: PULSE 55; RESP 18; O2SAT 96
[2023-10-26 06:44] VITALS: PULSE 55; RESP 18; O2SAT 97
[2023-10-26 06:45] VITALS: PULSE 55; RESP 18; O2SAT 97
== END 2023-10-26 06:34 | disposition home or self-care (01) ==
LOC: EMS 06:13
DX: J45.909 Unspecified asthma, uncomplicated (principal); F41.9 Anxiety disorder, unspecified; J44.9 Chronic obstructive pulmonary disease, unspecified; F32.A Depression, unspecified; I10 Essential (primary) hypertension; F17.210 Nicotine dependence, cigarettes, uncomplicated; F12.90 Cannabis use, unspecified, uncomplicated
CPT/HCPCS: 99283; 94640; J3535

== ENCOUNTER 2023-11-04 07:04 | Emergency (ER) | payer MEDICAID ==
[~2023-11-04] VITALS: Ht 160 cm; Wt 59.1 kg
[2023-11-04 07:10] VITALS: TEMP 98
[2023-11-04 07:29] LABS: BASOPHILS % (AUTO) 0.2 % (0.0-2.0); EOSINOPHILS % (AUTO) 0.7 % (1.0-6.0); HEMATOCRIT 41.6 % (41-53); HEMOGLOBIN 13.6 g/dL (13.5-17.5); LYMPHOCYTES # (AUTO) 1.1 K/uL (1.0-4.8); LYMPHOCYTES % (AUTO) 14.4 % (22.0-44.0); MEAN CORPUSCULAR HEMOGLOBIN 29.8 pg (26.0-34.0); MEAN CORPUSCULAR HGB CONC 32.6 G/dL (31.0-37.0); MEAN CORPUSCULAR VOLUME 91 fL (80-100); MONOCYTES # (AUTO) 0.9 K/uL (0.1-1.0); MONOCYTES % (AUTO) 11.2 % (2.0-9.0); NEUTROPHILS # (AUTO) 5.8 K/uL (1.8-7.7); NEUTROPHILS % (AUTO) 73.5 % (40.0-70.0); PLATELET COUNT (AUTO) 237 K/uL (150-450); RED BLOOD CELL COUNT(AUTO) 4.57 MIL/uL (4.50-5.90); RED CELL DISTRIBUTION WIDTH 16.2 % (11.5-14.5); WHITE BLOOD COUNT (AUTO) 7.9 K/uL (4.5-11.0)
[2023-11-04 07:43] LABS: CALCIUM, TOTAL 9.4 mg/dL (8.8-10.5); CREATININE 1.79 mg/dL (0.60-1.30); POTASSIUM 4.6 mmol/L (3.5-5.1)
[2023-11-04 07:59] LABS: TROPONIN I-HIGH SENSITIVITY 36 ng/L (<76)
[2023-11-04] MEDS: PredniSONE 20 MG TABLET PO ONE (08:03)
[2023-11-04] MEDS ORDERED: IPRA4AER IH (08:23)
[2023-11-04 08:47] VITALS: BP 114/58
[2023-11-04] MEDS: FUROSEMIDE 20 MG TABLET PO ONE (08:47)
[2023-11-04 08:48] VITALS: PULSE 67; RESP 18; O2SAT 96
[2023-11-04] MEDS: ALBUTEROL SULFATE 2.5 MG/0.5 ML NEB SOLUTION NEB ONE (08:48)
[2023-11-04] MEDS: IPRATROPIUM BROMIDE 0.5 MG/2.5 ML NEB SOLUTION NEB ONE (08:48)
[2023-11-04 09:03] VITALS: PULSE 72; RESP 18; O2SAT 98
== END 2023-11-04 09:22 | disposition home or self-care (01) ==
LOC: EMS 07:05
DX: J44.1 Chronic obstructive pulmonary disease with (acute) exacerbation (principal); I11.0 Hypertensive heart disease with heart failure; I50.9 Heart failure, unspecified; F17.210 Nicotine dependence, cigarettes, uncomplicated; F12.90 Cannabis use, unspecified, uncomplicated; F15.10 Other stimulant abuse, uncomplicated
CPT/HCPCS: 99285; 71045; 80048; 83880; 84484; 85025; 36415; 94640; 93005; J7512; J7613

== ENCOUNTER 2023-11-11 00:10 | Emergency (ER) | payer MEDICAID ==
[~2023-11-11] VITALS: Ht 160 cm; Wt 53.2 kg
[2023-11-11 00:12] VITALS: BP 114/68; PULSE 85; RESP 15; TEMP 98
[2023-11-11] MEDS: ACETAMINOPHEN 500 MG TABLET PO ONE (01:23)
== END 2023-11-11 01:51 | disposition home or self-care (01) ==
LOC: EMS 00:10
DX: M25.562 Pain in left knee (principal); F25.9 Schizoaffective disorder, unspecified; F15.10 Other stimulant abuse, uncomplicated; F41.9 Anxiety disorder, unspecified; F32.A Depression, unspecified; I10 Essential (primary) hypertension; J44.89 Other specified chronic obstructive pulmonary disease; F17.210 Nicotine dependence, cigarettes, uncomplicated; F12.90 Cannabis use, unspecified, uncomplicated
CPT/HCPCS: 99282; Z7502; Z7610

== ENCOUNTER 2023-11-18 07:31 | Emergency (ER) | payer MEDICAID ==
[~2023-11-18] VITALS: Ht 160 cm; Wt 54.5 kg
[2023-11-18 07:36] VITALS: BP 120/76; PULSE 66; RESP 16; TEMP 97.8
[2023-11-18] MEDS ORDERED: ALBU18HF12 IH (08:27)
[2023-11-18] MEDS: ALBUTEROL SULFATE HFA 90 MCG/PUFF 8 GM INHALER IH ONE (10:16)
[2023-11-19] MEDS ORDERED: IPRA4AER IH (12:13)
[2023-11-19] MEDS ORDERED: NAPR-1193 PO (12:13)
== END 2023-11-18 10:19 | disposition still patient (30) ==
LOC: EMS 07:33
DX: J45.909 Unspecified asthma, uncomplicated (principal); F41.9 Anxiety disorder, unspecified; F32.A Depression, unspecified; I11.9 Hypertensive heart disease without heart failure; F17.210 Nicotine dependence, cigarettes, uncomplicated; F12.90 Cannabis use, unspecified, uncomplicated; F15.90 Other stimulant use, unspecified, uncomplicated; Z98.890 Other specified postprocedural states
CPT/HCPCS: 99283; 94640; J3535

== ENCOUNTER 2023-11-19 10:57 | Emergency (ER) | payer MEDICAID ==
[~2023-11-19] VITALS: Ht 162.6 cm; Wt 59.1 kg
[2023-11-19 11:41] VITALS: TEMP 98.2
[2023-11-19] MEDS ORDERED: IPRA4AER IH (12:13)
[2023-11-19] MEDS ORDERED: NAPR-1193 PO (12:13)
[2023-11-19 12:14] VITALS: PULSE 68; RESP 16; O2SAT 96
[2023-11-19] MEDS: IPRATROPIUM BROMIDE 0.5 MG/2.5 ML NEB SOLUTION NEB ONE (12:14)
[2023-11-19] MEDS: ALBUTEROL SULFATE 2.5 MG/0.5 ML NEB SOLUTION NEB ONE (12:14)
[2023-11-19 12:29] VITALS: PULSE 65; RESP 18; O2SAT 99
[2023-11-19 13:00] VITALS: BP 115/65; PULSE 70; RESP 14
== END 2023-11-19 13:14 | disposition home or self-care (01) ==
LOC: EMS 12:29
DX: R06.02 Shortness of breath (principal); J44.89 Other specified chronic obstructive pulmonary disease; I10 Essential (primary) hypertension; F41.9 Anxiety disorder, unspecified; F32.A Depression, unspecified; F17.210 Nicotine dependence, cigarettes, uncomplicated; F12.90 Cannabis use, unspecified, uncomplicated; F15.90 Other stimulant use, unspecified, uncomplicated
CPT/HCPCS: 94640; 99283

== ENCOUNTER 2023-11-23 20:25 | Emergency (ER) | payer MEDICAID ==
[~2023-11-23] VITALS: Ht 162.6 cm; Wt 54.5 kg
[~2023-11-23 20:25] MED LIST changes: +NAPR-1193 PO; -PRED-554 PO
[2023-11-23 20:27] VITALS: BP 155/58; PULSE 99; RESP 16; TEMP 98.1
[2023-11-23] MEDS ORDERED: ALBU18HF12 IH (21:46)
[2023-11-23] MEDS ORDERED: IPRA4AER IH (21:46)
== END 2023-11-23 22:40 | disposition home or self-care (01) ==
LOC: EMS 20:25
DX: J44.1 Chronic obstructive pulmonary disease with (acute) exacerbation (principal); R05.9 Cough, unspecified; I10 Essential (primary) hypertension; F17.210 Nicotine dependence, cigarettes, uncomplicated; F12.90 Cannabis use, unspecified, uncomplicated; F15.10 Other stimulant abuse, uncomplicated
CPT/HCPCS: 99281; Z7502

== ENCOUNTER 2023-11-24 21:11 | Emergency (ER) | payer MEDICAID ==
[~2023-11-24] VITALS: Ht 162.6 cm; Wt 59.1 kg
[2023-11-24 21:15] VITALS: BP 128/59; PULSE 89; RESP 16; TEMP 98.4
[2023-11-24] MEDS: ALBUTEROL SULFATE/IPRATROPIUM 100-20 MCG/SPRAY 4 GM INHALER IH ONE (22:41)
== END 2023-11-24 22:41 | disposition home or self-care (01) ==
LOC: EMS 21:11
DX: R06.02 Shortness of breath (principal); F41.9 Anxiety disorder, unspecified; J44.9 Chronic obstructive pulmonary disease, unspecified; F32.A Depression, unspecified; I11.9 Hypertensive heart disease without heart failure; F12.90 Cannabis use, unspecified, uncomplicated; F15.90 Other stimulant use, unspecified, uncomplicated; F17.210 Nicotine dependence, cigarettes, uncomplicated; Z98.890 Other specified postprocedural states; Z76.0 Encounter for issue of repeat prescription
CPT/HCPCS: 94640; 99283

== ENCOUNTER 2023-11-28 19:20 | Emergency (ER) | payer MEDICAID ==
[~2023-11-28] VITALS: Ht 165.1 cm; Wt 65.5 kg
[2023-11-28 19:24] VITALS: TEMP 98.3
[2023-11-28] MEDS ORDERED: NAPR-1193 PO (20:33)
[2023-11-28] MEDS ORDERED: LOSA-381 PO (20:33)
[2023-11-28] MEDS ORDERED: POTA8CAP20 PO (20:33)
[2023-11-28] MEDS ORDERED: FURO20TA4 PO (20:33)
[2023-11-28] MEDS: KETOROLAC TROMETHAMINE 30 MG/ML VIAL IM ONE (20:44)
[2023-11-28 21:30] VITALS: BP 118/80; PULSE 78; RESP 16
== END 2023-11-28 21:56 | disposition home or self-care (01) ==
LOC: EMS 19:22
DX: M54.50 Low back pain, unspecified (principal); J44.9 Chronic obstructive pulmonary disease, unspecified; I10 Essential (primary) hypertension; F17.210 Nicotine dependence, cigarettes, uncomplicated; F12.90 Cannabis use, unspecified, uncomplicated; F15.10 Other stimulant abuse, uncomplicated
CPT/HCPCS: 99283; 96372; J1885

== ENCOUNTER 2023-12-08 16:07 | Emergency (ER) | payer MEDICAID ==
[~2023-12-08] VITALS: Ht 162.6 cm; Wt 61.4 kg
[2023-12-08 16:13] VITALS: BP 132/88; PULSE 86; RESP 16; TEMP 98.3
[2023-12-08] MEDS ORDERED: CETI-450 PO (17:52)
== END 2023-12-08 18:07 | disposition home or self-care (01) ==
LOC: EMS 16:09
DX: R21 Rash and other nonspecific skin eruption (principal); F17.210 Nicotine dependence, cigarettes, uncomplicated; F12.90 Cannabis use, unspecified, uncomplicated; F15.10 Other stimulant abuse, uncomplicated; J44.9 Chronic obstructive pulmonary disease, unspecified; I10 Essential (primary) hypertension; Z79.899 Other long term (current) drug therapy
CPT/HCPCS: 99282; Z7502

== ENCOUNTER 2023-12-16 20:54 | Emergency (ER) | payer MEDICAID ==
[~2023-12-16 20:54] MED LIST changes: +CETI-450 PO
== END 2023-12-16 22:09 | disposition left against medical advice (07) ==
LOC: EMS 20:54
DX: R06.02 Shortness of breath (principal); Z53.21 Procedure and treatment not carried out due to patient leaving prior to being seen by health care provider

== ENCOUNTER 2023-12-31 22:32 | Emergency (ER) | payer MEDICAID ==
[~2023-12-31] VITALS: Ht 160 cm; Wt 56.8 kg
[2023-12-31 22:37] VITALS: BP 141/90; PULSE 81; RESP 20; TEMP 97.8
== END 2024-01-01 02:23 | disposition left against medical advice (07) ==
LOC: EMS 22:32
DX: J45.909 Unspecified asthma, uncomplicated (principal); Z76.0 Encounter for issue of repeat prescription; Z53.21 Procedure and treatment not carried out due to patient leaving prior to being seen by health care provider

== ENCOUNTER 2024-01-07 16:19 | Emergency (ER) | payer MEDICAID ==
[~2024-01-07] VITALS: Ht 162.6 cm; Wt 55.0 kg
[2024-01-07 16:25] VITALS: BP 117/76; PULSE 98; RESP 18; TEMP 98.6; O2SAT 97
[2024-01-07] MEDS ORDERED: ALBU18HF12 IH (17:34)
== END 2024-01-07 17:51 | disposition home or self-care (01) ==
LOC: EMS 16:19
DX: J44.1 Chronic obstructive pulmonary disease with (acute) exacerbation (principal); J45.901 Unspecified asthma with (acute) exacerbation; F41.9 Anxiety disorder, unspecified; F32.A Depression, unspecified; I10 Essential (primary) hypertension; F17.210 Nicotine dependence, cigarettes, uncomplicated; F12.90 Cannabis use, unspecified, uncomplicated; F15.90 Other stimulant use, unspecified, uncomplicated; Z76.0 Encounter for issue of repeat prescription
CPT/HCPCS: 99281; Z7502

== ENCOUNTER 2024-01-18 08:44 | Emergency (ER) | payer MEDICAID ==
[~2024-01-18] VITALS: Ht 160 cm; Wt 56.8 kg
[2024-01-18 08:48] VITALS: BP 117/79; PULSE 89; RESP 14; TEMP 98.3; O2SAT 97
[2024-01-18] MEDS: KETOROLAC TROMETHAMINE 60 MG/2 ML VIAL IM ONE (09:19)
[2024-01-18] MEDS ORDERED: LOSA-381 PO (09:43)
[2024-01-18] MEDS ORDERED: FURO20TA4 PO (09:43)
[2024-01-18] MEDS ORDERED: ALBU18HF12 IH (09:43)
[2024-01-18] MEDS ORDERED: CARV3.1231 PO (09:43)
[2024-01-18] MEDS: FUROSEMIDE 20 MG TABLET PO ONE (09:55)
[2024-01-18] MEDS: ALBUTEROL SULFATE HFA 90 MCG/PUFF 8 GM INHALER IH ONE (09:55)
== END 2024-01-18 10:03 | disposition home or self-care (01) ==
LOC: EMS 08:46
DX: R07.89 Other chest pain (principal); J44.9 Chronic obstructive pulmonary disease, unspecified; I11.0 Hypertensive heart disease with heart failure; I50.9 Heart failure, unspecified; F17.210 Nicotine dependence, cigarettes, uncomplicated; F12.90 Cannabis use, unspecified, uncomplicated; F15.10 Other stimulant abuse, uncomplicated
CPT/HCPCS: 99283; 71045; 94640; 96372; J1885; J3535

== ENCOUNTER 2024-01-25 23:34 | Emergency (ER) | payer MEDICAID ==
[~2024-01-25] VITALS: Ht 160 cm; Wt 57.7 kg
[2024-01-25 23:38] VITALS: TEMP 98.3
[2024-01-26] MEDS ORDERED: ALBU18HF12 IH (02:14)
[2024-01-26] MEDS ORDERED: IPRA4AER IH (02:14)
[2024-01-26 02:28] VITALS: BP 126/92
[2024-01-26] MEDS ORDERED: 0.9% SODIUM CHLORIDE 5 ML NEB SOLUTION NEB ONE (02:46)
[2024-01-26] MEDS: ALBUTEROL SULFATE 2.5 MG/0.5 ML NEB SOLUTION NEB ONE (02:47)
[2024-01-26 02:53] VITALS: PULSE 107; RESP 16; O2SAT 97
[2024-01-26 02:59] VITALS: PULSE 107; RESP 18; O2SAT 96
== END 2024-01-26 03:28 | disposition home or self-care (01) ==
LOC: EMS 23:34
DX: R06.02 Shortness of breath (principal); Z76.0 Encounter for issue of repeat prescription; J44.9 Chronic obstructive pulmonary disease, unspecified; I10 Essential (primary) hypertension; F17.210 Nicotine dependence, cigarettes, uncomplicated; F12.90 Cannabis use, unspecified, uncomplicated; F15.10 Other stimulant abuse, uncomplicated
CPT/HCPCS: 94060; 94640; 99283

== ENCOUNTER 2024-02-09 08:05 | Emergency (ER) | payer MEDICAID ==
[~2024-02-09] VITALS: Ht 165.1 cm; Wt 68.2 kg
[~2024-02-09 08:05] MED LIST changes: +DAPA5TAB6 PO; +FLUT1BLS19 IH; -LISI5TAB21 PO; -LOSA-381 PO; +MIDO2.5T19 PO; -NAPR-1193 PO; -POTA8CAP20 PO
[2024-02-09 08:18] VITALS: BP 104/68; TEMP 97.8
[2024-02-09] MEDS ORDERED: DAPA5TAB PO (08:26)
[2024-02-09] MEDS ORDERED: LOSA-381 PO (08:26)
[2024-02-09] MEDS ORDERED: MIDO2.5T PO (08:26)
[2024-02-09] MEDS ORDERED: FLUT1DIS6 IH (08:26)
[2024-02-09 08:51] LABS: BASOPHILS % (AUTO) 0.9 % (0.0-2.0); EOSINOPHILS % (AUTO) 6.4 % (1.0-6.0); HEMATOCRIT 46.1 % (41-53); LYMPHOCYTES # (AUTO) 0.5 K/uL (1.0-4.8); MEAN CORPUSCULAR HEMOGLOBIN 29.7 pg (26.0-34.0); MEAN CORPUSCULAR HGB CONC 32.5 G/dL (31.0-37.0); MEAN CORPUSCULAR VOLUME 91 fL (80-100); MONOCYTES # (AUTO) 1.3 K/uL (0.1-1.0); MONOCYTES % (AUTO) 25.9 % (2.0-9.0); NEUTROPHILS # (AUTO) 2.8 K/uL (1.8-7.7); NEUTROPHILS % (AUTO) 55.8 % (40.0-70.0); PLATELET COUNT (AUTO) 181 K/uL (150-450); RED BLOOD CELL COUNT(AUTO) 5.04 MIL/uL (4.50-5.90); RED CELL DISTRIBUTION WIDTH 15.2 % (11.5-14.5); WHITE BLOOD COUNT (AUTO) 4.9 K/uL (4.5-11.0)
[2024-02-09 09:00] LABS: CALCIUM, TOTAL 8.9 mg/dL (8.8-10.5); CREATININE 1.48 mg/dL (0.60-1.30); POTASSIUM 4.5 mmol/L (3.5-5.1)
[2024-02-09 09:10] LABS: TROPONIN I-HIGH SENSITIVITY 46 ng/L (<76)
[2024-02-09] MEDS: PredniSONE 20 MG TABLET PO ONE (11:04)
[2024-02-09] MEDS: IPRATROPIUM BROMIDE 0.5 MG/2.5 ML NEB SOLUTION NEB ONE (11:06)
[2024-02-09] MEDS: ALBUTEROL SULFATE 2.5 MG/0.5 ML NEB SOLUTION NEB ONE (11:07)
[2024-02-09 13:00] VITALS: PULSE 77; RESP 16; O2SAT 98
[2024-02-09 14:39] LABS: COVID AG,FIA SOURCE NASAL SWAB
[2024-02-09] MEDS ORDERED: PRED-554 PO (14:43)
[2024-02-09] MEDS ORDERED: ALBU18HF12 IH (14:43)
[2024-02-09] MEDS ORDERED: AZIT250T9 PO (14:43)
[2024-02-09 15:00] LABS: INFLUENZA TYPE A NEGATIVE FOR TYPE A (NEGATIVE); INFLUENZA TYPE B NEGATIVE FOR TYPE B (NEGATIVE); SARS-COV2 (COVID) ANTIGEN,FIA Negative (Negative)
== END 2024-02-09 15:01 | disposition home or self-care (01) ==
LOC: EMS 08:08
DX: J44.89 Other specified chronic obstructive pulmonary disease (principal); F12.90 Cannabis use, unspecified, uncomplicated; I10 Essential (primary) hypertension; F17.210 Nicotine dependence, cigarettes, uncomplicated; F15.10 Other stimulant abuse, uncomplicated; Z20.822 Contact with and (suspected) exposure to COVID-19
CPT/HCPCS: 99285; 71045; 87426; 80048; 84484; 85025; 87804; 36415; 94640; 93005; J7512; J7613

== ENCOUNTER 2024-02-14 10:52 | Emergency (ER) | payer MEDICAID ==
[~2024-02-14] VITALS: Ht 162.6 cm; Wt 65.9 kg
[~2024-02-14 10:52] MED LIST changes: -ATOR40TA71 PO; +AZIT250T9 PO; -CETI-450 PO; +DAPA5TAB PO; -DAPA5TAB6 PO; -FLUT1BLS19 IH; +FLUT1DIS6 IH; +LOSA-381 PO; +MIDO2.5T PO; -MIDO2.5T19 PO; +PRED-554 PO
[2024-02-14 10:54] VITALS: BP 117/86; TEMP 98.3
[2024-02-14] MEDS: ALBUTEROL SULFATE 2.5 MG/0.5 ML NEB SOLUTION NEB ONE (11:58)
[2024-02-14] MEDS: ALBUTEROL SULFATE HFA 90 MCG/PUFF 8 GM INHALER IH ONE (11:58)
[2024-02-14] MEDS: IPRATROPIUM BROMIDE 0.5 MG/2.5 ML NEB SOLUTION NEB ONE (11:58)
[2024-02-14 12:02] VITALS: PULSE 75; RESP 22; O2SAT 93
[2024-02-14 12:15] VITALS: PULSE 78; RESP 22; O2SAT 99
== END 2024-02-14 14:18 | disposition home or self-care (01) ==
LOC: EMS 10:52
DX: J45.909 Unspecified asthma, uncomplicated (principal); F32.A Depression, unspecified; I11.9 Hypertensive heart disease without heart failure; F12.90 Cannabis use, unspecified, uncomplicated; F15.90 Other stimulant use, unspecified, uncomplicated; F17.210 Nicotine dependence, cigarettes, uncomplicated; Z95.0 Presence of cardiac pacemaker
CPT/HCPCS: 99283; 94640; J3535

== ENCOUNTER 2024-02-19 18:14 | Emergency (ER) | payer MEDICAID ==
[~2024-02-19] VITALS: Ht 160 cm; Wt 63.6 kg
[~2024-02-19 18:14] MED LIST changes: -AZIT250T9 PO
[2024-02-19 18:16] VITALS: BP 109/74; TEMP 97.9
[2024-02-19 20:48] LABS: BASOPHILS % (AUTO) 0.6 % (0.0-2.0); EOSINOPHILS % (AUTO) 2.6 % (1.0-6.0); HEMATOCRIT 41.1 % (41-53); HEMOGLOBIN 13.4 g/dL (13.5-17.5); LYMPHOCYTES % (AUTO) 16.9 % (22.0-44.0); MEAN CORPUSCULAR HEMOGLOBIN 29.7 pg (26.0-34.0); MEAN CORPUSCULAR HGB CONC 32.5 G/dL (31.0-37.0); MEAN CORPUSCULAR VOLUME 91 fL (80-100); MONOCYTES # (AUTO) 0.5 K/uL (0.1-1.0); MONOCYTES % (AUTO) 8.6 % (2.0-9.0); NEUTROPHILS # (AUTO) 4.2 K/uL (1.8-7.7); NEUTROPHILS % (AUTO) 71.3 % (40.0-70.0); PLATELET COUNT (AUTO) 178 K/uL (150-450); RED CELL DISTRIBUTION WIDTH 14.8 % (11.5-14.5); WHITE BLOOD COUNT (AUTO) 5.9 K/uL (4.5-11.0)
[2024-02-19 21:00] LABS: CALCIUM, TOTAL 8.6 mg/dL (8.8-10.5); CREATININE 1.25 mg/dL (0.60-1.30); POTASSIUM 3.8 mmol/L (3.5-5.1)
[2024-02-19 21:05] LABS: TROPONIN I-HIGH SENSITIVITY 46 ng/L (<76)
[2024-02-19] MEDS ORDERED: ALBU18HF12 IH (21:25)
[2024-02-19] MEDS ORDERED: FLUT1DIS6 IH (21:25)
[2024-02-19 21:48] VITALS: PULSE 83; RESP 16; O2SAT 97
== END 2024-02-19 21:56 | disposition home or self-care (01) ==
LOC: EMS 18:14
DX: J44.1 Chronic obstructive pulmonary disease with (acute) exacerbation (principal); F12.90 Cannabis use, unspecified, uncomplicated; I50.20 Unspecified systolic (congestive) heart failure; F17.210 Nicotine dependence, cigarettes, uncomplicated; F32.A Depression, unspecified; Z95.0 Presence of cardiac pacemaker; Z98.890 Other specified postprocedural states
CPT/HCPCS: 71045; 80048; 83880; 84484; 85025; 93005; 99285; 36415-L1; 36415-TC

== ENCOUNTER 2024-03-04 09:55 | Emergency (ER) | payer MEDICAID ==
[~2024-03-04] VITALS: Ht 160 cm; Wt 56.8 kg
[~2024-03-04 09:55] MED LIST changes: +CARV3 PO; -CARV3.1231 PO; -DAPA5TAB PO; +DAPA5TAB6 PO; -FURO20TA4 PO; -IPRA4AER IH; -LOSA-381 PO; +LOSA-417 PO; -MIDO2.5T PO; +MIDO2.5T19 PO; -PRED-554 PO
[2024-03-04 10:19] VITALS: TEMP 98.2
[2024-03-04] MEDS: ALBUTEROL SULFATE 2.5 MG/0.5 ML NEB SOLUTION NEB ONE (11:13)
[2024-03-04] MEDS: IPRATROPIUM BROMIDE 0.5 MG/2.5 ML NEB SOLUTION NEB ONE (11:13)
[2024-03-04 11:16] VITALS: PULSE 77; RESP 20; O2SAT 98
[2024-03-04] MEDS: MethylPREDNISolone SOD SUCC 125 MG/2 ML VIAL IVP ONE (11:23)
[2024-03-04 11:34] VITALS: PULSE 87; RESP 20; O2SAT 99
[2024-03-04 11:36] LABS: BASOPHILS % (AUTO) 0.6 % (0.0-2.0); EOSINOPHILS % (AUTO) 4.4 % (1.0-6.0); HEMATOCRIT 44.6 % (41-53); HEMOGLOBIN 14.5 g/dL (13.5-17.5); LYMPHOCYTES # (AUTO) 0.7 K/uL (1.0-4.8); LYMPHOCYTES % (AUTO) 11.6 % (22.0-44.0); MEAN CORPUSCULAR HGB CONC 32.6 G/dL (31.0-37.0); MEAN CORPUSCULAR VOLUME 92 fL (80-100); MONOCYTES # (AUTO) 0.6 K/uL (0.1-1.0); MONOCYTES % (AUTO) 9.8 % (2.0-9.0); NEUTROPHILS # (AUTO) 4.3 K/uL (1.8-7.7); NEUTROPHILS % (AUTO) 73.6 % (40.0-70.0); PLATELET COUNT (AUTO) 200 K/uL (150-450); RED BLOOD CELL COUNT(AUTO) 4.84 MIL/uL (4.50-5.90); RED CELL DISTRIBUTION WIDTH 15.2 % (11.5-14.5); WHITE BLOOD COUNT (AUTO) 5.8 K/uL (4.5-11.0)
[2024-03-04 11:40] LABS: CALCIUM, TOTAL 8.5 mg/dL (8.8-10.5); CREATININE 1.28 mg/dL (0.60-1.30)
[2024-03-04 11:51] LABS: TROPONIN I-HIGH SENSITIVITY 44 ng/L (<76)
[2024-03-04] MEDS ORDERED: PRED-554 PO (13:21)
[2024-03-04 13:32] VITALS: BP 121/73; PULSE 82; RESP 18; O2SAT 99
== END 2024-03-04 13:37 | disposition home or self-care (01) ==
LOC: EMS 09:55
DX: J44.1 Chronic obstructive pulmonary disease with (acute) exacerbation (principal); F41.9 Anxiety disorder, unspecified; F32.A Depression, unspecified; I11.9 Hypertensive heart disease without heart failure; F12.90 Cannabis use, unspecified, uncomplicated; F17.210 Nicotine dependence, cigarettes, uncomplicated; F15.90 Other stimulant use, unspecified, uncomplicated; Z95.0 Presence of cardiac pacemaker
CPT/HCPCS: 99285; 96374; 71045; 99406; 80048; 83880; 84484; 85025; 36415; 94640; 93005; J2919; J7613

== ENCOUNTER 2024-03-09 14:54 | Emergency (ER) | payer MEDICAID ==
[~2024-03-09] VITALS: Ht 160 cm; Wt 54.5 kg
[~2024-03-09 14:54] MED LIST changes: +PRED-554 PO
[2024-03-09 15:12] VITALS: TEMP 98.4
[2024-03-09] MEDS: ALBUTEROL SULFATE 2.5 MG/0.5 ML NEB SOLUTION NEB ONE (15:33)
[2024-03-09] MEDS: IPRATROPIUM BROMIDE 0.5 MG/2.5 ML NEB SOLUTION NEB ONE (15:33)
[2024-03-09 15:40] VITALS: PULSE 82; RESP 20; O2SAT 98
[2024-03-09] MEDS: ASPIRIN 81 MG CHEWABLE TABLET PO ONE (15:45)
[2024-03-09] MEDS: FUROSEMIDE 40 MG/4 ML VIAL IVP ONE (15:49)
[2024-03-09 15:53] VITALS: PULSE 79; RESP 20; O2SAT 100
[2024-03-09 16:06] LABS: BASOPHILS % (AUTO) 0.8 % (0.0-2.0); EOSINOPHILS % (AUTO) 6.3 % (1.0-6.0); HEMATOCRIT 39.5 % (41-53); HEMOGLOBIN 12.9 g/dL (13.5-17.5); LYMPHOCYTES # (AUTO) 0.6 K/uL (1.0-4.8); LYMPHOCYTES % (AUTO) 11.6 % (22.0-44.0); MEAN CORPUSCULAR HEMOGLOBIN 30.1 pg (26.0-34.0); MEAN CORPUSCULAR HGB CONC 32.7 G/dL (31.0-37.0); MEAN CORPUSCULAR VOLUME 92 fL (80-100); MONOCYTES # (AUTO) 0.8 K/uL (0.1-1.0); MONOCYTES % (AUTO) 16.1 % (2.0-9.0); NEUTROPHILS # (AUTO) 3.4 K/uL (1.8-7.7); NEUTROPHILS % (AUTO) 65.2 % (40.0-70.0); PLATELET COUNT (AUTO) 173 K/uL (150-450); RED BLOOD CELL COUNT(AUTO) 4.29 MIL/uL (4.50-5.90); RED CELL DISTRIBUTION WIDTH 15.4 % (11.5-14.5); WHITE BLOOD COUNT (AUTO) 5.2 K/uL (4.5-11.0)
[2024-03-09 16:18] LABS: CALCIUM, TOTAL 8.1 mg/dL (8.8-10.5); CREATININE 1.35 mg/dL (0.60-1.30); POTASSIUM 3.6 mmol/L (3.5-5.1)
[2024-03-09] MEDS ORDERED: DEXTROSE 50%-WATER 25 GM/50 ML SYRINGE IVP ONE (17:05)
[2024-03-09 17:14] VITALS: BP 120/89; PULSE 79; RESP 18; O2SAT 100
[2024-03-09 17:38] LABS: TROPONIN I-HIGH SENSITIVITY 58 ng/L (<76)
== END 2024-03-09 18:17 | disposition home or self-care (01) ==
LOC: EMS 14:54
DX: J44.1 Chronic obstructive pulmonary disease with (acute) exacerbation (principal); I11.0 Hypertensive heart disease with heart failure; I50.20 Unspecified systolic (congestive) heart failure; F15.10 Other stimulant abuse, uncomplicated; F12.90 Cannabis use, unspecified, uncomplicated; F17.210 Nicotine dependence, cigarettes, uncomplicated; Z79.51 Long term (current) use of inhaled steroids; Z79.52 Long term (current) use of systemic steroids; Z79.84 Long term (current) use of oral hypoglycemic drugs; Z79.899 Other long term (current) drug therapy
CPT/HCPCS: 99285; 96374; 71045; 80048; 83880; 84484; 85025; 36415; 94640; 82962; 93005; J1940; J7613

== ENCOUNTER 2024-03-14 13:34 | Emergency (ER) | payer MEDICAID ==
[~2024-03-14] VITALS: Ht 160 cm; Wt 56.8 kg
[2024-03-14 13:48] VITALS: TEMP 98.3
[2024-03-14 14:34] LABS: BASOPHILS % (AUTO) 0.9 % (0.0-2.0); EOSINOPHILS % (AUTO) 2.4 % (1.0-6.0); HEMATOCRIT 38.8 % (41-53); HEMOGLOBIN 12.8 g/dL (13.5-17.5); LYMPHOCYTES # (AUTO) 0.7 K/uL (1.0-4.8); LYMPHOCYTES % (AUTO) 8.8 % (22.0-44.0); MEAN CORPUSCULAR HEMOGLOBIN 30.1 pg (26.0-34.0); MEAN CORPUSCULAR VOLUME 91 fL (80-100); MONOCYTES # (AUTO) 0.7 K/uL (0.1-1.0); MONOCYTES % (AUTO) 8.3 % (2.0-9.0); NEUTROPHILS # (AUTO) 6.5 K/uL (1.8-7.7); NEUTROPHILS % (AUTO) 79.6 % (40.0-70.0); PLATELET COUNT (AUTO) 221 K/uL (150-450); RED BLOOD CELL COUNT(AUTO) 4.25 MIL/uL (4.50-5.90); RED CELL DISTRIBUTION WIDTH 15.2 % (11.5-14.5); WHITE BLOOD COUNT (AUTO) 8.2 K/uL (4.5-11.0)
[2024-03-14 15:02] LABS: CALCIUM, TOTAL 8.8 mg/dL (8.8-10.5); CREATININE 1.6 mg/dL (0.60-1.30); POTASSIUM 4.8 mmol/L (3.5-5.1)
[2024-03-14 15:15] LABS: TROPONIN I-HIGH SENSITIVITY 73 ng/L (<76)
[2024-03-14 16:00] VITALS: BP 124/79
[2024-03-14] MEDS ORDERED: IPRA3AMP24 NEB (16:28)
[2024-03-14] MEDS: FUROSEMIDE 20 MG TABLET PO ONE (16:29)
[2024-03-14] MEDS: IPRATROPIUM BROMIDE 0.5 MG/2.5 ML NEB SOLUTION NEB ONE (16:56)
[2024-03-14] MEDS: ALBUTEROL SULFATE 2.5 MG/0.5 ML NEB SOLUTION NEB ONE (16:57)
[2024-03-14 17:21] VITALS: PULSE 86; RESP 18; O2SAT 96
[2024-03-14 17:22] VITALS: PULSE 86; RESP 18; O2SAT 96
== END 2024-03-14 17:25 | disposition home or self-care (01) ==
LOC: EMS 13:34
DX: I50.20 Unspecified systolic (congestive) heart failure (principal); I11.0 Hypertensive heart disease with heart failure; F15.10 Other stimulant abuse, uncomplicated; F41.9 Anxiety disorder, unspecified; J44.89 Other specified chronic obstructive pulmonary disease; F32.A Depression, unspecified; F12.90 Cannabis use, unspecified, uncomplicated; F17.210 Nicotine dependence, cigarettes, uncomplicated; Z98.890 Other specified postprocedural states; Z79.51 Long term (current) use of inhaled steroids; Z79.52 Long term (current) use of systemic steroids; Z79.84 Long term (current) use of oral hypoglycemic drugs; Z79.899 Other long term (current) drug therapy; Z95.0 Presence of cardiac pacemaker
CPT/HCPCS: 80048; 82550; 83880; 84484; 85025; 93005; 94640; 99284

== ENCOUNTER 2024-03-23 08:22 | Emergency (ER) | payer MEDICAID ==
[~2024-03-23] VITALS: Ht 160 cm; Wt 56.8 kg
[~2024-03-23 08:22] MED LIST changes: +IPRA3AMP24 NEB
[2024-03-23 08:36] VITALS: BP 128/94; PULSE 94; RESP 18; TEMP 98; O2SAT 96
[2024-03-23] MEDS ORDERED: ALBU2.5V39 NEB (09:07)
[2024-03-23] MEDS ORDERED: ALBU18HF12 IH (09:07)
[2024-03-24] MEDS ORDERED: PRED-554 PO (07:06)
== END 2024-03-23 09:34 | disposition home or self-care (01) ==
LOC: EMS 08:22
DX: J44.89 Other specified chronic obstructive pulmonary disease (principal); I10 Essential (primary) hypertension; F12.90 Cannabis use, unspecified, uncomplicated; F41.9 Anxiety disorder, unspecified; F31.9 Bipolar disorder, unspecified; F15.90 Other stimulant use, unspecified, uncomplicated; F17.210 Nicotine dependence, cigarettes, uncomplicated; Z98.890 Other specified postprocedural states; Z76.0 Encounter for issue of repeat prescription; Z79.51 Long term (current) use of inhaled steroids; Z79.52 Long term (current) use of systemic steroids; Z79.84 Long term (current) use of oral hypoglycemic drugs; Z95.0 Presence of cardiac pacemaker
CPT/HCPCS: 99281; Z7502

== ENCOUNTER 2024-03-24 03:48 | Emergency (ER) | payer MEDICAID ==
[~2024-03-24] VITALS: Ht 160 cm; Wt 56.8 kg
[~2024-03-24 03:48] MED LIST changes: +ALBU2.5V39 NEB
[2024-03-24 03:51] VITALS: TEMP 97.9
[2024-03-24 06:04] LABS: BASOPHILS % (AUTO) 1.1 % (0.0-2.0); EOSINOPHILS % (AUTO) 7.5 % (1.0-6.0); HEMOGLOBIN 12.7 g/dL (13.5-17.5); LYMPHOCYTES # (AUTO) 0.6 K/uL (1.0-4.8); LYMPHOCYTES % (AUTO) 11.9 % (22.0-44.0); MEAN CORPUSCULAR HEMOGLOBIN 30.5 pg (26.0-34.0); MEAN CORPUSCULAR HGB CONC 33.3 G/dL (31.0-37.0); MEAN CORPUSCULAR VOLUME 91 fL (80-100); MONOCYTES # (AUTO) 0.6 K/uL (0.1-1.0); MONOCYTES % (AUTO) 13.4 % (2.0-9.0); NEUTROPHILS # (AUTO) 3.2 K/uL (1.8-7.7); NEUTROPHILS % (AUTO) 66.1 % (40.0-70.0); PLATELET COUNT (AUTO) 205 K/uL (150-450); RED BLOOD CELL COUNT(AUTO) 4.15 MIL/uL (4.50-5.90); RED CELL DISTRIBUTION WIDTH 15.3 % (11.5-14.5); WHITE BLOOD COUNT (AUTO) 4.8 K/uL (4.5-11.0)
[2024-03-24 06:07] LABS: CALCIUM, TOTAL 8.3 mg/dL (8.8-10.5); CREATININE 1.45 mg/dL (0.60-1.30); POTASSIUM 4.2 mmol/L (3.5-5.1)
[2024-03-24 06:31] LABS: ALBUMIN 3.4 g/dL (3.4-5.0); BILIRUBIN,TOTAL 0.8 mg/dL (0.1-1.0); TOTAL PROTEIN, SERUM 6.1 g/dL (6.4-8.2)
[2024-03-24] MEDS: PredniSONE 20 MG TABLET PO ONE (06:43)
[2024-03-24 06:46] VITALS: PULSE 78; RESP 20; O2SAT 98
[2024-03-24] MEDS: ALBUTEROL SULFATE 2.5 MG/0.5 ML NEB SOLUTION NEB ONE (06:46)
[2024-03-24] MEDS: IPRATROPIUM BROMIDE 0.5 MG/2.5 ML NEB SOLUTION NEB ONE (06:46)
[2024-03-24 07:01] VITALS: PULSE 77; RESP 20; O2SAT 99
[2024-03-24 07:02] LABS: TROPONIN I-HIGH SENSITIVITY 73 ng/L (<76)
[2024-03-24] MEDS ORDERED: PRED-554 PO (07:06)
[2024-03-24 07:15] VITALS: BP 115/76; PULSE 80; RESP 20; O2SAT 98
== END 2024-03-24 07:50 | disposition home or self-care (01) ==
LOC: EMS 03:48
DX: J45.901 Unspecified asthma with (acute) exacerbation (principal); I10 Essential (primary) hypertension; F12.90 Cannabis use, unspecified, uncomplicated; F17.210 Nicotine dependence, cigarettes, uncomplicated; Z79.51 Long term (current) use of inhaled steroids; Z79.84 Long term (current) use of oral hypoglycemic drugs; Z95.0 Presence of cardiac pacemaker; Z79.899 Other long term (current) drug therapy
CPT/HCPCS: 71045; 80053; 82550; 83880; 84484; 85025; 93005; 94640; 99285; 36415-L1; 36415-TC; J7613

== ENCOUNTER 2024-03-31 15:48 | Emergency (ER) | payer MEDICAID ==
[~2024-03-31] VITALS: Ht 165.1 cm; Wt 56.8 kg
[2024-03-31 15:53] VITALS: BP 125/74; PULSE 96; RESP 18; TEMP 98; O2SAT 99
[2024-03-31] MEDS ORDERED: CARV3.1231 PO (15:53)
[2024-03-31] MEDS ORDERED: DAPA5TAB PO (15:53)
[2024-03-31] MEDS ORDERED: LOSA-381 PO (15:53)
== END 2024-03-31 19:00 | disposition home or self-care (01) ==
LOC: EMS 15:48
DX: J44.9 Chronic obstructive pulmonary disease, unspecified (principal); Z76.0 Encounter for issue of repeat prescription; I10 Essential (primary) hypertension; F12.90 Cannabis use, unspecified, uncomplicated; F17.210 Nicotine dependence, cigarettes, uncomplicated; Z79.51 Long term (current) use of inhaled steroids; Z79.84 Long term (current) use of oral hypoglycemic drugs; Z95.0 Presence of cardiac pacemaker; Z79.899 Other long term (current) drug therapy
CPT/HCPCS: 99281; Z7502

== ENCOUNTER 2024-04-02 11:58 | Emergency (ER) | payer MEDICAID ==
[~2024-04-02] VITALS: Ht 167.6 cm; Wt 51.0 kg
[~2024-04-02 11:58] MED LIST changes: -CARV3 PO; +CARV3.1231 PO; +DAPA5TAB PO; -DAPA5TAB6 PO; +LOSA-381 PO; -LOSA-417 PO; -PRED-554 PO
[2024-04-02 12:05] VITALS: TEMP 98.4
[2024-04-02] MEDS: MethylPREDNISolone SOD SUCC 125 MG/2 ML VIAL IVP ONE (12:42)
[2024-04-02] MEDS: IPRATROPIUM BROMIDE 0.5 MG/2.5 ML NEB SOLUTION NEB ONE (13:01)
[2024-04-02 13:02] VITALS: PULSE 84; RESP 24; O2SAT 97
[2024-04-02 13:04] VITALS: PULSE 84; RESP 24; O2SAT 97
[2024-04-02 13:06] LABS: CALCIUM, TOTAL 9.5 mg/dL (8.8-10.5); CREATININE 1.58 mg/dL (0.60-1.30); POTASSIUM 4.1 mmol/L (3.5-5.1)
[2024-04-02 13:10] LABS: BASOPHILS % (AUTO) 0.4 % (0.0-2.0); EOSINOPHILS % (AUTO) 2.5 % (1.0-6.0); HEMATOCRIT 49.4 % (41-53); HEMOGLOBIN 15.9 g/dL (13.5-17.5); LYMPHOCYTES # (AUTO) 1.4 K/uL (1.0-4.8); MEAN CORPUSCULAR HEMOGLOBIN 29.8 pg (26.0-34.0); MEAN CORPUSCULAR HGB CONC 32.1 G/dL (31.0-37.0); MEAN CORPUSCULAR VOLUME 93 fL (80-100); MONOCYTES # (AUTO) 1.3 K/uL (0.1-1.0); MONOCYTES % (AUTO) 10.6 % (2.0-9.0); NEUTROPHILS # (AUTO) 9.5 K/uL (1.8-7.7); NEUTROPHILS % (AUTO) 75.5 % (40.0-70.0); PLATELET COUNT (AUTO) 229 K/uL (150-450); RED BLOOD CELL COUNT(AUTO) 5.33 MIL/uL (4.50-5.90); RED CELL DISTRIBUTION WIDTH 15.4 % (11.5-14.5); WHITE BLOOD COUNT (AUTO) 12.6 K/uL (4.5-11.0)
[2024-04-02 13:15] VITALS: PULSE 86; RESP 28; O2SAT 100
[2024-04-02 13:15] LABS: TROPONIN I-HIGH SENSITIVITY 37 ng/L (<76)
[2024-04-02] MEDS ORDERED: PRED-554 PO (14:13)
[2024-04-02 15:07] VITALS: BP 130/90; PULSE 78; RESP 22; O2SAT 96
== END 2024-04-02 15:09 | disposition home or self-care (01) ==
LOC: EMS 11:58
DX: J44.1 Chronic obstructive pulmonary disease with (acute) exacerbation (principal); F12.90 Cannabis use, unspecified, uncomplicated; I10 Essential (primary) hypertension; F41.9 Anxiety disorder, unspecified; F17.210 Nicotine dependence, cigarettes, uncomplicated; F15.90 Other stimulant use, unspecified, uncomplicated; Z98.890 Other specified postprocedural states; Z95.0 Presence of cardiac pacemaker; Z79.84 Long term (current) use of oral hypoglycemic drugs; Z79.51 Long term (current) use of inhaled steroids
CPT/HCPCS: 99285; 96374; 71045; 99406; 80048; 83880; 84484; 85025; 36415; 94640; J2919

== ENCOUNTER 2024-04-07 13:18 | Emergency (ER) | payer MEDICAID ==
[~2024-04-07] VITALS: Ht 165.1 cm; Wt 54.5 kg
[~2024-04-07 13:18] MED LIST changes: +FLUT1BLS6 IH; -FLUT1DIS6 IH; +PRED-554 PO
[2024-04-07 13:31] VITALS: BP 122/74; PULSE 92; RESP 18; TEMP 98.5; O2SAT 97
[2024-04-07] MEDS ORDERED: FLUT1BLS6 IH (14:21)
[2024-04-09] MEDS ORDERED: FURO20TA5 PO (10:06)
[2024-05-27] MEDS ORDERED: FURO20TA4 PO (13:41)
[2024-05-27] MEDS ORDERED: SPIR-37 PO (13:41)
[2024-05-27] MEDS ORDERED: LOSA-417 PO (13:41)
[2024-05-27] MEDS ORDERED: ASPI-1444 PO (13:41)
[2024-05-27] MEDS ORDERED: ALBU18HF12 IH (13:41)
[2024-05-27] MEDS ORDERED: CARV3 PO (13:41)
== END 2024-04-07 14:26 | disposition home or self-care (01) ==
LOC: EMS 13:18
DX: R06.02 Shortness of breath (principal); Z76.0 Encounter for issue of repeat prescription; I10 Essential (primary) hypertension; F12.90 Cannabis use, unspecified, uncomplicated; J44.9 Chronic obstructive pulmonary disease, unspecified; Z79.51 Long term (current) use of inhaled steroids; Z79.84 Long term (current) use of oral hypoglycemic drugs; Z95.0 Presence of cardiac pacemaker; Z79.899 Other long term (current) drug therapy
CPT/HCPCS: 99281; Z7502

== ENCOUNTER 2024-04-12 09:18 | Emergency (ER) | payer MEDICAID ==
[~2024-04-12] VITALS: Ht 162.6 cm; Wt 59.1 kg
[~2024-04-12 09:18] MED LIST changes: +FURO20TA5 PO; -LOSA-381 PO; -MIDO2.5T19 PO; -PRED-554 PO
[2024-04-12] MEDS ORDERED: 0.9% SODIUM CHLORIDE 15 ML NEB SOLUTION NEB ONE (11:47)
[2024-04-12] MEDS: IPRATROPIUM BROMIDE 0.5 MG/2.5 ML NEB SOLUTION NEB ONE (11:51)
[2024-04-12] MEDS: ALBUTEROL SULFATE 2.5 MG/0.5 ML 5 ML NEB SOLUTION NEB ONE (11:51)
[2024-04-12 11:52] VITALS: PULSE 75; RESP 18; O2SAT 96
[2024-04-12 11:52] LABS: BASOPHILS % (AUTO) 0.1 % (0.0-2.0); EOSINOPHILS % (AUTO) 4.1 % (1.0-6.0); HEMATOCRIT 42.6 % (41-53); LYMPHOCYTES # (AUTO) 0.9 K/uL (1.0-4.8); LYMPHOCYTES % (AUTO) 13.8 % (22.0-44.0); MEAN CORPUSCULAR HEMOGLOBIN 30.2 pg (26.0-34.0); MEAN CORPUSCULAR HGB CONC 32.8 G/dL (31.0-37.0); MEAN CORPUSCULAR VOLUME 92 fL (80-100); MONOCYTES # (AUTO) 0.6 K/uL (0.1-1.0); MONOCYTES % (AUTO) 8.8 % (2.0-9.0); NEUTROPHILS # (AUTO) 4.9 K/uL (1.8-7.7); NEUTROPHILS % (AUTO) 73.2 % (40.0-70.0); PLATELET COUNT (AUTO) 207 K/uL (150-450); RED BLOOD CELL COUNT(AUTO) 4.63 MIL/uL (4.50-5.90); RED CELL DISTRIBUTION WIDTH 15.8 % (11.5-14.5); WHITE BLOOD COUNT (AUTO) 6.7 K/uL (4.5-11.0)
[2024-04-12 11:53] VITALS: PULSE 75; RESP 18; O2SAT 96
[2024-04-12 12:01] LABS: CALCIUM, TOTAL 8.5 mg/dL (8.8-10.5); CREATININE 1.27 mg/dL (0.60-1.30); POTASSIUM 4.2 mmol/L (3.5-5.1)
[2024-04-12 12:08] LABS: TROPONIN I-HIGH SENSITIVITY 50 ng/L (<76)
[2024-04-12 13:58] VITALS: PULSE 76; RESP 20; O2SAT 100
[2024-04-12 14:53] VITALS: BP 130/89; PULSE 76; RESP 20; TEMP 98.2; O2SAT 96
[2024-04-12] MEDS ORDERED: ALBU18HF12 IH (14:57)
== END 2024-04-12 15:19 | disposition home or self-care (01) ==
LOC: EMS 09:25
DX: J44.1 Chronic obstructive pulmonary disease with (acute) exacerbation (principal); F17.210 Nicotine dependence, cigarettes, uncomplicated; F41.9 Anxiety disorder, unspecified; F32.A Depression, unspecified; I11.0 Hypertensive heart disease with heart failure; F12.10 Cannabis abuse, uncomplicated; F15.90 Other stimulant use, unspecified, uncomplicated; I44.7 Left bundle-branch block, unspecified; Z79.51 Long term (current) use of inhaled steroids; Z79.84 Long term (current) use of oral hypoglycemic drugs; Z95.0 Presence of cardiac pacemaker; Z98.890 Other specified postprocedural states
CPT/HCPCS: 71045; 80048; 83880; 84484; 85025; 93005; 94644; 99285; 99406; 36415-L1; 36415-TC

== ENCOUNTER 2024-04-27 04:15 | Emergency (ER) | payer MEDICAID ==
[~2024-04-27] VITALS: Ht 160 cm; Wt 54.5 kg
[~2024-04-27 04:15] MED LIST changes: -ALBU2.5V39 NEB; -IPRA3AMP24 NEB
[2024-04-27 07:15] VITALS: BP 135/74; PULSE 88; RESP 18; TEMP 98.3; O2SAT 98
== END 2024-04-27 07:35 | disposition home or self-care (01) ==
LOC: EMS 04:15
DX: F41.9 Anxiety disorder, unspecified (principal); I11.0 Hypertensive heart disease with heart failure; I50.9 Heart failure, unspecified; J44.9 Chronic obstructive pulmonary disease, unspecified; F12.90 Cannabis use, unspecified, uncomplicated; F17.210 Nicotine dependence, cigarettes, uncomplicated; Z79.51 Long term (current) use of inhaled steroids; Z79.84 Long term (current) use of oral hypoglycemic drugs; Z79.899 Other long term (current) drug therapy
CPT/HCPCS: 99283; Z7502

== ENCOUNTER 2024-04-29 09:41 | Inpatient (IN) | payer MEDICAID ==
[2024-04-29] VITALS (8 sets, daily range): BP systolic 108–112; BP diastolic 71–77; PULSE 74–88; RESP 16–26; TEMP 98.3–98.4; O2SAT 93–99
[~2024-04-29] VITALS: Ht 167.6 cm; Wt 60.0 kg
[2024-04-29 10:32] LABS: BASOPHILS % (AUTO) 0.4 % (0.0-2.0); EOSINOPHILS % (AUTO) 5.5 % (1.0-6.0); HEMATOCRIT 39.2 % (41-53); HEMOGLOBIN 12.8 g/dL (13.5-17.5); LYMPHOCYTES # (AUTO) 0.5 K/uL (1.0-4.8); LYMPHOCYTES % (AUTO) 7.7 % (22.0-44.0); MEAN CORPUSCULAR HEMOGLOBIN 30.4 pg (26.0-34.0); MEAN CORPUSCULAR HGB CONC 32.6 G/dL (31.0-37.0); MEAN CORPUSCULAR VOLUME 93 fL (80-100); MONOCYTES # (AUTO) 0.6 K/uL (0.1-1.0); MONOCYTES % (AUTO) 9.6 % (2.0-9.0); NEUTROPHILS # (AUTO) 4.8 K/uL (1.8-7.7); NEUTROPHILS % (AUTO) 76.8 % (40.0-70.0); PLATELET COUNT (AUTO) 203 K/uL (150-450); RED BLOOD CELL COUNT(AUTO) 4.21 MIL/uL (4.50-5.90); RED CELL DISTRIBUTION WIDTH 15.8 % (11.5-14.5); WHITE BLOOD COUNT (AUTO) 6.3 K/uL (4.5-11.0)
[2024-04-29 10:40] LABS: CALCIUM, TOTAL 8.4 mg/dL (8.8-10.5); CREATININE 1.3 mg/dL (0.60-1.30); POTASSIUM 4.1 mmol/L (3.5-5.1)
[2024-04-29 10:50] LABS: TROPONIN I-HIGH SENSITIVITY 42 ng/L (<76)
[2024-04-29] MEDS: ALBUTEROL SULFATE 2.5 MG/0.5 ML 5 ML NEB SOLUTION NEB ONE ×2 (11:25→13:26)
[2024-04-29] MEDS: IPRATROPIUM BROMIDE 0.5 MG/2.5 ML NEB SOLUTION NEB ONE ×2 (11:25→13:26)
[2024-04-29] MEDS: MethylPREDNISolone SOD SUCC 125 MG/2 ML VIAL IM ONE (13:16)
[2024-04-29] MEDS: ASPIRIN 325 MG TABLET PO ONE (13:17)
[2024-04-29] MEDS: FUROSEMIDE 40 MG/4 ML VIAL IVP ONE (13:17)
[2024-04-29] MEDS ORDERED: 0.9% SODIUM CHLORIDE 5 ML NEB SOLUTION NEB ONE (13:25)
[2024-04-29 14:51] LABS: APPEARANCE,URINE CLEAR (CLEAR); BILIRUBIN,URINE NEGATIVE (NEGATIVE); COLOR,URINE LIGHT YELLOW (YELLOW); GLUCOSE, URINE (UA) NEGATIVE (NEGATIVE); KETONES,URINE NEGATIVE (NEGATIVE); LEUKOCYTE ESTERASE ,URINE NEGATIVE (NEGATIVE); NITRATE,URINE NEGATIVE (NEGATIVE); OCCULT BLOOD,URINE NEGATIVE (NEGATIVE); PH,URINE 5.5 (5.0-8.0); PH,URINE DRUG SCREEN 5.5 (5.0-8.0); PROTEIN,URINE NEGATIVE (NEGATIVE); SPECIFIC GRAVITIY, URINE 1.014 (1.003-1.030); UROBILINOGEN,URINE <=1.0 mg/dL (<=1.0)
[2024-04-29 14:58] LABS: ALCOHOL, URINE DRUG SCREEN NEGATIVE (NEGATIVE); AMPHET/METH SCREEN,URINE POSITIVE (NEGATIVE); BARBITURATE SCREEN, URINE NEGATIVE (NEGATIVE); BENZODIAZEPINES SCREEN,URINE NEGATIVE (NEGATIVE); CANNABINOID SCREEN,URINE POSITIVE (NEGATIVE); COCAINE SCREEN,URINE NEGATIVE (NEGATIVE); METHADONE SCREEN, URINE NEGATIVE (NEGATIVE); OPIATE SCREEN,URINE NEGATIVE (NEGATIVE); PHENCYCLIDINE SCREEN,URINE NEGATIVE (NEGATIVE)
[2024-04-29] MEDS ORDERED: ALBUTEROL SULFATE 2.5 MG/0.5 ML NEB SOLUTION NEB PRN (15:30)
[2024-04-29] MEDS ORDERED: IPRATROPIUM BROMIDE 0.5 MG/2.5 ML NEB SOLUTION NEB PRN (15:30)
[2024-04-29] MEDS: BENZONATATE 100 MG CAPSULE PO SCH (15:40)
[2024-04-29] MEDS: MethylPREDNISolone SOD SUCC 125 MG/2 ML VIAL IVP SCH (18:17)
[2024-04-29] MEDS: IPRATROPIUM BROMIDE 0.5 MG/2.5 ML NEB SOLUTION NEB SCH (19:39)
[2024-04-29] MEDS: ALBUTEROL SULFATE 2.5 MG/0.5 ML NEB SOLUTION NEB SCH (19:39)
[2024-04-29] MEDS: GuaiFENesin SR 600 MG ER TABLET PO SCH (21:11)
[2024-04-29] MEDS: FUROSEMIDE 40 MG/4 ML VIAL IVP SCH (21:11)
[2024-04-30] VITALS (13 sets, daily range): BP systolic 100–127; BP diastolic 61–75; PULSE 79–89; RESP 17–24; TEMP 97.8–98.2; O2SAT 93–99
[2024-04-30 06:39] LABS: EOSINOPHILS % (AUTO) 0 % (1.0-6.0); HEMOGLOBIN 13.4 g/dL (13.5-17.5); LYMPHOCYTES # (AUTO) 0.3 K/uL (1.0-4.8); LYMPHOCYTES % (AUTO) 2.1 % (22.0-44.0); MEAN CORPUSCULAR HEMOGLOBIN 30.1 pg (26.0-34.0); MEAN CORPUSCULAR HGB CONC 32.8 G/dL (31.0-37.0); MEAN CORPUSCULAR VOLUME 92 fL (80-100); MONOCYTES # (AUTO) 0.1 K/uL (0.1-1.0); PLATELET COUNT (AUTO) 210 K/uL (150-450); RED BLOOD CELL COUNT(AUTO) 4.47 MIL/uL (4.50-5.90); RED CELL DISTRIBUTION WIDTH 15.3 % (11.5-14.5); WHITE BLOOD COUNT (AUTO) 14.5 K/uL (4.5-11.0)
[2024-04-30 07:00] LABS: CALCIUM, TOTAL 8.7 mg/dL (8.8-10.5); CREATININE 1.49 mg/dL (0.60-1.30); POTASSIUM 3.7 mmol/L (3.5-5.1)
[2024-04-30 08:05] LABS: NEUTROPHILS % (AUTO) 96.9 % (40.0-70.0)
[2024-04-30] MEDS: DAPAGLIFLOZIN PROPANEDIOL 5 MG TABLET PO SCH (09:27)
[2024-04-30] MEDS: CARVEDILOL 3.125 MG TABLET PO SCH (09:27)
[2024-04-30] MEDS: ACETAMINOPHEN 325 MG TABLET PO ONE (17:35)
[2024-05-01] VITALS (10 sets, daily range): BP systolic 99–118; BP diastolic 67–87; PULSE 71–93; RESP 17–22; TEMP 97.6–98.2; O2SAT 91–98
[2024-05-01 07:14] LABS: EOSINOPHILS % (AUTO) 0 % (1.0-6.0); HEMATOCRIT 39.9 % (41-53); HEMOGLOBIN 13.6 g/dL (13.5-17.5); LYMPHOCYTES # (AUTO) 0.4 K/uL (1.0-4.8); LYMPHOCYTES % (AUTO) 2.2 % (22.0-44.0); MEAN CORPUSCULAR HGB CONC 34.1 G/dL (31.0-37.0); MEAN CORPUSCULAR VOLUME 91 fL (80-100); MONOCYTES # (AUTO) 0.2 K/uL (0.1-1.0); MONOCYTES % (AUTO) 1.1 % (2.0-9.0); NEUTROPHILS # (AUTO) 17.7 K/uL (1.8-7.7); PLATELET COUNT (AUTO) 239 K/uL (150-450); RED BLOOD CELL COUNT(AUTO) 4.39 MIL/uL (4.50-5.90); RED CELL DISTRIBUTION WIDTH 15.5 % (11.5-14.5); WHITE BLOOD COUNT (AUTO) 18.3 K/uL (4.5-11.0)
[2024-05-01 07:17] LABS: NEUTROPHILS % (AUTO) 96.7 % (40.0-70.0)
[2024-05-01 07:24] LABS: CALCIUM, TOTAL 8.7 mg/dL (8.8-10.5); CREATININE 1.49 mg/dL (0.60-1.30); POTASSIUM 4.1 mmol/L (3.5-5.1)
[2024-05-01] MEDS ORDERED: SODIUM CHLORIDE 3% 15 ML NEB SOLUTION NEB ONE (22:31)
[2024-05-02] VITALS (8 sets, daily range): BP systolic 99–107; BP diastolic 64–71; PULSE 71–89; RESP 18–22; TEMP 97.5–98; O2SAT 94–97
[2024-05-02 05:57] LABS: BASOPHILS % (AUTO) 0.1 % (0.0-2.0); EOSINOPHILS % (AUTO) 0 % (1.0-6.0); HEMOGLOBIN 14.7 g/dL (13.5-17.5); LYMPHOCYTES # (AUTO) 0.3 K/uL (1.0-4.8); LYMPHOCYTES % (AUTO) 1.7 % (22.0-44.0); MEAN CORPUSCULAR HEMOGLOBIN 30.3 pg (26.0-34.0); MEAN CORPUSCULAR HGB CONC 33.4 G/dL (31.0-37.0); MEAN CORPUSCULAR VOLUME 91 fL (80-100); MONOCYTES # (AUTO) 0.2 K/uL (0.1-1.0); MONOCYTES % (AUTO) 1.3 % (2.0-9.0); NEUTROPHILS # (AUTO) 15.7 K/uL (1.8-7.7); PLATELET COUNT (AUTO) 266 K/uL (150-450); RED BLOOD CELL COUNT(AUTO) 4.84 MIL/uL (4.50-5.90); RED CELL DISTRIBUTION WIDTH 15.2 % (11.5-14.5); WHITE BLOOD COUNT (AUTO) 16.3 K/uL (4.5-11.0)
[2024-05-02 06:03] LABS: CALCIUM, TOTAL 8.8 mg/dL (8.8-10.5); CREATININE 1.53 mg/dL (0.60-1.30); POTASSIUM 3.7 mmol/L (3.5-5.1)
[2024-05-02 06:16] LABS: NEUTROPHILS % (AUTO) 96.9 % (40.0-70.0)
[2024-05-02] MEDS ORDERED: BENZ-227 PO (11:51)
[2024-05-02] MEDS ORDERED: GUAIF600 PO (11:51)
[2024-05-02] MEDS ORDERED: PRED-729 PO (11:51)
[2024-05-02] MEDS: PredniSONE 20 MG TABLET PO ONE (12:58)
== END 2024-05-02 15:45 | disposition home or self-care (01) | DRG 140 ==
LOC: EMS 09:41 → EDH 13:28 → 5N 16:59
PROVIDERS: ADMIT Internal Medicine; ATTEND Internal Medicine
DX: J44.1 Chronic obstructive pulmonary disease with (acute) exacerbation (principal); I50.23 Acute on chronic systolic (congestive) heart failure; I11.0 Hypertensive heart disease with heart failure; F15.10 Other stimulant abuse, uncomplicated; E78.5 Hyperlipidemia, unspecified; T38.0X5A Adverse effect of glucocorticoids and synthetic analogues, initial encounter; F32.A Depression, unspecified; F41.9 Anxiety disorder, unspecified; F17.210 Nicotine dependence, cigarettes, uncomplicated; M25.562 Pain in left knee; Y92.89 Other specified places as the place of occurrence of the external cause; Z91.148 Patient's other noncompliance with medication regimen for other reason; Z79.899 Other long term (current) drug therapy
CPT/HCPCS: 71045; 80048; 80307; 81003; 84484; 85025; 93005; 94640; 94644; 99285; J1940; J2919; 36415-L1; 36415-TC; J7613

== ENCOUNTER 2024-05-08 13:04 | Emergency (ER) | payer MEDICAID ==
[~2024-05-08] VITALS: Ht 162.6 cm; Wt 54.5 kg
[~2024-05-08 13:04] MED LIST changes: +BENZ-227 PO; +GUAIF600 PO; +PRED-729 PO
[2024-05-08 13:19] VITALS: BP 111/72; PULSE 76; RESP 18; TEMP 98.2; O2SAT 99
[2024-05-08] MEDS ORDERED: ALBUTEROL SULFATE HFA 90 MCG/PUFF 8 GM INHALER IH ONE (14:00)
== END 2024-05-08 14:08 | disposition home or self-care (01) ==
LOC: EMS 13:04
DX: R06.02 Shortness of breath (principal); J44.89 Other specified chronic obstructive pulmonary disease; F41.9 Anxiety disorder, unspecified; F32.A Depression, unspecified; I11.9 Hypertensive heart disease without heart failure; F12.90 Cannabis use, unspecified, uncomplicated; F15.90 Other stimulant use, unspecified, uncomplicated; F17.210 Nicotine dependence, cigarettes, uncomplicated; Z76.0 Encounter for issue of repeat prescription; Z79.51 Long term (current) use of inhaled steroids; Z79.52 Long term (current) use of systemic steroids; Z79.84 Long term (current) use of oral hypoglycemic drugs; Z79.899 Other long term (current) drug therapy; Z95.0 Presence of cardiac pacemaker
CPT/HCPCS: 94640; 99281; 99283; J3535

== ENCOUNTER 2024-05-11 12:04 | Emergency (ER) | payer MEDICAID ==
[~2024-05-11] VITALS: Ht 160 cm; Wt 54.5 kg
[2024-05-11] MEDS ORDERED: ASPI-1444 PO (12:17)
[2024-05-11] MEDS ORDERED: FURO20TA4 PO (12:17)
[2024-05-11] MEDS ORDERED: LOSA-381 PO (12:17)
[2024-05-11] MEDS ORDERED: IPRA3AMP24 NEB (12:17)
[2024-05-11 12:25] VITALS: TEMP 98.2
[2024-05-11 13:42] LABS: BASOPHILS % (AUTO) 0.4 % (0.0-2.0); EOSINOPHILS % (AUTO) 1.5 % (1.0-6.0); HEMATOCRIT 36.2 % (41-53); HEMOGLOBIN 11.8 g/dL (13.5-17.5); LYMPHOCYTES # (AUTO) 0.5 K/uL (1.0-4.8); MEAN CORPUSCULAR HEMOGLOBIN 30.1 pg (26.0-34.0); MEAN CORPUSCULAR HGB CONC 32.6 G/dL (31.0-37.0); MEAN CORPUSCULAR VOLUME 92 fL (80-100); MONOCYTES # (AUTO) 0.8 K/uL (0.1-1.0); MONOCYTES % (AUTO) 11.5 % (2.0-9.0); NEUTROPHILS # (AUTO) 5.3 K/uL (1.8-7.7); NEUTROPHILS % (AUTO) 78.6 % (40.0-70.0); PLATELET COUNT (AUTO) 219 K/uL (150-450); RED BLOOD CELL COUNT(AUTO) 3.92 MIL/uL (4.50-5.90); RED CELL DISTRIBUTION WIDTH 15.4 % (11.5-14.5); WHITE BLOOD COUNT (AUTO) 6.7 K/uL (4.5-11.0)
[2024-05-11 14:01] LABS: CALCIUM, TOTAL 8.1 mg/dL (8.8-10.5); CREATININE 1.49 mg/dL (0.60-1.30); POTASSIUM 3.8 mmol/L (3.5-5.1)
[2024-05-11 14:10] LABS: TROPONIN I-HIGH SENSITIVITY 59 ng/L (<76)
[2024-05-11 14:30] VITALS: BP 111/70; PULSE 88; RESP 14; O2SAT 95
[2024-05-11] MEDS ORDERED: OMEP20 PO (15:11)
== END 2024-05-11 16:13 | disposition home or self-care (01) ==
LOC: EMS 12:04
DX: R42 Dizziness and giddiness (principal); I10 Essential (primary) hypertension; J44.9 Chronic obstructive pulmonary disease, unspecified; F12.90 Cannabis use, unspecified, uncomplicated; F17.210 Nicotine dependence, cigarettes, uncomplicated; Z79.51 Long term (current) use of inhaled steroids; Z79.52 Long term (current) use of systemic steroids; Z79.82 Long term (current) use of aspirin; Z79.899 Other long term (current) drug therapy
CPT/HCPCS: 80048; 84484; 85025; 93005; 99284

== ENCOUNTER 2024-05-13 10:42 | Emergency (ER) | payer MEDICAID ==
[~2024-05-13] VITALS: Ht 160 cm; Wt 54.5 kg
[~2024-05-13 10:42] MED LIST changes: +ASPI-1444 PO; -DAPA5TAB PO; +FURO20TA4 PO; -FURO20TA5 PO; -GUAIF600 PO; +IPRA3AMP24 NEB; +LOSA-381 PO; +OMEP20 PO; -PRED-729 PO
[2024-05-13 10:45] VITALS: TEMP 97.9
[2024-05-13 11:01] LABS: COVID AG,FIA SOURCE NASAL SWAB
[2024-05-13 11:19] LABS: INFLUENZA TYPE A NEGATIVE FOR TYPE A (NEGATIVE); INFLUENZA TYPE B NEGATIVE FOR TYPE B (NEGATIVE)
[2024-05-13 11:34] LABS: SARS-COV2 (COVID) ANTIGEN,FIA Negative (Negative)
[2024-05-13] MEDS: IBUPROFEN 400 MG TABLET PO ONE (11:34)
[2024-05-13] MEDS: ACETAMINOPHEN 325 MG TABLET PO ONE (11:34)
[2024-05-13 12:08] VITALS: BP 131/88; PULSE 88; RESP 20; O2SAT 100
== END 2024-05-13 12:09 | disposition home or self-care (01) ==
LOC: EMS 10:44
DX: J06.9 Acute upper respiratory infection, unspecified (principal); B97.89 Other viral agents as the cause of diseases classified elsewhere; F12.90 Cannabis use, unspecified, uncomplicated; F15.90 Other stimulant use, unspecified, uncomplicated; F17.210 Nicotine dependence, cigarettes, uncomplicated; I10 Essential (primary) hypertension; F41.9 Anxiety disorder, unspecified; J44.89 Other specified chronic obstructive pulmonary disease; Z79.51 Long term (current) use of inhaled steroids; Z79.82 Long term (current) use of aspirin; Z79.899 Other long term (current) drug therapy; Z95.0 Presence of cardiac pacemaker; Z20.822 Contact with and (suspected) exposure to COVID-19
CPT/HCPCS: 87804; 99283

== ENCOUNTER 2024-05-14 10:08 | Emergency (ER) | payer MEDICAID ==
[~2024-05-14] VITALS: Ht 160 cm; Wt 54.5 kg
[2024-05-14 10:20] VITALS: BP 138/82; TEMP 97.9
[2024-05-14] MEDS: IPRATROPIUM BROMIDE 0.5 MG/2.5 ML NEB SOLUTION NEB ONE (10:53)
[2024-05-14] MEDS: ALBUTEROL SULFATE 2.5 MG/0.5 ML NEB SOLUTION NEB ONE (10:53)
[2024-05-14 10:55] VITALS: PULSE 93; RESP 20; O2SAT 97
[2024-05-14 11:09] VITALS: PULSE 99; RESP 20; O2SAT 100
== END 2024-05-14 12:55 | disposition home or self-care (01) ==
LOC: EMS 10:08
DX: R06.2 Wheezing (principal); I10 Essential (primary) hypertension; J44.89 Other specified chronic obstructive pulmonary disease; F12.90 Cannabis use, unspecified, uncomplicated; F17.210 Nicotine dependence, cigarettes, uncomplicated; Z79.51 Long term (current) use of inhaled steroids; Z79.82 Long term (current) use of aspirin; Z79.899 Other long term (current) drug therapy
CPT/HCPCS: 94640; 99283

== ENCOUNTER 2024-05-29 14:05 | Emergency (ER) | payer MEDICAID ==
[~2024-05-29] VITALS: Ht 162.6 cm; Wt 54.5 kg
[~2024-05-29 14:05] MED LIST changes: +CARV3 PO; -CARV3.1231 PO; -LOSA-381 PO; +LOSA-417 PO; +SPIR-37 PO
[2024-05-29] MEDS ORDERED: ALBU2.5V39 NEB (15:21)
[2024-05-29] MEDS ORDERED: LOSA-381 PO (15:21)
[2024-05-29] MEDS: IPRATROPIUM BROMIDE 0.5 MG/2.5 ML NEB SOLUTION NEB ONE (15:57)
[2024-05-29] MEDS: ALBUTEROL SULFATE 2.5 MG/0.5 ML 5 ML NEB SOLUTION NEB ONE (15:57)
[2024-05-29] MEDS: PredniSONE 20 MG TABLET PO ONE (16:12)
[2024-05-29 16:29] VITALS: PULSE 79; RESP 18; O2SAT 94
[2024-05-29 16:30] VITALS: PULSE 78; RESP 18; O2SAT 95
[2024-05-29 17:52] VITALS: TEMP 98.4
[2024-05-29] MEDS ORDERED: PRED-554 PO (17:52)
[2024-05-29 18:22] VITALS: BP 111/67; PULSE 75; RESP 20; O2SAT 97
== END 2024-05-29 18:22 | disposition home or self-care (01) ==
LOC: EMS 14:06
DX: J44.1 Chronic obstructive pulmonary disease with (acute) exacerbation (principal); F41.9 Anxiety disorder, unspecified; F32.A Depression, unspecified; I11.9 Hypertensive heart disease without heart failure; F12.90 Cannabis use, unspecified, uncomplicated; F15.90 Other stimulant use, unspecified, uncomplicated; F17.210 Nicotine dependence, cigarettes, uncomplicated; Z79.51 Long term (current) use of inhaled steroids; Z79.82 Long term (current) use of aspirin; Z79.899 Other long term (current) drug therapy; Z95.0 Presence of cardiac pacemaker
CPT/HCPCS: 99285; 94644; J7512

== ENCOUNTER 2024-06-01 12:59 | Emergency (ER) | payer MEDICAID ==
[~2024-06-01] VITALS: Ht 157.5 cm; Wt 59.1 kg
[~2024-06-01 12:59] MED LIST changes: +ALBU2.5V39 NEB; +LOSA-381 PO; -LOSA-417 PO; +PRED-554 PO
[2024-06-01 13:18] VITALS: BP 115/67; PULSE 98; RESP 18; TEMP 97.9; O2SAT 100
[2024-06-01 14:24] LABS: BASOPHILS % (AUTO) 0.9 % (0.0-2.0); EOSINOPHILS % (AUTO) 1.5 % (1.0-6.0); HEMATOCRIT 36.1 % (41-53); HEMOGLOBIN 11.8 g/dL (13.5-17.5); LYMPHOCYTES # (AUTO) 0.8 K/uL (1.0-4.8); LYMPHOCYTES % (AUTO) 12.3 % (22.0-44.0); MEAN CORPUSCULAR HEMOGLOBIN 30.1 pg (26.0-34.0); MEAN CORPUSCULAR HGB CONC 32.6 G/dL (31.0-37.0); MEAN CORPUSCULAR VOLUME 93 fL (80-100); MONOCYTES # (AUTO) 0.8 K/uL (0.1-1.0); MONOCYTES % (AUTO) 12.7 % (2.0-9.0); NEUTROPHILS # (AUTO) 4.6 K/uL (1.8-7.7); NEUTROPHILS % (AUTO) 72.6 % (40.0-70.0); PLATELET COUNT (AUTO) 259 K/uL (150-450); RED BLOOD CELL COUNT(AUTO) 3.91 MIL/uL (4.50-5.90); RED CELL DISTRIBUTION WIDTH 15.3 % (11.5-14.5); WHITE BLOOD COUNT (AUTO) 6.3 K/uL (4.5-11.0)
[2024-06-01 14:41] LABS: TROPONIN I-HIGH SENSITIVITY 53 ng/L (<76)
[2024-06-01 14:50] LABS: CALCIUM, TOTAL 8.4 mg/dL (8.8-10.5); CREATININE 1.24 mg/dL (0.60-1.30); POTASSIUM 4.3 mmol/L (3.5-5.1)
== END 2024-06-01 19:17 | disposition left against medical advice (07) ==
LOC: EMS 13:01
DX: J44.1 Chronic obstructive pulmonary disease with (acute) exacerbation (principal); F15.10 Other stimulant abuse, uncomplicated; F12.90 Cannabis use, unspecified, uncomplicated; F17.210 Nicotine dependence, cigarettes, uncomplicated; Z79.51 Long term (current) use of inhaled steroids; Z79.52 Long term (current) use of systemic steroids; Z79.82 Long term (current) use of aspirin; Z59.00 Homelessness unspecified; Z79.899 Other long term (current) drug therapy
CPT/HCPCS: 80048; 83880; 84484; 85025; 99283

== ENCOUNTER 2024-06-14 15:38 | Emergency (ER) | payer MEDICAID ==
[~2024-06-14] VITALS: Ht 160 cm; Wt 54.5 kg
[2024-06-14 16:15] VITALS: BP 105/67; PULSE 96; RESP 16; TEMP 97.8; O2SAT 98
== END 2024-06-14 19:17 | disposition left against medical advice (07) ==
LOC: EDUNIT# 15:38 → EMS 15:39
DX: Z53.21 Procedure and treatment not carried out due to patient leaving prior to being seen by health care provider (principal)

== ENCOUNTER 2024-06-14 20:36 | Emergency (ER) | payer MEDICAID ==
[~2024-06-14] VITALS: Ht 160 cm; Wt 54.5 kg
[2024-06-14 20:40] VITALS: BP 117/75; PULSE 111; RESP 16; TEMP 98.3; O2SAT 96
== END 2024-06-14 22:53 | disposition left against medical advice (07) ==
LOC: EMS 20:36
DX: Z53.21 Procedure and treatment not carried out due to patient leaving prior to being seen by health care provider (principal)

== ENCOUNTER 2024-06-15 13:47 | Emergency (ER) | payer MEDICAID ==
[~2024-06-15] VITALS: Ht 162.6 cm; Wt 56.8 kg
[2024-06-15 13:53] VITALS: BP 104/71; PULSE 99; RESP 16; TEMP 97.8; O2SAT 98
== END 2024-06-15 16:18 | disposition left against medical advice (07) ==
LOC: EMS 13:47
DX: Z76.0 Encounter for issue of repeat prescription (principal); Z53.21 Procedure and treatment not carried out due to patient leaving prior to being seen by health care provider

== ENCOUNTER 2024-06-19 09:35 | Inpatient (IN) | payer MEDICAID ==
[~2024-06-19] VITALS: Ht 160 cm; Wt 54.5 kg
[2024-06-19 09:54] LABS: COVID AG,FIA SOURCE NASAL SWAB
[2024-06-19 10:00] LABS: BASOPHILS % (AUTO) 0.9 % (0.0-2.0); EOSINOPHILS % (AUTO) 5.6 % (1.0-6.0); HEMATOCRIT 38.7 % (41-53); HEMOGLOBIN 12.3 g/dL (13.5-17.5); LYMPHOCYTES # (AUTO) 0.7 K/uL (1.0-4.8); LYMPHOCYTES % (AUTO) 12.9 % (22.0-44.0); MEAN CORPUSCULAR HEMOGLOBIN 30.2 pg (26.0-34.0); MEAN CORPUSCULAR HGB CONC 31.8 G/dL (31.0-37.0); MEAN CORPUSCULAR VOLUME 95 fL (80-100); MONOCYTES # (AUTO) 0.6 K/uL (0.1-1.0); MONOCYTES % (AUTO) 10.7 % (2.0-9.0); NEUTROPHILS # (AUTO) 3.8 K/uL (1.8-7.7); NEUTROPHILS % (AUTO) 69.9 % (40.0-70.0); PLATELET COUNT (AUTO) 220 K/uL (150-450); RED BLOOD CELL COUNT(AUTO) 4.07 MIL/uL (4.50-5.90); RED CELL DISTRIBUTION WIDTH 16.3 % (11.5-14.5); WHITE BLOOD COUNT (AUTO) 5.5 K/uL (4.5-11.0)
[2024-06-19 10:06] LABS: ANION GAP 5 mmol/L (8-16); CALCIUM, TOTAL 8.6 mg/dL (8.8-10.5); CARBON DIOXIDE 29 mmol/L (22-29); CHLORIDE 110 mmol/L (98-107); CREATININE 1.32 mg/dL (0.60-1.30); GLOMERULAR FILTR. RATE CALC 55 mL/min (>60); GLUCOSE,RANDOM 87 mg/dL (70-110); SODIUM SERUM 144 mmol/L (136-145); UREA NITROGEN, BLOOD 24 mg/dL (7-18)
[2024-06-19 10:17] LABS: SARS-COV2 (COVID) ANTIGEN,FIA Negative (Negative)
[2024-06-19 10:18] LABS: INFLUENZA TYPE A NEGATIVE FOR TYPE A (NEGATIVE); INFLUENZA TYPE B NEGATIVE FOR TYPE B (NEGATIVE)
[2024-06-19 10:21] LABS: TROPONIN I-HIGH SENSITIVITY 45 ng/L (<76)
[2024-06-19 10:22] LABS: B-TYPE NATRIURETIC PEPTIDE 1790 pg/mL (0-100)
[2024-06-19] MEDS: FUROSEMIDE 40 MG/4 ML VIAL IVP ONE (10:51)
[2024-06-19] MEDS: ASPIRIN 81 MG CHEWABLE TABLET PO ONE (10:51)
[2024-06-19] MEDS ORDERED: ONDANSETRON HCL 4 MG/2 ML VIAL IVP PRN (12:00)
[2024-06-19] MEDS ORDERED: OxyCODONE HCL/ACETAMINOPHEN 5-325 MG TABLET PO PRN (12:00)
[2024-06-19] MEDS ORDERED: ZOLPIDEM TARTRATE 5 MG TABLET PO PRN (12:00)
[2024-06-19] MEDS ORDERED: ACETAMINOPHEN 325 MG TABLET PO PRN (12:00)
[2024-06-19 15:42] VITALS: BP 98/71; PULSE 88; RESP 20; TEMP 98.5; O2SAT 99
[2024-06-19] MEDS: HEPARIN SODIUM,PORCINE 5,000 UNITS/ML VIAL SQ SCH (17:00)
[2024-06-19 18:32] LABS: APPEARANCE,URINE CLEAR (CLEAR); BILIRUBIN,URINE NEGATIVE (NEGATIVE); COLOR,URINE COLORLESS (YELLOW); GLUCOSE, URINE (UA) NEGATIVE (NEGATIVE); KETONES,URINE NEGATIVE (NEGATIVE); LEUKOCYTE ESTERASE ,URINE NEGATIVE (NEGATIVE); NITRATE,URINE NEGATIVE (NEGATIVE); OCCULT BLOOD,URINE NEGATIVE (NEGATIVE); PROTEIN,URINE NEGATIVE (NEGATIVE); SPECIFIC GRAVITIY, URINE 1.007 (1.003-1.030); UROBILINOGEN,URINE <=1.0 mg/dL (<=1.0)
[2024-06-19] MEDS: DOCUSATE SODIUM 100 MG CAPSULE PO SCH (20:39)
[2024-06-19] MEDS: ATORVASTATIN CALCIUM 20 MG TABLET PO SCH (20:39)
[2024-06-19] MEDS: ALBUTEROL SULFATE 2.5 MG/0.5 ML NEB SOLUTION NEB PRN (21:44)
[2024-06-19 21:46] VITALS: PULSE 87; RESP 18; O2SAT 98; O2SAT 99
[2024-06-19 21:48] VITALS: PULSE 87; RESP 17; O2SAT 99
[2024-06-19 21:49] VITALS: BP 110/65; PULSE 78; RESP 19; TEMP 98; O2SAT 95
[2024-06-20 00:29] VITALS: BP 108/78; RESP 18; TEMP 97.9; O2SAT 96
[2024-06-20 04:00] VITALS: BP 118/84; PULSE 85; RESP 18; TEMP 98.2; O2SAT 100
[2024-06-20] MEDS ORDERED: ALBUTEROL SULFATE HFA 90 MCG/PUFF 8 GM INHALER IH PRN (05:30)
[2024-06-20] MEDS: ASPIRIN 81 MG CHEWABLE TABLET PO SCH (07:42)
[2024-06-20] MEDS: FUROSEMIDE 40 MG TABLET PO SCH (07:42)
[2024-06-20] MEDS: METOPROLOL SUCCINATE 25 MG ER TABLET PO SCH (07:43)
[2024-06-20 07:52] VITALS: BP 130/94; PULSE 85; RESP 19; TEMP 98.1; O2SAT 98
[2024-06-20] MEDS: FLUTICASONE/SALMETEROL 250-50 MCG/INH INHALER [60] IH SCH (08:44)
[2024-06-20 11:26] VITALS: BP 101/68; PULSE 81; RESP 19; TEMP 98.2; O2SAT 97
[2024-06-20 15:11] VITALS: BP 110/76; PULSE 74; RESP 18; TEMP 98; O2SAT 98
[2024-06-20 23:38] VITALS: BP 108/76; PULSE 75; RESP 18; TEMP 98.5; O2SAT 93
[2024-06-21 03:48] VITALS: BP 3/65; PULSE 72; RESP 18; TEMP 97.8; O2SAT 95
[2024-06-21 08:22] VITALS: BP 117/82; PULSE 74; RESP 18; TEMP 97.8; O2SAT 95
[2024-06-21 11:15] VITALS: BP 112/80; PULSE 79; RESP 19; TEMP 98; O2SAT 94
== END 2024-06-21 13:50 | disposition home or self-care (01) | DRG 194 ==
LOC: EMS 09:39 → EDH 11:36 → 5N 13:01
PROVIDERS: ADMIT Internal Medicine; ATTEND Internal Medicine
DX: I11.0 Hypertensive heart disease with heart failure (principal); F15.10 Other stimulant abuse, uncomplicated; I07.1 Rheumatic tricuspid insufficiency; I50.43 Acute on chronic combined systolic (congestive) and diastolic (congestive) heart failure; J44.9 Chronic obstructive pulmonary disease, unspecified; F32.A Depression, unspecified; F41.9 Anxiety disorder, unspecified; Z20.822 Contact with and (suspected) exposure to COVID-19; Z91.199 Patient's noncompliance with other medical treatment and regimen due to unspecified reason; Z91.148 Patient's other noncompliance with medication regimen for other reason; Z82.49 Family history of ischemic heart disease and other diseases of the circulatory system; Z83.3 Family history of diabetes mellitus; Z87.891 Personal history of nicotine dependence
CPT/HCPCS: 71045; 80048; 81003; 83880; 84484; 85025; 87804; 93005; 94640; 99285; J1644; J1940; J3535; 36415-L1; 36415-TC

== ENCOUNTER 2024-07-10 12:08 | Emergency (ER) | payer MEDICAID ==
[~2024-07-10] VITALS: Ht 160 cm; Wt 54.5 kg
[~2024-07-10 12:08] MED LIST changes: -ALBU2.5V39 NEB; -BENZ-227 PO; -FURO20TA4 PO; +FURO20TA5 PO; -IPRA3AMP24 NEB; +OMEP-148 PO; -OMEP20 PO; -PRED-554 PO; -SPIR-37 PO
[2024-07-10 12:10] VITALS: TEMP 98.4
[2024-07-10] MEDS: IPRATROPIUM BROMIDE 0.5 MG/2.5 ML NEB SOLUTION NEB ONE (13:08)
[2024-07-10] MEDS: ALBUTEROL SULFATE 2.5 MG/0.5 ML NEB SOLUTION NEB ONE (13:08)
[2024-07-10 13:10] VITALS: PULSE 84; RESP 18; O2SAT 96
[2024-07-10 13:25] VITALS: PULSE 90; RESP 18; O2SAT 100
[2024-07-10 14:02] VITALS: BP 124/70; PULSE 95; RESP 16; O2SAT 97
== END 2024-07-10 14:03 | disposition home or self-care (01) ==
LOC: EMS 13:08
DX: R06.02 Shortness of breath (principal); I11.0 Hypertensive heart disease with heart failure; I50.9 Heart failure, unspecified; J44.89 Other specified chronic obstructive pulmonary disease; F12.90 Cannabis use, unspecified, uncomplicated; Z79.82 Long term (current) use of aspirin; Z79.51 Long term (current) use of inhaled steroids; Z79.899 Other long term (current) drug therapy
CPT/HCPCS: 94640; 99283

== ENCOUNTER 2024-07-14 09:23 | Emergency (ER) | payer MEDICAID ==
[~2024-07-14] VITALS: Ht 160 cm; Wt 54.5 kg
[2024-07-14 09:26] VITALS: TEMP 98.5
[2024-07-14 10:30] VITALS: PULSE 92; RESP 20; O2SAT 99
[2024-07-14] MEDS: ALBUTEROL SULFATE HFA 90 MCG/PUFF 8 GM INHALER IH ONE (10:31)
[2024-07-14 10:40] VITALS: BP 115/77; PULSE 92; RESP 18; O2SAT 99
== END 2024-07-14 10:41 | disposition home or self-care (01) ==
LOC: EMS 09:30
DX: J44.1 Chronic obstructive pulmonary disease with (acute) exacerbation (principal); F15.10 Other stimulant abuse, uncomplicated; F41.9 Anxiety disorder, unspecified; F32.A Depression, unspecified; I11.0 Hypertensive heart disease with heart failure; I42.9 Cardiomyopathy, unspecified; I50.9 Heart failure, unspecified; F12.90 Cannabis use, unspecified, uncomplicated; F17.210 Nicotine dependence, cigarettes, uncomplicated; Z79.51 Long term (current) use of inhaled steroids; Z79.82 Long term (current) use of aspirin; Z79.899 Other long term (current) drug therapy; Z95.0 Presence of cardiac pacemaker
CPT/HCPCS: 99283; 94640; J3535

== ENCOUNTER 2024-07-16 12:47 | Emergency (ER) | payer MEDICAID ==
[~2024-07-16] VITALS: Ht 167.6 cm; Wt 57.5 kg
[2024-07-16] MEDS: IPRATROPIUM BROMIDE 0.5 MG/2.5 ML NEB SOLUTION NEB ONE (14:21)
[2024-07-16] MEDS: ALBUTEROL SULFATE 2.5 MG/0.5 ML NEB SOLUTION NEB ONE (14:22)
[2024-07-16] MEDS: ALBUTEROL SULFATE HFA 90 MCG/PUFF 8 GM INHALER IH ONE (14:22)
[2024-07-16 14:26] VITALS: PULSE 80; RESP 22; O2SAT 80; O2SAT 97
[2024-07-16 14:37] VITALS: PULSE 80; RESP 16; O2SAT 98
[2024-07-16 17:12] VITALS: BP 119/90; PULSE 84; RESP 20; TEMP 98.4; O2SAT 96
== END 2024-07-16 17:50 | disposition home or self-care (01) ==
LOC: EMS 12:53
DX: J45.901 Unspecified asthma with (acute) exacerbation (principal); F41.9 Anxiety disorder, unspecified; F17.210 Nicotine dependence, cigarettes, uncomplicated; F15.90 Other stimulant use, unspecified, uncomplicated; F32.A Depression, unspecified; I11.0 Hypertensive heart disease with heart failure; I50.9 Heart failure, unspecified; F12.90 Cannabis use, unspecified, uncomplicated; Z79.51 Long term (current) use of inhaled steroids; Z79.82 Long term (current) use of aspirin; Z79.899 Other long term (current) drug therapy; Z95.0 Presence of cardiac pacemaker
CPT/HCPCS: 99285; 94640; J3535

== ENCOUNTER 2024-07-19 01:00 | Emergency (ER) | payer MEDICAID ==
[~2024-07-19] VITALS: Ht 167.6 cm; Wt 75.0 kg
[2024-07-19] MEDS: PredniSONE 20 MG TABLET PO ONE (01:54)
[2024-07-19] MEDS: ALBUTEROL SULFATE HFA 90 MCG/PUFF 8 GM INHALER IH ONE ×2 (01:54→05:26)
[2024-07-19] MEDS: FUROSEMIDE 20 MG TABLET PO ONE (01:54)
[2024-07-19] MEDS: IPRATROPIUM BROMIDE 0.5 MG/2.5 ML NEB SOLUTION NEB ONE (03:09)
[2024-07-19] MEDS: ALBUTEROL SULFATE 2.5 MG/0.5 ML NEB SOLUTION NEB ONE (03:09)
[2024-07-19 03:19] VITALS: PULSE 101; RESP 24; O2SAT 95
[2024-07-19 03:21] VITALS: PULSE 101; RESP 24; O2SAT 95
[2024-07-19] MEDS: CARVEDILOL 3.125 MG TABLET PO ONE (04:23)
[2024-07-19] MEDS: LOSARTAN POTASSIUM 25 MG TABLET PO ONE (04:28)
[2024-07-19] MEDS ORDERED: PRED-554 PO (04:59)
[2024-07-19] MEDS ORDERED: FURO20TA5 PO (05:00)
[2024-07-19 06:00] VITALS: BP 138/76; PULSE 94; RESP 22; TEMP 97.3; O2SAT 100
[2024-07-20] MEDS ORDERED: IPRA3AMP24 NEB (12:48)
== END 2024-07-19 06:00 | disposition home or self-care (01) ==
LOC: EMS 01:00
DX: J45.901 Unspecified asthma with (acute) exacerbation (principal); F41.9 Anxiety disorder, unspecified; F32.A Depression, unspecified; I11.0 Hypertensive heart disease with heart failure; I50.9 Heart failure, unspecified; F12.90 Cannabis use, unspecified, uncomplicated; F15.90 Other stimulant use, unspecified, uncomplicated; F17.210 Nicotine dependence, cigarettes, uncomplicated; Z79.51 Long term (current) use of inhaled steroids; Z79.82 Long term (current) use of aspirin; Z79.899 Other long term (current) drug therapy; Z95.0 Presence of cardiac pacemaker
CPT/HCPCS: 99285; 94640; J7512; J3535; 94060; 99284

== ENCOUNTER 2024-07-20 03:28 | Inpatient (IN) | payer MEDICAID ==
[2024-07-20] VITALS (9 sets, daily range): BP systolic 109–121; BP diastolic 71–81; PULSE 72–90; RESP 18–24; TEMP 97.6–98; O2SAT 94–100
[~2024-07-20] VITALS: Ht 160 cm; Wt 54.5 kg
[~2024-07-20 03:28] MED LIST changes: +PRED-554 PO
[2024-07-20] MEDS: MethylPREDNISolone SOD SUCC 125 MG/2 ML VIAL IVP ONE (04:09)
[2024-07-20] MEDS: FUROSEMIDE 20 MG/2 ML VIAL IVP ONE (04:09)
[2024-07-20] MEDS: IPRATROPIUM BROMIDE 0.5 MG/2.5 ML NEB SOLUTION NEB ONE (04:10)
[2024-07-20] MEDS: ALBUTEROL SULFATE 2.5 MG/0.5 ML NEB SOLUTION NEB ONE (04:11)
[2024-07-20 04:25] LABS: BASOPHILS % (AUTO) 0.4 % (0.0-2.0); EOSINOPHILS % (AUTO) 0.4 % (1.0-6.0); HEMATOCRIT 42.6 % (41-53); HEMOGLOBIN 13.7 g/dL (13.5-17.5); LYMPHOCYTES # (AUTO) 0.7 K/uL (1.0-4.8); LYMPHOCYTES % (AUTO) 4.4 % (22.0-44.0); MEAN CORPUSCULAR HEMOGLOBIN 29.6 pg (26.0-34.0); MEAN CORPUSCULAR HGB CONC 32.2 G/dL (31.0-37.0); MEAN CORPUSCULAR VOLUME 92 fL (80-100); MONOCYTES # (AUTO) 1.4 K/uL (0.1-1.0); MONOCYTES % (AUTO) 9.4 % (2.0-9.0); NEUTROPHILS # (AUTO) 12.6 K/uL (1.8-7.7); PLATELET COUNT (AUTO) 260 K/uL (150-450); RED BLOOD CELL COUNT(AUTO) 4.63 MIL/uL (4.50-5.90); RED CELL DISTRIBUTION WIDTH 16.2 % (11.5-14.5); WHITE BLOOD COUNT (AUTO) 14.7 K/uL (4.5-11.0)
[2024-07-20 04:28] LABS: NEUTROPHILS % (AUTO) 85.4 % (40.0-70.0)
[2024-07-20 04:42] LABS: ANION GAP 3 mmol/L (8-16); CALCIUM, TOTAL 8.9 mg/dL (8.8-10.5); CARBON DIOXIDE 30 mmol/L (22-29); CHLORIDE 104 mmol/L (98-107); CREATININE 1.57 mg/dL (0.60-1.30); GLOMERULAR FILTR. RATE CALC 45 mL/min (>60); GLUCOSE,RANDOM 106 mg/dL (70-110); POTASSIUM 4.8 mmol/L (3.5-5.1); SODIUM SERUM 137 mmol/L (136-145); UREA NITROGEN, BLOOD 42 mg/dL (7-18)
[2024-07-20 04:47] LABS: ALBUMIN 2.6 g/dL (3.4-5.0); BILIRUBIN,DIRECT 0.3 mg/dL (0.00-0.20); BILIRUBIN,TOTAL 0.8 mg/dL (0.1-1.0); TOTAL PROTEIN, SERUM 6.4 g/dL (6.4-8.2)
[2024-07-20 04:53] LABS: CREATINE KINASE, TOTAL ONLY 124 U/L (39-308); TROPONIN I-HIGH SENSITIVITY 40 ng/L (<76)
[2024-07-20 04:56] LABS: B-TYPE NATRIURETIC PEPTIDE 2690 pg/mL (0-100)
[2024-07-20] MEDS ORDERED: ONDANSETRON HCL 4 MG/2 ML VIAL IVP PRN (05:45)
[2024-07-20 06:36] LABS: COVID AG,FIA SOURCE NASAL SWAB
[2024-07-20 06:44] LABS: APPEARANCE,URINE CLEAR (CLEAR); BILIRUBIN,URINE NEGATIVE (NEGATIVE); COLOR,URINE LIGHT YELLOW (YELLOW); GLUCOSE, URINE (UA) NEGATIVE (NEGATIVE); KETONES,URINE NEGATIVE (NEGATIVE); LEUKOCYTE ESTERASE ,URINE NEGATIVE (NEGATIVE); NITRATE,URINE NEGATIVE (NEGATIVE); OCCULT BLOOD,URINE SMALL (NEGATIVE); PH,URINE 5.5 (5.0-8.0); PROTEIN,URINE 100-200,SEE CONFIRM mg/dL (NEGATIVE); SPECIFIC GRAVITIY, URINE 1.013 (1.003-1.030); UROBILINOGEN,URINE <=1.0 mg/dL (<=1.0)
[2024-07-20 06:58] LABS: SULFOSALICYLIC ACID,URINE 2+ (Negative)
[2024-07-20 06:59] LABS: BACTERIA,URINE None Seen /HPF (None Seen); RBC,URINE 0-2 /HPF (0-2); SQUAMOUS EPITHELIAL CELL,UR Few /LPF (None Seen); WBC,URINE None Seen /HPF (0-5)
[2024-07-20 07:05] LABS: SARS-COV2 (COVID) ANTIGEN,FIA Negative (Negative)
[2024-07-20 07:06] LABS: INFLUENZA TYPE A NEGATIVE FOR TYPE A (NEGATIVE); INFLUENZA TYPE B NEGATIVE FOR TYPE B (NEGATIVE)
[2024-07-20] MEDS: FAMOTIDINE 20 MG TABLET PO SCH (09:09)
[2024-07-20] MEDS: DOCUSATE SODIUM 100 MG CAPSULE PO SCH (09:09)
[2024-07-20] MEDS: FUROSEMIDE 20 MG/2 ML VIAL IVP SCH (09:09)
[2024-07-20] MEDS: HEPARIN SODIUM,PORCINE 5,000 UNITS/ML VIAL SQ SCH (09:10)
[2024-07-20] MEDS ORDERED: IPRA3AMP24 NEB (12:48)
[2024-07-20] MEDS: NICOTINE 21 MG/24 HOUR PATCH TD SCH (13:43)
[2024-07-20] MEDS: MethylPREDNISolone SOD SUCC 40 MG/ML VIAL IVP SCH (15:10)
[2024-07-20] MEDS ORDERED: 0.9% SODIUM CHLORIDE 5 ML NEB SOLUTION NEB ONE (20:22)
[2024-07-20] MEDS: ALBUTEROL SULFATE 2.5 MG/0.5 ML NEB SOLUTION NEB PRN (20:39)
[2024-07-21] VITALS (7 sets, daily range): BP systolic 107–120; BP diastolic 69–89; PULSE 80–92; RESP 18–22; TEMP 97.7–98.9; O2SAT 95–100
[2024-07-21] MEDS ORDERED: MAGNESIUM SULFATE 4 GM/WATER 100 ML IV PRN (00:15)
[2024-07-21] MEDS: MAGNESIUM OXIDE 400 MG TABLET PO PRN (01:43)
[2024-07-21 05:08] LABS: HEPATITIS C AB (EIA) Non Reactive (Non Reactive)
[2024-07-21] MEDS: ACETAMINOPHEN 325 MG TABLET PO PRN (10:41)
[2024-07-21] MEDS: LOSARTAN POTASSIUM 25 MG TABLET PO SCH (12:24)
[2024-07-21] MEDS: ETHYL ALCOHOL 62% ANTISEPTIC NASAL SANITIZER 0.6 ML AMPUL NASAL SCH (20:32)
[2024-07-21] MEDS ORDERED: SODIUM CHLORIDE 0.9% 250 ML IV ONE (21:29)
[2024-07-21] MEDS: MAGNESIUM SULFATE 2 GM/WATER 50 ML IV PRN (22:53)
[2024-07-22] VITALS (10 sets, daily range): BP systolic 102–116; BP diastolic 72–85; PULSE 70–83; RESP 16–22; TEMP 97.1–98.7; O2SAT 94–100
[2024-07-22] MEDS ORDERED: 0.9% SODIUM CHLORIDE 5 ML NEB SOLUTION NEB ONE (04:36)
[2024-07-22 07:09] LABS: CALCIUM, TOTAL 8.7 mg/dL (8.8-10.5); CREATININE 1.62 mg/dL (0.60-1.30); MAGNESIUM 2.1 mg/dL (1.80-2.40); POTASSIUM 3.8 mmol/L (3.5-5.1)
[2024-07-22 07:44] LABS: EOSINOPHILS % (AUTO) 0 % (1.0-6.0); HEMATOCRIT 40.3 % (41-53); HEMOGLOBIN 13.1 g/dL (13.5-17.5); LYMPHOCYTES # (AUTO) 0.2 K/uL (1.0-4.8); LYMPHOCYTES % (AUTO) 1.7 % (22.0-44.0); MEAN CORPUSCULAR HEMOGLOBIN 29.7 pg (26.0-34.0); MEAN CORPUSCULAR HGB CONC 32.5 G/dL (31.0-37.0); MEAN CORPUSCULAR VOLUME 91 fL (80-100); MONOCYTES # (AUTO) 0.2 K/uL (0.1-1.0); NEUTROPHILS # (AUTO) 11.1 K/uL (1.8-7.7); PLATELET COUNT (AUTO) 283 K/uL (150-450); RED BLOOD CELL COUNT(AUTO) 4.41 MIL/uL (4.50-5.90); RED CELL DISTRIBUTION WIDTH 15.7 % (11.5-14.5); WHITE BLOOD COUNT (AUTO) 11.5 K/uL (4.5-11.0)
[2024-07-22 07:50] LABS: NEUTROPHILS % (AUTO) 96.3 % (40.0-70.0)
[2024-07-22] MEDS: METOPROLOL SUCCINATE 25 MG ER TABLET PO SCH (08:55)
[2024-07-22] MEDS: ATORVASTATIN CALCIUM 20 MG TABLET PO SCH (11:41)
[2024-07-22] MEDS ORDERED: LOSA-417 PO (13:22)
[2024-07-22] MEDS ORDERED: CARV3 PO (13:22)
[2024-07-22] MEDS ORDERED: ASPI-1444 PO (13:22)
[2024-07-22] MEDS ORDERED: FURO20TA5 PO (13:22)
[2024-07-22] MEDS ORDERED: METO25XL PO (13:22)
== END 2024-07-22 17:00 | disposition home or self-care (01) | DRG 140 ==
LOC: EMS 03:42 → EDH 05:43 → 5S 09:54
PROVIDERS: ADMIT Internal Medicine; ATTEND Internal Medicine
DX: J44.1 Chronic obstructive pulmonary disease with (acute) exacerbation (principal); I50.23 Acute on chronic systolic (congestive) heart failure; E44.0 Moderate protein-calorie malnutrition; I13.0 Hypertensive heart and chronic kidney disease with heart failure and stage 1 through stage 4 chronic kidney disease, or unspecified chronic kidney disease; N18.30 Chronic kidney disease, stage 3 unspecified; F32.A Depression, unspecified; Z20.822 Contact with and (suspected) exposure to COVID-19; F41.9 Anxiety disorder, unspecified; F15.90 Other stimulant use, unspecified, uncomplicated; Z79.899 Other long term (current) drug therapy; Z82.49 Family history of ischemic heart disease and other diseases of the circulatory system; Z91.148 Patient's other noncompliance with medication regimen for other reason; Z83.3 Family history of diabetes mellitus; Z87.891 Personal history of nicotine dependence; Z68.21 Body mass index [BMI] 21.0-21.9, adult
CPT/HCPCS: 71045; 80048; 80076; 81001; 81002; 82040; 82550; 83735; 83880; 84484; 85025; 86803; 87081; 87340; 87804; 93005; 94640; 96374; 96375; 99291; J1644; J1940; J2919; J3475; J7050; 36415-L1; 36415-TC; J7613

== ENCOUNTER 2024-07-23 13:19 | Emergency (ER) | payer MEDICAID ==
[~2024-07-23] VITALS: Ht 160 cm; Wt 54.5 kg
[~2024-07-23 13:19] MED LIST changes: +IPRA3AMP24 NEB; -LOSA-381 PO; +LOSA-417 PO; +METO25XL PO; -PRED-554 PO
[2024-07-23 13:21] VITALS: TEMP 97.7
[2024-07-23 13:44] LABS: BASOPHILS % (AUTO) 0.2 % (0.0-2.0); EOSINOPHILS % (AUTO) 0.4 % (1.0-6.0); HEMATOCRIT 42.8 % (41-53); HEMOGLOBIN 13.8 g/dL (13.5-17.5); LYMPHOCYTES # (AUTO) 0.6 K/uL (1.0-4.8); LYMPHOCYTES % (AUTO) 5.9 % (22.0-44.0); MEAN CORPUSCULAR HEMOGLOBIN 29.8 pg (26.0-34.0); MEAN CORPUSCULAR HGB CONC 32.2 G/dL (31.0-37.0); MEAN CORPUSCULAR VOLUME 93 fL (80-100); MONOCYTES # (AUTO) 1.3 K/uL (0.1-1.0); MONOCYTES % (AUTO) 12.4 % (2.0-9.0); NEUTROPHILS # (AUTO) 8.4 K/uL (1.8-7.7); NEUTROPHILS % (AUTO) 81.1 % (40.0-70.0); PLATELET COUNT (AUTO) 301 K/uL (150-450); RED BLOOD CELL COUNT(AUTO) 4.62 MIL/uL (4.50-5.90); RED CELL DISTRIBUTION WIDTH 16.2 % (11.5-14.5); WHITE BLOOD COUNT (AUTO) 10.4 K/uL (4.5-11.0)
[2024-07-23 13:56] LABS: ANION GAP 0 mmol/L (8-16); CALCIUM, TOTAL 8.8 mg/dL (8.8-10.5); CARBON DIOXIDE 39 mmol/L (22-29); CHLORIDE 102 mmol/L (98-107); CREATININE 1.42 mg/dL (0.60-1.30); GLOMERULAR FILTR. RATE CALC 50 mL/min (>60); GLUCOSE,RANDOM 129 mg/dL (70-110); POTASSIUM 3.9 mmol/L (3.5-5.1); SODIUM SERUM 141 mmol/L (136-145); UREA NITROGEN, BLOOD 48 mg/dL (7-18)
[2024-07-23 14:04] LABS: B-TYPE NATRIURETIC PEPTIDE 1870 pg/mL (0-100)
[2024-07-23 14:05] LABS: TROPONIN I-HIGH SENSITIVITY 68 ng/L (<76)
[2024-07-23] MEDS: ALBUTEROL SULFATE 2.5 MG/0.5 ML 5 ML NEB SOLUTION NEB ONE (15:36)
[2024-07-23] MEDS: IPRATROPIUM BROMIDE 0.5 MG/2.5 ML NEB SOLUTION NEB ONE (15:36)
[2024-07-23 15:38] VITALS: PULSE 76; RESP 24; RESP 26; O2SAT 99
[2024-07-23 15:53] VITALS: PULSE 92; RESP 24; O2SAT 99
[2024-07-23 16:55] VITALS: BP 127/74; PULSE 95; RESP 20; O2SAT 99
[2024-07-24] MEDS ORDERED: AZIT250T9 PO (02:59)
[2024-07-24] MEDS ORDERED: PRED-554 PO (02:59)
== END 2024-07-23 17:15 | disposition home or self-care (01) ==
LOC: EMS 13:26
DX: J44.1 Chronic obstructive pulmonary disease with (acute) exacerbation (principal); F41.9 Anxiety disorder, unspecified; F32.A Depression, unspecified; I11.0 Hypertensive heart disease with heart failure; I50.9 Heart failure, unspecified; F12.90 Cannabis use, unspecified, uncomplicated; F15.90 Other stimulant use, unspecified, uncomplicated; F17.210 Nicotine dependence, cigarettes, uncomplicated; Z98.890 Other specified postprocedural states; Z95.0 Presence of cardiac pacemaker; Z79.899 Other long term (current) drug therapy; Z79.82 Long term (current) use of aspirin; Z79.51 Long term (current) use of inhaled steroids
CPT/HCPCS: 71045; 80048; 83880; 84484; 85025; 93005; 94640; 99285; 36415-L1; 36415-TC

== ENCOUNTER 2024-07-24 00:57 | Emergency (ER) | payer MEDICAID ==
[~2024-07-24] VITALS: Ht 172.7 cm; Wt 72.0 kg
[2024-07-24 01:09] VITALS: TEMP 98.2
[2024-07-24 01:25] VITALS: BP 130/92; PULSE 92; RESP 34; O2SAT 95
[2024-07-24 02:02] LABS: TROPONIN I-HIGH SENSITIVITY 75 ng/L (<76)
[2024-07-24 02:03] LABS: ALCOHOL, BLOOD (SERUM) < 3 mg/dL (0-10)
[2024-07-24 02:18] LABS: B-TYPE NATRIURETIC PEPTIDE 304 pg/mL (0-100)
[2024-07-24] MEDS ORDERED: PRED-554 PO (02:59)
[2024-07-24] MEDS ORDERED: AZIT250T9 PO (02:59)
[2024-07-24] MEDS: CefTRIAXone 1 GM/DEXTROSE 50 ML IV ONE (03:23)
== END 2024-07-24 03:32 | disposition home or self-care (01) ==
LOC: EMS 00:58
DX: J44.0 Chronic obstructive pulmonary disease with (acute) lower respiratory infection (principal); F15.10 Other stimulant abuse, uncomplicated; J18.0 Bronchopneumonia, unspecified organism; F32.A Depression, unspecified; I11.0 Hypertensive heart disease with heart failure; F12.90 Cannabis use, unspecified, uncomplicated; F17.210 Nicotine dependence, cigarettes, uncomplicated; I50.9 Heart failure, unspecified; I42.8 Other cardiomyopathies; R44.0 Auditory hallucinations; Z79.51 Long term (current) use of inhaled steroids; Z79.82 Long term (current) use of aspirin; Z79.899 Other long term (current) drug therapy; Z95.0 Presence of cardiac pacemaker
CPT/HCPCS: 99285; 96365; 71045; 83880; 84484; 87040; 36415; 93005; G0480; J0696

== ENCOUNTER 2024-07-25 21:26 | Inpatient (IN) | payer MEDICAID ==
[~2024-07-25] VITALS: Ht 160 cm; Wt 58.2 kg
[~2024-07-25 21:26] MED LIST changes: +AZIT250T9 PO; +PRED-554 PO
[2024-07-25] MEDS: IPRATROPIUM BROMIDE 0.5 MG/2.5 ML NEB SOLUTION NEB ONE (21:54)
[2024-07-25] MEDS: ALBUTEROL SULFATE 2.5 MG/0.5 ML NEB SOLUTION NEB ONE (21:55)
[2024-07-25] MEDS: MethylPREDNISolone SOD SUCC 125 MG/2 ML VIAL IVP ONE (22:00)
[2024-07-25 22:07] LABS: BASOPHILS % (AUTO) 0.1 % (0.0-2.0); EOSINOPHILS % (AUTO) 0.8 % (1.0-6.0); HEMATOCRIT 43.7 % (41-53); HEMOGLOBIN 14.1 g/dL (13.5-17.5); LYMPHOCYTES # (AUTO) 0.5 K/uL (1.0-4.8); LYMPHOCYTES % (AUTO) 5.3 % (22.0-44.0); MEAN CORPUSCULAR HEMOGLOBIN 29.5 pg (26.0-34.0); MEAN CORPUSCULAR HGB CONC 32.3 G/dL (31.0-37.0); MEAN CORPUSCULAR VOLUME 91 fL (80-100); MONOCYTES # (AUTO) 1.1 K/uL (0.1-1.0); MONOCYTES % (AUTO) 11.3 % (2.0-9.0); NEUTROPHILS # (AUTO) 8.2 K/uL (1.8-7.7); NEUTROPHILS % (AUTO) 82.5 % (40.0-70.0); PLATELET COUNT (AUTO) 303 K/uL (150-450); RED BLOOD CELL COUNT(AUTO) 4.78 MIL/uL (4.50-5.90); RED CELL DISTRIBUTION WIDTH 15.7 % (11.5-14.5); WHITE BLOOD COUNT (AUTO) 9.9 K/uL (4.5-11.0)
[2024-07-25 22:14] LABS: ANION GAP 4 mmol/L (8-16); CALCIUM, TOTAL 9.1 mg/dL (8.8-10.5); CARBON DIOXIDE 33 mmol/L (22-29); CHLORIDE 100 mmol/L (98-107); CREATININE 1.48 mg/dL (0.60-1.30); GLOMERULAR FILTR. RATE CALC 48 mL/min (>60); GLUCOSE,RANDOM 125 mg/dL (70-110); SODIUM SERUM 137 mmol/L (136-145); UREA NITROGEN, BLOOD 45 mg/dL (7-18)
[2024-07-25 22:20] LABS: ALBUMIN 2.8 g/dL (3.4-5.0); BILIRUBIN,DIRECT 0.2 mg/dL (0.00-0.20); BILIRUBIN,TOTAL 0.6 mg/dL (0.1-1.0)
[2024-07-25 22:24] LABS: CREATINE KINASE, TOTAL ONLY 153 U/L (39-308)
[2024-07-25 22:26] LABS: TROPONIN I-HIGH SENSITIVITY 93 ng/L (<76)
[2024-07-25 22:27] LABS: B-TYPE NATRIURETIC PEPTIDE 3210 pg/mL (0-100)
[2024-07-25 22:43] VITALS: PULSE 97; RESP 27; O2SAT 93
[2024-07-25 22:45] VITALS: PULSE 97; RESP 27; O2SAT 93
[2024-07-26] VITALS (13 sets, daily range): BP systolic 90–127; BP diastolic 61–88; PULSE 74–105; RESP 17–27; TEMP 98–99; O2SAT 93–100
[2024-07-26 01:22] LABS: TROPONIN I-HIGH SENSITIVITY 72 ng/L (<76)
[2024-07-26] MEDS: FUROSEMIDE 20 MG/2 ML VIAL IVP ONE (01:40)
[2024-07-26] MEDS ORDERED: ACETAMINOPHEN 325 MG TABLET PO PRN (07:30)
[2024-07-26] MEDS ORDERED: ZOLPIDEM TARTRATE 5 MG TABLET PO PRN (07:30)
[2024-07-26] MEDS ORDERED: BISACODYL 10 MG RECTAL RECTAL SUPPOSITORY PR PRN (07:30)
[2024-07-26] MEDS ORDERED: MAGNESIUM HYDROXIDE SUSPENSION 30 ML UDCUP PO PRN (07:30)
[2024-07-26] MEDS ORDERED: ONDANSETRON HCL 4 MG/2 ML VIAL IVP PRN (07:30)
[2024-07-26] MEDS: GuaiFENesin SR 600 MG ER TABLET PO SCH (08:39)
[2024-07-26] MEDS: HEPARIN SODIUM,PORCINE 5,000 UNITS/ML VIAL SQ SCH (08:39)
[2024-07-26] MEDS: BENZONATATE 100 MG CAPSULE PO SCH (08:39)
[2024-07-26] MEDS: ASPIRIN 81 MG DR TABLET PO SCH (08:39)
[2024-07-26] MEDS: PANTOPRAZOLE SODIUM 40 MG DR TABLET PO SCH (08:40)
[2024-07-26] MEDS: FUROSEMIDE 20 MG/2 ML VIAL IVP SCH (08:40)
[2024-07-26] MEDS: DOCUSATE SODIUM 100 MG CAPSULE PO SCH (08:44)
[2024-07-26] MEDS: METOPROLOL SUCCINATE 25 MG ER TABLET PO SCH (08:44)
[2024-07-26] MEDS: LOSARTAN POTASSIUM 25 MG TABLET PO SCH (08:44)
[2024-07-26] MEDS ORDERED: CARVEDILOL 3.125 MG TABLET PO SCH (09:00)
[2024-07-26] MEDS: ALBUTEROL SULFATE 2.5 MG/0.5 ML NEB SOLUTION NEB SCH (11:28)
[2024-07-26] MEDS: IPRATROPIUM BROMIDE 0.5 MG/2.5 ML NEB SOLUTION NEB SCH (11:29)
[2024-07-26] MEDS: MethylPREDNISolone SOD SUCC 125 MG/2 ML VIAL IVP SCH (12:27)
[2024-07-26 22:36] LABS: PH,URINE DRUG SCREEN 5.5 (5.0-8.0)
[2024-07-26 22:43] LABS: ALCOHOL, URINE DRUG SCREEN NEGATIVE (NEGATIVE); AMPHET/METH SCREEN,URINE NEGATIVE (NEGATIVE); BARBITURATE SCREEN, URINE NEGATIVE (NEGATIVE); BENZODIAZEPINES SCREEN,URINE NEGATIVE (NEGATIVE); CANNABINOID SCREEN,URINE NEGATIVE (NEGATIVE); COCAINE SCREEN,URINE NEGATIVE (NEGATIVE); METHADONE SCREEN, URINE NEGATIVE (NEGATIVE); OPIATE SCREEN,URINE NEGATIVE (NEGATIVE); PHENCYCLIDINE SCREEN,URINE NEGATIVE (NEGATIVE)
[2024-07-27] VITALS (15 sets, daily range): BP systolic 103–112; BP diastolic 66–74; PULSE 73–99; RESP 18–27; TEMP 98–98.3; O2SAT 90–98
[2024-07-27] MEDS: GuaiFENesin [SUGAR-FREE] 200 MG/10 ML SOLUTION UDCUP PO PRN (05:05)
[2024-07-27 07:05] LABS: BASOPHILS % (AUTO) 0.1 % (0.0-2.0); EOSINOPHILS % (AUTO) 0 % (1.0-6.0); HEMATOCRIT 38.8 % (41-53); HEMOGLOBIN 12.5 g/dL (13.5-17.5); LYMPHOCYTES # (AUTO) 0.2 K/uL (1.0-4.8); MEAN CORPUSCULAR HEMOGLOBIN 29.2 pg (26.0-34.0); MEAN CORPUSCULAR HGB CONC 32.2 G/dL (31.0-37.0); MEAN CORPUSCULAR VOLUME 91 fL (80-100); MONOCYTES # (AUTO) 0.4 K/uL (0.1-1.0); MONOCYTES % (AUTO) 2.5 % (2.0-9.0); NEUTROPHILS # (AUTO) 15.1 K/uL (1.8-7.7); PLATELET COUNT (AUTO) 305 K/uL (150-450); RED BLOOD CELL COUNT(AUTO) 4.27 MIL/uL (4.50-5.90); RED CELL DISTRIBUTION WIDTH 15.5 % (11.5-14.5); WHITE BLOOD COUNT (AUTO) 15.7 K/uL (4.5-11.0)
[2024-07-27 07:19] LABS: NEUTROPHILS % (AUTO) 96.4 % (40.0-70.0)
[2024-07-27 07:23] LABS: CALCIUM, TOTAL 8.5 mg/dL (8.8-10.5); CREATININE 1.42 mg/dL (0.60-1.30); POTASSIUM 3.7 mmol/L (3.5-5.1)
[2024-07-27] MEDS: ETHYL ALCOHOL 62% ANTISEPTIC NASAL SANITIZER 0.6 ML AMPUL NASAL SCH (08:28)
[2024-07-27] MEDS: ALBUTEROL SULFATE 2.5 MG/0.5 ML NEB SOLUTION NEB PRN (17:35)
[2024-07-27] MEDS: IPRATROPIUM BROMIDE 0.5 MG/2.5 ML NEB SOLUTION NEB PRN (17:35)
[2024-07-28] VITALS (13 sets, daily range): BP systolic 109–120; BP diastolic 60–83; PULSE 72–99; RESP 18–20; TEMP 97.7–98.7; O2SAT 92–100
[2024-07-28 07:12] LABS: BASOPHILS % (AUTO) 0.1 % (0.0-2.0); EOSINOPHILS % (AUTO) 0 % (1.0-6.0); HEMATOCRIT 38.3 % (41-53); HEMOGLOBIN 12.2 g/dL (13.5-17.5); LYMPHOCYTES # (AUTO) 0.2 K/uL (1.0-4.8); MEAN CORPUSCULAR HEMOGLOBIN 28.9 pg (26.0-34.0); MEAN CORPUSCULAR HGB CONC 31.7 G/dL (31.0-37.0); MEAN CORPUSCULAR VOLUME 91 fL (80-100); MONOCYTES # (AUTO) 0.8 K/uL (0.1-1.0); MONOCYTES % (AUTO) 3.9 % (2.0-9.0); NEUTROPHILS # (AUTO) 19.8 K/uL (1.8-7.7); PLATELET COUNT (AUTO) 324 K/uL (150-450); RED BLOOD CELL COUNT(AUTO) 4.21 MIL/uL (4.50-5.90); RED CELL DISTRIBUTION WIDTH 15.7 % (11.5-14.5); WHITE BLOOD COUNT (AUTO) 20.9 K/uL (4.5-11.0)
[2024-07-28 07:13] LABS: CALCIUM, TOTAL 8.4 mg/dL (8.8-10.5); CREATININE 1.45 mg/dL (0.60-1.30); POTASSIUM 3.6 mmol/L (3.5-5.1)
[2024-07-28] MEDS: FLUTICASONE/VILANTEROL 200-25 MCG/INH INHALER [14] IH SCH (12:49)
[2024-07-28] MEDS: BENZONATATE 100 MG CAPSULE PO SCH (15:13)
[2024-07-29 01:00] VITALS: PULSE 95; RESP 20; O2SAT 94
[2024-07-29 01:10] VITALS: PULSE 95; RESP 20; O2SAT 95
[2024-07-29 04:09] VITALS: BP 127/96; PULSE 87; RESP 19; TEMP 98; O2SAT 96
[2024-07-29 07:06] LABS: CALCIUM, TOTAL 8.3 mg/dL (8.8-10.5); CREATININE 1.48 mg/dL (0.60-1.30); POTASSIUM 3.8 mmol/L (3.5-5.1)
[2024-07-29 07:15] LABS: EOSINOPHILS % (AUTO) 0 % (1.0-6.0); HEMATOCRIT 36.4 % (41-53); HEMOGLOBIN 11.7 g/dL (13.5-17.5); LYMPHOCYTES # (AUTO) 0.2 K/uL (1.0-4.8); LYMPHOCYTES % (AUTO) 1.1 % (22.0-44.0); MEAN CORPUSCULAR HEMOGLOBIN 29.1 pg (26.0-34.0); MEAN CORPUSCULAR HGB CONC 32.1 G/dL (31.0-37.0); MEAN CORPUSCULAR VOLUME 91 fL (80-100); MONOCYTES % (AUTO) 4.6 % (2.0-9.0); NEUTROPHILS # (AUTO) 19.8 K/uL (1.8-7.7); PLATELET COUNT (AUTO) 310 K/uL (150-450); RED BLOOD CELL COUNT(AUTO) 4.02 MIL/uL (4.50-5.90); RED CELL DISTRIBUTION WIDTH 15.6 % (11.5-14.5); WHITE BLOOD COUNT (AUTO) 20.9 K/uL (4.5-11.0)
[2024-07-29 07:19] LABS: NEUTROPHILS % (AUTO) 94.3 % (40.0-70.0)
[2024-07-29 07:59] VITALS: BP 112/78; PULSE 83; PULSE 84; RESP 18; RESP 20; TEMP 98.1; O2SAT 93; O2SAT 96; O2SAT 98
[2024-07-29 08:14] VITALS: PULSE 81; RESP 20; O2SAT 96
[2024-07-29 10:30] VITALS: BP 109/73; PULSE 82; RESP 19; TEMP 98.1; O2SAT 95
[2024-07-29] MEDS ORDERED: IPRA3AMP24 NEB (11:18)
[2024-07-29] MEDS ORDERED: PRED-554 PO (11:18)
[2024-07-29] MEDS ORDERED: METO25XL PO (11:18)
[2024-07-29] MEDS ORDERED: LOSA-417 PO (11:18)
== END 2024-07-29 12:40 | disposition home or self-care (01) | DRG 140 ==
LOC: EMS 21:26 → EDH 07-26 01:20 → 5S 07-26 02:06
PROVIDERS: ADMIT Internal Medicine; ATTEND Internal Medicine
DX: J44.1 Chronic obstructive pulmonary disease with (acute) exacerbation (principal); J96.00 Acute respiratory failure, unspecified whether with hypoxia or hypercapnia; I50.23 Acute on chronic systolic (congestive) heart failure; E44.0 Moderate protein-calorie malnutrition; I13.0 Hypertensive heart and chronic kidney disease with heart failure and stage 1 through stage 4 chronic kidney disease, or unspecified chronic kidney disease; E78.5 Hyperlipidemia, unspecified; N18.30 Chronic kidney disease, stage 3 unspecified; F15.90 Other stimulant use, unspecified, uncomplicated; D72.829 Elevated white blood cell count, unspecified; F41.9 Anxiety disorder, unspecified; F32.A Depression, unspecified; Z87.891 Personal history of nicotine dependence; T38.0X5A Adverse effect of glucocorticoids and synthetic analogues, initial encounter; Z91.148 Patient's other noncompliance with medication regimen for other reason; Y92.89 Other specified places as the place of occurrence of the external cause; Z68.22 Body mass index [BMI] 22.0-22.9, adult
CPT/HCPCS: 71045; 80048; 80076; 80307; 82550; 83880; 84484; 85025; 87081; 93005; 94060; 94640; 96374; 99285; G0378; J1644; J1940; J2919; 36415-L1; 36415-TC; J7613

== ENCOUNTER → 2024-07-29 | Emergency (ER) | payer MEDICAID ==
[~2024-07-29] VITALS: Ht 160 cm; Wt 54.5 kg
[~2024-07-29] MED LIST changes: +CefTRIAXone 1 GM/DEXTROSE 50 ML IV ONE
[2024-07-29 17:52] VITALS: TEMP 98.2
[2024-07-29 21:13] VITALS: BP 124/92
[2024-07-29] MEDS: ALBUTEROL SULFATE HFA 90 MCG/PUFF 8 GM INHALER IH ONE (21:36)
[2024-07-29 21:45] VITALS: PULSE 89; RESP 20; O2SAT 94
== END | disposition home or self-care (01) ==
LOC: EMS 17:54
DX: J44.1 Chronic obstructive pulmonary disease with (acute) exacerbation (principal); J45.901 Unspecified asthma with (acute) exacerbation; F25.9 Schizoaffective disorder, unspecified; I11.0 Hypertensive heart disease with heart failure; I50.9 Heart failure, unspecified; F12.90 Cannabis use, unspecified, uncomplicated; Z79.51 Long term (current) use of inhaled steroids; Z79.52 Long term (current) use of systemic steroids; Z79.82 Long term (current) use of aspirin; Z79.899 Other long term (current) drug therapy
CPT/HCPCS: 99285; 82962; J3535; 94640

== ENCOUNTER 2024-07-30 16:39 | Emergency (ER) | payer MEDICAID ==
[~2024-07-30] VITALS: Ht 167.6 cm; Wt 59.1 kg
[~2024-07-30 16:39] MED LIST changes: -AZIT250T9 PO; -CefTRIAXone 1 GM/DEXTROSE 50 ML IV ONE
[2024-07-30 16:55] VITALS: TEMP 98.5
[2024-07-30] MEDS: IPRATROPIUM BROMIDE 0.5 MG/2.5 ML NEB SOLUTION NEB ONE (18:19)
[2024-07-30] MEDS: ALBUTEROL SULFATE 2.5 MG/0.5 ML 5 ML NEB SOLUTION NEB ONE (18:20)
[2024-07-30 18:22] VITALS: PULSE 88; RESP 26; O2SAT 93
[2024-07-30 18:57] VITALS: BP 121/87; PULSE 88
[2024-07-30 19:57] VITALS: RESP 18; O2SAT 91
== END 2024-07-30 20:52 | disposition home or self-care (01) ==
LOC: EMS 16:39
DX: J44.1 Chronic obstructive pulmonary disease with (acute) exacerbation (principal); J45.901 Unspecified asthma with (acute) exacerbation; F25.9 Schizoaffective disorder, unspecified; I11.0 Hypertensive heart disease with heart failure; I50.9 Heart failure, unspecified; F12.90 Cannabis use, unspecified, uncomplicated; F17.210 Nicotine dependence, cigarettes, uncomplicated; Z79.51 Long term (current) use of inhaled steroids; Z79.52 Long term (current) use of systemic steroids; Z79.82 Long term (current) use of aspirin; Z79.899 Other long term (current) drug therapy
CPT/HCPCS: 94644; 99285

== ENCOUNTER 2024-08-03 17:27 | Emergency (ER) | payer MEDICAID ==
[~2024-08-03] VITALS: Ht 167.6 cm; Wt 59.0 kg
[2024-08-03 17:28] VITALS: BP 125/84; TEMP 97.7
[2024-08-03 18:39] LABS: BASOPHILS % (AUTO) 0.5 % (0.0-2.0); EOSINOPHILS % (AUTO) 0.8 % (1.0-6.0); HEMOGLOBIN 12.5 g/dL (13.5-17.5); LYMPHOCYTES # (AUTO) 0.5 K/uL (1.0-4.8); MEAN CORPUSCULAR HGB CONC 31.9 G/dL (31.0-37.0); MEAN CORPUSCULAR VOLUME 91 fL (80-100); MONOCYTES % (AUTO) 7.4 % (2.0-9.0); NEUTROPHILS # (AUTO) 11.6 K/uL (1.8-7.7); PLATELET COUNT (AUTO) 272 K/uL (150-450); RED CELL DISTRIBUTION WIDTH 16.4 % (11.5-14.5); WHITE BLOOD COUNT (AUTO) 13.3 K/uL (4.5-11.0)
[2024-08-03 18:42] LABS: NEUTROPHILS % (AUTO) 87.3 % (40.0-70.0)
[2024-08-03 18:46] LABS: ANION GAP 7 mmol/L (8-16); CALCIUM, TOTAL 8.3 mg/dL (8.8-10.5); CARBON DIOXIDE 32 mmol/L (22-29); CHLORIDE 107 mmol/L (98-107); CREATININE 1.33 mg/dL (0.60-1.30); GLOMERULAR FILTR. RATE CALC 54 mL/min (>60); GLUCOSE,RANDOM 116 mg/dL (70-110); POTASSIUM 4.6 mmol/L (3.5-5.1); SODIUM SERUM 146 mmol/L (136-145); UREA NITROGEN, BLOOD 36 mg/dL (7-18)
[2024-08-03 18:55] LABS: CREATINE KINASE, TOTAL ONLY 115 U/L (39-308)
[2024-08-03 19:00] LABS: B-TYPE NATRIURETIC PEPTIDE 1440 pg/mL (0-100)
[2024-08-03 19:02] LABS: TROPONIN I-HIGH SENSITIVITY 85 ng/L (<76)
[2024-08-03] MEDS: MethylPREDNISolone SOD SUCC 125 MG/2 ML VIAL IVP ONE (19:04)
[2024-08-03] MEDS: ALBUTEROL SULFATE 2.5 MG/0.5 ML NEB SOLUTION NEB ONE ×2 (19:17→20:34)
[2024-08-03] MEDS: IPRATROPIUM BROMIDE 0.5 MG/2.5 ML NEB SOLUTION NEB ONE (19:17)
[2024-08-03 19:20] VITALS: PULSE 104; RESP 32; O2SAT 97
[2024-08-03 19:35] VITALS: PULSE 110; RESP 30; O2SAT 99
[2024-08-03] MEDS ORDERED: 0.9% SODIUM CHLORIDE 5 ML NEB SOLUTION NEB ONE (20:27)
[2024-08-03 20:35] VITALS: PULSE 103; RESP 30; O2SAT 96
[2024-08-03 20:36] LABS: TROPONIN I-HIGH SENSITIVITY 78 ng/L (<76)
[2024-08-03 20:50] VITALS: PULSE 101; RESP 28; O2SAT 100
[2024-08-03] MEDS ORDERED: PRED-554 PO (21:09)
[2024-08-03 21:31] LABS: TROPONIN I-HIGH SENSITIVITY 91 ng/L (<76)
== END 2024-08-03 22:28 | disposition home or self-care (01) ==
LOC: EMS 17:27
DX: J44.1 Chronic obstructive pulmonary disease with (acute) exacerbation (principal); I11.0 Hypertensive heart disease with heart failure; I50.9 Heart failure, unspecified; F12.90 Cannabis use, unspecified, uncomplicated; F15.90 Other stimulant use, unspecified, uncomplicated; F17.210 Nicotine dependence, cigarettes, uncomplicated; Z79.51 Long term (current) use of inhaled steroids; Z79.52 Long term (current) use of systemic steroids; Z79.82 Long term (current) use of aspirin; Z79.899 Other long term (current) drug therapy; Z95.0 Presence of cardiac pacemaker; Z72.89 Other problems related to lifestyle
CPT/HCPCS: 99291; 96374; 99406; 80048; 82550; 83880; 84484; 85025; 36415; 71045; 93005; 94640; J2919; J7613

== ENCOUNTER → 2024-08-05 | Emergency (ER) | payer MEDICAID ==
[~2024-08-05] VITALS: Ht 167.6 cm; Wt 59.1 kg
[2024-08-05 13:46] VITALS: TEMP 98.9
[2024-08-05] MEDS: IPRATROPIUM BROMIDE 0.5 MG/2.5 ML NEB SOLUTION NEB ONE (14:10)
[2024-08-05] MEDS: ALBUTEROL SULFATE 2.5 MG/0.5 ML NEB SOLUTION NEB ONE (14:10)
[2024-08-05 14:11] VITALS: PULSE 100; RESP 22; O2SAT 94
[2024-08-05 14:15] VITALS: PULSE 100; RESP 22; O2SAT 94
[2024-08-05 14:25] LABS: BASOPHILS % (AUTO) 0.1 % (0.0-2.0); EOSINOPHILS % (AUTO) 0.1 % (1.0-6.0); HEMATOCRIT 38.4 % (41-53); HEMOGLOBIN 12.4 g/dL (13.5-17.5); LYMPHOCYTES # (AUTO) 0.2 K/uL (1.0-4.8); LYMPHOCYTES % (AUTO) 1.5 % (22.0-44.0); MEAN CORPUSCULAR HEMOGLOBIN 29.1 pg (26.0-34.0); MEAN CORPUSCULAR HGB CONC 32.4 G/dL (31.0-37.0); MEAN CORPUSCULAR VOLUME 90 fL (80-100); MONOCYTES # (AUTO) 0.4 K/uL (0.1-1.0); MONOCYTES % (AUTO) 2.8 % (2.0-9.0); NEUTROPHILS # (AUTO) 12.2 K/uL (1.8-7.7); PLATELET COUNT (AUTO) 272 K/uL (150-450); RED BLOOD CELL COUNT(AUTO) 4.27 MIL/uL (4.50-5.90); RED CELL DISTRIBUTION WIDTH 16.1 % (11.5-14.5); WHITE BLOOD COUNT (AUTO) 12.8 K/uL (4.5-11.0)
[2024-08-05 14:26] VITALS: PULSE 99; RESP 22; O2SAT 95
[2024-08-05 14:28] LABS: NEUTROPHILS % (AUTO) 95.5 % (40.0-70.0)
[2024-08-05 14:41] LABS: ANION GAP 7 mmol/L (8-16); CALCIUM, TOTAL 8.4 mg/dL (8.8-10.5); CARBON DIOXIDE 27 mmol/L (22-29); CHLORIDE 103 mmol/L (98-107); CREATININE 1.14 mg/dL (0.60-1.30); GLOMERULAR FILTR. RATE CALC > 60 mL/min (>60); GLUCOSE,RANDOM 90 mg/dL (70-110); POTASSIUM 4.7 mmol/L (3.5-5.1); SODIUM SERUM 137 mmol/L (136-145); UREA NITROGEN, BLOOD 42 mg/dL (7-18)
[2024-08-05 14:43] LABS: B-TYPE NATRIURETIC PEPTIDE 1960 pg/mL (0-100)
[2024-08-05 14:48] LABS: TROPONIN I-HIGH SENSITIVITY 66 ng/L (<76)
[2024-08-05] MEDS: FUROSEMIDE 20 MG TABLET PO ONE (17:09)
[2024-08-05 20:12] VITALS: BP 161/89; PULSE 105; RESP 24; O2SAT 94
== END | disposition home or self-care (01) ==
LOC: EMS 13:28
DX: J44.1 Chronic obstructive pulmonary disease with (acute) exacerbation (principal); J45.901 Unspecified asthma with (acute) exacerbation; R07.2 Precordial pain; I11.0 Hypertensive heart disease with heart failure; I50.9 Heart failure, unspecified; F12.90 Cannabis use, unspecified, uncomplicated; F17.210 Nicotine dependence, cigarettes, uncomplicated; Z79.51 Long term (current) use of inhaled steroids; Z79.52 Long term (current) use of systemic steroids; Z79.82 Long term (current) use of aspirin; Z79.899 Other long term (current) drug therapy
CPT/HCPCS: 71045; 80048; 83880; 84484; 85025; 93005; 94640; 99285; 36415-L1; 36415-TC; J7613

== ENCOUNTER 2024-08-15 16:24 | Inpatient (IN) | payer MEDICAID ==
[~2024-08-15] VITALS: Ht 165.1 cm; Wt 50.6 kg
[2024-08-15] MEDS: MethylPREDNISolone SOD SUCC 125 MG/2 ML VIAL IVP ONE (16:53)
[2024-08-15] MEDS ORDERED: MethylPREDNISolone SOD SUCC 125 MG/2 ML VIAL IVP ONE (17:15)
[2024-08-15] MEDS: ALBUTEROL SULFATE 2.5 MG/0.5 ML 5 ML NEB SOLUTION NEB ONE (17:18)
[2024-08-15] MEDS: IPRATROPIUM BROMIDE 0.5 MG/2.5 ML NEB SOLUTION NEB ONE (17:18)
[2024-08-15 17:19] LABS: BASOPHILS % (AUTO) 0.4 % (0.0-2.0); EOSINOPHILS % (AUTO) 2.1 % (1.0-6.0); HEMATOCRIT 41.9 % (41-53); HEMOGLOBIN 13.1 g/dL (13.5-17.5); LYMPHOCYTES # (AUTO) 1.5 K/uL (1.0-4.8); LYMPHOCYTES % (AUTO) 15.5 % (22.0-44.0); MEAN CORPUSCULAR HEMOGLOBIN 28.8 pg (26.0-34.0); MEAN CORPUSCULAR HGB CONC 31.3 G/dL (31.0-37.0); MEAN CORPUSCULAR VOLUME 92 fL (80-100); MONOCYTES # (AUTO) 1.1 K/uL (0.1-1.0); MONOCYTES % (AUTO) 11.6 % (2.0-9.0); NEUTROPHILS # (AUTO) 6.6 K/uL (1.8-7.7); NEUTROPHILS % (AUTO) 70.4 % (40.0-70.0); PLATELET COUNT (AUTO) 411 K/uL (150-450); RED BLOOD CELL COUNT(AUTO) 4.55 MIL/uL (4.50-5.90); RED CELL DISTRIBUTION WIDTH 17.1 % (11.5-14.5); WHITE BLOOD COUNT (AUTO) 9.4 K/uL (4.5-11.0)
[2024-08-15 17:21] VITALS: PULSE 86; RESP 20; O2SAT 99
[2024-08-15 17:22] VITALS: PULSE 89; RESP 18; O2SAT 98
[2024-08-15] MEDS: ASPIRIN 325 MG TABLET PO ONE (17:27)
[2024-08-15] MEDS: FUROSEMIDE 40 MG/4 ML VIAL IVP ONE (17:27)
[2024-08-15 17:31] LABS: ALCOHOL, BLOOD (SERUM) < 3 mg/dL (0-10)
[2024-08-15 17:35] LABS: ANION GAP 7 mmol/L (8-16); CARBON DIOXIDE 32 mmol/L (22-29); CHLORIDE 104 mmol/L (98-107); CREATININE 1.43 mg/dL (0.60-1.30); GLOMERULAR FILTR. RATE CALC 50 mL/min (>60); GLUCOSE,RANDOM 124 mg/dL (70-110); LIPASE 59 U/L (16-77); POTASSIUM 4.8 mmol/L (3.5-5.1); SODIUM SERUM 143 mmol/L (136-145); TROPONIN I-HIGH SENSITIVITY 65 ng/L (<76); UREA NITROGEN, BLOOD 28 mg/dL (7-18)
[2024-08-15 17:42] LABS: CALCIUM, TOTAL 8.3 mg/dL (8.8-10.5); LACTIC ACID 2.9 mmol/L (0.4-2.0)
[2024-08-15 17:47] LABS: B-TYPE NATRIURETIC PEPTIDE 3300 pg/mL (0-100)
[2024-08-15 18:17] LABS: APPEARANCE,URINE CLEAR (CLEAR); BILIRUBIN,URINE NEGATIVE (NEGATIVE); COLOR,URINE YELLOW (YELLOW); GLUCOSE, URINE (UA) NEGATIVE (NEGATIVE); KETONES,URINE NEGATIVE (NEGATIVE); LEUKOCYTE ESTERASE ,URINE NEGATIVE (NEGATIVE); NITRATE,URINE NEGATIVE (NEGATIVE); OCCULT BLOOD,URINE SMALL (NEGATIVE); PROTEIN,URINE 300-600,SEE CONFIRM mg/dL (NEGATIVE); SPECIFIC GRAVITIY, URINE 1.024 (1.003-1.030); UROBILINOGEN,URINE <=1.0 mg/dL (<=1.0)
[2024-08-15 18:24] LABS: ALCOHOL, URINE DRUG SCREEN NEGATIVE (NEGATIVE); AMPHET/METH SCREEN,URINE POSITIVE (NEGATIVE); BARBITURATE SCREEN, URINE NEGATIVE (NEGATIVE); BENZODIAZEPINES SCREEN,URINE NEGATIVE (NEGATIVE); CANNABINOID SCREEN,URINE NEGATIVE (NEGATIVE); COCAINE SCREEN,URINE NEGATIVE (NEGATIVE); METHADONE SCREEN, URINE NEGATIVE (NEGATIVE); OPIATE SCREEN,URINE NEGATIVE (NEGATIVE); PHENCYCLIDINE SCREEN,URINE NEGATIVE (NEGATIVE)
[2024-08-15] MEDS ORDERED: ACETAMINOPHEN 325 MG TABLET PO PRN (18:30)
[2024-08-15] MEDS ORDERED: ONDANSETRON HCL 4 MG/2 ML VIAL IVP PRN (18:30)
[2024-08-15 18:43] LABS: SULFOSALICYLIC ACID,URINE 2+ (Negative)
[2024-08-15 18:44] LABS: BACTERIA,URINE Rare /HPF (None Seen); RBC,URINE 0-2 /HPF (0-2); SQUAMOUS EPITHELIAL CELL,UR Rare /LPF (None Seen); WBC,URINE 0-2 /HPF (0-5)
[2024-08-15 20:00] VITALS: BP 119/81; PULSE 93; RESP 18; TEMP 98.1; O2SAT 99
[2024-08-15] MEDS ORDERED: MISC MED-CONVERTED FROM AMBULATORY (Ipratropium/Albuterol Sulfate (Duoneb 2.5-0.5 Mg/3 Ml NEB SCH (21:00)
[2024-08-15 21:14] VITALS: PULSE 93; RESP 18; RESP 20; O2SAT 97
[2024-08-15] MEDS: IPRATROPIUM BROMIDE 0.5 MG/2.5 ML NEB SOLUTION NEB SCH (21:14)
[2024-08-15] MEDS: CARVEDILOL 3.125 MG TABLET PO SCH (21:14)
[2024-08-15] MEDS: DOCUSATE SODIUM 100 MG CAPSULE PO SCH (21:14)
[2024-08-15] MEDS: ALBUTEROL SULFATE 2.5 MG/0.5 ML NEB SOLUTION NEB SCH (21:14)
[2024-08-15] MEDS: FUROSEMIDE 20 MG TABLET PO SCH (21:14)
[2024-08-15 21:29] VITALS: PULSE 85; RESP 20; O2SAT 95
[2024-08-15 23:10] VITALS: BP 101/76; PULSE 87; RESP 19; TEMP 98.2; O2SAT 98
[2024-08-16] VITALS (15 sets, daily range): BP systolic 105–112; BP diastolic 65–88; PULSE 65–89; RESP 17–20; TEMP 97.5–98.5; O2SAT 94–99
[2024-08-16] MEDS: SODIUM CHLORIDE 0.9% 250 ML IV ONE (00:28)
[2024-08-16] MEDS: HEPARIN SODIUM,PORCINE 5,000 UNITS/ML VIAL SQ SCH (00:28)
[2024-08-16] MEDS: ALBUTEROL SULFATE 2.5 MG/0.5 ML NEB SOLUTION NEB PRN (04:41)
[2024-08-16] MEDS: IPRATROPIUM BROMIDE 0.5 MG/2.5 ML NEB SOLUTION NEB PRN (04:41)
[2024-08-16 05:47] LABS: EOSINOPHILS % (AUTO) 0 % (1.0-6.0); HEMATOCRIT 36.6 % (41-53); HEMOGLOBIN 11.8 g/dL (13.5-17.5); LYMPHOCYTES # (AUTO) 0.2 K/uL (1.0-4.8); LYMPHOCYTES % (AUTO) 3.3 % (22.0-44.0); MEAN CORPUSCULAR HEMOGLOBIN 28.8 pg (26.0-34.0); MEAN CORPUSCULAR HGB CONC 32.2 G/dL (31.0-37.0); MEAN CORPUSCULAR VOLUME 90 fL (80-100); MONOCYTES # (AUTO) 0.1 K/uL (0.1-1.0); MONOCYTES % (AUTO) 1.7 % (2.0-9.0); NEUTROPHILS # (AUTO) 4.6 K/uL (1.8-7.7); PLATELET COUNT (AUTO) 349 K/uL (150-450); RED BLOOD CELL COUNT(AUTO) 4.08 MIL/uL (4.50-5.90); RED CELL DISTRIBUTION WIDTH 16.9 % (11.5-14.5); WHITE BLOOD COUNT (AUTO) 4.9 K/uL (4.5-11.0)
[2024-08-16 05:54] LABS: CALCIUM, TOTAL 7.7 mg/dL (8.8-10.5); CREATININE 1.36 mg/dL (0.60-1.30); MAGNESIUM 1.4 mg/dL (1.80-2.40); POTASSIUM 4.7 mmol/L (3.5-5.1)
[2024-08-16] MEDS ORDERED: POTASSIUM CHLORIDE 20 MEQ ER TABLET PO PRN (06:30)
[2024-08-16] MEDS ORDERED: MAGNESIUM SULFATE 4 GM/WATER 100 ML IV PRN (06:30)
[2024-08-16] MEDS ORDERED: POTASSIUM CHL 10 MEQ/WATER 50 ML IV PRN (06:30)
[2024-08-16] MEDS ORDERED: MAGNESIUM OXIDE 400 MG TABLET PO PRN (06:30)
[2024-08-16] MEDS: FLUTICASONE/SALMETEROL 250-50 MCG/INH INHALER [60] IH SCH (08:35)
[2024-08-16] MEDS: MethylPREDNISolone SOD SUCC 125 MG/2 ML VIAL IVP SCH (08:36)
[2024-08-16] MEDS: ASPIRIN 81 MG DR TABLET PO SCH (08:36)
[2024-08-16] MEDS: OMEPRAZOLE 20 MG CAPSULE PO SCH (08:36)
[2024-08-16] MEDS: FUROSEMIDE 20 MG/2 ML VIAL IVP SCH (08:37)
[2024-08-16] MEDS: MAGNESIUM SULFATE 2 GM/WATER 50 ML IV PRN (08:38)
[2024-08-16] MEDS ORDERED: SODIUM CHLORIDE 0.9% 500 ML IV ONE (08:39)
[2024-08-16] MEDS ORDERED: MethylPREDNISolone SOD SUCC 125 MG/2 ML VIAL IVP SCH (08:45)
[2024-08-16] MEDS ORDERED: METOPROLOL SUCCINATE 25 MG ER TABLET PO SCH (09:00)
[2024-08-16] MEDS ORDERED: LOSARTAN POTASSIUM 25 MG TABLET PO SCH (09:00)
[2024-08-16] MEDS: MAGNESIUM SULFATE 2 GM/WATER 50 ML IV ONE (09:24)
[2024-08-16 09:46] LABS: LACTIC ACID 2.6 mmol/L (0.4-2.0)
[2024-08-17] VITALS (10 sets, daily range): BP systolic 103–112; BP diastolic 70–89; PULSE 62–96; RESP 16–22; TEMP 97.5–98.4; O2SAT 93–99
[2024-08-17] MEDS: METOPROLOL SUCCINATE 25 MG ER TABLET PO SCH (08:15)
[2024-08-18] VITALS (14 sets, daily range): BP systolic 97–107; BP diastolic 53–92; PULSE 66–92; RESP 18–22; TEMP 97.5–98.1; O2SAT 92–98
[2024-08-18] MEDS: ETHYL ALCOHOL 62% ANTISEPTIC NASAL SANITIZER 0.6 ML AMPUL NASAL SCH (08:45)
[2024-08-18] MEDS ORDERED: PRED-554 PO (15:47)
[2024-08-18 16:16] LABS: BASOPHILS % (AUTO) 1.1 % (0.0-2.0); EOSINOPHILS % (AUTO) 0 % (1.0-6.0); HEMOGLOBIN 12.4 g/dL (13.5-17.5); LYMPHOCYTES # (AUTO) 0.1 K/uL (1.0-4.8); LYMPHOCYTES % (AUTO) 1.3 % (22.0-44.0); MEAN CORPUSCULAR HEMOGLOBIN 28.5 pg (26.0-34.0); MEAN CORPUSCULAR HGB CONC 31.8 G/dL (31.0-37.0); MEAN CORPUSCULAR VOLUME 90 fL (80-100); MONOCYTES # (AUTO) 0.1 K/uL (0.1-1.0); MONOCYTES % (AUTO) 1.4 % (2.0-9.0); NEUTROPHILS # (AUTO) 9.5 K/uL (1.8-7.7); PLATELET COUNT (AUTO) 387 K/uL (150-450); RED BLOOD CELL COUNT(AUTO) 4.34 MIL/uL (4.50-5.90); WHITE BLOOD COUNT (AUTO) 9.8 K/uL (4.5-11.0)
[2024-08-18 16:24] LABS: CALCIUM, TOTAL 8.3 mg/dL (8.8-10.5); CREATININE 1.45 mg/dL (0.60-1.30); NEUTROPHILS % (AUTO) 96.2 % (40.0-70.0); POTASSIUM 4.2 mmol/L (3.5-5.1)
[2024-08-18 16:41] LABS: LACTIC ACID 3.9 mmol/L (0.4-2.0)
== END 2024-08-18 18:05 | disposition home or self-care (01) | DRG 194 ==
LOC: EMS 16:24 → EDH 18:17 → 5S 20:00
PROVIDERS: ADMIT Internal Medicine; ATTEND Internal Medicine
DX: I11.0 Hypertensive heart disease with heart failure (principal); J96.01 Acute respiratory failure with hypoxia; J69.0 Pneumonitis due to inhalation of food and vomit; T78.3XXA Angioneurotic edema, initial encounter; F15.10 Other stimulant abuse, uncomplicated; I50.43 Acute on chronic combined systolic (congestive) and diastolic (congestive) heart failure; F32.A Depression, unspecified; I42.9 Cardiomyopathy, unspecified; J44.89 Other specified chronic obstructive pulmonary disease; E83.42 Hypomagnesemia; F41.9 Anxiety disorder, unspecified; Z83.3 Family history of diabetes mellitus; Z82.49 Family history of ischemic heart disease and other diseases of the circulatory system; Z91.199 Patient's noncompliance with other medical treatment and regimen due to unspecified reason; Z87.891 Personal history of nicotine dependence; Z95.810 Presence of automatic (implantable) cardiac defibrillator
CPT/HCPCS: 71045; 80048; 80307; 81001; 81002; 82040; 83605; 83690; 83735; 83880; 84484; 85025; 87081; 93005; 94640; 94644; 96374; 96375; 99291; G0480; J1644; J1940; J2919; J3475; J3535; J7040; J7050; 36415-L1; 36415-TC; J7613

== ENCOUNTER 2024-08-20 11:37 | Inpatient (IN) | payer MEDICAID ==
[2024-08-19 21:30] VITALS: PULSE 93; RESP 24; O2SAT 95
[2024-08-19 21:45] VITALS: PULSE 97; RESP 22; O2SAT 99
[~2024-08-20] VITALS: Ht 167.6 cm; Wt 55.2 kg
[~2024-08-20 11:37] MED LIST changes: -LOSA-417 PO
[2024-08-20 12:13] LABS: BASOPHILS % (AUTO) 0.4 % (0.0-2.0); EOSINOPHILS % (AUTO) 1.1 % (1.0-6.0); HEMATOCRIT 41.6 % (41-53); HEMOGLOBIN 12.9 g/dL (13.5-17.5); LYMPHOCYTES # (AUTO) 0.6 K/uL (1.0-4.8); LYMPHOCYTES % (AUTO) 8.9 % (22.0-44.0); MEAN CORPUSCULAR VOLUME 90 fL (80-100); MONOCYTES # (AUTO) 0.9 K/uL (0.1-1.0); MONOCYTES % (AUTO) 12.9 % (2.0-9.0); NEUTROPHILS # (AUTO) 5.5 K/uL (1.8-7.7); NEUTROPHILS % (AUTO) 76.7 % (40.0-70.0); PLATELET COUNT (AUTO) 389 K/uL (150-450); RED BLOOD CELL COUNT(AUTO) 4.61 MIL/uL (4.50-5.90); RED CELL DISTRIBUTION WIDTH 16.6 % (11.5-14.5); WHITE BLOOD COUNT (AUTO) 7.2 K/uL (4.5-11.0)
[2024-08-20 12:15] LABS: ANION GAP -2 mmol/L (8-16); CALCIUM, TOTAL 8.4 mg/dL (8.8-10.5); CARBON DIOXIDE 36 mmol/L (22-29); CHLORIDE 102 mmol/L (98-107); CREATININE 1.33 mg/dL (0.60-1.30); GLOMERULAR FILTR. RATE CALC 54 mL/min (>60); GLUCOSE,RANDOM 101 mg/dL (70-110); POTASSIUM 4.7 mmol/L (3.5-5.1); SODIUM SERUM 136 mmol/L (136-145); UREA NITROGEN, BLOOD 43 mg/dL (7-18)
[2024-08-20 12:24] LABS: TROPONIN I-HIGH SENSITIVITY 66 ng/L (<76)
[2024-08-20 12:27] LABS: B-TYPE NATRIURETIC PEPTIDE 1970 pg/mL (0-100)
[2024-08-20] MEDS: ALBUTEROL SULFATE 2.5 MG/0.5 ML 5 ML NEB SOLUTION NEB ONE (15:02)
[2024-08-20] MEDS: IPRATROPIUM BROMIDE 0.5 MG/2.5 ML NEB SOLUTION NEB ONE ×2 (15:02→21:27)
[2024-08-20 15:03] VITALS: PULSE 94; RESP 40; O2SAT 95
[2024-08-20] MEDS: MethylPREDNISolone SOD SUCC 125 MG/2 ML VIAL IVP ONE (15:37)
[2024-08-20 16:10] VITALS: PULSE 93; RESP 22; O2SAT 94
[2024-08-20] MEDS ORDERED: ALBUTEROL SULFATE 2.5 MG/0.5 ML 5 ML NEB SOLUTION NEB ONE (21:00)
[2024-08-20] MEDS ORDERED: ALBUTEROL SULFATE 2.5 MG/0.5 ML NEB SOLUTION NEB ONE (21:03)
[2024-08-20] MEDS: ALBUTEROL SULFATE 2.5 MG/0.5 ML NEB SOLUTION NEB ONE (21:27)
[2024-08-20 21:30] VITALS: PULSE 93; RESP 24; O2SAT 95
[2024-08-20] MEDS ORDERED: MAGNESIUM HYDROXIDE SUSPENSION 30 ML UDCUP PO PRN (23:30)
[2024-08-20] MEDS ORDERED: BISACODYL 10 MG RECTAL RECTAL SUPPOSITORY PR PRN (23:30)
[2024-08-20] MEDS ORDERED: ACETAMINOPHEN 325 MG TABLET PO PRN (23:30)
[2024-08-20] MEDS ORDERED: OxyCODONE HCL/ACETAMINOPHEN 5-325 MG TABLET PO PRN (23:30)
[2024-08-20] MEDS ORDERED: MORPHINE SULFATE 2 MG/ML SYRINGE IVP PRN (23:30)
[2024-08-20] MEDS ORDERED: ONDANSETRON HCL 4 MG/2 ML VIAL IVP PRN (23:30)
[2024-08-20] MEDS: HEPARIN SODIUM,PORCINE 5,000 UNITS/ML VIAL SQ SCH (23:58)
[2024-08-20] MEDS: MethylPREDNISolone SOD SUCC 125 MG/2 ML VIAL IVP SCH (23:58)
[2024-08-21] VITALS (14 sets, daily range): BP systolic 109–121; BP diastolic 74–88; PULSE 81–99; RESP 18–28; TEMP 97.7–98.4; O2SAT 93–100
[2024-08-21] MEDS: IPRATROPIUM BROMIDE 0.5 MG/2.5 ML NEB SOLUTION NEB SCH (04:29)
[2024-08-21] MEDS: ALBUTEROL SULFATE 2.5 MG/0.5 ML NEB SOLUTION NEB SCH (04:29)
[2024-08-21] MEDS: DOCUSATE SODIUM 100 MG CAPSULE PO SCH (08:45)
[2024-08-21] MEDS: METOPROLOL SUCCINATE 25 MG ER TABLET PO SCH (08:45)
[2024-08-21] MEDS: FUROSEMIDE 20 MG/2 ML VIAL IVP SCH (08:45)
[2024-08-21] MEDS: ASPIRIN 81 MG DR TABLET PO SCH (08:46)
[2024-08-21] MEDS: CARVEDILOL 3.125 MG TABLET PO SCH (08:46)
[2024-08-21] MEDS: PANTOPRAZOLE SODIUM 40 MG DR TABLET PO SCH (08:46)
[2024-08-21] MEDS: ALBUTEROL SULFATE 2.5 MG/0.5 ML NEB SOLUTION NEB PRN (14:22)
[2024-08-21] MEDS: IPRATROPIUM BROMIDE 0.5 MG/2.5 ML NEB SOLUTION NEB PRN (14:22)
[2024-08-21] MEDS: ZOLPIDEM TARTRATE 5 MG TABLET PO PRN (20:20)
[2024-08-22] VITALS (10 sets, daily range): BP systolic 108–123; BP diastolic 74–83; PULSE 70–90; RESP 18–23; TEMP 97.9–98.4; O2SAT 94–99
[2024-08-22 07:42] LABS: BASOPHILS % (AUTO) 0.1 % (0.0-2.0); EOSINOPHILS % (AUTO) 0 % (1.0-6.0); HEMOGLOBIN 11.6 g/dL (13.5-17.5); LYMPHOCYTES # (AUTO) 0.2 K/uL (1.0-4.8); LYMPHOCYTES % (AUTO) 1.6 % (22.0-44.0); MEAN CORPUSCULAR HEMOGLOBIN 27.9 pg (26.0-34.0); MEAN CORPUSCULAR HGB CONC 31.3 G/dL (31.0-37.0); MEAN CORPUSCULAR VOLUME 89 fL (80-100); MONOCYTES % (AUTO) 6.9 % (2.0-9.0); NEUTROPHILS # (AUTO) 13.2 K/uL (1.8-7.7); PLATELET COUNT (AUTO) 290 K/uL (150-450); RED BLOOD CELL COUNT(AUTO) 4.15 MIL/uL (4.50-5.90); RED CELL DISTRIBUTION WIDTH 16.4 % (11.5-14.5); WHITE BLOOD COUNT (AUTO) 14.5 K/uL (4.5-11.0)
[2024-08-22 07:45] LABS: NEUTROPHILS % (AUTO) 91.4 % (40.0-70.0)
[2024-08-22 07:54] LABS: CALCIUM, TOTAL 8.5 mg/dL (8.8-10.5); CREATININE 1.36 mg/dL (0.60-1.30); POTASSIUM 3.9 mmol/L (3.5-5.1)
== END 2024-08-22 12:30 | disposition home or self-care (01) | DRG 133 ==
LOC: EMS 11:41 → EDH 23:23 → 5S 08-21 01:17
PROVIDERS: ADMIT Hospitalist; ATTEND Hospitalist
DX: J96.01 Acute respiratory failure with hypoxia (principal); I50.23 Acute on chronic systolic (congestive) heart failure; E44.0 Moderate protein-calorie malnutrition; J44.1 Chronic obstructive pulmonary disease with (acute) exacerbation; J45.901 Unspecified asthma with (acute) exacerbation; I11.0 Hypertensive heart disease with heart failure; F15.90 Other stimulant use, unspecified, uncomplicated; N28.9 Disorder of kidney and ureter, unspecified; F17.210 Nicotine dependence, cigarettes, uncomplicated; F32.A Depression, unspecified; F41.9 Anxiety disorder, unspecified; Z83.3 Family history of diabetes mellitus; Z91.199 Patient's noncompliance with other medical treatment and regimen due to unspecified reason; Z82.49 Family history of ischemic heart disease and other diseases of the circulatory system; Z68.1 Body mass index [BMI] 19.9 or less, adult
CPT/HCPCS: 71045; 80048; 83880; 84484; 85025; 93005; 94640; 94644; 99291; G0378; J1644; J1940; J2919; 36415-L1; 36415-TC; J7613

== ENCOUNTER 2024-08-27 21:05 | Emergency (ER) | payer MEDICAID ==
[~2024-08-27] VITALS: Ht 167.6 cm; Wt 52.3 kg
[~2024-08-27 21:05] MED LIST changes: -CARV3 PO; -PRED-554 PO
[2024-08-27 21:14] VITALS: TEMP 98
[2024-08-27 21:58] LABS: HEMATOCRIT 36.4 % (41-53); HEMOGLOBIN 11.4 g/dL (13.5-17.5); MEAN CORPUSCULAR HEMOGLOBIN 28.1 pg (26.0-34.0); MEAN CORPUSCULAR HGB CONC 31.4 G/dL (31.0-37.0); MEAN CORPUSCULAR VOLUME 90 fL (80-100); PLATELET COUNT (AUTO) 204 K/uL (150-450); RED BLOOD CELL COUNT(AUTO) 4.07 MIL/uL (4.50-5.90); RED CELL DISTRIBUTION WIDTH 17.1 % (11.5-14.5); WHITE BLOOD COUNT (AUTO) 14.1 K/uL (4.5-11.0)
[2024-08-27 22:05] LABS: ANION GAP -1 mmol/L (8-16); CALCIUM, TOTAL 8.1 mg/dL (8.8-10.5); CARBON DIOXIDE 36 mmol/L (22-29); CHLORIDE 106 mmol/L (98-107); CREATININE 1.09 mg/dL (0.60-1.30); GLOMERULAR FILTR. RATE CALC > 60 mL/min (>60); GLUCOSE,RANDOM 104 mg/dL (70-110); POTASSIUM 4.3 mmol/L (3.5-5.1); SODIUM SERUM 141 mmol/L (136-145); UREA NITROGEN, BLOOD 36 mg/dL (7-18)
[2024-08-27 22:12] LABS: B-TYPE NATRIURETIC PEPTIDE 1090 pg/mL (0-100)
[2024-08-27 22:16] LABS: TROPONIN I-HIGH SENSITIVITY 85 ng/L (<76)
[2024-08-27 22:20] LABS: BAND NEUTROPHILS % (MANUAL) 9 % (0-5); EOSINOPHILS % (MANUAL) 1 % (1-6); LYMPHOCYTES % (MANUAL) 6 % (22-44); MONOCYTES % (MANUAL) 6 % (2-9); SEGMENTED NEUTROPHILS % 78 % (40-70); TOTAL CELLS COUNTED 100
[2024-08-27] MEDS: PredniSONE 20 MG TABLET PO ONE (23:27)
[2024-08-28] MEDS ORDERED: PRED-554 PO (00:24)
[2024-08-28] MEDS ORDERED: ALBU18HF12 IH (00:24)
[2024-08-28 00:59] VITALS: BP 127/81; PULSE 106; RESP 17; O2SAT 98
== END 2024-08-28 01:11 | disposition home or self-care (01) ==
LOC: EMS 21:16
DX: J44.89 Other specified chronic obstructive pulmonary disease (principal); I11.0 Hypertensive heart disease with heart failure; I50.9 Heart failure, unspecified; F12.90 Cannabis use, unspecified, uncomplicated; F17.210 Nicotine dependence, cigarettes, uncomplicated; Z79.51 Long term (current) use of inhaled steroids; Z79.82 Long term (current) use of aspirin; Z79.899 Other long term (current) drug therapy
CPT/HCPCS: 99285; 71045; 80048; 83880; 84484; 85025; 36415; 93005; J7512

== ENCOUNTER 2024-09-02 16:14 | Emergency (ER) | payer MEDICAID ==
[~2024-09-02] VITALS: Ht 152.4 cm; Wt 54.5 kg
[~2024-09-02 16:14] MED LIST changes: +PRED-554 PO
[2024-09-02] MEDS ORDERED: 0.9% SODIUM CHLORIDE 15 ML NEB SOLUTION NEB ONE (16:45)
[2024-09-02] MEDS: IPRATROPIUM BROMIDE 0.5 MG/2.5 ML NEB SOLUTION NEB ONE ×2 (16:51→21:30)
[2024-09-02 16:52] VITALS: PULSE 103; RESP 32; O2SAT 99
[2024-09-02] MEDS: ALBUTEROL SULFATE 2.5 MG/0.5 ML 5 ML NEB SOLUTION NEB ONE (16:52)
[2024-09-02 17:59] VITALS: TEMP 98.3
[2024-09-02] MEDS: PredniSONE 20 MG TABLET PO ONE (21:03)
[2024-09-02 21:30] VITALS: PULSE 101; RESP 22; RESP 24; O2SAT 94; O2SAT 97
[2024-09-02] MEDS: ALBUTEROL SULFATE 2.5 MG/0.5 ML NEB SOLUTION NEB ONE (21:30)
[2024-09-02 21:43] VITALS: PULSE 106; RESP 22; O2SAT 100
[2024-09-02 21:50] VITALS: BP 119/85; PULSE 100; RESP 22; O2SAT 94
[2024-09-02] MEDS: ALBUTEROL SULFATE HFA 90 MCG/PUFF 8 GM INHALER IH ONE (22:57)
== END 2024-09-02 23:34 | disposition home or self-care (01) ==
LOC: EMS 16:14
DX: J44.1 Chronic obstructive pulmonary disease with (acute) exacerbation (principal); F15.10 Other stimulant abuse, uncomplicated; I11.0 Hypertensive heart disease with heart failure; I50.9 Heart failure, unspecified; F12.90 Cannabis use, unspecified, uncomplicated; F17.210 Nicotine dependence, cigarettes, uncomplicated; Z79.51 Long term (current) use of inhaled steroids; Z79.52 Long term (current) use of systemic steroids; Z79.82 Long term (current) use of aspirin; Z79.899 Other long term (current) drug therapy
CPT/HCPCS: 99284; 94640; J7512; J3535; 94644

== ENCOUNTER 2024-09-03 23:00 | Emergency (ER) | payer MEDICAID ==
[~2024-09-03] VITALS: Ht 160 cm; Wt 54.5 kg
[2024-09-03 23:07] VITALS: BP 109/82; PULSE 109; RESP 20; TEMP 98.6; O2SAT 94
[2024-09-04 02:18] LABS: BASOPHILS % (AUTO) 0.3 % (0.0-2.0); EOSINOPHILS % (AUTO) 0.1 % (1.0-6.0); HEMOGLOBIN 11.9 g/dL (13.5-17.5); LYMPHOCYTES # (AUTO) 0.6 K/uL (1.0-4.8); LYMPHOCYTES % (AUTO) 4.3 % (22.0-44.0); MEAN CORPUSCULAR HEMOGLOBIN 28.2 pg (26.0-34.0); MEAN CORPUSCULAR HGB CONC 31.2 G/dL (31.0-37.0); MEAN CORPUSCULAR VOLUME 90 fL (80-100); MONOCYTES # (AUTO) 1.1 K/uL (0.1-1.0); MONOCYTES % (AUTO) 7.9 % (2.0-9.0); PLATELET COUNT (AUTO) 227 K/uL (150-450); RED BLOOD CELL COUNT(AUTO) 4.21 MIL/uL (4.50-5.90); RED CELL DISTRIBUTION WIDTH 18.1 % (11.5-14.5); WHITE BLOOD COUNT (AUTO) 13.7 K/uL (4.5-11.0)
[2024-09-04 02:23] LABS: NEUTROPHILS % (AUTO) 87.4 % (40.0-70.0)
[2024-09-04 02:58] LABS: CALCIUM, TOTAL 8.6 mg/dL (8.8-10.5); CREATININE 1.36 mg/dL (0.60-1.30); POTASSIUM 4.5 mmol/L (3.5-5.1)
== END 2024-09-04 04:01 | disposition home or self-care (01) ==
LOC: EMS 23:02
DX: R60.0 Localized edema (principal); J44.89 Other specified chronic obstructive pulmonary disease; I11.0 Hypertensive heart disease with heart failure; I50.9 Heart failure, unspecified; F12.90 Cannabis use, unspecified, uncomplicated; F17.210 Nicotine dependence, cigarettes, uncomplicated; Z79.52 Long term (current) use of systemic steroids; Z79.82 Long term (current) use of aspirin; Z79.899 Other long term (current) drug therapy
CPT/HCPCS: 80048; 83880; 85025; 99283

== ENCOUNTER → 2024-11-02 | Emergency (ER) | payer MEDICAID ==
[~2024-11-02] VITALS: Ht 160 cm; Wt 54.5 kg
[~2024-11-02] MED LIST changes: +LOSA-381 PO
[2024-11-02 11:27] VITALS: BP 106/75; PULSE 83; RESP 20; TEMP 97.1; O2SAT 96
[2024-11-02] MEDS: ALBUTEROL SULFATE HFA 90 MCG/PUFF 8 GM INHALER IH ONE (13:01)
== END | disposition still patient (30) ==
LOC: EMS 11:12
DX: J44.89 Other specified chronic obstructive pulmonary disease (principal); I11.0 Hypertensive heart disease with heart failure; I50.9 Heart failure, unspecified; F32.A Depression, unspecified; F41.9 Anxiety disorder, unspecified; F12.90 Cannabis use, unspecified, uncomplicated; F17.210 Nicotine dependence, cigarettes, uncomplicated; F15.90 Other stimulant use, unspecified, uncomplicated; Z76.0 Encounter for issue of repeat prescription; Z79.52 Long term (current) use of systemic steroids; Z79.51 Long term (current) use of inhaled steroids; Z95.0 Presence of cardiac pacemaker; Z79.82 Long term (current) use of aspirin; Z79.899 Other long term (current) drug therapy
CPT/HCPCS: 99283; 94640; J3535

== ENCOUNTER 2025-01-06 13:10 | Emergency (ER) | payer MEDICAID ==
[~2025-01-06] VITALS: Ht 160 cm; Wt 54.5 kg
[~2025-01-06 13:10] MED LIST changes: -PRED-554 PO
[2025-01-06 13:15] VITALS: TEMP 97.9
[2025-01-06 13:54] VITALS: BP 121/89; PULSE 77; RESP 19; O2SAT 98
[2025-01-06 14:31] LABS: PLATELET COUNT (AUTO) 258 K/uL (150-450); RED BLOOD CELL COUNT(AUTO) 4.43 MIL/uL (4.50-5.90); RED CELL DISTRIBUTION WIDTH 19.6 % (11.5-14.5); WHITE BLOOD COUNT (AUTO) 6.3 K/uL (4.5-11.0)
[2025-01-06] MEDS: ACETAMINOPHEN 325 MG TABLET PO ONE (14:36)
[2025-01-06 14:38] LABS: CALCIUM, TOTAL 8.4 mg/dL (8.8-10.5); CREATININE 1.50 mg/dL (0.60-1.30); GLOMERULAR FILTR. RATE CALC 47 mL/min (>60); GLUCOSE,RANDOM 95 mg/dL (70-110); SODIUM SERUM 138 mmol/L (136-145); UREA NITROGEN, BLOOD 46 mg/dL (7-18)
[2025-01-06 14:48] LABS: TROPONIN I-HIGH SENSITIVITY 37 ng/L (<76)
[2025-01-06 15:25] LABS: BAND NEUTROPHILS % (MANUAL) 0 % (0-5)
[2025-01-06 15:31] LABS: EOSINOPHILS % (MANUAL) 10 % (1-6); LYMPHOCYTES % (MANUAL) 23 % (22-44); MONOCYTES % (MANUAL) 14 % (2-9); RBC MORPHOLOGY COMMENT ABNORMAL RBC MORPH; SEGMENTED NEUTROPHILS % 53 % (40-70)
== END 2025-01-06 15:30 | disposition home or self-care (01) ==
LOC: EMS 13:10
DX: R06.02 Shortness of breath (principal); R42 Dizziness and giddiness; F41.9 Anxiety disorder, unspecified; J44.89 Other specified chronic obstructive pulmonary disease; I11.0 Hypertensive heart disease with heart failure; I50.9 Heart failure, unspecified; I25.10 Atherosclerotic heart disease of native coronary artery without angina pectoris; F12.90 Cannabis use, unspecified, uncomplicated; F15.90 Other stimulant use, unspecified, uncomplicated; F17.210 Nicotine dependence, cigarettes, uncomplicated; Z95.0 Presence of cardiac pacemaker; Z79.51 Long term (current) use of inhaled steroids; Z79.82 Long term (current) use of aspirin; Z79.899 Other long term (current) drug therapy
CPT/HCPCS: 71045; 80048; 83880; 84484; 85025; 93005; 99285; 36415-L1; 36415-TC

== ENCOUNTER 2025-01-08 08:08 | Emergency (ER) | payer MEDICAID ==
[~2025-01-08] VITALS: Ht 167.6 cm; Wt 54.5 kg
[2025-01-08 08:19] VITALS: TEMP 98.205296
[2025-01-08] MEDS: FLUORESCEIN SODIUM 1 MG STRIP OD ONE (08:43)
[2025-01-08] MEDS: BACITRACIN 28 GM OINTMENT TP ONE (08:45)
[2025-01-08] MEDS: PROPARACAINE HCL 0.5% 15 ML OPHTHALMIC SOLUTION OD ONE (08:46)
[2025-01-08 08:57] VITALS: PULSE 93; RESP 20; O2SAT 98
[2025-01-08] MEDS: ALBUTEROL SULFATE HFA 90 MCG/PUFF 8 GM INHALER IH ONE (08:57)
[2025-01-08] MEDS: DEXTROSE 5% IV ONE (09:19)
[2025-01-08] MEDS: ACYCLOVIR IV ONE (09:19)
[2025-01-08] MEDS: WATER IV ONE (09:19)
[2025-01-08 09:20] LABS: PLATELET COUNT (AUTO) 253 K/uL (150-450); RED BLOOD CELL COUNT(AUTO) 4.57 MIL/uL (4.50-5.90); RED CELL DISTRIBUTION WIDTH 19.9 % (11.5-14.5); WHITE BLOOD COUNT (AUTO) 6.4 K/uL (4.5-11.0)
[2025-01-08 09:24] LABS: CALCIUM, TOTAL 8.8 mg/dL (8.8-10.5); CREATININE 1.68 mg/dL (0.60-1.30); GLOMERULAR FILTR. RATE CALC 41.0 mL/min (>60); GLUCOSE,RANDOM 86.0 mg/dL (70-110); SODIUM SERUM 137.0 mmol/L (136-145); UREA NITROGEN, BLOOD 45.0 mg/dL (7-18)
[2025-01-08 12:00] VITALS: BP 94/62; PULSE 89; RESP 17; O2SAT 96
== END 2025-01-08 12:00 | disposition still patient (30) ==
LOC: EMS 08:08
DX: B02.30 Zoster ocular disease, unspecified (principal); F41.9 Anxiety disorder, unspecified; J44.89 Other specified chronic obstructive pulmonary disease; F32.A Depression, unspecified; I11.0 Hypertensive heart disease with heart failure; I50.9 Heart failure, unspecified; I25.10 Atherosclerotic heart disease of native coronary artery without angina pectoris; F12.90 Cannabis use, unspecified, uncomplicated; F17.210 Nicotine dependence, cigarettes, uncomplicated; F15.90 Other stimulant use, unspecified, uncomplicated; H54.61 Unqualified visual loss, right eye, normal vision left eye; Z79.82 Long term (current) use of aspirin; Z95.0 Presence of cardiac pacemaker; Z79.51 Long term (current) use of inhaled steroids; Z79.899 Other long term (current) drug therapy
CPT/HCPCS: 99285; 96365; 96366; 80048; 85025; 36415; 94640; J0133; J7060; J3535

== ENCOUNTER 2025-01-13 14:20 | Emergency (ER) | payer MEDICAID ==
[~2025-01-13] VITALS: Ht 160 cm; Wt 52.7 kg
[2025-01-13 14:41] VITALS: BP 108/61; PULSE 116; RESP 22; TEMP 97.8; O2SAT 98
== END 2025-01-13 19:15 | disposition left against medical advice (07) ==
LOC: EMS 14:20
DX: B02.9 Zoster without complications (principal); I11.0 Hypertensive heart disease with heart failure; I50.9 Heart failure, unspecified; J44.89 Other specified chronic obstructive pulmonary disease; F41.9 Anxiety disorder, unspecified; F32.A Depression, unspecified; F15.90 Other stimulant use, unspecified, uncomplicated; F12.90 Cannabis use, unspecified, uncomplicated; F17.210 Nicotine dependence, cigarettes, uncomplicated; Z95.0 Presence of cardiac pacemaker; Z79.82 Long term (current) use of aspirin; Z79.51 Long term (current) use of inhaled steroids; Z76.0 Encounter for issue of repeat prescription; Z79.899 Other long term (current) drug therapy
CPT/HCPCS: 99282; Z7502

== ENCOUNTER 2025-01-18 09:12 | Emergency (ER) | payer MEDICAID ==
[~2025-01-18] VITALS: Ht 160 cm; Wt 54.0 kg
[2025-01-18 09:22] VITALS: BP 103/79; PULSE 105; RESP 18; TEMP 98.4; O2SAT 96
== END 2025-01-18 12:44 | disposition home or self-care (01) ==
LOC: EMS 09:13
DX: H53.8 Other visual disturbances (principal); B02.9 Zoster without complications; I11.0 Hypertensive heart disease with heart failure; I50.9 Heart failure, unspecified; J44.89 Other specified chronic obstructive pulmonary disease; F12.90 Cannabis use, unspecified, uncomplicated; F41.9 Anxiety disorder, unspecified; F15.90 Other stimulant use, unspecified, uncomplicated; F17.210 Nicotine dependence, cigarettes, uncomplicated; Z95.0 Presence of cardiac pacemaker; Z79.51 Long term (current) use of inhaled steroids; Z79.899 Other long term (current) drug therapy
CPT/HCPCS: 99282; Z7502

== ENCOUNTER 2025-01-22 09:00 | Emergency (ER) | payer MEDICAID ==
[~2025-01-22] VITALS: Ht 167.6 cm; Wt 54.5 kg
[2025-01-22] MEDS ORDERED: VALA100026 PO (10:29)
[2025-01-22] MEDS ORDERED: ERYT3.5O8 OD (10:29)
[2025-01-22] MEDS ORDERED: ACET-2080 PO (10:29)
[2025-01-22 11:15] VITALS: BP 120/87; PULSE 65; RESP 18; TEMP 98.205296; O2SAT 100
== END 2025-01-22 11:19 | disposition home or self-care (01) ==
LOC: EMS 09:05
DX: B02.30 Zoster ocular disease, unspecified (principal); I11.0 Hypertensive heart disease with heart failure; I50.9 Heart failure, unspecified; J44.89 Other specified chronic obstructive pulmonary disease; F12.90 Cannabis use, unspecified, uncomplicated; F15.90 Other stimulant use, unspecified, uncomplicated; F17.210 Nicotine dependence, cigarettes, uncomplicated; Z79.51 Long term (current) use of inhaled steroids; Z95.0 Presence of cardiac pacemaker; Z99.2 Dependence on renal dialysis; Z79.82 Long term (current) use of aspirin; Z79.899 Other long term (current) drug therapy
CPT/HCPCS: 99283; Z7502

== ENCOUNTER 2025-02-01 02:53 | Emergency (ER) | payer MEDICAID ==
[~2025-02-01] VITALS: Ht 160 cm; Wt 54.5 kg
[~2025-02-01 02:53] MED LIST changes: +ACET-2080 PO; +ERYT3.5O8 OD; +VALA100026 PO
[2025-02-01 03:00] VITALS: BP 99/84; PULSE 79; RESP 16; TEMP 98.2; O2SAT 100
[2025-02-01] MEDS ORDERED: VALA100026 PO (03:44)
[2025-02-01] MEDS ORDERED: TOBR5DRO44 OD (03:44)
== END 2025-02-01 04:30 | disposition home or self-care (01) ==
LOC: EMS 02:53
DX: H10.89 Other conjunctivitis (principal); B02.30 Zoster ocular disease, unspecified; B00.52 Herpesviral keratitis; I11.0 Hypertensive heart disease with heart failure; I50.9 Heart failure, unspecified; J44.89 Other specified chronic obstructive pulmonary disease; F17.210 Nicotine dependence, cigarettes, uncomplicated; F12.90 Cannabis use, unspecified, uncomplicated; F15.90 Other stimulant use, unspecified, uncomplicated; Z79.51 Long term (current) use of inhaled steroids; Z79.624 Long term (current) use of inhibitors of nucleotide synthesis; Z79.82 Long term (current) use of aspirin; Z79.899 Other long term (current) drug therapy
CPT/HCPCS: 99283; Z7502

== ENCOUNTER 2025-02-01 08:03 | Emergency (ER) | payer MEDICAID ==
[~2025-02-01] VITALS: Ht 160 cm; Wt 54.5 kg
[~2025-02-01 08:03] MED LIST changes: +TOBR5DRO44 OD
[2025-02-01 08:08] VITALS: TEMP 97.9
[2025-02-01] MEDS: ALBUTEROL SULFATE 2.5 MG/0.5 ML NEB SOLUTION NEB ONE (08:54)
[2025-02-01 08:55] VITALS: PULSE 99; RESP 18; O2SAT 94; O2SAT 99
[2025-02-01] MEDS: IPRATROPIUM BROMIDE 0.5 MG/2.5 ML NEB SOLUTION NEB ONE (08:55)
[2025-02-01 09:05] VITALS: PULSE 94; RESP 18; O2SAT 97
[2025-02-01 09:27] VITALS: BP 117/74; RESP 20; O2SAT 95
== END 2025-02-01 10:59 | disposition home or self-care (01) ==
LOC: EMS 09:30
DX: J44.1 Chronic obstructive pulmonary disease with (acute) exacerbation (principal); J45.901 Unspecified asthma with (acute) exacerbation; R06.02 Shortness of breath; F15.10 Other stimulant abuse, uncomplicated; F41.9 Anxiety disorder, unspecified; F32.A Depression, unspecified; I11.0 Hypertensive heart disease with heart failure; I50.9 Heart failure, unspecified; F12.90 Cannabis use, unspecified, uncomplicated; F17.210 Nicotine dependence, cigarettes, uncomplicated; Z79.51 Long term (current) use of inhaled steroids; Z79.624 Long term (current) use of inhibitors of nucleotide synthesis; Z95.0 Presence of cardiac pacemaker; Z79.82 Long term (current) use of aspirin; Z79.899 Other long term (current) drug therapy
CPT/HCPCS: 94640; 99283

== ENCOUNTER 2025-02-09 10:35 | Emergency (ER) | payer MEDICAID ==
[~2025-02-09] VITALS: Ht 160 cm; Wt 54.5 kg
[2025-02-09 10:38] VITALS: TEMP 97
[2025-02-09] MEDS ORDERED: 0.9% SODIUM CHLORIDE 5 ML NEB SOLUTION NEB ONE (13:19)
[2025-02-09] MEDS: ALBUTEROL SULFATE 2.5 MG/0.5 ML NEB SOLUTION NEB ONE (13:20)
[2025-02-09] MEDS: BACITRACIN 0.9 GM PACKET OINTMENT TP ONE (13:22)
[2025-02-09 13:23] VITALS: PULSE 92; RESP 20; O2SAT 98
[2025-02-09] MEDS ORDERED: ALBU18HF12 IH (13:29)
[2025-02-09 13:35] VITALS: PULSE 95; RESP 20; O2SAT 100
[2025-02-09] MEDS ORDERED: PERM60CR21 TP (13:40)
[2025-02-09 14:06] VITALS: BP 117/74; PULSE 97; RESP 20; O2SAT 99
== END 2025-02-09 14:15 | disposition home or self-care (01) ==
LOC: EMS 10:40
DX: J44.1 Chronic obstructive pulmonary disease with (acute) exacerbation (principal); B86 Scabies; F12.90 Cannabis use, unspecified, uncomplicated; F15.90 Other stimulant use, unspecified, uncomplicated; F17.210 Nicotine dependence, cigarettes, uncomplicated; I11.0 Hypertensive heart disease with heart failure; I50.9 Heart failure, unspecified; Z76.0 Encounter for issue of repeat prescription; Z79.51 Long term (current) use of inhaled steroids; Z79.624 Long term (current) use of inhibitors of nucleotide synthesis; Z79.82 Long term (current) use of aspirin; Z79.899 Other long term (current) drug therapy; Z95.0 Presence of cardiac pacemaker
CPT/HCPCS: 94640; 99283

== ENCOUNTER 2025-02-15 13:59 | Emergency (ER) | payer MEDICAID ==
[~2025-02-15] VITALS: Ht 160 cm; Wt 54.5 kg
[~2025-02-15 13:59] MED LIST changes: +PERM60CR21 TP
[2025-02-15 14:05] VITALS: BP 121/75; PULSE 95; RESP 18; TEMP 98.1; O2SAT 95
== END 2025-02-15 17:29 | disposition home or self-care (01) ==
LOC: EMS 14:03
DX: J44.89 Other specified chronic obstructive pulmonary disease (principal); I11.0 Hypertensive heart disease with heart failure; I50.9 Heart failure, unspecified; F15.90 Other stimulant use, unspecified, uncomplicated; F17.210 Nicotine dependence, cigarettes, uncomplicated; F12.90 Cannabis use, unspecified, uncomplicated; Z79.51 Long term (current) use of inhaled steroids; Z76.0 Encounter for issue of repeat prescription; Z79.624 Long term (current) use of inhibitors of nucleotide synthesis; Z79.82 Long term (current) use of aspirin; Z79.899 Other long term (current) drug therapy; Z95.0 Presence of cardiac pacemaker
CPT/HCPCS: 99281; 99282; Z7502

== ENCOUNTER 2025-02-16 13:01 | Emergency (ER) | payer MEDICAID ==
[~2025-02-16] VITALS: Ht 182.9 cm; Wt 81.8 kg
[2025-02-16 13:08] VITALS: BP 112/78; PULSE 91; RESP 18; TEMP 98.1; O2SAT 99
== END 2025-02-16 15:44 | disposition home or self-care (01) ==
LOC: EMS 13:05
DX: B02.30 Zoster ocular disease, unspecified (principal); F12.90 Cannabis use, unspecified, uncomplicated; I11.0 Hypertensive heart disease with heart failure; I50.9 Heart failure, unspecified; J44.89 Other specified chronic obstructive pulmonary disease; F17.210 Nicotine dependence, cigarettes, uncomplicated; F15.90 Other stimulant use, unspecified, uncomplicated; Z79.51 Long term (current) use of inhaled steroids; Z79.624 Long term (current) use of inhibitors of nucleotide synthesis; Z79.82 Long term (current) use of aspirin; Z86.19 Personal history of other infectious and parasitic diseases; Z95.0 Presence of cardiac pacemaker; Z79.899 Other long term (current) drug therapy
CPT/HCPCS: 99283; Z7502

== ENCOUNTER 2025-03-01 20:48 | Emergency (ER) | payer MEDICAID ==
[~2025-03-01] VITALS: Ht 160 cm; Wt 54.5 kg
[2025-03-01 21:02] VITALS: BP 115/85; PULSE 95; RESP 18; TEMP 98.1; O2SAT 96
== END 2025-03-02 03:25 | disposition left against medical advice (07) ==
LOC: EMS 20:48
DX: H57.11 Ocular pain, right eye (principal); Z53.21 Procedure and treatment not carried out due to patient leaving prior to being seen by health care provider
CPT/HCPCS: 99281; Z7502

== ENCOUNTER 2025-03-17 08:30 | Emergency (ER) | payer MEDICAID ==
[~2025-03-17] VITALS: Ht 160 cm; Wt 54.5 kg
[2025-03-17 08:36] VITALS: TEMP 98
[2025-03-17 13:00] VITALS: BP 125/86; PULSE 82; RESP 17; O2SAT 98
== END 2025-03-17 13:27 | disposition home or self-care (01) ==
LOC: EMS 08:31
DX: B02.30 Zoster ocular disease, unspecified (principal); J44.89 Other specified chronic obstructive pulmonary disease; F41.9 Anxiety disorder, unspecified; F32.A Depression, unspecified; I11.0 Hypertensive heart disease with heart failure; F17.210 Nicotine dependence, cigarettes, uncomplicated; F15.90 Other stimulant use, unspecified, uncomplicated; F12.90 Cannabis use, unspecified, uncomplicated; Z95.0 Presence of cardiac pacemaker; Z79.51 Long term (current) use of inhaled steroids; Z79.82 Long term (current) use of aspirin; Z79.899 Other long term (current) drug therapy
CPT/HCPCS: 99282; Z7502

== ENCOUNTER 2025-03-24 14:56 | Emergency (ER) | payer MEDICAID ==
[~2025-03-24] VITALS: Ht 160 cm; Wt 54.5 kg
[~2025-03-24 14:56] MED LIST changes: -ACET-2080 PO; -ERYT3.5O8 OD; -PERM60CR21 TP; -TOBR5DRO44 OD; -VALA100026 PO
[2025-03-24 15:00] VITALS: TEMP 97.9
[2025-03-24 15:51] LABS: CALCIUM, TOTAL 9.1 mg/dL (8.8-10.5); CREATININE 1.83 mg/dL (0.60-1.30); GLOMERULAR FILTR. RATE CALC 37 mL/min (>60); GLUCOSE,RANDOM 81 mg/dL (70-110); PLATELET COUNT (AUTO) 325 K/uL (150-450); RED BLOOD CELL COUNT(AUTO) 4.18 MIL/uL (4.50-5.90); RED CELL DISTRIBUTION WIDTH 18.0 % (11.5-14.5); SODIUM SERUM 135 mmol/L (136-145); UREA NITROGEN, BLOOD 30 mg/dL (7-18); WHITE BLOOD COUNT (AUTO) 7.4 K/uL (4.5-11.0)
[2025-03-24 15:59] LABS: TROPONIN I-HIGH SENSITIVITY 61 ng/L (<76)
[2025-03-24 17:00] VITALS: PULSE 95; RESP 20; O2SAT 93
[2025-03-24 17:10] VITALS: PULSE 95; RESP 20; O2SAT 99
[2025-03-24] MEDS: ALBUTEROL SULFATE 2.5 MG/0.5 ML NEB SOLUTION NEB ONE (17:10)
[2025-03-24] MEDS: IPRATROPIUM BROMIDE 0.5 MG/2.5 ML NEB SOLUTION NEB ONE (17:10)
[2025-03-24 17:18] VITALS: BP 120/84; PULSE 90; RESP 20; O2SAT 93
[2025-03-25] MEDS ORDERED: LIDO-57 TP (15:43)
[2025-03-25] MEDS ORDERED: ACET-2247 PO (15:43)
[2025-03-25] MEDS ORDERED: ALBU18HF12 IH (15:54)
== END 2025-03-24 17:19 | disposition home or self-care (01) ==
LOC: EMS 14:56
DX: J44.9 Chronic obstructive pulmonary disease, unspecified (principal); F41.9 Anxiety disorder, unspecified; F32.A Depression, unspecified; J45.909 Unspecified asthma, uncomplicated; I11.0 Hypertensive heart disease with heart failure; F12.90 Cannabis use, unspecified, uncomplicated; F17.210 Nicotine dependence, cigarettes, uncomplicated; F15.90 Other stimulant use, unspecified, uncomplicated; Z79.899 Other long term (current) drug therapy; Z79.82 Long term (current) use of aspirin; Z79.51 Long term (current) use of inhaled steroids
CPT/HCPCS: 71045; 80048; 83880; 84484; 85025; 93005; 94640; 99285; 36415-L1; 36415-TC; J7613

== ENCOUNTER 2025-03-25 13:45 | Emergency (ER) | payer MEDICAID ==
[~2025-03-25] VITALS: Ht 160 cm; Wt 54.5 kg
[2025-03-25 13:51] VITALS: BP 124/84; PULSE 97; RESP 18; TEMP 98.2; O2SAT 98
[2025-03-25] MEDS ORDERED: ACET-2247 PO (15:43)
[2025-03-25] MEDS ORDERED: LIDO-57 TP (15:43)
[2025-03-25] MEDS: LIDOCAINE 5% TRANSDERMAL PATCH TD ONE (15:54)
[2025-03-25] MEDS: ACETAMINOPHEN 500 MG TABLET PO ONE (15:54)
[2025-03-25] MEDS ORDERED: ALBU18HF12 IH (15:54)
== END 2025-03-25 16:00 | disposition home or self-care (01) ==
LOC: EMS 13:48
DX: S39.012A Strain of muscle, fascia and tendon of lower back, initial encounter (principal); F41.9 Anxiety disorder, unspecified; J44.89 Other specified chronic obstructive pulmonary disease; I11.0 Hypertensive heart disease with heart failure; F12.90 Cannabis use, unspecified, uncomplicated; F17.210 Nicotine dependence, cigarettes, uncomplicated; Z79.51 Long term (current) use of inhaled steroids; Z79.82 Long term (current) use of aspirin; Z79.899 Other long term (current) drug therapy; Z95.0 Presence of cardiac pacemaker; X50.0XXA Overexertion from strenuous movement or load, initial encounter; Y93.89 Activity, other specified; Y92.89 Other specified places as the place of occurrence of the external cause; Y99.8 Other external cause status
CPT/HCPCS: 99283

== ENCOUNTER 2025-03-26 13:08 | Emergency (ER) | payer MEDICAID ==
[~2025-03-26] VITALS: Ht 160 cm; Wt 120.0 kg
[~2025-03-26 13:08] MED LIST changes: +ACET-2247 PO; +LIDO-57 TP
[2025-03-26 13:11] VITALS: BP 123/97; PULSE 89; RESP 18; TEMP 97.7; O2SAT 98
== END 2025-03-26 15:03 | disposition left against medical advice (07) ==
LOC: EMS 13:08
DX: F15.10 Other stimulant abuse, uncomplicated (principal); F12.90 Cannabis use, unspecified, uncomplicated; F17.210 Nicotine dependence, cigarettes, uncomplicated; F41.9 Anxiety disorder, unspecified; J44.89 Other specified chronic obstructive pulmonary disease; I11.0 Hypertensive heart disease with heart failure; Z76.0 Encounter for issue of repeat prescription; Z79.51 Long term (current) use of inhaled steroids; Z79.82 Long term (current) use of aspirin; Z79.899 Other long term (current) drug therapy; Z95.0 Presence of cardiac pacemaker
CPT/HCPCS: 99282; Z7502

== ENCOUNTER 2025-03-30 10:50 | Emergency (ER) | payer MEDICAID ==
[~2025-03-30] VITALS: Ht 160 cm; Wt 54.0 kg
[2025-03-30 11:11] VITALS: BP 128/93; PULSE 91; RESP 18; TEMP 99; O2SAT 100
[2025-03-30 14:23] LABS: PLATELET COUNT (AUTO) 336 K/uL (150-450); RED BLOOD CELL COUNT(AUTO) 4.23 MIL/uL (4.50-5.90); RED CELL DISTRIBUTION WIDTH 17.8 % (11.5-14.5); WHITE BLOOD COUNT (AUTO) 5.8 K/uL (4.5-11.0)
[2025-03-30 14:31] LABS: CALCIUM, TOTAL 8.9 mg/dL (8.8-10.5); CREATININE 1.35 mg/dL (0.60-1.30); GLOMERULAR FILTR. RATE CALC 53 mL/min (>60); GLUCOSE,RANDOM 99 mg/dL (70-110); SODIUM SERUM 141 mmol/L (136-145); UREA NITROGEN, BLOOD 29 mg/dL (7-18)
[2025-03-30 14:40] LABS: TROPONIN I-HIGH SENSITIVITY 35 ng/L (<76)
[2025-03-30] MEDS: ACETAMINOPHEN 500 MG TABLET PO ONE (14:49)
== END 2025-03-30 18:26 | disposition home or self-care (01) ==
LOC: EMS 10:52
DX: J44.89 Other specified chronic obstructive pulmonary disease (principal); I11.0 Hypertensive heart disease with heart failure; F12.90 Cannabis use, unspecified, uncomplicated; F15.90 Other stimulant use, unspecified, uncomplicated; F17.210 Nicotine dependence, cigarettes, uncomplicated; F41.9 Anxiety disorder, unspecified; F32.A Depression, unspecified; R51.9 Headache, unspecified; Z79.51 Long term (current) use of inhaled steroids; Z95.0 Presence of cardiac pacemaker; Z79.82 Long term (current) use of aspirin; Z79.899 Other long term (current) drug therapy; W06.XXXA Fall from bed, initial encounter
CPT/HCPCS: 71046; 80048; 84484; 85025; 93005; 99285; 36415-L1; 36415-TC